=== PATIENT | female | born 1965 | race Caucasian/White ===

== ENCOUNTER 2020-10-05 15:41 | Outpatient (REF) | payer MEDICARE, MEDICAID, SELFPAY ==
--- NOTE | 2020-10-05 | MM_ITS ---
EXAMINATION: MM SCREENING DIGITAL BREAST TOMOSYNTHESIS, BILATERAL CLINICAL INFORMATION: Screening. Asymptomatic. The lifetime risk of breast cancer based on the Tyrer-Cuzick Model is 21%. COMPARISON: Mammography: 02/26/2019, 11/28/2017 TECHNIQUE: Digital breast tomosynthesis is performed in both the craniocaudal and mediolateral oblique views along with computer-aided detection (CAD). Synthesized 2D images are generated from the tomosynthesis. Additional left CC, left MLO, right cleavage, and right MLO views are provided. FINDINGS: The breasts are almost entirely fatty (ACR BI-RADS breast composition Category a). There are no significant masses, abnormal calcifications, or other abnormalities. Again, there are multiple dermal calcifications at the bilateral inferior medial breasts. The axilla are unremarkable. No significant changes. MM/MM tomosynthesis screening BI IMPRESSION: No mammographic evidence of malignancy. ASSESSMENT: BI-RADS 2: Benign RECOMMENDATION: 1. Routine annual mammography screening. 2. The lifetime risk of breast cancer based on the Tyrer-Cuzick Model is 21%. Additional annual adjunct screening with breast MRI may be of benefit in women with a risk score of 20% or greater. This patient's information was entered into a reminder system with a target due date for their next mammogram.
== END 2020-10-05 15:42 | disposition home or self-care (01) ==
LOC: HO.MAMMO 15:41
PROVIDERS: PCP Physician Assistant; Visit Provider Physician Assistant
DX: Z12.31 Encounter for screening mammogram for malignant neoplasm of breast (principal)
CPT/HCPCS: 77063; 77067

== ENCOUNTER 2021-02-06 04:18 | Emergency (ER) | payer MEDICARE, MEDICAID, SELFPAY ==
[2021-02-06 04:24] VITALS: BP 160/70; BP 165/77; PULSE 65; PULSE 74; RESP 20; TEMP 36.5; O2SAT 100; O2SAT 98; BMI 45.1
[2021-02-06 04:43] LABS: MANUAL DIFF FLAG NO
[2021-02-06 04:44] LABS: Basophils Percent Auto 0.1 % (0-2); Eosinophils Percent Auto 0.1 % (0-4); Hematocrit 37.3 % (37-47); Hemoglobin 11.9 g/dl (12.0-16.0); Imm Gran Abs Auto 0.03 X10*3/uL (0.00-0.03); Imm Gran Pct Auto 0.4 % (0.0-0.4); Lymphocytes Absolute Auto 0.7 X10*3/uL (1.2-4.9); Lymphocytes Percent Auto 9.1 % (20-40); Mean Corpuscular HGB Conc 31.9 g/dl (31.0-35.0); Mean Corpuscular Hemoglobin 26.1 pg (27.0-33.0); Mean Corpuscular Volume 81.8 fL (80-98); Mean Platelet Volume 9.8 fL (9.4-12.3); Monocytes Absolute Auto 0.3 X10*3/uL (0.1-1.2); Monocytes Percent Auto 3.4 % (2-11); Neutrophils Absolute Auto 6.9 X10*3/uL (2.0-8.3); Neutrophils Percent Auto 86.9 % (45-73); Platelet Count 193 X10*3/uL (160-400); Red Blood Count 4.56 X10*6/uL (4.20-5.50); Red Cell Distribution Width 12.6 % (11.0-16.0)
--- NOTE | 2021-02-06 04:56 | ED_ITS ---
HPI - Nausea/Vomiting/Diarrhea General Chief complaint: Nausea/Vomiting/Diarrhea Stated complaint: N/V X'S 1 DAY,-COVID SYMPT PER EMS Time Seen by Provider: 02/06/21 04:43 Source: patient Mode of arrival: EMS Limitations: no limitations History of Present Illness HPI Narrative: Patient comes emergency room complaining of vomiting. Patient states that she has abdominal migraines, this time it was triggered by paint fumes coming from a neighbor's apartment. Patient denies headache, states she has vomited approximately 30-40 times. States she has abdominal muscular pain from vomiting and dry heaving. No diarrhea. MD elicited complaint: nausea and vomiting Related Data Previous Rx's Medication Instructions Recorded ondansetron HCl [Zofran] 4 mg PO Q6H PRN #14 tab 02/06/21 Allergies Allergy/AdvReac Type Severity Reaction Status Date / Time No Known Allergies Allergy Unverified 02/06/21 04:29 Review of Systems Review of Systems: Constitutional : No Weight loss, No Fever, No Chills, No Night Sweats, No Fatigue, No Malaise ENT/Mouth : No Hearing loss, No Ear Pain, No Nasal Congestion, No Sinus Pain, No Hoarseness, No sore throat, No Rhinorrhea, No Swallowing Difficulty Eyes: No Eye Pain, No Swelling, No Redness, No Foreign Body, No Discharge, No Vision Changes Cardiovascular : No Chest Pain, No SOB, No Dyspnea on Exertion, No Orthopnea, No Edema, No Palpitations Respiratory : No Cough, No Sputum, No Wheezing, No Smoke Exposure, No Dyspnea Gastrointestinal : Complaining of nausea and vomiting, no diarrhea, no constipation, complaining of muscular pain lower quadrants from vomiting and dry heaving. Denies rectal bleeding, bloody stool or black stool Genitourinary : no irregular bleeding, No Dysuria, No Urinary Frequency, No Hematuria, No Urinary Incontinence, No Urgency, No Flank Pain, No Urinary Flow Changes, No Hesitancy Musculoskeletal : No joint pain, No Myalgias, No Joint Swelling, complaining of chronic back pain but nothing new Skin : No Skin Lesions, No rash Neuro : No Weakness, No Numbness, No Paresthesias, No Loss of Consciousness, No Dizziness, No Headache Psych : No Anxiety/Panic, No Depression, No SI/HI/AH/VH, No Social Issues, Heme/Lymph: No Bruising, No Bleeding,No Lymphadenopathy Endocrine : No Polyuria, No Polydipsia, No Temperature Intolerance PMFSH Past Medical History Medical History DDD (degenerative disc disease) Hyperlipemia Migraines Surgical History H/O thyroidectomy Social History Social History Advance Directives: No Physical Exam Vital Signs: Vital Signs: Last Vital Signs Temp 97.7 F 02/06/21 04:24 Pulse 72 02/06/21 07:24 Resp 16 02/06/21 07:24 BP 119/47 L 02/06/21 07:24 Pulse Ox 95 02/06/21 07:24 Body Mass Index 45.1 Appearance: Alert. Oriented X3. No acute distress. Eyes: Pupils equal, round and reactive to light. ENT: Pharynx normal. Neck: Normal inspection. Neck supple. No lymph nodes noted. No crepitus CVS: Normal heart rate and rhythm. Pulses normal. Normal S1 and S2 Respiratory: No respiratory distress. Breath sounds normal. No Wheezing. No rales Abdomen: Soft and nontender. No rigidity. No distention. Not vomiting at this time Skin: Skin warm and dry. Normal skin color. Normal skin turgor. Extremities: No lower extremity edema. No lower extremity edema. No Lacerations. No Rash Neuro: Oriented X 3. No motor deficit. No sensory deficit. Moving all extermities. No slurred speech. Course Course Course Narrative: Patient states that she feels much better now, not having any headaches/abdominal pain nausea or vomiting. MDM - Nausea/Vomiting/Diarrhea Lab Data Result diagrams: 02/06/21 04:37 02/06/21 04:37 Labs: Lab Results 02/06/21 02/06/21 02/06/21 Range/Units 04:37 04:37 06:42 WBC 8.0 (4.8-10.8) X10*3/uL RBC 4.56 (4.20-5.50) X10*6/uL Hgb 11.9 L (12.0-16.0) g/dl Hct 37.3 (37-47) % MCV 81.8 (80-98) fL MCH 26.1 L (27.0-33.0) pg MCHC 31.9 (31.0-35.0) g/dl RDW 12.6 (11.0-16.0) % Plt Count 193 (160-400) X10*3/uL MPV 9.8 (9.4-12.3) fL Immature Gran % (Auto) 0.4 (0.0-0.4) % Neut % (Auto) 86.9 H (45-73) % Lymph % (Auto) 9.1 L (20-40) % [place] % (Auto) 3.4 (2-11) % Eos % (Auto) 0.1 (0-4) % Baso % (Auto) 0.1 (0-2) % Lymph # (Auto) 0.7 L (1.2-4.9) X10*3/uL [place] # (Auto) 0.3 (0.1-1.2) X10*3/uL Eos # (Auto) 0.0 (0.0-0.4) X10*3/uL Baso # (Auto) 0.0 (0.0-0.2) X10*3/uL Abs Immat Gran (auto) 0.03 (0.00-0.03) X10*3/uL Absolute Neuts (auto) 6.9 (2.0-8.3) X10*3/uL Absolute Nucleated RBC 0.000 (0.0-0.012) X10*3/uL Nucleated RBC % (auto) 0.0 (0.0-0.2) /100WBC Sodium 137 (135-145) mmol/L Potassium 4.2 (3.3-5.1) mmol/L Chloride 102 (96-108) mmol/L Carbon Dioxide 25 (22-29) mmol/L Anion Gap 14 (12-20) BUN 17 H (9-16) mg/dL Creatinine 0.89 (0.5-1.4) mg/dL Estim Creat Clear Calc 99.6 Estimated GFR > 60 Random Glucose 158 H (60-115) mg/dL Calcium 9.2 (8.4-10.2) mg/dL Total Bilirubin 1.2 H (0.0-1.0) mg/dL Direct Bilirubin 0.4 (0.0-0.5) mg/dL AST 27 (5-31) U/L ALT 20 (0-31) U/L Alkaline Phosphatase 73 (39-117) U/L Total Protein 7.3 (6.5-8.0) g/dL Albumin 4.3 (3.5-5.0) g/dL Lipase 20 (8-78) U/L Urine Color YELLOW Urine Appearance HAZY Urine pH 7.5 (5.0-8.0) Ur Specific [place] 1.020 (1.005-1.025) Urine Protein NEG (NEG-TRACE) MG/DL Urine Glucose (UA) NEG (NEG) MG/DL Urine Ketones 5 (NEG) MG/DL Urine Blood NEG (NEG) Urine Nitrite NEG (NEG) Ur Leukocyte Esterase 1+ H (NEG) Urine RBC 0 (0) /HPF Urine WBC 1-4 (0-4) /HPF Ur Squamous Epith Cells TRACE /LPF Urine Bacteria TRACE /LPF Urine Mucus TRACE /LPF Discharge Plan Discharge Clinical Impression: Nausea & vomiting Qualifiers: Vomiting type: unspecified Vomiting Intractability: unspecified Qualified Code(s): R11.2 - Nausea with vomiting, unspecified Patient Disposition: Home, Self-Care Instructions: Acute Nausea and Vomiting (ED) Additional Instructions: Please follow-up with your primary care physician tomorrow. If you have any worsening or new symptoms, please return to the emergency room or call 911 Prescriptions: New ondansetron HCl [Zofran] 4 mg tablet 4 mg PO Q6H PRN (Reason: nausea and vomiting) Qty: 14 RF: 0
[2021-02-06] MEDS: 0.9 % Sodium Chloride 1,000 ML 999 ML IVCONT (05:09)
[2021-02-06] MEDS: Metoclopramide HCl 10 MG/2 ML VIAL IVPUSH (05:10)
[2021-02-06] MEDS: LORazepam 2 MG/ML VIAL 1 MG IVPUSH (05:10)
[2021-02-06] MEDS: diphenhydrAMINE HCL 50 MG/ML VIAL 25 MG IVPUSH (05:10)
[2021-02-06 05:15] LABS: Alanine Aminotransferase 20 U/L (0-31); Albumin Level 4.3 g/dL (3.5-5.0); Alkaline Phosphatase 73 U/L (39-117); Anion Gap 14 (12-20); Aspartate Amino Transferase 27 U/L (5-31); Bilirubin Direct 0.4 mg/dL (0.0-0.5); Bilirubin Total 1.2 mg/dL (0.0-1.0); Blood Urea Nitrogen 17 mg/dL (9-16); Calcium 9.2 mg/dL (8.4-10.2); Carbon Dioxide 25 mmol/L (22-29); Chloride 102 mmol/L (96-108); Creatinine Clr Calc Pharmacy 99.6; Estimated Glomerular Filt Rate > 60; Glucose Random 158 mg/dL (60-115); Lipase 20 U/L (8-78); Potassium 4.2 mmol/L (3.3-5.1); Sodium 137 mmol/L (135-145); Total Protein 7.3 g/dL (6.5-8.0)
[2021-02-06 06:04] VITALS: BP 122/60; PULSE 68; RESP 16; O2SAT 96
--- NOTE | 2021-02-06 06:12 | PC.NURSE ---
PT REPORTS HER LOWER ABDOMINAL PAIN HAS IMPROVED FOLLOWING MEDICATION AND FLUIDS. PT WAKES EASILY WHEN RN WALKS INTO ROOM. PT ASKED 3-4 TIMES WHEN SHE NEEDS TO VOID, TO HIT CALL RAMEY SO WE CAN COLLECT SAMPLE.
[2021-02-06 06:49] LABS: Glucose Urine UA NEG (NEG); Leukocyte Esterase Urine 1+ (NEG); Nitrite Urine NEG (NEG); PH 7.5 (5.0-8.0); UACC Culture Trigger YES; Urine Blood NEG (NEG); Urine Ketones 5 MG/DL (NEG); Urine Protein NEG (NEG-TRACE)
[2021-02-06 06:50] LABS: Appearance Urine HAZY; Color Urine YELLOW
[2021-02-06 06:57] LABS: Bacteria Urine TRACE /LPF; RBC Urine 0 /HPF (0); Squamous Epithelial Cell Urine TRACE /LPF
[2021-02-06 06:58] LABS: Mucus Urine TRACE /LPF
[2021-02-06 07:24] VITALS: BP 119/47; PULSE 72; RESP 16; O2SAT 95
== END 2021-02-06 08:25 | disposition home or self-care (01) ==
PROVIDERS: Emergency Provider Emergency Medicine
DX: R11.2 Nausea with vomiting, unspecified (principal); Z79.899 Other long term (current) drug therapy
CPT/HCPCS: 36415; 80048; 80076; 81001; 81003; 83690; 85025; 87086; 96365; 96375; 99284; J1200; J2060; J2765

== ENCOUNTER 2021-02-21 11:35 | Outpatient (REF) | payer MEDICARE, MEDICAID, SELFPAY ==
[2021-02-21 14:43] LABS: Cholesterol 166 mg/dL; HDL Cholesterol 56 mg/dL; Iron 49 mcg/dL (30-160); LDL Cholesterol Calculated 90 mg/dl; Percent Iron Saturation 13 % (15-50); Total Iron Binding Capacity 372 mcg/dL (228-428); Triglycerides 104 mg/dL; Unsaturated Iron Binding 323 ug/dL
[2021-02-21 15:05] LABS: Free T4 (Free Thyroxine) 1.11 ng/dL (0.71-1.85); Thyroid Stimulating Hormone 1.35 uIU/mL (0.32-4.0)
== END 2021-02-21 11:36 | disposition home or self-care (01) ==
LOC: HO.10HDL 11:35
PROVIDERS: Visit Provider Physician Assistant
DX: D50.9 Iron deficiency anemia, unspecified (principal); Z13.6 Encounter for screening for cardiovascular disorders
CPT/HCPCS: 36415; 80061; 83540; 84439; 84443

== ENCOUNTER 2021-08-07 12:02 | Emergency (ER) | payer MEDICARE, MEDICAID, SELFPAY ==
[2021-08-07 13:20] VITALS: BP 149/92; PULSE 75; RESP 20; TEMP 37.3; O2SAT 97; BMI 42.7
[2021-08-07 13:57] LABS: COVID-19 Test Negative (Negative)
--- NOTE | 2021-08-07 15:34 | ECG_ITS ---
Test Reason : ABDOMINAL PAIN Blood Pressure : / mmHG Vent. Rate : 064 BPM Atrial Rate : 064 BPM P-R Int : 138 ms QRS Dur : 098 ms QT Int : 454 ms P-R-T Axes : 057 045 045 degrees QTc Int : 468 ms Normal sinus rhythm Normal ECG When compared with ECG of 17-AUG-2018 15:50, No significant change was found Referred By: Jessica Pearl Electronically Signed By:MARTITA HAYDEN
--- NOTE | 2021-08-07 15:37 | ED_ITS ---
HPI - General Adult General Chief complaint: General Medical Stated complaint: weakness, feels dehydrated Time Seen by Provider: 08/07/21 15:11 Source: patient Mode of arrival: ambulatory Limitations: no limitations History of Present Illness HPI narrative: 56 yo female with past medical history of abdominal migraines, HLD, anxiety, depression here with complaints of weakness, feeling dehydrated. Patient tells me she is followed by neurology and is on propanolol as a migraine prevention medication. She normally has a migraine once every few months. She tells me 07/31-08/01 she had a typical migraine for which she contributes as being triggered by stress. She had vomiting associated with this which is also typi phuc. RON resolved but has had intermittent nausea since with poor PO intake. Now she is feeling weak, dehydrated and feels she needs some IV fluids. She denies diarrhea. She has had intermittent abdominal pain and some chills but feels this is also related to her migraine. No neck pain, back pain, fevers, urinary symptoms. Also feeling anxious, depressed last few weeks which also is one of her migraine triggers. NO SI. Has a psychiatrist and therapist. Ativan helps her symptoms. Related Data Previous Rx's Medication Instructions Recorded ondansetron HCl 4 mg tablet 4 mg PO Q6H PRN #14 tab 02/06/21 (Zofran) Allergies Allergy/AdvReac Type Severity Reaction Status Date / Time No Known Allergies Allergy Unverified 02/06/21 04:29 Review of Systems Review of Systems: Yes all other systems are reviewed and are negative Constitutional: Constitutional: Reports no additional constitutional complaints, Reports anorexia, Denies body ache(s), Reports chills, Denies fever(s), Reports headache(s) and Reports weakness Eyes: Eyes: Reports no additional eye complaints and Denies change in vision ENT: Reports system reviewed and no additional complaints, except as documented, Denies dizziness, Reports headache(s), Denies nasal congestion, Denies nasal discharge and Denies neck pain Cardiovascular: Cardiovascular: Reports no additional cardiovascular complaints, Denies chest pain, Denies leg edema and Denies dyspnea Respiratory: Respiratory: Reports no additional respiratory complaints, Denies cough and Denies dyspnea Gastrointestinal: Gastrointestinal: Reports no additional gastrointestinal complaints, Reports abdominal pain, Denies diarrhea, Reports nausea and Reports vomiting Genitourinary: Genitourinary: Reports no additional female genitourinary com plaints and Denies urinary incontinence Musculoskeletal: Musculoskeletal: Reports no additional musculoskeletal complaints, Denies back pain, Denies arthralgias, Denies joint swelling, Denies neck pain, Denies numbness and Denies tingling Integumentary/Breasts: Skin/Breast: Reports system reviewed and no additional complaints, except as docu and Denies rash Neurologic: Reports system reviewed and no additional complaints, except as documented, Denies Abnormal speech present, Denies dizziness, Reports headache(s), Denies numbness, Denies tingling and Reports weakness Psychiatric: Psychiatric: Reports anxiety, Reports depression and Denies suicidal ideation [facility] Past Medical History Attestation statement: The following information was validated with the patient. Source: old records reviewed and nursing notes reviewed Medical History Anxiety DDD (degenerative disc disease) Hyperlipemia Migraines OCD (obsessive compulsive disorder) Surgical History H/O thyroidectomy Social History Social History Advance Directives: No Advance Directives Information Provided: No Physical Exam Vital Signs: Vital Signs: Last Vital Signs Temp 97.8 F 08/07/21 19:30 Pulse 94 08/07/21 21:19 Resp 18 08/07/21 21:19 BP 136/86 08/07/21 21:19 Pulse Ox 97 08/07/21 21:19 Body Mass Index 42.7 Const: General: cooperative and anxious Orientation/consciousness: patient oriented x3 Limitations: no limitations HENMT: Head: Yes normal to inspection Ears: hearing grossly normal bilaterally and TM's normal bilaterally General nose exam: Normal external nose present Face and sinus: Yes normal facial exam Mouth: Normal oral and palatal mucosa present (slightly tacky) Throat: Yes posterior oropharynx nor mal, Yes tonsils normal and Yes uvula midline Eyes: General: appearance normal, both eyes and all related structures Pupils: Equal, round and reactive pupils present Neck: Neck: Yes normal visual inspection, Yes full ROM, Yes no lymphadenopathy and Yes no meningeal signs Chest: Chest palpation & inspection: normal inspection of the chest Resp: Effort & Inspection: normal respiratory effort Auscultation: clear to auscultation bilaterally Cardio: Rate: regular rate Rhythm: regular rhythm Peripheral pulses: Peripheral pulses 2+ throughout GI: Inspection: Yes normal to inspection Palpation (GI): Soft to palpation, Tenderness to palpation present (GI) (diffusely tender ) Negative for with no rebound tenderness and no guarding Auscultation: normal bowel sounds Back/Spine/Pelvis: Thoracic/Lumbar Spine: thoracic and lumbar spine normal to inspection Skin: General skin exam: no rashes or lesions noted Neuro: General: patient oriented x3, no meningeal signs, no focal motor deficits and normal sensation to monofilament Cranial nerves: Yes CN's II-XII intact bilaterally, Yes Equal, round and reactive pupils present, Yes Bilaterally intact EOM present, Yes Nystagmus not present, Yes Normal facial strength present and Yes Midline tongue present Cognition (Neuro): normal cognition Speech: No Abnormal speech present Gait exam (Neuro): Normal gait present Motor exam (neuro): 5/5 motor strength present throughout Sensory Exam: Normal double simultaneous stimulation for sensation Extrem: General: Yes normal to inspection, Yes no pedal edema and Yes no calf tenderness Course Course Course Narrative: 56 yo female with past medical history of anxiety, depression, abdominal migraines, HLD here with complaints of migraine RON last week with associated vomiting, now resolved but feeling weak, tired, dehydrated today. Still having some intermittent nausea, decreased appetite, chills, generalized abdominal cramping. Patient tells me all the above symptoms are typical of her abdominal migraines which is triggered by stress/anxiety/depression. When this happens she goes to the ER and gets some IV fluids, ativan and nausea medications and then goes home. on exam HD stable. Mild diffuse AP but no rebound or guarding. Normal neuro exam. Will check labs, UA, COVID screen, EKG. Will give IV fluids, antiemetic, PPI, ativan and re-assess. 1749-labs are unremarkable. Patient is starting to feel improved. She has not voided yet so we will give her an additional 1 L of fluid. 2129-patient is feeling improved. Repeat abdominal exam is benign. No tenderness on exam. No rebound or guarding. Patient is tolerating p.o. with no vomiting. She is now voiding. She would like to be discharged home. Reviewed worrisome signs and symptoms when to return to the emergency department. Comfortable discharge home. Medical Decision Making MDM Narrative Medical decision making narrative: migraine, viral syndrome Medical Records Medical records reviewed: Yes I reviewed the patient's medical records. Lab Data Lab results reviewed: Yes I reviewed the patient's lab results. Result diagrams: 08/07/21 16:47 08/07/21 16:47 Labs: Lab Results 08/07/21 08/07/21 08/07/21 Range/Units 13:29 16:47 16:47 WBC 7.5 (4.8-10.8) X10*3/uL RBC 5.20 (4.20-5.50) X10*6/uL Hgb 13.7 (12.0-16.0) g/dl Hct 42.1 (37-47) % MCV 81.0 (80-98) fL MCH 26.3 L (27.0-33.0) pg MCHC 32.5 (31.0-35.0) g/dl RDW 13.2 (11.0-16.0) % Plt Count 233 (160-400) X10*3/uL MPV 10.3 (9.4-12.3) fL Immature Gran % (Auto) 0.4 (0.0-0.4) % Neut % (Auto) 76.4 H (45-73) % Lymph % (Auto) 14.8 L (20-40) % [place] % (Auto) 7.7 (2-11) % Eos % (Auto) 0.3 (0-4) % Baso % (Auto) 0.4 (0-2) % Lymph # (Auto) 1.1 L (1.2-4.9) X10*3/uL [place] # (Auto) 0.6 (0.1-1.2) X10*3/uL Eos # (Auto) 0.0 (0.0-0.4) X10*3/uL Baso # (Auto) 0.0 (0.0-0.2) X10*3/uL Abs Immat Gran (auto) 0.03 (0.00-0.03) X10*3/uL Absolute Neuts (auto) 5.7 (2.0-8.3) X10*3/uL Absolute Nucleated RBC 0.000 (0.0-0.012) X10*3/uL Nucleated RBC % (auto) 0.0 (0.0-0.2) /100WBC Sodium 141 (135-145) mmol/L Potassium 4.7 (3.3-5.1) mmol/L Chloride 103 (96-108) mmol/L Carbon Dioxide 26 (22-29) mmol/L Anion Gap 17 (12-20) BUN 14 (9-16) mg/dL Creatinine 1.00 (0.5-1.4) mg/dL Estim Creat Clear Calc 84.9 Estimated GFR 58 Random Glucose 81 (60-115) mg/dL Lactic Acid (0.5-2.0) mmol/L Calcium 10.1 D (8.4-10.2) mg/dL Magnesium 2.0 (1.6-2.6) mg/dL Total Bilirubin 1.5 H (0.0-1.0) mg/dL Direct Bilirubin 0.5 (0.0-0.5) mg/dL AST 25 (5-31) U/L ALT 20 (0-31) U/L Alkaline Phosphatase 71 (39-117) U/L Total Creatine Kinase 103 (26-140) U/L Total Protein 7.5 (6.5-8.0) g/dL Albumin 4.4 (3.5-5.0) g/dL Lipase 31 (8-78) U/L Urine Color Urine Appearance Urine pH (5.0-8.0) Ur Specific [place] (1.005-1.025) Urine Protein (NEG-TRACE) MG/DL Urine Glucose (UA) (NEG) MG/DL Urine Ketones (NEG) MG/DL Urine Blood (NEG) Urine Nitrite (NEG) Ur Leukocyte Esterase (NEG) COVID-19 (JACKLYN) Negative (Negative) COVID-19 Clin Com See Note 08/07/21 08/07/21 Range/Units 16:47 19:32 WBC (4.8-10.8) X10*3/uL RBC (4.20-5.50) X10*6/uL Hgb (12.0-16.0) g/dl Hct (37-47) % MCV (80-98) fL MCH (27.0-33.0) pg MCHC (31.0-35.0) g/dl RDW (11.0-16.0) % Plt Count (160-400) X10*3/uL MPV (9.4-12.3) fL Immature Gran % (Auto) (0.0-0.4) % Neut % (Auto) (45-73) % Lymph % (Auto) (20-40) % [place] % (Auto) (2-11) % Eos % (Auto) (0-4) % Baso % (Auto) (0-2) % Lymph # (Auto) (1.2-4.9) X10*3/uL [place] # (Auto) (0.1-1.2) X10*3/uL Eos # (Auto) (0.0-0.4) X10*3/uL Baso # (Auto) (0.0-0.2) X10*3/uL Abs Immat Gran (auto) (0.00-0.03) X10*3/uL Absolute Neuts (auto) (2.0-8.3) X10*3/uL Absolute Nucleated RBC (0.0-0.012) X10*3/uL Nucleated RBC % (auto) (0.0-0.2) /100WBC Sodium (135-145) mmol/L Potassium (3.3-5.1) mmol/L Chloride (96-108) mmol/L Carbon Dioxide (22-29) mmol/L Anion Gap (12-20) BUN (9-16) mg/dL Creatinine (0.5-1.4) mg/dL Estim Creat Clear Calc Estimated GFR Random Glucose (60-115) mg/dL Lactic Acid 0.9 (0.5-2.0) mmol/L Calcium (8.4-10.2) mg/dL Magnesium (1.6-2.6) mg/dL Total Bilirubin (0.0-1.0) mg/dL Direct Bilirubin (0.0-0.5) mg/dL AST (5-31) U/L ALT (0-31) U/L Alkaline Phosphatase (39-117) U/L Total Creatine Kinase (26-140) U/L Total Protein (6.5-8.0) g/dL Albumin (3.5-5.0) g/dL Lipase (8-78) U/L Urine Color YELLOW Urine Appearance HAZY Urine pH 6.0 (5.0-8.0) Ur Specific [place] >= 1.030 H (1.005-1.025) Urine Protein TRACE (NEG-TRACE) MG/DL Urine Glucose (UA) NEG (NEG) MG/DL Urine Ketones 40 (NEG) MG/DL Urine Blood NEG (NEG) Urine Nitrite NEG (NEG) Ur Leukocyte Esterase NEG (NEG) COVID-19 (JACKLYN) (Negative) COVID-19 Clin Com ECG Data Attestation: I personally reviewed and interpreted this ECG as follows: Interpretation: Normal sinus rhythm with a rate of 64, normal MT, normal QRS, normal QT Discharge Plan Discharge Clinical Impression: Anxiety, Migraine, Nausea, Acute dehydration Patient Disposition: Home, Self-Care Instructions: Dehydration (ED), Migraine Headache (ED) Prescriptions: No Action ondansetron HCl [Zofran] 4 mg tablet 4 mg PO Q6H PRN (Reason: nausea and vomiting) Qty: 14 RF: 0 Referrals: Jocelyn Kiran PA [Primary Care Provider] - 2 days Interventions: ED Discharge Assessment Last Done: 08/07/21 21:19 Discharge Date/Time: 08/07/21 21:22
[2021-08-07] MEDS: 0.9 % Sodium Chloride 1,000 ML 999 ML IV ×2 (16:52→17:55)
[2021-08-07] MEDS: Famotidine/PF 20 MG/2 ML VIAL IVPUSH (16:52)
[2021-08-07] MEDS: ondansetron HCL 4 MG/2 ML VIAL IVPUSH (16:52)
[2021-08-07 16:53] LABS: MANUAL DIFF FLAG NO
[2021-08-07] MEDS: LORazepam 2 MG/ML VIAL 1 MG IVPUSH (16:53)
[2021-08-07 16:55] LABS: Basophils Percent Auto 0.4 % (0-2); Eosinophils Percent Auto 0.3 % (0-4); Hematocrit 42.1 % (37-47); Hemoglobin 13.7 g/dl (12.0-16.0); Imm Gran Abs Auto 0.03 X10*3/uL (0.00-0.03); Imm Gran Pct Auto 0.4 % (0.0-0.4); Lymphocytes Absolute Auto 1.1 X10*3/uL (1.2-4.9); Lymphocytes Percent Auto 14.8 % (20-40); Mean Corpuscular HGB Conc 32.5 g/dl (31.0-35.0); Mean Corpuscular Hemoglobin 26.3 pg (27.0-33.0); Mean Platelet Volume 10.3 fL (9.4-12.3); Monocytes Absolute Auto 0.6 X10*3/uL (0.1-1.2); Monocytes Percent Auto 7.7 % (2-11); Neutrophils Absolute Auto 5.7 X10*3/uL (2.0-8.3); Neutrophils Percent Auto 76.4 % (45-73); Platelet Count 233 X10*3/uL (160-400); Red Cell Distribution Width 13.2 % (11.0-16.0); White Blood Count 7.5 X10*3/uL (4.8-10.8)
[2021-08-07 16:57] VITALS: BP 113/62; PULSE 62; RESP 15; O2SAT 95
[2021-08-07 17:09] LABS: Lactic Acid 0.9 mmol/L (0.5-2.0)
[2021-08-07 17:15] LABS: Alanine Aminotransferase 20 U/L (0-31); Albumin Level 4.4 g/dL (3.5-5.0); Alkaline Phosphatase 71 U/L (39-117); Anion Gap 17 (12-20); Aspartate Amino Transferase 25 U/L (5-31); Bilirubin Direct 0.5 mg/dL (0.0-0.5); Bilirubin Total 1.5 mg/dL (0.0-1.0); Blood Urea Nitrogen 14 mg/dL (9-16); Calcium 10.1 mg/dL (8.4-10.2); Carbon Dioxide 26 mmol/L (22-29); Chloride 103 mmol/L (96-108); Creatinine Clr Calc Pharmacy 84.9; Estimated Glomerular Filt Rate 58; Glucose Random 81 mg/dL (60-115); Lipase 31 U/L (8-78); Potassium 4.7 mmol/L (3.3-5.1); Sodium 141 mmol/L (135-145); Total Protein 7.5 g/dL (6.5-8.0)
[2021-08-07 19:00] VITALS: BP 136/40; PULSE 63; RESP 15; TEMP 36.6; O2SAT 99
[2021-08-07 19:30] VITALS: BP 136/40; PULSE 67; RESP 16; TEMP 36.6; O2SAT 97
--- NOTE | 2021-08-07 19:37 | PC.NURSE ---
Pt resting on stretcher in NAD, breathing with ease on RA, VSS. Pt aaox4, offers no complaints of pain/discomfort but reports sometimes my stomach gurgles. Pt denies hunger. Pt ambulates to bathroom with steady gait, able to provide a UA. Per Jessica, WATCH CASER there is no need to bladder scan as pt was able to urinate and bladder scanner unable to be located at this time. Pt returned to bed without incidence. Pt denies n/v/d. Pt UA sent to lab for processing. Stretcher low locked, rails raised, call [place] within reach. Awaiting UA results, dispo pending lab results.
[2021-08-07 19:39] LABS: Appearance Urine HAZY; Color Urine YELLOW; Glucose Urine UA NEG (NEG); Leukocyte Esterase Urine NEG (NEG); Nitrite Urine NEG (NEG); Specific Gravity - Urine >= 1.030 (1.005-1.025); Urine Blood NEG (NEG); Urine Ketones 40 MG/DL (NEG); Urine Protein TRACE MG/DL (NEG-TRACE)
[2021-08-07 21:19] VITALS: BP 136/86; PULSE 94; RESP 18; O2SAT 97
== END 2021-08-07 21:22 | disposition home or self-care (01) ==
PROVIDERS: Nurse Practitioner Family; Emergency Provider Emergency Medicine Emergency Medical Services; PCP Physician Assistant
DX: F41.1 Generalized anxiety disorder (principal); F43.0 Acute stress reaction; G43.909 Migraine, unspecified, not intractable, without status migrainosus; E86.0 Dehydration; R11.0 Nausea; Z79.899 Other long term (current) drug therapy; Z20.822 Contact with and (suspected) exposure to COVID-19
CPT/HCPCS: 36415; 51798; 80048; 80076; 81003; 82550; 83605; 83690; 83735; 85025; 87040; 87635; 93005; 96361; 96374; 96375; 99284; J2060; J2405

== ENCOUNTER 2021-10-27 14:05 | Outpatient (REF) | payer MEDICARE, MEDICAID, SELFPAY ==
--- NOTE | ~2021-10-27 | MM_ITS ---
EXAMINATION: MM SCREENING DIGITAL BREAST TOMOSYNTHESIS, BILATERAL CLINICAL INFORMATION: Screening. Asymptomatic. Family history breast cancer, mother. The lifetime risk of breast cancer based on the Tyrer-Cuzick Model is 20%. COMPARISON: Mammography: 10/05/2020, 02/26/2019 TECHNIQUE: Digital breast tomosynthesis is performed in both the craniocaudal and mediolateral oblique views along with computer-aided detection (CAD). Synthesized 2D images are generated from the tomosynthesis. Additional bilateral CC and additional bilateral MLO views are provided. FINDINGS: The breasts are almost entirely fatty (ACR BI-RADS breast composition Category a). There are no significant masses, abnormal calcifications, or other abnormalities. Multiple dermal calcifications are again noted bilateral inferior medial breasts. There are no significant changes. MM/MM tomosynthesis screening BI IMPRESSION: No mammographic evidence of malignancy. ASSESSMENT: BI-RADS 2: Benign RECOMMENDATION: 1. Routine annual mammography screening. 2. The lifetime risk of breast cancer based on the Tyrer-Cuzick Model is 20%. Additional annual adjunct screening with breast MRI may be of benefit in women with a risk score of 20% or greater. This patient's information was entered into a reminder system with a target due date for their next mammogram.
== END 2021-10-27 14:06 | disposition home or self-care (01) ==
LOC: HO.MAMMO 14:05
PROVIDERS: PCP Physician Assistant; Visit Provider Physician Assistant
DX: Z12.31 Encounter for screening mammogram for malignant neoplasm of breast (principal)
CPT/HCPCS: 77063; 77067

== ENCOUNTER 2022-02-23 18:25 | Emergency (ER) | payer MEDICARE, MEDICAID, SELFPAY ==
--- NOTE | ~2022-02-23 | CT_ITS ---
EXAMINATION: CT HEAD WITHOUT CONTRAST CLINICAL INFORMATION: Severe headache COMPARISON: CT head 08/11/2018 TECHNIQUE: Contiguous axial imaging was performed from the skull base to vertex without intravenous administration of contrast. Coronal and sagittal reformatted images are performed at the CT scanner. [This CT examination was performed using dose optimization techniques as appropriate, variously including the following: *Automated exposure control *Adjustment of mA and/or kV according to patient size (this includes techniques or standardized protocols for targeted exams where dose is matched to indication/reason for exam; i.e. extremities or head) *Use of iterative reconstruction technique] DLP: 5.12+680.86 mGy-cm. FINDINGS: There is no evidence of acute intracranial hemorrhage or territorial infarction. No abnormal mass-effect or midline shift is seen. Ferreira to white matter differentiation is well preserved. No extra-axial fluid collections are identified. The ventricles are normal in size. There is no abnormal attenuation within the brain parenchyma. There is no osseous abnormality. The mastoid air cells and visualized portions of the paranasal sinuses are well-aerated. CT/CT head/brain wo con IMPRESSION: No acute intracranial pathology.
--- NOTE | ~2022-02-23 | CT_ITS ---
EXAMINATION: CT CHEST, ABDOMEN AND PELVIS WITH CONTRAST CLINICAL INFORMATION: Cough, left lower quadrant pain COMPARISON: None TECHNIQUE: Multidetector volumetric imaging was performed of the chest, abdomen and pelvis following administration of 100 mL Omnipaque 300 intravenous contrast. Oral contrast was administered. Sagittal and coronal reformatted images were obtained on the technologist's workstation. This CT examination was performed using dose optimization techniques as appropriate, variously including the following: *Automated exposure control *Adjustment of mA and/or kV according to patient size (this includes techniques or standardized protocols for targeted exams where dose is matched to indication/reason for exam; i.e. extremities or head) *Use of iterative reconstruction technique DLP: 1677.77 mGy-cm FINDINGS: CHEST WALL: Unremarkable. ABDOMINAL AND PELVIC WALL: Unremarkable. AXILLA: No lymphadenopathy. MEDIASTINUM: Heart is normal in size. No mediastinal lymphadenopathy. No hilar lymphadenopathy. Status post thyroidectomy. PLEURA: There is no pleural effusion. LIVER AND BILIARY TREE: Unremarkable. GALLBLADDER: Unremarkable PANCREAS: There is infiltrative low attenuation noted in the neck, head, and pancreatic uncinate process of the pancreas. SPLEEN: Unremarkable ADRENAL GLANDS: Unremarkable. KIDNEYS AND URETERS: Benign appearing peripelvic left renal cysts. UPPER GASTROINTESTINAL TRACT: Small hiatal hernia. VASCULAR: Unremarkable. ABDOMINOPELVIC LYMPH NODES: No lymphadenopathy. FREE FLUID: No free fluid. BLADDER: Unremarkable PELVIC VISCERA: Unremarkable LOWER GASTROINTESTINAL TRACT: Large and small bowel are unremarkable. Colonic diverticulosis without evidence of diverticulitis. Normal appendix. OSSEOUS STRUCTURES: Unremarkable. LUNGS: Left lower lobe pulmonary micronodule, 19:294. CT/CT abdomen pelvis w con IMPRESSION: There is infiltrative low attenuation noted in the neck, head, and pancreatic uncinate process of the pancreas and while possibly reflective of infiltrative fatty atrophy, an MR abdomen with and without contrast is recommended to ensure no underlying pancreatic mass. A left lower lobe pulmonary micronodule. Assuming patient has no known history of malignancy, recommend follow-up per Fleischner Society recommendations. According to the UPDATED 2017 Fleischner Society recommendations, the advised followup imaging for solid nodules < 6 mm is: LOW RISK PATIENT: No routine follow up. HIGH RISK PATIENT: Optional CT at 12 months.
--- NOTE | 2022-02-23 18:33 | ED.HA ---
HPI - Headache General Chief Complaint: Headache Stated Complaint: nausea, migraine, cant hold anything down Time Seen by Provider: 02/23/22 18:32 Source: patient Mode of arrival: ambulatory Limitations: no limitations History of Present Illness HPI Narrative: This is a 56-year-old female past medical history significant for abdominal migraines, hyperlipidemia, anxiety, depression, morbid obesity presenting to the emergency department with body aches, weakness, feeling dehydrated, nausea, cough, severe migraine times 3 days worsening. Patient tells me that she has been feeling so weak that she has not gotten out of bed much she tells me she has only been getting out of bed to go to the bathroom. She reports that she has been having a diffuse migraine that is severe in nature, does not feel like her typical. Not accompanied by vision changes or dizziness. She also reports nausea she tells me that she is coughing up/vomiting sputum. She also reports anorexia and tells me she has not been eating or drinking much. She denies chest pain, shortness of breath, vision changes, dizziness, head trauma. MD elicited complaint: headache and migraine Onset (ago): day(s) (3) Onset description: gradually Location: diffuse Severity: severe Exacerbating factors: none Relieving factors: nothing Associated symptoms: none Treatments prior to arrival: none Related Data Previous Rx's Medication Instructions Recorded ondansetron HCl 4 mg tablet 4 mg PO Q6H PRN #14 tab 02/06/21 (Zofran) ondansetron 4 mg disintegrating 4 mg PO ONCE PRN #10 tab 02/23/22 tablet Allergies Allergy/AdvReac Type Severity Reaction Status Date / Time No Known Allergies Allergy Unverified 02/06/21 04:29 Review of Systems Review of Systems: Constitutional : No Weight loss, No Fever, No Chills, No Fatigue, No Malaise ENT/Mouth : No sore throat, No Rhinorrhea Eyes: No Eye Pain, No Swelling, No Redness Cardiovascular : No Chest Pain, No SOB, No Dyspnea on Exertion, No Orthopnea, No Edema, No Palpitations Respiratory : No Cough, No Sputum, No Wheezing Gastrointestinal : + Nausea, + Vomiting, No Diarrhea, No Constipation, No abdominal Pain, No Hematochezia, No Melena Genitourinary : No Dysuria, No Urinary Frequency, No Hematuria, Musculoskeletal : No joint pain, No Myalgias, No Joint Swelling Skin : No Skin Lesions, No rash Neuro : No Weakness, No Numbness, No Dizziness, + Headache Psych : No Anxiety/Panic, No Depression All other systems reviewed and are negative [facility] Past Medical History Attestation statement: The following information was validated with the patient. Source: old records reviewed and nursing notes reviewed Medical History Anxiety DDD (degenerative disc disease) Hyperlipemia Migraines OCD (obsessive compulsive disorder) Surgical History H/O thyroidectomy Social History Social History Advance Directives: No Advance Directives Information Provided: No Patient : No Physical Exam Vital Signs: Vital Signs: Last Vital Signs Temp 98.2 F 02/23/22 19:09 Pulse 76 02/23/22 21:07 Resp 16 02/23/22 21:07 BP 136/53 L 02/23/22 21:07 Pulse Ox 96 02/23/22 21:07 BMI result Body Mass Index 43.8 Vital signs stable Appearance: Alert.? Oriented X3.? No acute distress.? Head: Normocephalic, atraumatic, no step-offs or deformities Eyes: Pupils equal, round and reactive to light.? Extraocular movements intact. ENT: Pharynx normal.? Neck: Normal inspection.? Neck supple.? CVS: Normal heart rate and rhythm.? Pulses normal.? Respiratory: No respiratory distress.? Breath sounds normal.? Abdomen: Soft and nontender.? Skin: Skin warm and dry.? Normal skin color.? Normal skin turgor.? Extremities: No lower extremity edema.? No calf ttp. 5/5 strength to bilateral upper and lower extremities Back: No midline tenderness, no C-spine tenderness, full range of motion, no CVA tenderness bilaterally Neuro: Oriented X 3.? No motor deficit.? No sensory deficit. CN 2-12 intact . Normal sujksr-so-oeuw, odkd-gq-ycys. Course Reevaluation(s) Reevaluation #1: Patient noted to have a slight leukopenia. No acute electrolyte abnormalities requiring intervention. Transaminases slightly elevated. Patient negative for influenza. CT of the head with no intracranial hemorrhage or infarction. No acute findings. CT of the chest abdomen pelvis with infiltrate of low attenuation noted in the neck head and pancreatic uncinate process could reflect infiltrative fatty atrophy however an MR of the abdomen with and without contrast is recommended to ensure no underlying pancreatic masses are present. And a left lower lobe pulmonary micronodule was noted. Urine clean. Chest x-ray not consistent with pneumonia. Patient's cough could be secondary to bronchitis. Headache is likely a migraine/headache unlikely ICH as it was not seen on imaging. Patient also denies dizziness, vision changes. Cerebellar function intact unlikely posterior stroke. Patient's nausea resolved Zofran. Patient's weakness could be secondary to physical deconditioning. Time: 23:12 Reevaluation #2: Her toxicology negative. Time: 23:29 Reevaluation #3: Patient tells me she is feeling better. And she would like to go home. No acute findings on lab work, imaging. I advised her to follow-up with her PCP regarding CT findings on abdomen and pelvis to rule out a mass in the pancreas. Patient denies all constitutional symptoms such as fevers, chills, weight loss, fatigue. I also informed her of the micro nodule. At this time patient will be discharged home with PCP follow-up. Her vital signs are stable. This could be a viral illness. Comfortable with discharge home with PCP follow-up. Time: 00:13 MDM - Headache MDM Narrative Medical decision making narrative: [id number] 56 old female presents with severe migraine, anorexia, nausea, nausea and productive cough x3 days worsening Physical exam benign. Neuro nonfocal. Regular rate rhythm. Lungs clear. Abdomen soft nontender nondistended. Cerebellar function intact normal ghiztz-ws-nobz, wxbo-az-pxzf, normal tandem gait. History and physical examination not consistent with ICH, posterior infarct, stroke. No signs of increased intracranial pressure. Will also rule out pneumonia and intra-abdominal etiologies. Plan at this time is labs, imaging. Will rule out electrolyte abnormalities, ICH. Medical Records Attestation: I reviewed the patient's medical records. Lab Data Attestation: I reviewed the patient's lab results. Result diagrams: 02/23/22 19:34 02/23/22 19:34 Labs: Lab Results 04/08/22 04/08/22 04/08/22 Range/Units 19:34 19:34 19:34 WBC 3.3 L (4.8-10.8) X10*3/uL RBC 5.16 (4.20-5.50) X10*6/uL Hgb 13.3 (12.0-16.0) g/dl Hct 41.4 (37.0-47.0) % MCV 80.2 (80.0-98.0) fL MCH 25.8 L (27.0-33.0) pg MCHC 32.1 (31.0-35.0) g/dl RDW 13.6 (11.0-16.0) % Plt Count 149 L (160-400) X10*3/uL MPV 9.6 (9.4-12.3) fL Immature Gran % (Auto) 0.3 (0.0-0.4) % Neut % (Auto) 64.3 (45-73) % Lymph % (Auto) 21.6 (20-40) % [place] % (Auto) 13.8 H (2-11) % Eos % (Auto) 0.0 (0-4) % Baso % (Auto) 0.0 (0-2) % Lymph # (Auto) 0.7 L (1.2-4.9) X10*3/uL [place] # (Auto) 0.5 (0.1-1.2) X10*3/uL Eos # (Auto) 0.0 (0.0-0.4) X10*3/uL Baso # (Auto) 0.0 (0.0-0.2) X10*3/uL Abs Immat Gran (auto) 0.01 (0.00-0.03) X10*3/uL Absolute Neuts (auto) 2.1 (2.0-8.3) x10*3/uL Absolute Nucleated RBC 0.000 (0.0-0.012) X10*3/uL Nucleated RBC % (auto) 0.0 (0.0-0.2) /100WBC Sodium 137 (135-145) mmol/L Potassium 4.0 (3.3-5.1) mmol/L Chloride 100 (96-108) mmol/L Carbon Dioxide 25 (22-29) mmol/L Anion Gap 16 (12-20) BUN 14 (9-16) mg/dL Creatinine 0.84 (0.5-1.4) mg/dL Estim Creat Clear Calc 99.0 Estimated GFR > 60 Random Glucose 83 (60-115) mg/dL Calcium 8.8 D (8.4-10.2) mg/dL Magnesium 2.2 (1.6-2.6) mg/dL Total Bilirubin 0.8 (0.0-1.0) mg/dL AST 43 H D (5-31) U/L ALT 36 H (0-31) U/L Alkaline Phosphatase 76 (39-117) U/L Total Protein 7.5 (6.5-8.0) g/dL Albumin 4.2 (3.5-5.0) g/dL Urine Color Urine Appearance Urine pH (5.0-8.0) Ur Specific [place] (1.005-1.025) Urine Protein (NEG-TRACE) MG/DL Urine Glucose (UA) (NEG) MG/DL Urine Ketones (NEG) MG/DL Urine Blood (NEG) Urine Nitrite (NEG) Ur Leukocyte Esterase (NEG) Urine Opiates Screen (Not Detect) Urine Fentanyl Screen (Not Detect) Ur Barbiturates Screen (Not Detect) Ur Phencyclidine Scrn (Not Detect) Ur Amphetamines Screen (Not Detect) U Benzodiazepines Scrn (Not Detect) Urine Cocaine Screen (Not Detect) U Marijuana (THC) Screen (Not Detect) Influenza Type A (MELINDA) Negative (Negative) Influenza Type B (MELINDA) Negative (Negative) Influenza A & B Note See Note 02/23/22 02/23/22 Range/Units 22:49 22:49 WBC (4.8-10.8) X10*3/uL RBC (4.20-5.50) X10*6/uL Hgb (12.0-16.0) g/dl Hct (37.0-47.0) % MCV (80.0-98.0) fL MCH (27.0-33.0) pg MCHC (31.0-35.0) g/dl RDW (11.0-16.0) % Plt Count (160-400) X10*3/uL MPV (9.4-12.3) fL Immature Gran % (Auto) (0.0-0.4) % Neut % (Auto) (45-73) % Lymph % (Auto) (20-40) % [place] % (Auto) (2-11) % Eos % (Auto) (0-4) % Baso % (Auto) (0-2) % Lymph # (Auto) (1.2-4.9) X10*3/uL [place] # (Auto) (0.1-1.2) X10*3/uL Eos # (Auto) (0.0-0.4) X10*3/uL Baso # (Auto) (0.0-0.2) X10*3/uL Abs Immat Gran (auto) (0.00-0.03) X10*3/uL Absolute Neuts (auto) (2.0-8.3) x10*3/uL Absolute Nucleated RBC (0.0-0.012) X10*3/uL Nucleated RBC % (auto) (0.0-0.2) /100WBC Sodium (135-145) mmol/L Potassium (3.3-5.1) mmol/L Chloride (96-108) mmol/L Carbon Dioxide (22-29) mmol/L Anion Gap (12-20) BUN (9-16) mg/dL Creatinine (0.5-1.4) mg/dL Estim Creat Clear Calc Estimated GFR Random Glucose (60-115) mg/dL Calcium (8.4-10.2) mg/dL Magnesium (1.6-2.6) mg/dL Total Bilirubin (0.0-1.0) mg/dL AST (5-31) U/L ALT (0-31) U/L Alkaline Phosphatase (39-117) U/L Total Protein (6.5-8.0) g/dL Albumin (3.5-5.0) g/dL Urine Color YELLOW Urine Appearance CLEAR Urine pH 5.5 (5.0-8.0) Ur Specific [place] 1.020 (1.005-1.025) Urine Protein NEG (NEG-TRACE) MG/DL Urine Glucose (UA) NEG (NEG) MG/DL Urine Ketones 40 (NEG) MG/DL Urine Blood NEG (NEG) Urine Nitrite NEG (NEG) Ur Leukocyte Esterase NEG (NEG) Urine Opiates Screen Not Detected (Not Detect) Urine Fentanyl Screen Not Detected (Not Detect) Ur Barbiturates Screen Not Detected (Not Detect) Ur Phencyclidine Scrn Not Detected (Not Detect) Ur Amphetamines Screen Not Detected (Not Detect) U Benzodiazepines Scrn Not Detected (Not Detect) Urine Cocaine Screen Not Detected (Not Detect) U Marijuana (THC) Screen Not Detected (Not Detect) Influenza Type A (MELINDA) (Negative) Influenza Type B (MELINDA) (Negative) Influenza A & B Note Critical Care Time Critical Care Time Critical Care Time: No Discharge Plan Discharge Clinical Impression: Headache, Physical deconditioning, Nausea, Cough, Viral illness Patient Disposition: Home, Self-Care Instructions: Acute Headache (ED), Acute Nausea and Vomiting (ED), Acute Cough (ED) Additional Instructions: Take your medications as prescribed. If you were prescribed antibiotics today, it is important that you take your medication to their entirety, do not skip any doses, do not finish them early. Follow-up with your primary care provider this week. Return to the emergency department with new or worsening symptoms. Such as fevers, chills, chest pain, shortness of breath, nausea, vomiting, dizziness, headache, vision changes, lethargy In case of emergency call 911 Your workup was reassuring. Your head CT was normal. Your labs were also reassuring and there is no acute abnormalities that required intervention. You were negative for the flu. Prescriptions: New ondansetron 4 mg tablet,disintegrating 4 mg PO ONCE PRN (Reason: nausea and vomiting) Qty: 10 0RF No Action ondansetron HCl [Zofran] 4 mg tablet 4 mg PO Q6H PRN (Reason: nausea and vomiting) Qty: 14 0RF Referrals: Jocelyn Kiran PA [Primary Care Provider] - Stand Alone Forms: Work/School Release
[2022-02-23 18:36] VITALS: BP 153/111; PULSE 74; RESP 18; TEMP 36.8; O2SAT 96
[2022-02-23 19:09] VITALS: BP 153/111; BP 158/98; PULSE 83; RESP 18; TEMP 36.8; O2SAT 98; BMI 43.8
[2022-02-23] MEDS: ondansetron HCL 4 MG/2 ML VIAL IVPUSH (19:39)
[2022-02-23] MEDS: 0.9 % Sodium Chloride 1,000 ML 999 ML IV ×2 (19:39→21:30)
[2022-02-23 19:41] LABS: Hematocrit 41.4 % (37.0-47.0); Hemoglobin 13.3 g/dl (12.0-16.0); Imm Gran Abs Auto 0.01 X10*3/uL (0.00-0.03); Imm Gran Pct Auto 0.3 % (0.0-0.4); Lymphocytes Absolute Auto 0.7 X10*3/uL (1.2-4.9); Lymphocytes Percent Auto 21.6 % (20-40); MANUAL DIFF FLAG NO; Mean Corpuscular HGB Conc 32.1 g/dl (31.0-35.0); Mean Corpuscular Hemoglobin 25.8 pg (27.0-33.0); Mean Corpuscular Volume 80.2 fL (80.0-98.0); Mean Platelet Volume 9.6 fL (9.4-12.3); Monocytes Absolute Auto 0.5 X10*3/uL (0.1-1.2); Monocytes Percent Auto 13.8 % (2-11); Neutrophils Absolute Auto 2.1 x10*3/uL (2.0-8.3); Neutrophils Percent Auto 64.3 % (45-73); Platelet Count 149 X10*3/uL (160-400); Red Blood Count 5.16 X10*6/uL (4.20-5.50); Red Cell Distribution Width 13.6 % (11.0-16.0); White Blood Count 3.3 X10*3/uL (4.8-10.8)
[2022-02-23 19:57] LABS: Influenza A Negative (Negative); Influenza B2 Negative (Negative)
[2022-02-23 19:58] LABS: Alanine Aminotransferase 36 U/L (0-31); Albumin Level 4.2 g/dL (3.5-5.0); Alkaline Phosphatase 76 U/L (39-117); Anion Gap 16 (12-20); Aspartate Amino Transferase 43 U/L (5-31); Bilirubin Total 0.8 mg/dL (0.0-1.0); Blood Urea Nitrogen 14 mg/dL (9-16); Calcium 8.8 mg/dL (8.4-10.2); Carbon Dioxide 25 mmol/L (22-29); Chloride 100 mmol/L (96-108); Estimated Glomerular Filt Rate > 60; Glucose Random 83 mg/dL (60-115); Magnesium 2.2 mg/dL (1.6-2.6); Sodium 137 mmol/L (135-145); Total Protein 7.5 g/dL (6.5-8.0)
[2022-02-23] MEDS: LORazepam 2 MG/ML VIAL 0.25 MG IVPUSH (20:16)
[2022-02-23] MEDS: iohexoL 350 MG/ML 100 ML INFUS..BTL IV (20:46)
[2022-02-23 21:07] VITALS: BP 136/53; PULSE 76; RESP 16; O2SAT 96
[2022-02-23] MEDS: diphenhydrAMINE HCL 25 MG TABLET 50 MG PO (21:30)
[2022-02-23 23:03] LABS: Appearance Urine CLEAR; Color Urine YELLOW; Glucose Urine UA NEG (NEG); Leukocyte Esterase Urine NEG (NEG); Nitrite Urine NEG (NEG); PH 5.5 (5.0-8.0); Urine Blood NEG (NEG); Urine Ketones 40 MG/DL (NEG); Urine Protein NEG (NEG-TRACE)
[2022-02-23 23:16] LABS: Amphetamine Screen Urine Not Detected (Not Detect); Barbiturates, Urine Not Detected (Not Detect); Benzodiazepines Screen Urine Not Detected (Not Detect); Cannabinoid Screen Urine Not Detected (Not Detect); Cocaine Screen Urine Not Detected (Not Detect); Fentanyl, urine Not Detected (Not Detect); Opiate Screen Urine Not Detected (Not Detect); Phencyclidine Screen Urine Not Detected (Not Detect)
[2022-02-24 00:39] VITALS: BP 147/65; PULSE 70; RESP 16; O2SAT 95
== END 2022-02-24 01:15 | disposition home or self-care (01) ==
PROVIDERS: Physician Assistant; Emergency Provider Emergency Medicine; PCP Physician Assistant
DX: B34.9 Viral infection, unspecified (principal); G43.909 Migraine, unspecified, not intractable, without status migrainosus; R11.0 Nausea; R50.9 Fever, unspecified; Z20.822 Contact with and (suspected) exposure to COVID-19; Z79.899 Other long term (current) drug therapy
CPT/HCPCS: 36415; 70450; 71260; 74177; 80053; 80307; 81003; 83735; 85025; 87502; 96361; 96374; 96375; 99283; 99284; J2060; J2405; Q0163; Q9967

== ENCOUNTER 2022-02-26 11:51 | Emergency (ER) | payer MEDICARE, MEDICAID, SELFPAY ==
[2022-02-26 11:58] VITALS: BP 150/88; PULSE 67; O2SAT 98
[2022-02-26 12:37] VITALS: BP 141/100; PULSE 109; RESP 19; TEMP 36.8; O2SAT 98
--- NOTE | 2022-02-26 12:44 | ECG_ITS ---
Test Reason : WEAKNESS Blood Pressure : / mmHG Vent. Rate : 099 BPM Atrial Rate : 099 BPM P-R Int : 116 ms QRS Dur : 088 ms QT Int : 370 ms P-R-T Axes : 048 040 035 degrees QTc Int : 474 ms Normal sinus rhythm Normal ECG When compared with ECG of 07-AUG-2021 16:05, Vent. rate has increased BY 35 BPM T wave amplitude has increased in Anterolateral leads Referred By: Generic ED Physician Electronically Signed By:Stanley Peralta
[2022-02-26 13:10] LABS: MANUAL DIFF FLAG NO
[2022-02-26 13:11] LABS: Basophils Percent Auto 0.2 % (0-2); Eosinophils Percent Auto 0.2 % (0-4); Hematocrit 45.7 % (37.0-47.0); Hemoglobin 15.1 g/dl (12.0-16.0); Imm Gran Abs Auto 0.01 X10*3/uL (0.00-0.03); Imm Gran Pct Auto 0.2 % (0.0-0.4); Lymphocytes Absolute Auto 1.1 X10*3/uL (1.2-4.9); Lymphocytes Percent Auto 22.4 % (20-40); Mean Corpuscular Hemoglobin 25.7 pg (27.0-33.0); Mean Corpuscular Volume 77.7 fL (80.0-98.0); Mean Platelet Volume 9.9 fL (9.4-12.3); Monocytes Absolute Auto 0.4 X10*3/uL (0.1-1.2); Monocytes Percent Auto 8.7 % (2-11); Neutrophils Absolute Auto 3.3 x10*3/uL (2.0-8.3); Neutrophils Percent Auto 68.3 % (45-73); Platelet Count 221 X10*3/uL (160-400); Red Blood Count 5.88 X10*6/uL (4.20-5.50); Red Cell Distribution Width 13.3 % (11.0-16.0); White Blood Count 4.8 X10*3/uL (4.8-10.8)
[2022-02-26 13:32] LABS: Alanine Aminotransferase 27 U/L (0-31); Albumin Level 4.5 g/dL (3.5-5.0); Alkaline Phosphatase 67 U/L (39-117); Anion Gap 24 (12-20); Aspartate Amino Transferase 32 U/L (5-31); Bilirubin Direct 0.4 mg/dL (0.0-0.5); Blood Urea Nitrogen 13 mg/dL (9-16); Calcium 9.9 mg/dL (8.4-10.2); Carbon Dioxide 15 mmol/L (22-29); Chloride 102 mmol/L (96-108); Creatinine Clr Calc Pharmacy 138.1; Estimated Glomerular Filt Rate > 60; Glucose Random 124 mg/dL (60-115); Lipase 41 U/L (8-78); Sodium 137 mmol/L (135-145)
[2022-02-26 13:51] LABS: Influenza A PCR NEGATIVE (Negative); Influenza B PCR NEGATIVE (Negative); Resp Syncy Virus RNA Qual PCR NEGATIVE (Negative); SARS COV2 PCR INHOUSE POSITIVE (Negative)
[2022-02-26 14:33] VITALS: BP 132/59; PULSE 113; RESP 22; TEMP 36.8; O2SAT 98
[2022-02-26 14:37] LABS: Glucose, Whole Blood 236 mg/dL (60-115)
--- NOTE | 2022-02-26 16:20 | ED_ITS ---
HPI - Nausea/Vomiting/Diarrhea General Chief complaint: Nausea/Vomiting/Diarrhea Stated complaint: NAUSEA/VOMITING,SEEN RECENTLY FOR SAME PER EMS Time Seen by Provider: 02/26/22 14:50 Source: patient Mode of arrival: ambulatory Limitations: no limitations History of Present Illness HPI Narrative: Patient comes to the emergency room complaining of these days of nausea and vomiting. Patient reports respiratory congestion, denies shortness of breath, complaining of coughing. Patient was in the ED waiting room, having a full-blown panic attack, screaming. Patient was brought back to the ED, patient quickly calmed down. Related Data Previous Rx's Medication Instructions Recorded ondansetron HCl 4 mg tablet 4 mg PO Q6H PRN #14 tab 02/06/21 (Zofran) ondansetron 4 mg disintegrating 4 mg PO ONCE PRN #10 tab 02/23/22 tablet ibuprofen 600 mg tablet 600 mg PO TID PRN #20 tab 02/26/22 ondansetron HCl 4 mg tablet 4 mg PO Q6H PRN #14 tab 02/26/22 Allergies Allergy/AdvReac Type Severity Reaction Status Date / Time No Known Allergies Allergy Unverified 02/06/21 04:29 Review of Systems Review of Systems: Constitutional : No Weight loss, No Fever, No Chills, No Night Sweats, complaining of fatigue and generalized malaise ENT/Mouth : No Hearing loss, No Ear Pain, No Nasal Congestion, No Sinus Pain, No Hoarseness, No sore throat, No Rhinorrhea, No Swallowing Difficulty Eyes: No Eye Pain, No Swelling, No Redness, No Foreign Body, No Discharge, No Vision Changes Cardiovascular : No Chest Pain, No SOB, No Dyspnea on Exertion, No Orthopnea, No Edema, No Palpitations Respiratory : Complaining of cough, no dyspnea Gastrointestinal : Complaining of nausea and vomiting, No Diarrhea, No Constipation, No abdominal Pain, No Hematochezia, No Melena Genitourinary : no irregular bleeding, No Dysuria, No Urinary Frequency, No Hematuria, No Urinary Incontinence, No Urgency, No Flank Pain, No Urinary Flow Changes, No Hesitancy Musculoskeletal : No joint pain, No Myalgias, No Joint Swelling Skin : No Skin Lesions, No rash Neuro : No Weakness, No Numbness, No Paresthesias, No Loss of Consciousness, No Dizziness, No Headache Psych : No Anxiety/Panic, No Depression, No SI/HI/AH/VH, No Social Issues, Heme/Lymph: No Bruising, No Bleeding,No Lymphadenopathy Endocrine : No Polyuria, No Polydipsia, No Temperature Intolerance [facility] Past Medical History Medical History Anxiety DDD (degenerative disc disease) Hyperlipemia Migraines OCD (obsessive compulsive disorder) Surgical History H/O thyroidectomy Social History Social History Advance Directives: No Advance Directives Information Provided: No Physical Exam Vital Signs: Vital Signs: Last Vital Signs Temp 98.2 F 02/26/22 16:58 Pulse 79 02/26/22 18:59 Resp 18 02/26/22 18:59 BP 134/64 02/26/22 18:59 Pulse Ox 97 02/26/22 18:59 BMI result Body Mass Index 0.4 Course Course Course Narrative: I discussed with the patient she tested positive for COVID-19. Patient is not immunized. Patient is getting IV fluids, Zofran for symptomatic relief. Patient has no respiratory distress. Patient received IV fluids, lorazepam, Zofran, ibuprofen. MDM - Nausea/Vomiting/Diarrhea Lab Data Result diagrams: 02/26/22 13:02 02/26/22 13:02 Labs: Lab Results 02/26/22 02/26/22 02/26/22 Range/Units 13:02 13:02 13:02 WBC 4.8 (4.8-10.8) X10*3/uL RBC 5.88 H (4.20-5.50) X10*6/uL Hgb 15.1 (12.0-16.0) g/dl Hct 45.7 (37.0-47.0) % MCV 77.7 L (80.0-98.0) fL MCH 25.7 L (27.0-33.0) pg MCHC 33.0 (31.0-35.0) g/dl RDW 13.3 (11.0-16.0) % Plt Count 221 D (160-400) X10*3/uL MPV 9.9 (9.4-12.3) fL Immature Gran % (Auto) 0.2 (0.0-0.4) % Neut % (Auto) 68.3 (45-73) % Lymph % (Auto) 22.4 (20-40) % [place] % (Auto) 8.7 (2-11) % Eos % (Auto) 0.2 (0-4) % Baso % (Auto) 0.2 (0-2) % Lymph # (Auto) 1.1 L (1.2-4.9) X10*3/uL [place] # (Auto) 0.4 (0.1-1.2) X10*3/uL Eos # (Auto) 0.0 (0.0-0.4) X10*3/uL Baso # (Auto) 0.0 (0.0-0.2) X10*3/uL Abs Immat Gran (auto) 0.01 (0.00-0.03) X10*3/uL Absolute Neuts (auto) 3.3 (2.0-8.3) x10*3/uL Absolute Nucleated RBC 0.000 (0.0-0.012) X10*3/uL Nucleated RBC % (auto) 0.0 (0.0-0.2) /100WBC Sodium 137 (135-145) mmol/L Potassium 4.0 (3.3-5.1) mmol/L Chloride 102 (96-108) mmol/L Carbon Dioxide 15 L (22-29) mmol/L Anion Gap 24 H (12-20) BUN 13 (9-16) mg/dL Creatinine 0.90 (0.5-1.4) mg/dL Estim Creat Clear Calc 138.1 Estimated GFR > 60 POC Glucose (60-115) mg/dL Random Glucose 124 H (60-115) mg/dL Calcium 9.9 D (8.4-10.2) mg/dL Total Bilirubin 1.0 (0.0-1.0) mg/dL Direct Bilirubin 0.4 (0.0-0.5) mg/dL AST 32 H (5-31) U/L ALT 27 (0-31) U/L Alkaline Phosphatase 67 (39-117) U/L Total Protein 8.0 (6.5-8.0) g/dL Albumin 4.5 (3.5-5.0) g/dL Lipase 41 (8-78) U/L Influenza Type A (PCR) NEGATIVE (Negative) Influenza Type B (PCR) NEGATIVE (Negative) RSV RNA Qual (PCR) NEGATIVE (Negative) SARS-CoV-2 RNA (RT-PCR) POSITIVE A (Negative) 02/26/22 Range/Units 14:25 WBC (4.8-10.8) X10*3/uL RBC (4.20-5.50) X10*6/uL Hgb (12.0-16.0) g/dl Hct (37.0-47.0) % MCV (80.0-98.0) fL MCH (27.0-33.0) pg MCHC (31.0-35.0) g/dl RDW (11.0-16.0) % Plt Count (160-400) X10*3/uL MPV (9.4-12.3) fL Immature Gran % (Auto) (0.0-0.4) % Neut % (Auto) (45-73) % Lymph % (Auto) (20-40) % [place] % (Auto) (2-11) % Eos % (Auto) (0-4) % Baso % (Auto) (0-2) % Lymph # (Auto) (1.2-4.9) X10*3/uL [place] # (Auto) (0.1-1.2) X10*3/uL Eos # (Auto) (0.0-0.4) X10*3/uL Baso # (Auto) (0.0-0.2) X10*3/uL Abs Immat Gran (auto) (0.00-0.03) X10*3/uL Absolute Neuts (auto) (2.0-8.3) x10*3/uL Absolute Nucleated RBC (0.0-0.012) X10*3/uL Nucleated RBC % (auto) (0.0-0.2) /100WBC Sodium (135-145) mmol/L Potassium (3.3-5.1) mmol/L Chloride (96-108) mmol/L Carbon Dioxide (22-29) mmol/L Anion Gap (12-20) BUN (9-16) mg/dL Creatinine (0.5-1.4) mg/dL Estim Creat Clear Calc Estimated GFR POC Glucose 236 H (60-115) mg/dL Random Glucose (60-115) mg/dL Calcium (8.4-10.2) mg/dL Total Bilirubin (0.0-1.0) mg/dL Direct Bilirubin (0.0-0.5) mg/dL AST (5-31) U/L ALT (0-31) U/L Alkaline Phosphatase (39-117) U/L Total Protein (6.5-8.0) g/dL Albumin (3.5-5.0) g/dL Lipase (8-78) U/L Influenza Type A (PCR) (Negative) Influenza Type B (PCR) (Negative) RSV RNA Qual (PCR) (Negative) SARS-CoV-2 RNA (RT-PCR) (Negative) Discharge Plan Discharge Clinical Impression: COVID-19, Nausea & vomiting, Anxiety Patient Disposition: Home, Self-Care Instructions: Acute Nausea and Vomiting (ED), Anxiety (ED), COVID-19 (Coronavirus Disease 2019) (ED) Additional Instructions: You Need to quarantine for 7 days. Use her mask if you need to go outside. Please follow-up with your primary care physician tomorrow. If you have any worsening or new symptoms, please return to the emergency room or call 911 Prescriptions: New ibuprofen 600 mg tablet 600 mg PO TID PRN (Reason: fever or pain) Qty: 20 0RF ondansetron HCl 4 mg tablet 4 mg PO Q6H PRN (Reason: nausea and vomiting) Qty: 14 0RF No Action ondansetron HCl [Zofran] 4 mg tablet 4 mg PO Q6H PRN (Reason: nausea and vomiting) Qty: 14 0RF ondansetron 4 mg tablet,disintegrating 4 mg PO ONCE PRN (Reason: nausea and vomiting) Qty: 10 0RF
[2022-02-26 16:58] VITALS: BP 150/68; PULSE 90; RESP 16; TEMP 36.8; O2SAT 97
[2022-02-26 17:11] VITALS: BP 113/53; PULSE 89; RESP 20; O2SAT 97
[2022-02-26] MEDS: ondansetron HCL 4 MG/2 ML VIAL IVPUSH (17:19)
[2022-02-26] MEDS: Ibuprofen 600 MG TABLET PO (17:19)
[2022-02-26] MEDS: 0.9 % Sodium Chloride 1,000 ML 999 ML IVCONT (17:19)
[2022-02-26] MEDS: LORazepam 1 MG TABLET PO (17:20)
--- NOTE | 2022-02-26 18:37 | PC.NURSE ---
PATIENT WAS INCONTINENT OF URINE ,CARE GIVEN GIVEN AND BEDDING CHANGE .
[2022-02-26 18:59] VITALS: BP 134/64; PULSE 79; RESP 18; O2SAT 97
== END 2022-02-26 19:58 | disposition home or self-care (01) ==
PROVIDERS: Emergency Provider Emergency Medicine; PCP Physician Assistant
DX: U07.1 COVID-19 (principal); R11.2 Nausea with vomiting, unspecified; F41.9 Anxiety disorder, unspecified
CPT/HCPCS: 0241U; 36415; 80048; 80076; 82947; 83690; 85025; 93005; 96361; 96374; 99284; 99285; J2405

== ENCOUNTER 2022-08-28 14:29 | Outpatient (REF) | payer MEDICARE, SELFPAY ==
[2022-08-28 18:19] LABS: MANUAL DIFF FLAG NO
[2022-08-28 18:39] LABS: Alanine Aminotransferase 14 U/L (0-31); Albumin Level 4.5 g/dL (3.5-5.0); Alkaline Phosphatase 75 U/L (39-117); Anion Gap 15 (12-20); Aspartate Amino Transferase 24 U/L (5-31); Bilirubin Total 0.8 mg/dL (0.0-1.0); Blood Urea Nitrogen 15 mg/dL (9-16); Calcium 10.2 mg/dL (8.4-10.2); Carbon Dioxide 30 mmol/L (22-29); Chloride 102 mmol/L (96-108); Estimated Glomerular Filt Rate 49; Glucose Random 94 mg/dL (60-115); Sodium 142 mmol/L (135-145); Total Protein 7.7 g/dL (6.5-8.0)
[2022-08-28 18:40] LABS: Basophils Percent Auto 0.5 % (0-2); Eosinophils Absolute Auto 0.1 X10*3/uL (0.0-0.4); Eosinophils Percent Auto 0.7 % (0-4); Hematocrit 40.1 % (37.0-47.0); Hemoglobin 12.7 g/dl (12.0-16.0); Imm Gran Abs Auto 0.02 X10*3/uL (0.00-0.03); Imm Gran Pct Auto 0.2 % (0.0-0.4); Lymphocytes Absolute Auto 1.7 X10*3/uL (1.2-4.9); Lymphocytes Percent Auto 20.7 % (20-40); Mean Corpuscular HGB Conc 31.7 g/dl (31.0-35.0); Mean Corpuscular Hemoglobin 26.2 pg (27.0-33.0); Mean Corpuscular Volume 82.9 fL (80.0-98.0); Mean Platelet Volume 10.6 fL (9.4-12.3); Monocytes Absolute Auto 0.6 X10*3/uL (0.1-1.2); Monocytes Percent Auto 7.4 % (2-11); Neutrophils Absolute Auto 5.6 x10*3/uL (2.0-8.3); Neutrophils Percent Auto 70.5 % (45-73); Platelet Count 253 X10*3/uL (160-400); Red Blood Count 4.84 X10*6/uL (4.20-5.50); Red Cell Distribution Width 13.4 % (11.0-16.0)
[2022-08-28 19:01] LABS: Free T4 (Free Thyroxine) 1.52 ng/dL (0.71-1.85); Thyroid Stimulating Hormone 1.89 uIU/mL (0.32-4.0); Vitamin D 25-OH Total 15.9 ng/mL (>30)
[2022-08-28 19:15] LABS: Folate 14.1 ng/mL (> or = 4.0); Vitamin B12 227 pg/mL (200-900)
[2022-08-29 05:13] LABS: Estimated Average Glucose 108 mg/dL; Hemoglobin A1c % 5.4 %
== END 2022-08-28 14:30 | disposition home or self-care (01) ==
LOC: HO.MANLDS 14:29
PROVIDERS: Visit Provider Physician Assistant
DX: E03.8 Other specified hypothyroidism (principal); E78.2 Mixed hyperlipidemia; K14.8 Other diseases of tongue
CPT/HCPCS: 36415; 80053; 82306; 82607; 82746; 83036; 84439; 84443; 85025; 87102

== ENCOUNTER 2022-08-30 13:30 | Outpatient (REF) | payer MEDICARE, MEDICAID, SELFPAY ==
--- NOTE | ~2022-08-30 | XR_ITS ---
EXAMINATION: XR HIP, LEFT CLINICAL INFORMATION: Left hip pain. Low back pain. COMPARISON: CT dated 02/23/2022. TECHNIQUE: AP view of the pelvis and AP and frog-leg lateral views of the left hip. FINDINGS: Small acetabular osteophytes are evident at both hips. Joint spaces appear relatively well preserved. Mild osteoarthritis is also evident in the SI joints. Pubic symphysis is normal. There is degenerative spondylosis in the lower lumbar spine. Enthesopathic spurring is present at the greater trochanters bilaterally. No fracture or malalignment. At the posterior margin of the left proximal femur along the linea aspera, there is a 1 cm focus of calcific density which likely corresponds to calcific tendinitis at the gluteus enma insertion. Small foci of calcific tendinitis may also be present at the gluteus medius insertions on the greater trochanters. XR/XR hip LT w PEL1V IMPRESSION: 1. Mild osteoarthritis in the hips and SI joints. 2. Probable calcific tendinitis at the posterior cortex of the left proximal femoral diaphysis and at the bilateral greater trochanters. 3. Degenerative spondylosis in the lower lumbar spine.
== END 2022-08-30 13:31 | disposition home or self-care (01) ==
LOC: HO.XRAY 13:30
PROVIDERS: PCP Physician Assistant; Visit Provider Physician Assistant
DX: M25.552 Pain in left hip (principal); M54.59 Other low back pain
CPT/HCPCS: 73502

== ENCOUNTER 2022-10-08 14:20 | Outpatient (REF) | payer MEDICARE, SELFPAY | END 2022-10-08 14:21 | disposition home or self-care (01) | LOC: HO.LAB 14:20 | PROVIDERS: PCP Physician Assistant; Visit Provider Physician Assistant | DX: E55.9 Vitamin D deficiency, unspecified (principal) | CPT/HCPCS: 36415; 82306 ==

== ENCOUNTER 2022-10-30 14:03 | Outpatient (REF) | payer MEDICARE, MEDICAID, SELFPAY ==
--- NOTE | ~2022-10-30 | MM_ITS ---
EXAMINATION: MM SCREENING DIGITAL BREAST TOMOSYNTHESIS, BILATERAL CLINICAL INFORMATION: Screening. Asymptomatic. The lifetime risk of breast cancer based on the Tyrer-Cuzick Model is 19.5%. Additional annual screening with breast MRI may be of benefit in women with a score of 20% or greater. COMPARISON: Mammography: August 27, 2021 and studies dating back to August 10, 2014 TECHNIQUE: Digital breast tomosynthesis is performed in both the craniocaudal and mediolateral oblique views along with computer-aided detection (CAD). Synthesized 2D images are generated from the tomosynthesis. FINDINGS: The breasts are almost entirely fatty (ACR BI-RADS breast composition Category a). There are no significant masses, abnormal calcifications, or other abnormalities. MM/MM tomosynthesis screening BI IMPRESSION: No significant changes from prior exam. ASSESSMENT: BI-RADS 1: Negative RECOMMENDATION: Routine annual mammography screening. This patient's information was entered into a reminder system with a target due date for their next mammogram.
== END 2022-10-30 14:04 | disposition home or self-care (01) ==
LOC: HO.MAMMO 14:03
PROVIDERS: PCP Physician Assistant; Visit Provider Physician Assistant
DX: Z12.31 Encounter for screening mammogram for malignant neoplasm of breast (principal)
CPT/HCPCS: 77063; 77067

== ENCOUNTER 2022-11-26 14:39 | Emergency (ER) | payer MEDICARE, MEDICAID, SELFPAY ==
--- NOTE | ~2022-11-26 | XR_ITS ---
EXAMINATION: XR CHEST CLINICAL INFORMATION: Chest pain COMPARISON: Chest x-ray 04/05/2015 TECHNIQUE: Frontal view of the chest was obtained. FINDINGS: Slight elevation of the left hemidiaphragm. No airspace consolidation. No pleural effusion or pneumothorax. Normal cardiomediastinal silhouette and pulmonary vascularity. No acute osseous abnormality identified. XR/XR chest 1V IMPRESSION: 1. No acute pulmonary process. 2. Slight elevation of the left hemidiaphragm.
[2022-11-26 14:41] VITALS: BP 153/81; PULSE 67; RESP 18; TEMP 36.2; O2SAT 97; BMI 41.9
--- NOTE | 2022-11-26 14:41 | ED.CHESTPAIN ---
HPI - Chest Pain General Chief Complaint: Chest Pain <LAURA Baron - Last Filed: 11/26/22 14:46> Stated Complaint: R side chest pain <LAURA Baron - Last Filed: 11/26/22 14:46> Time Seen by Provider: 11/26/22 16:21 <LAURA Baron - Last Filed: 11/26/22 14:46> Source: patient <Dequan Goncalves MD - Last Filed: 11/26/22 17:25> Mode of arrival: ambulatory <Dequan Goncalves MD - Last Filed: 11/26/22 17:25> Limitations: no limitations <Dequan Goncalves MD - Last Filed: 11/26/22 17:25> History of Present Illness HPI narrative: Patient history of arthritis complaining of right-sided chest pain for last 2 weeks increase movements and palpation no shortness of breath no cough no fever or chills no palpitation patient taking naproxen at home and helping her out <Dequan Goncalves MD - Last Filed: 11/26/22 17:25> Related Data Home Medications: Previous Rx's Medication Instructions Recorded ondansetron HCl 4 mg tablet 4 mg PO Q6H PRN nausea and 02/06/21 (Zofran) vomiting #14 tabs ondansetron 4 mg disintegrating 4 mg PO ONCE PRN nausea and 02/23/22 tablet vomiting #10 tabs ibuprofen 600 mg tablet 600 mg PO TID PRN fever or pain 02/26/22 #20 tabs ondansetron HCl 4 mg tablet 4 mg PO Q6H PRN nausea and 02/26/22 vomiting #14 tabs <LAURA Baron - Last Filed: 11/26/22 14:46> Allergies/Adverse Reactions: Allergies Allergy/AdvReac Type Severity Reaction Status Date / Time No Known Allergies Allergy Unverified 02/06/21 04:29 <LAURA Baron - Last Filed: 11/26/22 14:46> Review of Systems Review of Systems: Yes all other systems are reviewed and are negative <Dequan Goncalves MD - Last Filed: 11/26/22 17:25> PMFSH Past Medical History Medical History: Medical History Anxiety DDD (degenerative disc disease) Hyperlipemia Migraines OCD (obsessive compulsive disorder) <LAURA Baron - Last Filed: 11/26/22 14:46> Surgical History: Surgical History H/O thyroidectomy <LAURA Baron - Last Filed: 11/26/22 14:46> Social History Social History: Social History Advance Directives: No Advance Directives Information Provided: No <LAURA Baron - Last Filed: 11/26/22 14:46> Physical Exam Vital Signs: Vital Signs: Last Vital Signs Temp 97.2 F 11/26/22 14:41 Pulse 67 11/26/22 14:41 Resp 18 11/26/22 14:41 BP 153/81 H 11/26/22 14:41 Pulse Ox 97 11/26/22 14:41 O2 Del Method 11/26/22 14:41 BMI result Body Mass Index 41.9 <LAURA Baron - Last Filed: 11/26/22 14:46> Vital Signs: Last Vital Signs Temp 97.2 F 11/26/22 14:41 Pulse 67 11/26/22 14:41 Resp 18 11/26/22 14:41 BP 153/81 H 11/26/22 14:41 Pulse Ox 97 11/26/22 14:41 O2 Del Method 11/26/22 14:41 BMI result Body Mass Index 41.9 <Dequan Goncalves MD - Last Filed: 11/26/22 17:25> Appearance: Alert. Oriented X3. No acute distress. Eyes: PERRLA, No Nystagmus ENT: Pharynx normal. Oral Mucosa moist Neck: Normal inspection. Neck supple. CVS: Normal heart rate and rhythm. Pulses normal. Right chest wall tenderness Respiratory: No respiratory distress. Equal air entry bilateral, no wheezing/rales/rhonchi Abdomen: Soft and nontender. Bowel sounds are present, no mass palpable, no CVA tenderness Skin: Skin warm and dry. Normal skin color. Normal skin turgor. Extremities: No lower extremity edema. No calf tenderness Neuro: Oriented X 3. No motor deficit. No sensory deficit.No cerebellar signs , cranial nerves II-XII intact <Dequan Goncalves MD - Last Filed: 11/26/22 17:25> Course Course Course Narrative: RME--57yo F w/PMHx anxiety, DDD, HLD, OCD, c/o intermittent chest pain/pressure x2 weeks worsening today. Reports mild pain with deep breathing, and sx worse with stress. Reports increasing stress at home 1 mos, decreased appetite and low energy EKG, Labs, CXR, COVID/Flu ordered <LAURA Baron - Last Filed: 11/26/22 14:46> Medical Decision Making Medical Decision Making [facility] Narrative: Patient atypical right-sided chest pain clinically costochondritis with local tenderness troponin negative EKG without any ischemic changes pain been there for last 2 days discharge patient home advised to continue naproxen and follow with PCP <Dequan Goncalves MD - Last Filed: 11/26/22 17:25> Lab Data [facility] Lab Attestation statement: I reviewed the patient's lab results. <Dequan Goncalves MD - Last Filed: 11/26/22 17:25> Result Diagrams: 11/26/22 15:16 11/26/22 15:16 <LAURA Baron - Last Filed: 11/26/22 14:46> Labs: Lab Results 11/26/22 11/26/22 11/26/22 Range/Units 15:16 15:16 15:16 WBC 6.4 (4.8-10.8) X10*3/uL RBC 4.42 (4.20-5.50) X10*6/uL Hgb 11.5 L (12.0-16.0) g/dl Hct 36.4 L (37.0-47.0) % MCV 82.4 (80.0-98.0) fL MCH 26.0 L (27.0-33.0) pg MCHC 31.6 (31.0-35.0) g/dl RDW 13.0 (11.0-16.0) % Plt Count 211 (160-400) X10*3/uL MPV 10.4 (9.4-12.3) fL Immature Gran % (Auto) 0.3 (0.0-0.4) % Neut % (Auto) 69.2 (45-73) % Lymph % (Auto) 20.8 (20-40) % [place] % (Auto) 7.4 (2-11) % Eos % (Auto) 2.0 (0-4) % Baso % (Auto) 0.3 (0-2) % Lymph # (Auto) 1.3 (1.2-4.9) X10*3/uL [place] # (Auto) 0.5 (0.1-1.2) X10*3/uL Eos # (Auto) 0.1 (0.0-0.4) X10*3/uL Baso # (Auto) 0.0 (0.0-0.2) X10*3/uL Abs Immat Gran (auto) 0.02 (0.00-0.03) X10*3/uL Absolute Neuts (auto) 4.4 (2.0-8.3) x10*3/uL Absolute Nucleated RBC 0.000 (0.0-0.012) X10*3/uL Nucleated RBC % (auto) 0.0 (0.0-0.2) /100WBC Sodium 138 (135-145) mmol/L Potassium 4.6 (3.3-5.1) mmol/L Chloride 107 (96-108) mmol/L Carbon Dioxide 25 (22-29) mmol/L Anion Gap 11 L (12-20) BUN 15 (9-16) mg/dL Creatinine 0.81 (0.5-1.4) mg/dL Estim Creat Clear Calc 102.5 Estimated GFR > 60 Random Glucose 112 (60-115) mg/dL Calcium 9.2 D (8.4-10.2) mg/dL Magnesium 1.9 (1.6-2.6) mg/dL Total Bilirubin 0.5 (0.0-1.0) mg/dL Direct Bilirubin 0.2 (0.0-0.5) mg/dL AST 19 (5-31) U/L ALT 15 (0-31) U/L Alkaline Phosphatase 75 (39-117) U/L Troponin I High Sens < 3.5 (<3.5-17.0) ng/L Total Protein 6.8 (6.5-8.0) g/dL Albumin 4.0 (3.5-5.0) g/dL COVID-19 (JACKLYN) (Negative) COVID-19 Clin Com Influenza Type A (MELINDA) (Negative) Influenza Type B (MELINDA) (Negative) Influenza A & B Note 11/26/22 11/26/22 Range/Units 15:16 15:16 WBC (4.8-10.8) X10*3/uL RBC (4.20-5.50) X10*6/uL Hgb (12.0-16.0) g/dl Hct (37.0-47.0) % MCV (80.0-98.0) fL MCH (27.0-33.0) pg MCHC (31.0-35.0) g/dl RDW (11.0-16.0) % Plt Count (160-400) X10*3/uL MPV (9.4-12.3) fL Immature Gran % (Auto) (0.0-0.4) % Neut % (Auto) (45-73) % Lymph % (Auto) (20-40) % [place] % (Auto) (2-11) % Eos % (Auto) (0-4) % Baso % (Auto) (0-2) % Lymph # (Auto) (1.2-4.9) X10*3/uL [place] # (Auto) (0.1-1.2) X10*3/uL Eos # (Auto) (0.0-0.4) X10*3/uL Baso # (Auto) (0.0-0.2) X10*3/uL Abs Immat Gran (auto) (0.00-0.03) X10*3/uL Absolute Neuts (auto) (2.0-8.3) x10*3/uL Absolute Nucleated RBC (0.0-0.012) X10*3/uL Nucleated RBC % (auto) (0.0-0.2) /100WBC Sodium (135-145) mmol/L Potassium (3.3-5.1) mmol/L Chloride (96-108) mmol/L Carbon Dioxide (22-29) mmol/L Anion Gap (12-20) BUN (9-16) mg/dL Creatinine (0.5-1.4) mg/dL Estim Creat Clear Calc Estimated GFR Random Glucose (60-115) mg/dL Calcium (8.4-10.2) mg/dL Magnesium (1.6-2.6) mg/dL Total Bilirubin (0.0-1.0) mg/dL Direct Bilirubin (0.0-0.5) mg/dL AST (5-31) U/L ALT (0-31) U/L Alkaline Phosphatase (39-117) U/L Troponin I High Sens (<3.5-17.0) ng/L Total Protein (6.5-8.0) g/dL Albumin (3.5-5.0) g/dL COVID-19 (JACKLYN) Negative (Negative) COVID-19 Clin Com See Note Influenza Type A (MELINDA) Negative (Negative) Influenza Type B (MELINDA) Negative (Negative) Influenza A & B Note See Note <LAURA Baron - Last Filed: 11/26/22 14:46> Lab Results 11/26/22 11/26/22 11/26/22 Range/Units 15:16 15:16 15:16 WBC 6.4 (4.8-10.8) X10*3/uL RBC 4.42 (4.20-5.50) X10*6/uL Hgb 11.5 L (12.0-16.0) g/dl Hct 36.4 L (37.0-47.0) % MCV 82.4 (80.0-98.0) fL MCH 26.0 L (27.0-33.0) pg MCHC 31.6 (31.0-35.0) g/dl RDW 13.0 (11.0-16.0) % Plt Count 211 (160-400) X10*3/uL MPV 10.4 (9.4-12.3) fL Immature Gran % (Auto) 0.3 (0.0-0.4) % Neut % (Auto) 69.2 (45-73) % Lymph % (Auto) 20.8 (20-40) % [place] % (Auto) 7.4 (2-11) % Eos % (Auto) 2.0 (0-4) % Baso % (Auto) 0.3 (0-2) % Lymph # (Auto) 1.3 (1.2-4.9) X10*3/uL [place] # (Auto) 0.5 (0.1-1.2) X10*3/uL Eos # (Auto) 0.1 (0.0-0.4) X10*3/uL Baso # (Auto) 0.0 (0.0-0.2) X10*3/uL Abs Immat Gran (auto) 0.02 (0.00-0.03) X10*3/uL Absolute Neuts (auto) 4.4 (2.0-8.3) x10*3/uL Absolute Nucleated RBC 0.000 (0.0-0.012) X10*3/uL Nucleated RBC % (auto) 0.0 (0.0-0.2) /100WBC Sodium 138 (135-145) mmol/L Potassium 4.6 (3.3-5.1) mmol/L Chloride 107 (96-108) mmol/L Carbon Dioxide 25 (22-29) mmol/L Anion Gap 11 L (12-20) BUN 15 (9-16) mg/dL Creatinine 0.81 (0.5-1.4) mg/dL Estim Creat Clear Calc 102.5 Estimated GFR > 60 Random Glucose 112 (60-115) mg/dL Calcium 9.2 D (8.4-10.2) mg/dL Magnesium 1.9 (1.6-2.6) mg/dL Total Bilirubin 0.5 (0.0-1.0) mg/dL Direct Bilirubin 0.2 (0.0-0.5) mg/dL AST 19 (5-31) U/L ALT 15 (0-31) U/L Alkaline Phosphatase 75 (39-117) U/L Troponin I High Sens < 3.5 (<3.5-17.0) ng/L Total Protein 6.8 (6.5-8.0) g/dL Albumin 4.0 (3.5-5.0) g/dL COVID-19 (JACKLYN) (Negative) COVID-19 Clin Com Influenza Type A (MELINDA) (Negative) Influenza Type B (MELINDA) (Negative) Influenza A & B Note 11/26/22 11/26/22 Range/Units 15:16 15:16 WBC (4.8-10.8) X10*3/uL RBC (4.20-5.50) X10*6/uL Hgb (12.0-16.0) g/dl Hct (37.0-47.0) % MCV (80.0-98.0) fL MCH (27.0-33.0) pg MCHC (31.0-35.0) g/dl RDW (11.0-16.0) % Plt Count (160-400) X10*3/uL MPV (9.4-12.3) fL Immature Gran % (Auto) (0.0-0.4) % Neut % (Auto) (45-73) % Lymph % (Auto) (20-40) % [place] % (Auto) (2-11) % Eos % (Auto) (0-4) % Baso % (Auto) (0-2) % Lymph # (Auto) (1.2-4.9) X10*3/uL [place] # (Auto) (0.1-1.2) X10*3/uL Eos # (Auto) (0.0-0.4) X10*3/uL Baso # (Auto) (0.0-0.2) X10*3/uL Abs Immat Gran (auto) (0.00-0.03) X10*3/uL Absolute Neuts (auto) (2.0-8.3) x10*3/uL Absolute Nucleated RBC (0.0-0.012) X10*3/uL Nucleated RBC % (auto) (0.0-0.2) /100WBC Sodium (135-145) mmol/L Potassium (3.3-5.1) mmol/L Chloride (96-108) mmol/L Carbon Dioxide (22-29) mmol/L Anion Gap (12-20) BUN (9-16) mg/dL Creatinine (0.5-1.4) mg/dL Estim Creat Clear Calc Estimated GFR Random Glucose (60-115) mg/dL Calcium (8.4-10.2) mg/dL Magnesium (1.6-2.6) mg/dL Total Bilirubin (0.0-1.0) mg/dL Direct Bilirubin (0.0-0.5) mg/dL AST (5-31) U/L ALT (0-31) U/L Alkaline Phosphatase (39-117) U/L Troponin I High Sens (<3.5-17.0) ng/L Total Protein (6.5-8.0) g/dL Albumin (3.5-5.0) g/dL COVID-19 (JACKLYN) Negative (Negative) COVID-19 Clin Com See Note Influenza Type A (MELINDA) Negative (Negative) Influenza Type B (MELINDA) Negative (Negative) Influenza A & B Note See Note <Dequan Goncalves MD - Last Filed: 11/26/22 17:25> Independent Interpretation I performed an independent interpretation of an: EKG <Dequan Goncalves MD - Last Filed: 11/26/22 17:25> Interpretation: Normal sinus rhythm heart rate 64 beats per minute low-voltage QRS normal interval normal axis acute ST-T changes no acute ischemia <Dequan Goncalves MD - Last Filed: 11/26/22 17:25> Discharge Plan Discharge Clinical Impression: Costalchondritis <LAURA Baron - Last Filed: 11/26/22 14:46> Patient Disposition: Home, Self-Care <LAURA Baron - Last Filed: 11/26/22 14:46> Instructions: Costochondritis (ED) <LAURA Baron - Last Filed: 11/26/22 14:46> Additional Instructions: Your chest pain is from inflammation of the cartilage Continue taking your naproxen for pain Follow with PCP <LAURA Baron - Last Filed: 11/26/22 14:46> Prescriptions: No Action ondansetron HCl [Zofran] 4 mg tablet 4 mg PO Q6H PRN (Reason: nausea and vomiting) Qty: 14 0RF ondansetron 4 mg tablet,disintegrating 4 mg PO ONCE PRN (Reason: nausea and vomiting) Qty: 10 0RF ibuprofen 600 mg tablet 600 mg PO TID PRN (Reason: fever or pain) Qty: 20 0RF ondansetron HCl 4 mg tablet 4 mg PO Q6H PRN (Reason: nausea and vomiting) Qty: 14 0RF <LAURA Baron - Last Filed: 11/26/22 14:46> Interventions: ED Discharge Assessment Last Done: 11/26/22 16:40 <LAURA Baron - Last Filed: 11/26/22 14:46> Discharge Date/Time: 11/26/22 16:41 <LAURA Baron - Last Filed: 11/26/22 14:46>
--- NOTE | 2022-11-26 14:43 | ECG_ITS ---
Test Reason : chest pain Blood Pressure : / mmHG Vent. Rate : 064 BPM Atrial Rate : 064 BPM P-R Int : 142 ms QRS Dur : 096 ms QT Int : 420 ms P-R-T Axes : 049 026 027 degrees QTc Int : 433 ms Normal sinus rhythm Low voltage QRS Borderline ECG When compared with ECG of 26-FEB-2022 12:47, Vent. rate has decreased BY 35 BPM Nonspecific T wave abnormality now evident in Anterior leads Referred By: Paloma Higgins Electronically Signed By:Stanley Peralta
[2022-11-26 15:25] LABS: MANUAL DIFF FLAG NO
[2022-11-26 15:31] LABS: Basophils Percent Auto 0.3 % (0-2); Eosinophils Absolute Auto 0.1 X10*3/uL (0.0-0.4); Hematocrit 36.4 % (37.0-47.0); Hemoglobin 11.5 g/dl (12.0-16.0); Imm Gran Abs Auto 0.02 X10*3/uL (0.00-0.03); Imm Gran Pct Auto 0.3 % (0.0-0.4); Lymphocytes Absolute Auto 1.3 X10*3/uL (1.2-4.9); Lymphocytes Percent Auto 20.8 % (20-40); Mean Corpuscular HGB Conc 31.6 g/dl (31.0-35.0); Mean Corpuscular Volume 82.4 fL (80.0-98.0); Mean Platelet Volume 10.4 fL (9.4-12.3); Monocytes Absolute Auto 0.5 X10*3/uL (0.1-1.2); Monocytes Percent Auto 7.4 % (2-11); Neutrophils Absolute Auto 4.4 x10*3/uL (2.0-8.3); Neutrophils Percent Auto 69.2 % (45-73); Platelet Count 211 X10*3/uL (160-400); Red Blood Count 4.42 X10*6/uL (4.20-5.50); White Blood Count 6.4 X10*3/uL (4.8-10.8)
[2022-11-26 15:39] LABS: COVID-19 Test Negative (Negative); IDNOW Serial# 16C4AD1C; IDNOW Serial# BCCEAD1C
[2022-11-26 15:40] LABS: Influenza A Negative (Negative); Influenza B2 Negative (Negative)
[2022-11-26 15:48] LABS: Alanine Aminotransferase 15 U/L (0-31); Alkaline Phosphatase 75 U/L (39-117); Anion Gap 11 (12-20); Aspartate Amino Transferase 19 U/L (5-31); Bilirubin Direct 0.2 mg/dL (0.0-0.5); Bilirubin Total 0.5 mg/dL (0.0-1.0); Blood Urea Nitrogen 15 mg/dL (9-16); Calcium 9.2 mg/dL (8.4-10.2); Carbon Dioxide 25 mmol/L (22-29); Chloride 107 mmol/L (96-108); Creatinine Clr Calc Pharmacy 102.5; Estimated Glomerular Filt Rate > 60; Glucose Random 112 mg/dL (60-115); Magnesium 1.9 mg/dL (1.6-2.6); Potassium 4.6 mmol/L (3.3-5.1); Sodium 138 mmol/L (135-145); Total Protein 6.8 g/dL (6.5-8.0)
[2022-11-26 15:52] LABS: Troponin-I High Sensitivity < 3.5 ng/L (<3.5-17.0)
== END 2022-11-26 16:41 | disposition home or self-care (01) ==
PROVIDERS: Physician Assistant; Emergency Provider Internal Medicine; PCP Physician Assistant
DX: M94.0 Chondrocostal junction syndrome [Tietze] (principal); Z20.822 Contact with and (suspected) exposure to COVID-19
CPT/HCPCS: 71045; 80048; 80076; 83735; 84484; 85025; 87502; 87635; 93005; 99283

== ENCOUNTER 2022-12-17 21:05 | Emergency (ER) | payer MEDICARE, MEDICAID, SELFPAY ==
--- NOTE | ~2022-12-17 | CT_ITS ---
EXAMINATION: CT ABDOMEN AND PELVIS WITH CONTRAST CLINICAL INFORMATION: Nausea/vomiting COMPARISON: 02/23/2022 TECHNIQUE: Multidetector volumetric images were obtained from the superior aspect of the liver through the pubic symphysis following administration 85 mL of Omnipaque 350 intravenous contrast. Sagittal and coronal reformatted images were obtained on the technologist's workstation. Oral contrast: No This CT examination was performed using dose optimization techniques as appropriate, variously including the following: *Automated exposure control *Adjustment of mA and/or kV according to patient size (this includes techniques or standardized protocols for targeted exams where dose is matched to indication/reason for exam; i.e. extremities or head) *Use of iterative reconstruction technique DLP: 1071 mGy-cm FINDINGS: LUNG BASES: The visualized lung bases are unremarkable. LIVER, GALLBLADDER, AND BILIARY TREE: The liver is normal in size, shape, and attenuation. No focal hepatic lesion or biliary ductal dilatation is present. The gallbladder is unremarkable with no evidence of radiopaque gallstones, gallbladder wall thickening, or obvious pericholecystic inflammatory changes. PANCREAS: Again noted is relative hypoattenuation of the pancreatic head and proximal body, which could reflect partial fatty atrophy. SPLEEN: Unremarkable. ADRENAL GLANDS: Unremarkable. KIDNEYS AND URETERS: The kidneys are normal in size, shape, and attenuation. No hydronephrosis, hydroureter, or obstructing calculi seen. Left renal sinus cysts noted. No perinephric stranding. BLADDER: Unremarkable. GASTROINTESTINAL TRACT: Small hiatal hernia. No evidence of bowel obstruction or significant wall thickening. Minimal sigmoid colon diverticulosis. The appendix is unremarkable. No free fluid or free air is seen. ABDOMINAL WALL: No significant hernia is appreciated. LYMPH NODES: Normal. VASCULAR: Mild scattered atherosclerotic calcifications. PELVIC VISCERA: Unremarkable. OSSEOUS STRUCTURES: There is facet arthropathy of the lumbar spine. Slight grade 1 anterolisthesis of L4 on L5 is favored to be chronic in this setting. Scattered multilevel endplate osteophytes are also noted. CT/CT abdomen pelvis w IV con IMPRESSION: 1. No acute findings identified in the abdomen/pelvis. 2. Small hiatal hernia. 3. Redemonstrated relative hypoattenuation of the pancreatic head and proximal body, similar to 02/23/2022. As previously noted, this could reflect partial fatty atrophy though if not already performed, further workup with pre and postcontrast MRI is advised to exclude an underlying mass.
[2022-12-17 21:37] VITALS: BP 132/78; BP 152/112; PULSE 76; PULSE 79; RESP 14; TEMP 37; O2SAT 93; O2SAT 99; BMI 41.9
--- NOTE | 2022-12-17 21:58 | ED_ITS ---
HPI - Nausea/Vomiting/Diarrhea General Chief complaint: Nausea/Vomiting/Diarrhea Stated complaint: vomiting weakness, tired, headache Time Seen by Provider: 12/17/22 21:25 History of Present Illness HPI Narrative: patient is a 57-year-old female presents today with having nausea vomiting not feeling well. There is no diarrhea. Positive generalized malaise. No abdominal surgery done in the past. Patient from home. No cough and congestion over sorry symptoms. Positive decreased p.o. intake over last 2 days. Came into the ED for further evaluation. Patient had mild abdominal pain in epigastric area. Denies any chest pain. No shortness of breath no diaphoresis. No history of diabetes no history of AL in the past Related Data Previous Rx's Medication Instructions Recorded ondansetron HCl 4 mg tablet 4 mg PO Q6H PRN nausea and 02/06/21 (Zofran) vomiting #14 tabs ondansetron 4 mg disintegrating 4 mg PO ONCE PRN nausea and 02/23/22 tablet vomiting #10 tabs ibuprofen 600 mg tablet 600 mg PO TID PRN fever or pain 02/26/22 #20 tabs ondansetron HCl 4 mg tablet 4 mg PO Q6H PRN nausea and 02/26/22 vomiting #14 tabs ondansetron 4 mg disintegrating 4 mg PO TID PRN nausea and 12/18/22 tablet vomiting 5 days #10 tabs Allergies Allergy/AdvReac Type Severity Reaction Status Date / Time No Known Allergies Allergy Unverified 02/06/21 04:29 Review of Systems Review of Systems: no fever no chills no diaphoresis Yes all other systems are reviewed and are negative PMFSH Past Medical History Attestation statement: The following information was validated with the patient. Medical History Anxiety DDD (degenerative disc disease) Hyperlipemia Migraines OCD (obsessive compulsive disorder) Surgical History H/O thyroidectomy Social History Social History Advance Directives: No Advance Directives Information Provided: No Physical Exam Vital Signs: Vital Signs: Last Vital Signs Temp 98.4 F 12/17/22 23:51 Pulse 74 12/17/22 23:51 Resp 14 12/17/22 21:37 BP 120/51 L 12/17/22 23:51 Pulse Ox 96 12/17/22 23:51 O2 Del Method 12/17/22 23:51 BMI result Body Mass Index 41.9 Appearance: Alert. Oriented X3. No acute distress. Eyes: Pupils equal, round and reactive to light. ENT: Pharynx normal. Neck: Normal inspection. Neck supple. No lymph nodes noted. No crepitus CVS: Normal heart rate and rhythm. Pulses normal. Normal S1 and S2 Respiratory: No respiratory distress. Breath sounds normal. No Wheezing. No rales Abdomen: Soft and nontender. No rigidity. No distention. good BS x4 Skin: Skin warm and dry. Normal skin color. Normal skin turgor. Extremities: No lower extremity edema. Neurovascular intact to all extremities. No Lacerations. No Rash Neuro: Oriented X 3. No motor deficit. No sensory deficit. Moving all e xtermities. No slurred speech Medications Administered Discontinued Medications Generic Name Dose Route Start Last Admin Trade Name Freq PRN Reason Stop Dose Admin Sodium Chloride 1,000 mls @ 999 mls/hr 12/17/22 22:00 12/17/22 22:32 Ns IV 12/17/22 23:00 999 mls/hr .Q1H1M NATHAN Administration Iohexol 85 ml 12/17/22 23:29 12/17/22 23:30 Iohexol 350 Mg/Ml 100 Ml Infus..Btl IV 12/17/22 23:30 85 ml ONCE ONE Administration Ondansetron HCl 4 mg 12/17/22 21:53 12/17/22 22:04 Ondansetron Hcl 4 Mg/2 Ml Vial IVPUSH 12/17/22 21:54 4 mg ONCE ONE Administration Medical Decision Making Medical Decision Making MDM Narrative: Positive abdominal pain generalized malaise weakness. CT scan of the abdomen is grossly negative for any acute evidence of abscess perforation obstruction. There is a nonspecific lesion noted in the head of the pancreas more likely to be an incidental finding. Cannot exclude possibility for mass. A copy of the CT scan report was given to patient. Follow-up is needed on an outpatient basis. This finding was noted any previous CT scan about a year ago. Patient electrolytes are unremarkable. Hemoglobin is 12.9 no signs of anemia. COVID flu RSV were all negative. patient's hemoglobin is 12.9. No signs of anemia. This is actually better than baseline. More likely from dehydration. Patient's nausea subsided with treatment. Will give Zofran for nausea to go home with. Will discharge patient home. Differential Diagnosis Differential Diagnoses: The differential diagnosis associated with the presentation includes Abdominal pain question obstruction, abscess, perforation Lab Data MDM Lab Attestation statement: I reviewed the patient's lab results. 12/17/22 21:58 12/17/22 21:58 Labs: Lab Results 12/17/22 12/17/22 12/17/22 Range/Units 21:58 21:58 22:43 WBC 8.6 (4.8-10.8) X10*3/uL RBC 4.97 (4.20-5.50) X10*6/uL Hgb 12.9 (12.0-16.0) g/dl Hct 40.4 (37.0-47.0) % MCV 81.3 (80.0-98.0) fL MCH 26.0 L (27.0-33.0) pg MCHC 31.9 (31.0-35.0) g/dl RDW 12.9 (11.0-16.0) % Plt Count 206 (160-400) X10*3/uL MPV 9.9 (9.4-12.3) fL Immature Gran % (Auto) 0.5 H (0.0-0.4) % Neut % (Auto) 75.9 H (45-73) % Lymph % (Auto) 15.4 L (20-40) % [place] % (Auto) 7.4 (2-11) % Eos % (Auto) 0.4 (0-4) % Baso % (Auto) 0.4 (0-2) % Lymph # (Auto) 1.3 (1.2-4.9) X10*3/uL [place] # (Auto) 0.6 (0.1-1.2) X10*3/uL Eos # (Auto) 0.0 (0.0-0.4) X10*3/uL Baso # (Auto) 0.0 (0.0-0.2) X10*3/uL Abs Immat Gran (auto) 0.04 H (0.00-0.03) X10*3/uL Absolute Neuts (auto) 6.5 (2.0-8.3) x10*3/uL Absolute Nucleated RBC 0.000 (0.0-0.012) X10*3/uL Nucleated RBC % (auto) 0.0 (0.0-0.2) /100WBC Sodium 143 (135-145) mmol/L Potassium 3.9 (3.3-5.1) mmol/L Chloride 103 (96-108) mmol/L Carbon Dioxide 27 (22-29) mmol/L Anion Gap 17 (12-20) BUN 19 H (9-16) mg/dL Creatinine 0.94 (0.5-1.4) mg/dL Estim Creat Clear Calc 88.3 Estimated GFR > 60 Random Glucose 92 (60-115) mg/dL Calcium 9.6 (8.4-10.2) mg/dL Total Bilirubin 1.4 H (0.0-1.0) mg/dL AST 20 (5-31) U/L ALT 16 (0-31) U/L Alkaline Phosphatase 64 (39-117) U/L Total Protein 7.3 (6.5-8.0) g/dL Albumin 4.2 (3.5-5.0) g/dL Lipase 19 (8-78) U/L Influenza Type A (PCR) (Negative) Influenza Type B (PCR) (Negative) RSV RNA Qual (PCR) (Negative) SARS-CoV-2 RNA (RT-PCR) (Negative) 12/17/22 Range/Units 22:43 WBC (4.8-10.8) X10*3/uL RBC (4.20-5.50) X10*6/uL Hgb (12.0-16.0) g/dl Hct (37.0-47.0) % MCV (80.0-98.0) fL MCH (27.0-33.0) pg MCHC (31.0-35.0) g/dl RDW (11.0-16.0) % Plt Count (160-400) X10*3/uL MPV (9.4-12.3) fL Immature Gran % (Auto) (0.0-0.4) % Neut % (Auto) (45-73) % Lymph % (Auto) (20-40) % [place] % (Auto) (2-11) % Eos % (Auto) (0-4) % Baso % (Auto) (0-2) % Lymph # (Auto) (1.2-4.9) X10*3/uL [place] # (Auto) (0.1-1.2) X10*3/uL Eos # (Auto) (0.0-0.4) X10*3/uL Baso # (Auto) (0.0-0.2) X10*3/uL Abs Immat Gran (auto) (0.00-0.03) X10*3/uL Absolute Neuts (auto) (2.0-8.3) x10*3/uL Absolute Nucleated RBC (0.0-0.012) X10*3/uL Nucleated RBC % (auto) (0.0-0.2) /100WBC Sodium (135-145) mmol/L Potassium (3.3-5.1) mmol/L Chloride (96-108) mmol/L Carbon Dioxide (22-29) mmol/L Anion Gap (12-20) BUN (9-16) mg/dL Creatinine (0.5-1.4) mg/dL Estim Creat Clear Calc Estimated GFR Random Glucose (60-115) mg/dL Calcium (8.4-10.2) mg/dL Total Bilirubin (0.0-1.0) mg/dL AST (5-31) U/L ALT (0-31) U/L Alkaline Phosphatase (39-117) U/L Total Protein (6.5-8.0) g/dL Albumin (3.5-5.0) g/dL Lipase (8-78) U/L Influenza Type A (PCR) NEGATIVE (Negative) Influenza Type B (PCR) NEGATIVE (Negative) RSV RNA Qual (PCR) NEGATIVE (Negative) SARS-CoV-2 RNA (RT-PCR) NEGATIVE (Negative) Chronic Conditions Patient?s care impacted by: Hypertension Discharge Plan Discharge Clinical Impression: Nausea & vomiting Patient Disposition: Home, Self-Care Instructions: Acute Nausea and Vomiting (ED) Prescriptions: New ondansetron 4 mg tablet,disintegrating 4 mg PO TID PRN (Reason: nausea and vomiting) 5 Days Qty: 10 0RF No Action ondansetron HCl [Zofran] 4 mg tablet 4 mg PO Q6H PRN (Reason: nausea and vomiting) Qty: 14 0RF ondansetron 4 mg tablet,disintegrating 4 mg PO ONCE PRN (Reason: nausea and vomiting) Qty: 10 0RF ibuprofen 600 mg tablet 600 mg PO TID PRN (Reason: fever or pain) Qty: 20 0RF ondansetron HCl 4 mg tablet 4 mg PO Q6H PRN (Reason: nausea and vomiting) Qty: 14 0RF Referrals: Jocelyn Kiran PA [Primary Care Provider] - 12/20/22
[2022-12-17 22:04] LABS: MANUAL DIFF FLAG NO
[2022-12-17] MEDS: ondansetron HCL 4 MG/2 ML VIAL IVPUSH (22:04)
[2022-12-17 22:05] LABS: Basophils Percent Auto 0.4 % (0-2); Eosinophils Percent Auto 0.4 % (0-4); Hematocrit 40.4 % (37.0-47.0); Hemoglobin 12.9 g/dl (12.0-16.0); Imm Gran Abs Auto 0.04 X10*3/uL (0.00-0.03); Imm Gran Pct Auto 0.5 % (0.0-0.4); Lymphocytes Absolute Auto 1.3 X10*3/uL (1.2-4.9); Lymphocytes Percent Auto 15.4 % (20-40); Mean Corpuscular HGB Conc 31.9 g/dl (31.0-35.0); Mean Corpuscular Volume 81.3 fL (80.0-98.0); Mean Platelet Volume 9.9 fL (9.4-12.3); Monocytes Absolute Auto 0.6 X10*3/uL (0.1-1.2); Monocytes Percent Auto 7.4 % (2-11); Neutrophils Absolute Auto 6.5 x10*3/uL (2.0-8.3); Neutrophils Percent Auto 75.9 % (45-73); Platelet Count 206 X10*3/uL (160-400); Red Blood Count 4.97 X10*6/uL (4.20-5.50); Red Cell Distribution Width 12.9 % (11.0-16.0); White Blood Count 8.6 X10*3/uL (4.8-10.8)
--- NOTE | 2022-12-17 22:07 | ECG_ITS ---
Test Reason : WEAKNESS Blood Pressure : / mmHG Vent. Rate : 070 BPM Atrial Rate : 070 BPM P-R Int : 118 ms QRS Dur : 102 ms QT Int : 432 ms P-R-T Axes : 041 036 018 degrees QTc Int : 466 ms Normal sinus rhythm Normal ECG When compared with ECG of 26-NOV-2022 15:18, No significant change was found Referred By: Kaitlin Packer Electronically Signed By:Stanley Peralta
[2022-12-17 22:22] LABS: Alanine Aminotransferase 16 U/L (0-31); Albumin Level 4.2 g/dL (3.5-5.0); Alkaline Phosphatase 64 U/L (39-117); Anion Gap 17 (12-20); Aspartate Amino Transferase 20 U/L (5-31); Bilirubin Total 1.4 mg/dL (0.0-1.0); Blood Urea Nitrogen 19 mg/dL (9-16); Calcium 9.6 mg/dL (8.4-10.2); Carbon Dioxide 27 mmol/L (22-29); Chloride 103 mmol/L (96-108); Creatinine Clr Calc Pharmacy 88.3; Estimated Glomerular Filt Rate > 60; Glucose Random 92 mg/dL (60-115); Potassium 3.9 mmol/L (3.3-5.1); Sodium 143 mmol/L (135-145); Total Protein 7.3 g/dL (6.5-8.0)
[2022-12-17] MEDS: 0.9 % Sodium Chloride 1,000 ML 999 ML IV (22:32)
[2022-12-17 23:05] LABS: Lipase 19 U/L (8-78)
[2022-12-17] MEDS: iohexoL 350 MG/ML 100 ML INFUS..BTL 85 ML IV (23:30)
[2022-12-17 23:31] LABS: Influenza A PCR NEGATIVE (Negative); Influenza B PCR NEGATIVE (Negative); Resp Syncy Virus RNA Qual PCR NEGATIVE (Negative); SARS COV2 PCR INHOUSE NEGATIVE (Negative)
[2022-12-17 23:51] VITALS: BP 120/51; PULSE 74; TEMP 36.9; O2SAT 96
--- NOTE | 2022-12-18 00:34 | PC.NURSE ---
IV line removed. Pt tolerated well. Discharge instructions reviewed with pt. Pt verbalizes understanding.
== END 2022-12-18 00:35 | disposition home or self-care (01) ==
PROVIDERS: Emergency Provider Emergency Medicine Emergency Medical Services; PCP Physician Assistant
DX: R11.2 Nausea with vomiting, unspecified (principal); Z20.822 Contact with and (suspected) exposure to COVID-19; Z20.828 Contact with and (suspected) exposure to other viral communicable diseases; Z79.899 Other long term (current) drug therapy
CPT/HCPCS: 0241U; 36415; 74177; 80053; 83690; 85025; 93005; 96374; 99284; J2405; Q9967

== ENCOUNTER 2023-01-27 18:11 | Emergency (ER) | payer MEDICARE, MEDICAID, SELFPAY ==
--- NOTE | ~2023-01-27 | CT_ITS ---
EXAMINATION: CT abdomen pelvis wo IV con CLINICAL INFORMATION: Reason for Exam Abdominal pain and vomiting COMPARISON: Prior CT 12/17/2022 TECHNIQUE: Multidetector volumetric imaging was performed from the superior aspect of the liver through the pubic symphysis , noncontrasted study. Sagittal and coronal reformatted images were obtained on the technologist's workstation. This CT examination was performed using dose optimization techniques as appropriate, variously including the following: *Automated exposure control *Adjustment of mA and/or kV according to patient size (this includes techniques or standardized protocols for targeted exams where dose is matched to indication/reason for exam; i.e. extremities or head) *Use of iterative reconstruction technique DLP: 2859 mGy-cm FINDINGS: LOWER THORAX: Included lung bases are clear. HEPATOBILIARY: No focal hepatic lesions. No biliary ductal dilatation. GALLBLADDER: Gallbladder unremarkable. SPLEEN: Spleen is normal in size. PANCREAS: Redemonstration of hypodense area involving the pancreatic head and proximal body, as previously suggested this could be a sequela of subclinical chronic and/or prior pancreatitis and/or pancreatic atrophy, however this may require correlation with follow-up MRI to rule out possible underlying pancreatic lesion. Peripancreatic fat remain clear. STOMACH AND GASTROINTESTINAL TRACT: There is a sliding hiatal hernia. There is no bowel distention or thickening. No CT evidence of appendicitis. ADRENALS: No adrenal nodules. KIDNEYS/URETERS: There is fullness of left renal pelvis without significant hydronephrosis. Minimal left perinephric fat stranding nonspecific, could be sequela of prior obstruction and/or mild nephritis. There is a tiny 2 mm nonobstructing stone upper calyx left kidney. Right kidney is unremarkable. URINARY BLADDER: Partially decompressed. PELVIC VISCERA: Unremarkable PERITONEUM: No free air or fluid. LYMPH NODES: No lymphadenopathy. VASCULAR:Abdominal aorta normal in size, no aneurysm found. BONES, ABDOMINAL WALL AND SOFT TISSUES: Age-appropriate changes of the spine and skeletal system, no destructive osteolytic or osteosclerotic bone lesion found CT/CT abdomen pelvis wo IV con IMPRESSION: * Redemonstration of hypodense area involving the pancreatic head and proximal body, as previously suggested, this could be a sequela of subclinical chronic and/or prior pancreatitis and/or pancreatic atrophy, cannot rule out underlying pancreatic lesion, this may require correlation with follow-up MRI with contrast. * Tiny 2 mm nonobstructing stone upper calyx left kidney. * Fullness of left renal pelvis without significant hydronephrosis, minimal left perinephric fat stranding nonspecific, could be sequela of prior obstruction and/or nephritis. Please correlate with patient's laboratory data, urine analysis. * Sliding hiatal hernia.
[2023-01-27 18:21] VITALS: BP 168/96; PULSE 90; O2SAT 92
[2023-01-27 18:23] VITALS: BP 162/65; PULSE 76; RESP 18; TEMP 37.2; O2SAT 95; BMI 41.7
--- NOTE | 2023-01-27 18:47 | ECG_ITS ---
Test Reason : abd pain Blood Pressure : / mmHG Vent. Rate : 069 BPM Atrial Rate : 069 BPM P-R Int : 138 ms QRS Dur : 102 ms QT Int : 430 ms P-R-T Axes : 055 015 019 degrees QTc Int : 460 ms Normal sinus rhythm Normal ECG When compared with ECG of 17-DEC-2022 22:31, No significant change was found Referred By: Gypsy Alvarado Electronically Signed By:Stanley Peralta
--- NOTE | 2023-01-27 18:51 | ED.NAVMDI ---
HPI - Nausea/Vomiting/Diarrhea General Chief complaint: Nausea/Vomiting/Diarrhea Stated complaint: n/v Time Seen by Provider: 01/27/23 18:19 Source: patient and EMS Mode of arrival: EMS Limitations: no limitations History of Present Illness HPI Narrative: 57-year-old female came in for evaluation of nausea vomiting, patient is easily Brown to dehydration with nausea and vomiting, for the past 2 days patient been having nausea and vomiting unable to keep p.o. intake unable to take her psych medication, had similar presentation in the past with no clear reason of patient's nausea and vomiting, no past abdominal surgery in the past. No fever, no chills, normal bowel movement yesterday and passing flatus, no dysuria, no frequency urination, no hematuria. Patient has no SI or HI or auditory hallucination. Related Data Previous Rx's Medication Instructions Recorded ondansetron HCl 4 mg tablet 4 mg PO Q6H PRN nausea and 02/06/21 (Zofran) vomiting #14 tabs ondansetron 4 mg disintegrating 4 mg PO ONCE PRN nausea and 02/23/22 tablet vomiting #10 tabs ibuprofen 600 mg tablet 600 mg PO TID PRN fever or pain 02/26/22 #20 tabs ondansetron HCl 4 mg tablet 4 mg PO Q6H PRN nausea and 02/26/22 vomiting #14 tabs ondansetron 4 mg disintegrating 4 mg PO TID PRN nausea and 12/18/22 tablet vomiting 5 days #10 tabs omeprazole magnesium 20 mg 20 mg PO DAILY #30 tabs 01/27/23 tablet,delayed release (Prilosec OTC) Allergies Allergy/AdvReac Type Severity Reaction Status Date / Time No Known Allergies Allergy Unverified 02/06/21 04:29 Review of Systems Review of Systems: All other systems are reviewed and are negative Constitutional: Reports as per HPI and Reports no additional constitutional complaints Eyes: Reports as per HPI and Reports no additional eye complaints Reports system reviewed and no additional complaints, except as documented Cardiovascular: Reports as per HPI and Reports no additional cardiovascular complaints Respiratory: Reports as per HPI and Reports no additional respiratory complaints Gastrointestinal: Reports as per HPI and Reports no additional gastrointestinal complaints Genitourinary: Reports no additional female genitourinary complaints Musculoskeletal: Reports no additional musculoskeletal complaints Skin/Breast: Reports system reviewed and no additional complaints, except as docu Psychiatric: Reports no additional psychiatric complaints Endocrine: Reports no additional endocrine complaints Hematologic/Lymphatic: Reports no additional hematologic/lymphatic complaints Allergic/Immunologic: Reports no additional allergic/immunologic complaints Reports system reviewed and no additional complaints, except as documented and Reports Abnormal speech present [facility] Past Medical History Medical History Anxiety DDD (degenerative disc disease) Hyperlipemia Migraines OCD (obsessive compulsive disorder) Surgical History H/O thyroidectomy Social History Social History Advance Directives: No Advance Directives Information Provided: Yes Physical Exam Vital Signs: Vital Signs: Last Vital Signs Temp 98.6 F 01/27/23 21:27 Pulse 80 01/27/23 21:27 Resp 16 01/27/23 21:27 BP 106/41 L 01/27/23 21:27 Pulse Ox 97 01/27/23 21:27 O2 Del Method 01/27/23 21:27 BMI result Body Mass Index 41.7 Vital signs have been reviewed as appeared to be correct. Blood pressure normal. Heart rate normal. Respiration rate normal. Temperature normal. Oxygen saturation normal. Appearance: Alert. Oriented X3. No acute distress. Head: Normal external exam. Normocephalic. Atraumatic. No Aceves signs noted. No raccoon eyes noted Eyes: PERRLA. EOMI. Conjunctiva and sclera normal. Eyelids normal. ENT: TM's Normal. Pharynx normal. Uvula midline. Moist mucous membranes. No trismus noted. No drooling noted. No muffled voice noted. Neck: Normal inspection. Neck supple. FROM. No adenopathy. Thyroid Normal. No meningeal signs. No neck mass noted. CVS: Normal heart rate and rhythm. Heart sound normal. No murmurs noted. Pulses normal throughout. Respiratory: No respiratory distress. Painless inspiration. Breath sounds normal. No wheezes/rales/rhonchi noted. Chest nontender. No accessory muscle usage noted or decreased air movement noted. Abdomen: Soft, mild epigastric tenderness, no rebound tenderness, no guarding.. Bowel sounds normal in all 4 quadrants. No distention noted. No organomegaly noted. No visible injury noted. Back: No CVA tenderness. Full range of motion noted. Skin: Skin warm and dry. Normal skin color. Normal skin turgor. No rashes/lesions/lacerations noted. Extremities: No lower extremity edema. Extremities exhibit normal range of motion. Extremities nontender. Neuro: Oriented X 3. Cranial nerve exam: II-XII are grossly intact No motor deficit. No sensory deficit. Reflexes normal. Course Course Course Narrative: 57-year-old female came in for intractable vomiting and upper abdominal pain. CT show nonspecific pancreatic finding that require further follow-up patient was instructed to follow up with [facility] worker helper/PCP for further evaluation. Patient otherwise feels better, no nausea, no vomiting able to tolerate p.o. intake without symptoms. Will discharge to follow-up with PCP. Medications Administered Discontinued Medications Generic Name Dose Route Start Last Admin Trade Name Freq PRN Reason Stop Dose Admin Al Hydroxide/Mg Hydroxide 30 ml 01/27/23 18:47 01/27/23 22:49 Magnesium Hydrox/Alum Hydrox 30 Ml Oral.Susp PO 01/27/23 18:48 Not Given ONCE ONE Famotidine 20 mg 01/27/23 18:47 01/27/23 20:02 Famotidine/Pf 20 Mg/2 Ml Vial IVPUSH 01/27/23 18:48 20 mg ONCE ONE Administration Sodium Chloride 1,000 mls @ 999 mls/hr 01/27/23 18:47 01/27/23 21:28 Ns IV 01/27/23 19:47 Infused .Q1H1M ONE Infusion Lorazepam 2 mg 01/27/23 18:47 01/27/23 20:01 Lorazepam 2 Mg/Ml Vial IVPUSH 01/27/23 18:48 2 mg ONCE ONE Administration Ondansetron HCl 4 mg 01/27/23 18:47 01/27/23 20:01 Ondansetron Hcl 4 Mg/2 Ml Vial IVPUSH 01/27/23 18:48 4 mg ONCE ONE Administration Medical Decision Making Differential Diagnosis Differential Diagnoses: The differential diagnosis associated with the presentation includes (Gastritis, gallbladder disease, pancreatitis, kidney infection, kidney stones.) Lab Data MDM Lab Attestation statement: I reviewed the patient's lab results. 01/27/23 19:35 01/27/23 19:35 Labs: Lab Results 01/27/23 01/27/23 01/27/23 Range/Units 19:35 19:35 19:35 WBC 7.8 (4.8-10.8) X10*3/uL RBC 4.93 (4.20-5.50) X10*6/uL Hgb 12.9 (12.0-16.0) g/dl Hct 40.0 (37.0-47.0) % MCV 81.1 (80.0-98.0) fL MCH 26.2 L (27.0-33.0) pg MCHC 32.3 (31.0-35.0) g/dl RDW 13.0 (11.0-16.0) % Plt Count 225 (160-400) X10*3/uL MPV 9.9 (9.4-12.3) fL Immature Gran % (Auto) 0.4 (0.0-0.4) % Neut % (Auto) 71.1 (45-73) % Lymph % (Auto) 20.0 (20-40) % [place] % (Auto) 7.7 (2-11) % Eos % (Auto) 0.3 (0-4) % Baso % (Auto) 0.5 (0-2) % Lymph # (Auto) 1.6 (1.2-4.9) X10*3/uL [place] # (Auto) 0.6 (0.1-1.2) X10*3/uL Eos # (Auto) 0.0 (0.0-0.4) X10*3/uL Baso # (Auto) 0.0 (0.0-0.2) X10*3/uL Abs Immat Gran (auto) 0.03 (0.00-0.03) X10*3/uL Absolute Neuts (auto) 5.6 (2.0-8.3) x10*3/uL Absolute Nucleated RBC 0.000 (0.0-0.012) X10*3/uL Nucleated RBC % (auto) 0.0 (0.0-0.2) /100WBC Sodium 140 (135-145) mmol/L Potassium 4.1 (3.3-5.1) mmol/L Chloride 101 (96-108) mmol/L Carbon Dioxide 27 (22-29) mmol/L Anion Gap 16 (12-20) BUN 19 H (9-16) mg/dL Creatinine 0.92 (0.5-1.4) mg/dL Estim Creat Clear Calc 89.9 Estimated GFR > 60 Random Glucose 85 (60-115) mg/dL Calcium 9.6 (8.4-10.2) mg/dL Total Bilirubin 1.4 H (0.0-1.0) mg/dL Direct Bilirubin 0.3 (0.0-0.5) mg/dL AST 23 (5-31) U/L ALT 16 (0-31) U/L Alkaline Phosphatase 67 (39-117) U/L Troponin I High Sens 8.6 D (<3.5-17.0) ng/L Total Protein 7.4 (6.5-8.0) g/dL Albumin 4.3 (3.5-5.0) g/dL Lipase 23 (8-78) U/L Urine Color Urine Appearance Urine pH (5.0-9.0) Ur Specific [place] (1.005-1.025) Urine Protein (Neg-Trace) mg/dL Urine Glucose (UA) (Negative) mg/dL Urine Ketones (Negative) mg/dL Urine Blood (Negative) Urine Nitrite (Negative) Ur Leukocyte Esterase (Negative) Urine RBC (0-2) /HPF Urine WBC (0-5) /HPF Ur Squamous Epith Cells (0-2) /HPF Urine Bacteria (None Seen) Hyaline Casts (0-2) /LPF COVID-19 (JACKLYN) (Negative) COVID-19 Clin Com 01/27/23 01/27/23 Range/Units 19:35 22:47 WBC (4.8-10.8) X10*3/uL RBC (4.20-5.50) X10*6/uL Hgb (12.0-16.0) g/dl Hct (37.0-47.0) % MCV (80.0-98.0) fL MCH (27.0-33.0) pg MCHC (31.0-35.0) g/dl RDW (11.0-16.0) % Plt Count (160-400) X10*3/uL MPV (9.4-12.3) fL Immature Gran % (Auto) (0.0-0.4) % Neut % (Auto) (45-73) % Lymph % (Auto) (20-40) % [place] % (Auto) (2-11) % Eos % (Auto) (0-4) % Baso % (Auto) (0-2) % Lymph # (Auto) (1.2-4.9) X10*3/uL [place] # (Auto) (0.1-1.2) X10*3/uL Eos # (Auto) (0.0-0.4) X10*3/uL Baso # (Auto) (0.0-0.2) X10*3/uL Abs Immat Gran (auto) (0.00-0.03) X10*3/uL Absolute Neuts (auto) (2.0-8.3) x10*3/uL Absolute Nucleated RBC (0.0-0.012) X10*3/uL Nucleated RBC % (auto) (0.0-0.2) /100WBC Sodium (135-145) mmol/L Potassium (3.3-5.1) mmol/L Chloride (96-108) mmol/L Carbon Dioxide (22-29) mmol/L Anion Gap (12-20) BUN (9-16) mg/dL Creatinine (0.5-1.4) mg/dL Estim Creat Clear Calc Estimated GFR Random Glucose (60-115) mg/dL Calcium (8.4-10.2) mg/dL Total Bilirubin (0.0-1.0) mg/dL Direct Bilirubin (0.0-0.5) mg/dL AST (5-31) U/L ALT (0-31) U/L Alkaline Phosphatase (39-117) U/L Troponin I High Sens (<3.5-17.0) ng/L Total Protein (6.5-8.0) g/dL Albumin (3.5-5.0) g/dL Lipase (8-78) U/L Urine Color Dark Yellow Urine Appearance Clear Urine pH 5.5 (5.0-9.0) Ur Specific [place] >= 1.030 H (1.005-1.025) Urine Protein 30 (1+) H (Neg-Trace) mg/dL Urine Glucose (UA) Negative (Negative) mg/dL Urine Ketones 40 (Negative) mg/dL Urine Blood Negative (Negative) Urine Nitrite Negative (Negative) Ur Leukocyte Esterase Small (1+) H (Negative) Urine RBC 0-2 (0-2) /HPF Urine WBC 21-50 H (0-5) /HPF Ur Squamous Epith Cells 3-5 (0-2) /HPF Urine Bacteria Trace (None Seen) Hyaline Casts 3-5 (0-2) /LPF COVID-19 (JACKLYN) Negative (Negative) COVID-19 Clin Com See Note Independent Interpretation I performed an independent interpretation of an: CT Scan (Abdomen and pelvis: Redemonstration of hypodense area involving the pancreatic head and proximal body, as previously suggested, this could be a sequela of subclinical chronic and/or prior pancreatitis and/or pancreatic atrophy, cannot rule out underlying pancreatic lesion, this may require correlat) Radiology Impression Discussion of test interpretation with radiology: I have reviewed the radiologist's reading. Discharge Plan Discharge Clinical Impression: Gastritis, Vomiting, Mass of head of pancreas Patient Disposition: Home, Self-Care Instructions: Gastritis (ED) Prescriptions: New omeprazole magnesium [Prilosec OTC] 20 mg tablet,delayed release (DR/EC) 20 mg PO DAILY Qty: 30 0RF No Action ondansetron HCl [Zofran] 4 mg tablet 4 mg PO Q6H PRN (Reason: nausea and vomiting) Qty: 14 0RF ondansetron 4 mg tablet,disintegrating 4 mg PO ONCE PRN (Reason: nausea and vomiting) Qty: 10 0RF ibuprofen 600 mg tablet 600 mg PO TID PRN (Reason: fever or pain) Qty: 20 0RF ondansetron HCl 4 mg tablet 4 mg PO Q6H PRN (Reason: nausea and vomiting) Qty: 14 0RF ondansetron 4 mg tablet,disintegrating 4 mg PO TID PRN (Reason: nausea and vomiting) 5 Days Qty: 10 0RF Referrals: Ignacio George MD [Physician] - Jocelyn Kiran PA [Primary Care Provider] -
[2023-01-27 19:26] VITALS: BP 130/80; PULSE 70; RESP 16; TEMP 36.7; O2SAT 98
--- NOTE | 2023-01-27 19:39 | MHC.EDTECH ---
PT VITALS TAKEN ,EKG DONE ,AND WAS READ BY PROVIDER .
[2023-01-27] MEDS: 0.9 % Sodium Chloride 1,000 ML 999 ML IV (19:43)
[2023-01-27 19:46] LABS: MANUAL DIFF FLAG NO
[2023-01-27 19:50] LABS: Basophils Percent Auto 0.5 % (0-2); Eosinophils Percent Auto 0.3 % (0-4); Hemoglobin 12.9 g/dl (12.0-16.0); Imm Gran Abs Auto 0.03 X10*3/uL (0.00-0.03); Imm Gran Pct Auto 0.4 % (0.0-0.4); Lymphocytes Absolute Auto 1.6 X10*3/uL (1.2-4.9); Mean Corpuscular HGB Conc 32.3 g/dl (31.0-35.0); Mean Corpuscular Hemoglobin 26.2 pg (27.0-33.0); Mean Corpuscular Volume 81.1 fL (80.0-98.0); Mean Platelet Volume 9.9 fL (9.4-12.3); Monocytes Absolute Auto 0.6 X10*3/uL (0.1-1.2); Monocytes Percent Auto 7.7 % (2-11); Neutrophils Absolute Auto 5.6 x10*3/uL (2.0-8.3); Neutrophils Percent Auto 71.1 % (45-73); Platelet Count 225 X10*3/uL (160-400); Red Blood Count 4.93 X10*6/uL (4.20-5.50); White Blood Count 7.8 X10*3/uL (4.8-10.8)
[2023-01-27] MEDS: ondansetron HCL 4 MG/2 ML VIAL IVPUSH (20:01)
[2023-01-27] MEDS: LORazepam 2 MG/ML VIAL IVPUSH (20:01)
[2023-01-27] MEDS: Famotidine/PF 20 MG/2 ML VIAL IVPUSH (20:02)
[2023-01-27 20:09] LABS: Alanine Aminotransferase 16 U/L (0-31); Albumin Level 4.3 g/dL (3.5-5.0); Alkaline Phosphatase 67 U/L (39-117); Anion Gap 16 (12-20); Aspartate Amino Transferase 23 U/L (5-31); Bilirubin Direct 0.3 mg/dL (0.0-0.5); Bilirubin Total 1.4 mg/dL (0.0-1.0); Blood Urea Nitrogen 19 mg/dL (9-16); Calcium 9.6 mg/dL (8.4-10.2); Carbon Dioxide 27 mmol/L (22-29); Chloride 101 mmol/L (96-108); Creatinine Clr Calc Pharmacy 89.9; Estimated Glomerular Filt Rate > 60; Glucose Random 85 mg/dL (60-115); Lipase 23 U/L (8-78); Potassium 4.1 mmol/L (3.3-5.1); Sodium 140 mmol/L (135-145); Total Protein 7.4 g/dL (6.5-8.0)
[2023-01-27 20:14] LABS: COVID-19 Test Negative (Negative); IDNOW Serial# 16C4AD1C
[2023-01-27 20:17] LABS: Troponin-I High Sensitivity 8.6 ng/L (<3.5-17.0)
--- NOTE | 2023-01-27 20:25 | PC.NURSE ---
pt a&ox3, vss, 20G IV placed right AC, labs drawn, medicated per provider order, 1L NS running. PO meds held to allow IV meds to take effect.
[2023-01-27 21:27] VITALS: BP 106/41; PULSE 80; RESP 16; TEMP 37; O2SAT 97
--- NOTE | 2023-01-27 22:49 | PC.NURSE ---
pt a&ox3, vss, urine sample obtained, pt denies any nausea/abd pain at this time, declined PO meds - pt is worried that nausea/vomiting will return.
[2023-01-27 22:55] LABS: Appearance Urine Clear; Color Urine Dark Yellow; Glucose Urine UA Negative (Negative); Leukocyte Esterase Urine Small (1+) (Negative); Nitrite Urine Negative (Negative); PH 5.5 (5.0-9.0); Specific Gravity - Urine >= 1.030 (1.005-1.025); UMIC TRIGGER UACC YES; Urine Blood Negative (Negative); Urine Ketones 40 mg/dL (Negative); Urine Protein 30 (1+) mg/dL (Neg-Trace)
[2023-01-27 23:13] LABS: Bacteria Urine Trace (None Seen); RBC Urine 0-2 /HPF (0-2); UACC Culture Trigger YES; WBC Urine 21-50 /HPF (0-5)
[2023-01-28 00:26] VITALS: RESP 16
--- NOTE | 2023-01-28 00:28 | PC.NURSE ---
Assumed care from XIAO Prasad, removed Iv at discharge, no sob or chest pain, pt tolerated po challenge well, Reviewed discharge instructions with pt, pt verbalized understandings.
== END 2023-01-28 00:38 | disposition home or self-care (01) ==
PROVIDERS: Emergency Provider Emergency Medicine; PCP Physician Assistant
DX: K29.70 Gastritis, unspecified, without bleeding (principal); R11.2 Nausea with vomiting, unspecified; R19.7 Diarrhea, unspecified; K86.9 Disease of pancreas, unspecified; Z20.822 Contact with and (suspected) exposure to COVID-19; Z20.828 Contact with and (suspected) exposure to other viral communicable diseases; Z79.899 Other long term (current) drug therapy
CPT/HCPCS: 74176; 80048; 80076; 81001; 81003; 83690; 84484; 85025; 87086; 87635; 93005; 99284; J2060; J2405

== ENCOUNTER 2023-01-29 14:30 | Inpatient (IN) | payer MEDICARE, MEDICAID, SELFPAY ==
--- NOTE | ~2023-01-29 | MR_ITS ---
EXAMINATION: MR ABDOMEN WITHOUT AND WITH CONTRAST CLINICAL INFORMATION: Pancreatic lesion, follow-up. COMPARISON: CT scans of the abdomen and pelvis dated 01/27/2023, 12/17/2022 and 02/23/2022. TECHNIQUE: MR abdomen was performed without and with use of 10 mL intravenous Gadavist gadolinium contrast. Postcontrast images are performed in multiphase dynamic sequences. Imaging was performed in 3 planes. There is limitation on multiple sequences secondary to motion artifact. FINDINGS: LUNG BASES: The visualized lung bases are unremarkable. LIVER, GALLBLADDER, AND BILIARY TREE: Unremarkable. PANCREAS: Fatty infiltration without focal enhancing abnormality. The pancreatic duct is not dilated. No peripancreatic abnormality. SPLEEN: Unremarkable. ADRENAL GLANDS: Unremarkable. KIDNEYS AND URETERS: T2 hyperintense peripelvic renal cysts are seen bilaterally, left greater than right without significant enhancement. No hydroureteronephrosis. GASTROINTESTINAL TRACT: The stomach, visualized small bowel and visualized large bowel are unremarkable. ABDOMINAL WALL: No significant hernia is appreciated. LYMPH NODES: No lymphadenopathy. VASCULAR: Unremarkable. OSSEOUS STRUCTURES: Mild multilevel degenerative disc disease in the thoracolumbar spine. MR/MR abdomen wo/w con IMPRESSION: 1. Motion artifact limitations however, no overt pancreatic abnormality. Pancreatic fatty atrophy without associated abnormality correlates with recent CT findings without significant change. 2. Bilateral renal cysts, left greater than right demonstrate benign features not requiring follow-up at this time.
[2023-01-29 14:35] VITALS: BP 128/84; BP 148/97; PULSE 77; PULSE 98; RESP 18; TEMP 36.7; O2SAT 96; O2SAT 98; BMI 41.9
--- NOTE | 2023-01-29 14:38 | ED.NAVMDI ---
HPI - Nausea/Vomiting/Diarrhea General Chief complaint: Abdominal Pain Stated complaint: NAUSEA,ABD PAIN Time Seen by Provider: 01/29/23 17:26 Related Data Home Medications Medication Instructions Recorded Confirmed atorvastatin 20 mg tablet 1 tab PO DAILY 01/29/23 01/29/23 bupropion HCl 300 mg 24 hr tablet, 1 tab PO DAILY 01/29/23 01/29/23 extended release citalopram 20 mg tablet 1 tab PO DAILY 01/29/23 01/29/23 citalopram 40 mg tablet 2 tab PO DAILY 01/29/23 01/29/23 levothyroxine 137 mcg tablet 1 tab PO DAILY 01/29/23 01/29/23 lorazepam 1 mg tablet 0.5 tab PO DAILY 01/29/23 01/29/23 lorazepam 1 mg tablet 1 tab PO BEDTIME 01/29/23 01/29/23 ondansetron 4 mg disintegrating 1 tab PO TID PRN nausea/vomiting 01/29/23 01/29/23 tablet propranolol 120 mg capsule,24 1 cap PO DAILY 01/29/23 01/29/23 hr,extended release sumatriptan succinate 100 mg tablet 100 mg PO DAILY MRX1 PRN Migraine 01/29/23 01/29/23 Headache Previous Rx's Medication Instructions Recorded omeprazole magnesium 20 mg 20 mg PO DAILY #30 tabs 01/27/23 tablet,delayed release (Prilosec OTC) Allergies Allergy/AdvReac Type Severity Reaction Status Date / Time No Known Allergies Allergy Unverified 02/06/21 04:29 [facility] Past Medical History Medical History Anxiety DDD (degenerative disc disease) Hyperlipemia Migraines OCD (obsessive compulsive disorder) Surgical History H/O thyroidectomy Social History Social History Household Members: None Housing: Apartment Do you presently have visiting nurse or other home services: No Patient Tobacco Use Status: Never used Tobacco Smoked in Last 30 Days: No Use of substances other than those prescribed or required for medical reasons: Yes Any prior treatment program specific to substance use: No Have you been hit, kicked, punched, or otherwise hurt by someone within the past year? If so, by whom?: No Do you feel safe in your current relationship?: Yes Is there a partner from a previous relationship who is making you feel unsafe now?: No Are you made to feel afraid or neglected: No Advance Directives: No Advance Directives Information Provided: Yes Do you have thoughts of harming others: None Do you have a plan to hurt others: No Plan Recently lost weight without trying: No Eating poorly because of decreased appetite: No Nutrition Risks: No Nutritional Risk Patient : No : No Poor oral hygiene: No Physical Exam Vital Signs: Vital Signs: Last Vital Signs Temp 98.4 F 01/30/23 14:52 Pulse 69 01/30/23 14:52 Resp 18 01/30/23 14:52 BP 142/75 H 01/30/23 14:52 Pulse Ox 94 01/30/23 14:52 O2 Del Method 01/30/23 14:52 BMI result Body Mass Index 41.9 Course Course Course Narrative: RMJordan--57-year-old female with a past medical history anxiety, HLD, migraines, OCD, c/o abdominal pain, nausea & decreased/inability to tolerate PO x few days. Reports generalized fatigue/weakness and lethargy. Patient seen and treated in our ED 01/27 for similar sx, had labs that were WNL and CT showing nonspecific findings. Reports symptoms worse since then Abdomen soft nontender. VSS. EKG, labs, UA ordered Medications Administered Generic Name Dose Route Start Last Admin Trade Name Darrenq PRN Reason Stop Dose Admin Atorvastatin Calcium 20 mg 01/30/23 09:00 01/30/23 09:10 Atorvastatin Calcium 20 Mg Tablet PO 20 mg DAILY NATHAN Administration Enoxaparin Sodium 40 mg 01/29/23 21:00 01/29/23 20:23 Enoxaparin Sodium 40 Mg/0.4 Ml Syringe SUBCUT 40 mg Q24H NATHAN Administration Escitalopram Oxalate 20 mg 01/30/23 09:00 01/30/23 09:10 Escitalopram Oxalate 20 Mg Tablet PO 20 mg DAILY NATHAN Administration Levothyroxine Sodium 112 mcg/ 137 mcg 01/30/23 06:00 01/30/23 05:52 Levothyroxine Sodium 25 mcg PO 137 mcg DAILY@0600 NATHAN Administration Lorazepam 0.5 mg 01/30/23 09:00 01/30/23 10:25 Lorazepam 0.5 Mg Tablet PO 0.5 mg DAILY NATHAN Administration Lorazepam 1 mg 01/29/23 21:00 01/29/23 21:09 Lorazepam 1 Mg Tablet PO 1 mg BEDTIME NATHAN Administration Omeprazole 20 mg 01/30/23 06:30 01/30/23 06:30 Omeprazole 20 Mg Capsule.Dr PO 20 mg DAILY@0630 NATHAN Administration Propranolol HCl 120 mg 01/30/23 09:00 01/30/23 09:12 Propranolol Hcl La 60 Mg Cap.Sa.24h PO 120 mg DAILY NATHAN Administration Protocol Sodium Chloride 3 ml 01/30/23 00:00 01/30/23 08:07 0.9 % Sodium Chloride Flush 3 Ml Syringe IVFLUSH 3 ml QSHIFT NATHAN Administration Discontinued Medications Generic Name Dose Route Start Last Admin Trade Name Freq PRN Reason Stop Dose Admin Bupropion HCl 300 mg 01/29/23 20:00 01/30/23 10:29 Bupropion Hcl Xl 300 Mg Tab.Er.24h PO Not Given DAILY NATHAN Famotidine 20 mg 01/29/23 19:48 01/29/23 20:23 Famotidine/Pf 20 Mg/2 Ml Vial IVPUSH 01/29/23 19:49 20 mg ONCE ONE Administration Sodium Chloride 1,000 mls @ 999 mls/hr 01/29/23 17:45 01/29/23 18:43 Ns IV 01/29/23 18:45 Infused .Q1H1M NATHAN Infusion Sodium Chloride 1,000 mls @ 999 mls/hr 01/29/23 17:45 01/29/23 18:43 Ns IV 01/29/23 18:45 Infused .Q1H1M NATHAN Infusion Lorazepam 1 mg 01/29/23 18:27 01/29/23 18:34 Lorazepam 2 Mg/Ml Vial IVPUSH 01/29/23 18:28 1 mg ONCE ONE Administration Metoclopramide HCl 10 mg 01/29/23 18:26 01/29/23 18:34 Metoclopramide Hcl 10 Mg/2 Ml Vial IVPUSH 01/29/23 18:27 10 mg ONCE ONE Administration Medical Decision Making Lab Data 01/30/23 05:17 01/30/23 05:17 Labs: Lab Results 01/29/23 01/29/2323 Range/Units 17:25 17:25 17:25 WBC 10.3 (4.8-10.8) X10*3/uL RBC 5.27 (4.20-5.50) X10*6/uL Hgb 13.7 (12.0-16.0) g/dl Hct 42.3 (37.0-47.0) % MCV 80.3 (80.0-98.0) fL MCH 26.0 L (27.0-33.0) pg MCHC 32.4 (31.0-35.0) g/dl RDW 13.2 (11.0-16.0) % Plt Count 280 (160-400) X10*3/uL MPV 9.4 (9.4-12.3) fL Immature Gran % (Auto) 0.7 H (0.0-0.4) % Neut % (Auto) 71.5 (45-73) % Lymph % (Auto) 19.2 L (20-40) % Keith % (Auto) 7.8 (2-11) % Eos % (Auto) 0.3 (0-4) % Baso % (Auto) 0.5 (0-2) % Lymph # (Auto) 2.0 (1.2-4.9) X10*3/uL Keith # (Auto) 0.8 (0.1-1.2) X10*3/uL Eos # (Auto) 0.0 (0.0-0.4) X10*3/uL Baso # (Auto) 0.1 (0.0-0.2) X10*3/uL Abs Immat Gran (auto) 0.07 H (0.00-0.03) X10*3/uL Absolute Neuts (auto) 7.4 (2.0-8.3) x10*3/uL Absolute Nucleated RBC 0.000 (0.0-0.012) X10*3/uL Nucleated RBC % (auto) 0.0 (0.0-0.2) /100WBC Sodium 144 (135-145) mmol/L Potassium 3.8 (3.3-5.1) mmol/L Chloride 106 (96-108) mmol/L Carbon Dioxide 20 L (22-29) mmol/L Anion Gap 22 H (12-20) BUN 16 (9-16) mg/dL Creatinine 0.93 (0.5-1.4) mg/dL Estim Creat Clear Calc 89.3 Estimated GFR > 60 Random Glucose 109 (60-115) mg/dL Calcium 9.8 (8.4-10.2) mg/dL Magnesium 1.8 (1.6-2.6) mg/dL Total Bilirubin 1.7 H (0.0-1.0) mg/dL Direct Bilirubin 0.4 (0.0-0.5) mg/dL AST 22 (5-31) U/L ALT 17 (0-31) U/L Alkaline Phosphatase 72 (39-117) U/L Total Protein 7.7 (6.5-8.0) g/dL Albumin 4.4 (3.5-5.0) g/dL Lipase 22 (8-78) U/L TSH 7.05 H (0.32-4.0) uIU/mL COVID-19 (JACKLYN) (Negative) COVID-19 Clin Com Influenza Type A (MELINDA) Negative (Negative) Influenza Type B (MELINDA) Negative (Negative) Influenza A & B Note See Note 01/29/23 Range/Units 17:25 WBC (4.8-10.8) X10*3/uL RBC (4.20-5.50) X10*6/uL Hgb (12.0-16.0) g/dl Hct (37.0-47.0) % MCV (80.0-98.0) fL MCH (27.0-33.0) pg MCHC (31.0-35.0) g/dl RDW (11.0-16.0) % Plt Count (160-400) X10*3/uL MPV (9.4-12.3) fL Immature Gran % (Auto) (0.0-0.4) % Neut % (Auto) (45-73) % Lymph % (Auto) (20-40) % Keith % (Auto) (2-11) % Eos % (Auto) (0-4) % Baso % (Auto) (0-2) % Lymph # (Auto) (1.2-4.9) X10*3/uL Keith # (Auto) (0.1-1.2) X10*3/uL Eos # (Auto) (0.0-0.4) X10*3/uL Baso # (Auto) (0.0-0.2) X10*3/uL Abs Immat Gran (auto) (0.00-0.03) X10*3/uL Absolute Neuts (auto) (2.0-8.3) x10*3/uL Absolute Nucleated RBC (0.0-0.012) X10*3/uL Nucleated RBC % (auto) (0.0-0.2) /100WBC Sodium (135-145) mmol/L Potassium (3.3-5.1) mmol/L Chloride (96-108) mmol/L Carbon Dioxide (22-29) mmol/L Anion Gap (12-20) BUN (9-16) mg/dL Creatinine (0.5-1.4) mg/dL Estim Creat Clear Calc Estimated GFR Random Glucose (60-115) mg/dL Calcium (8.4-10.2) mg/dL Magnesium (1.6-2.6) mg/dL Total Bilirubin (0.0-1.0) mg/dL Direct Bilirubin (0.0-0.5) mg/dL AST (5-31) U/L ALT (0-31) U/L Alkaline Phosphatase (39-117) U/L Total Protein (6.5-8.0) g/dL Albumin (3.5-5.0) g/dL Lipase (8-78) U/L TSH (0.32-4.0) uIU/mL COVID-19 (JACKLYN) Negative (Negative) COVID-19 Clin Com See Note Influenza Type A (MELINDA) (Negative) Influenza Type B (MELINDA) (Negative) Influenza A & B Note Discharge Plan Discharge Clinical Impression: Vomiting Patient Disposition: Admitted As Inpatient Interventions: Admission Worksheet (ED) Last Done: 01/30/23 14:29 Admission Worksheet (ED) Last Done: 01/30/23 14:29 Discharge Date/Time: 01/30/23 14:30
--- NOTE | 2023-01-29 14:43 | ECG_ITS ---
Test Reason : general weakness Blood Pressure : / mmHG Vent. Rate : 067 BPM Atrial Rate : 067 BPM P-R Int : 120 ms QRS Dur : 106 ms QT Int : 438 ms P-R-T Axes : 048 005 043 degrees QTc Int : 462 ms Normal sinus rhythm Normal ECG When compared with ECG of 27-JAN-2023 19:18, No significant change was found Referred By: Paloma Higgins Electronically Signed By:Stanley Peralta
[2023-01-29 17:35] LABS: MANUAL DIFF FLAG NO
[2023-01-29 17:37] LABS: Basophils Absolute Auto 0.1 X10*3/uL (0.0-0.2); Basophils Percent Auto 0.5 % (0-2); Eosinophils Percent Auto 0.3 % (0-4); Hematocrit 42.3 % (37.0-47.0); Hemoglobin 13.7 g/dl (12.0-16.0); Imm Gran Abs Auto 0.07 X10*3/uL (0.00-0.03); Imm Gran Pct Auto 0.7 % (0.0-0.4); Lymphocytes Percent Auto 19.2 % (20-40); Mean Corpuscular HGB Conc 32.4 g/dl (31.0-35.0); Mean Corpuscular Volume 80.3 fL (80.0-98.0); Mean Platelet Volume 9.4 fL (9.4-12.3); Monocytes Absolute Auto 0.8 X10*3/uL (0.1-1.2); Monocytes Percent Auto 7.8 % (2-11); Neutrophils Absolute Auto 7.4 x10*3/uL (2.0-8.3); Neutrophils Percent Auto 71.5 % (45-73); Platelet Count 280 X10*3/uL (160-400); Red Blood Count 5.27 X10*6/uL (4.20-5.50); Red Cell Distribution Width 13.2 % (11.0-16.0); White Blood Count 10.3 X10*3/uL (4.8-10.8)
--- NOTE | 2023-01-29 17:40 | ED_ITS ---
HPI - Abdominal Pain General Chief Complaint: Abdominal Pain Stated Complaint: NAUSEA,ABD PAIN Time Seen by Provider: 01/29/23 17:26 History of Present Illness HPI narrative: Patient is 57-year-old female presents today with having nausea vomiting abdominal discomfort burning sensation. Patient has been seen in emergency department had a CT scan of the abdomen done 2 days ago with the same symptoms at that time patient had nausea vomiting diarrhea. Was given IV fluids Zofran for nausea with good relief symptom was then sent home. Patient came back his symptoms returned. No coughing or congestion or symptoms no diaphoresis. Patient never had any abdominal surgery. Denies any marijuana use Related Data Previous Rx's Medication Instructions Recorded ondansetron HCl 4 mg tablet 4 mg PO Q6H PRN nausea and 02/06/21 (Zofran) vomiting #14 tabs ondansetron 4 mg disintegrating 4 mg PO ONCE PRN nausea and 02/23/22 tablet vomiting #10 tabs ibuprofen 600 mg tablet 600 mg PO TID PRN fever or pain 02/26/22 #20 tabs ondansetron HCl 4 mg tablet 4 mg PO Q6H PRN nausea and 02/26/22 vomiting #14 tabs ondansetron 4 mg disintegrating 4 mg PO TID PRN nausea and 12/18/22 tablet vomiting 5 days #10 tabs omeprazole magnesium 20 mg 20 mg PO DAILY #30 tabs 01/27/23 tablet,delayed release (Prilosec OTC) Allergies Allergy/AdvReac Type Severity Reaction Status Date / Time No Known Allergies Allergy Unverified 02/06/21 04:29 Review of Systems Review of Systems Positive nausea vomiting Yes all other systems are reviewed and are negative PMFSH Past Medical History Attestation statement: The following information was validated with the patient. Medical History Anxiety DDD (degenerative disc disease) Hyperlipemia Migraines OCD (obsessive compulsive disorder) Surgical History H/O thyroidectomy Social History Social History Smoked in Last 30 Days: No Use of substances other than those prescribed or required for medical reasons: No Any prior treatment program specific to substance use: No Advance Directives: No Advance Directives Information Provided: Yes Patient : No Physical Exam ED Vital Signs: Vital Signs - 24 hr 01/29/23 14:35 Temperature 98.0 F Pulse Rate 98 Respiratory Rate 18 Blood Pressure 148/97 H Pulse Oximetry 98 Oxygen Delivery Method Room Air BMI result Body Mass Index 41.9 Appearance: Alert. Oriented X3. No acute distress. Eyes: Pupils equal, round and reactive to light. ENT: Pharynx normal. Neck: Normal inspection. Neck supple. No lymph nodes noted. No crepitus CVS: Normal heart rate and rhythm. Pulses normal. Normal S1 and S2 Respiratory: No respiratory distress. Breath sounds normal. No Wheezing. No rales Abdomen: Soft and nontender. No rigidity. No distention. good BS x4 Skin: Skin warm and dry. Normal skin color. Normal skin turgor. Extremities: No lower extremity edema. Neurovascular intact to all extremities. No Lacerations. No Rash Neuro: Oriented X 3. No motor deficit. No sensory deficit. Moving all extermities. No slurred speech Medical Decision Making Medical Decision Making [facility] Narrative: Positive nausea vomiting generalized malaise abdominal pain. Patient has just had CT scan done 2 days prior showed no evidence of obstruction abscess perforation there is a questionable lesion noted in the pancreas will require follow-up. Patient is given IV fluids given nausea medication only with moderate relief of symptoms continued to be nauseous unable to tolerate fluids failed outpatient treatment patient denies any recreational drug use is not on marijuana will admit patient for further evaluation. Will give additional nausea medications. Patient's COVID test was negative Differential Diagnosis Differential Diagnoses: The differential diagnosis associated with the presentation includes Nausea vomiting, obstruction, abscess, perforation Admission/Observation Consideration of admission/observation: Escalation of care including admission/observation considered Consult Healthcare Provider Management of the patient was discussed with: Hospitalist Lab Data [facility] Lab Attestation statement: I reviewed the patient's lab results. 01/29/23 17:25 01/29/23 17:25 Labs: Lab Results 01/29/23 01/29/23 01/29/23 Range/Units 17:25 17:25 17:25 WBC 10.3 (4.8-10.8) X10*3/uL RBC 5.27 (4.20-5.50) X10*6/uL Hgb 13.7 (12.0-16.0) g/dl Hct 42.3 (37.0-47.0) % MCV 80.3 (80.0-98.0) fL MCH 26.0 L (27.0-33.0) pg MCHC 32.4 (31.0-35.0) g/dl RDW 13.2 (11.0-16.0) % Plt Count 280 (160-400) X10*3/uL MPV 9.4 (9.4-12.3) fL Immature Gran % (Auto) 0.7 H (0.0-0.4) % Neut % (Auto) 71.5 (45-73) % Lymph % (Auto) 19.2 L (20-40) % [place] % (Auto) 7.8 (2-11) % Eos % (Auto) 0.3 (0-4) % Baso % (Auto) 0.5 (0-2) % Lymph # (Auto) 2.0 (1.2-4.9) X10*3/uL [place] # (Auto) 0.8 (0.1-1.2) X10*3/uL Eos # (Auto) 0.0 (0.0-0.4) X10*3/uL Baso # (Auto) 0.1 (0.0-0.2) X10*3/uL Abs Immat Gran (auto) 0.07 H (0.00-0.03) X10*3/uL Absolute Neuts (auto) 7.4 (2.0-8.3) x10*3/uL Absolute Nucleated RBC 0.000 (0.0-0.012) X10*3/uL Nucleated RBC % (auto) 0.0 (0.0-0.2) /100WBC Sodium 144 (135-145) mmol/L Potassium 3.8 (3.3-5.1) mmol/L Chloride 106 (96-108) mmol/L Carbon Dioxide 20 L (22-29) mmol/L Anion Gap 22 H (12-20) BUN 16 (9-16) mg/dL Creatinine 0.93 (0.5-1.4) mg/dL Estim Creat Clear Calc 89.3 Estimated GFR > 60 Random Glucose 109 (60-115) mg/dL Calcium 9.8 (8.4-10.2) mg/dL Magnesium 1.8 (1.6-2.6) mg/dL Total Bilirubin 1.7 H (0.0-1.0) mg/dL Direct Bilirubin 0.4 (0.0-0.5) mg/dL AST 22 (5-31) U/L ALT 17 (0-31) U/L Alkaline Phosphatase 72 (39-117) U/L Total Protein 7.7 (6.5-8.0) g/dL Albumin 4.4 (3.5-5.0) g/dL Lipase 22 (8-78) U/L COVID-19 (JACKLYN) (Negative) COVID-19 Clin Com Influenza Type A (MELINDA) Negative (Negative) Influenza Type B (MELINDA) Negative (Negative) Influenza A & B Note See Note 01/29/23 Range/Units 17:25 WBC (4.8-10.8) X10*3/uL RBC (4.20-5.50) X10*6/uL Hgb (12.0-16.0) g/dl Hct (37.0-47.0) % MCV (80.0-98.0) fL MCH (27.0-33.0) pg MCHC (31.0-35.0) g/dl RDW (11.0-16.0) % Plt Count (160-400) X10*3/uL MPV (9.4-12.3) fL Immature Gran % (Auto) (0.0-0.4) % Neut % (Auto) (45-73) % Lymph % (Auto) (20-40) % [place] % (Auto) (2-11) % Eos % (Auto) (0-4) % Baso % (Auto) (0-2) % Lymph # (Auto) (1.2-4.9) X10*3/uL [place] # (Auto) (0.1-1.2) X10*3/uL Eos # (Auto) (0.0-0.4) X10*3/uL Baso # (Auto) (0.0-0.2) X10*3/uL Abs Immat Gran (auto) (0.00-0.03) X10*3/uL Absolute Neuts (auto) (2.0-8.3) x10*3/uL Absolute Nucleated RBC (0.0-0.012) X10*3/uL Nucleated RBC % (auto) (0.0-0.2) /100WBC Sodium (135-145) mmol/L Potassium (3.3-5.1) mmol/L Chloride (96-108) mmol/L Carbon Dioxide (22-29) mmol/L Anion Gap (12-20) BUN (9-16) mg/dL Creatinine (0.5-1.4) mg/dL Estim Creat Clear Calc Estimated GFR Random Glucose (60-115) mg/dL Calcium (8.4-10.2) mg/dL Magnesium (1.6-2.6) mg/dL Total Bilirubin (0.0-1.0) mg/dL Direct Bilirubin (0.0-0.5) mg/dL AST (5-31) U/L ALT (0-31) U/L Alkaline Phosphatase (39-117) U/L Total Protein (6.5-8.0) g/dL Albumin (3.5-5.0) g/dL Lipase (8-78) U/L COVID-19 (JACKLYN) Negative (Negative) COVID-19 Clin Com See Note Influenza Type A (MELINDA) (Negative) Influenza Type B (MELINDA) (Negative) Influenza A & B Note Radiology Impression Discussion of test interpretation with radiology: I have reviewed the radiologist's reading. Radiologist Impression: From 2 days prior External Record Review External record reviewed: Inpatient record Medications Administered Discontinued Medications Generic Name Dose Route Start Last Admin Trade Name Freq PRN Reason Stop Dose Admin Sodium Chloride 1,000 mls @ 999 mls/hr 01/29/23 17:45 01/29/23 18:43 Ns IV 01/29/23 18:45 Infused .Q1H1M NATHAN Infusion Sodium Chloride 1,000 mls @ 999 mls/hr 01/29/23 17:45 01/29/23 18:43 Ns IV 01/29/23 18:45 Infused .Q1H1M NATHAN Infusion Lorazepam 1 mg 01/29/23 18:27 01/29/23 18:34 Lorazepam 2 Mg/Ml Vial IVPUSH 01/29/23 18:28 1 mg ONCE ONE Administration Metoclopramide HCl 10 mg 01/29/23 18:26 01/29/23 18:34 Metoclopramide Hcl 10 Mg/2 Ml Vial IVPUSH 01/29/23 18:27 10 mg ONCE ONE Administration Discharge Plan Discharge Clinical Impression: Vomiting Patient Disposition: Admitted As Inpatient Prescriptions: No Action ondansetron HCl [Zofran] 4 mg tablet 4 mg PO Q6H PRN (Reason: nausea and vomiting) Qty: 14 0RF ondansetron 4 mg tablet,disintegrating 4 mg PO ONCE PRN (Reason: nausea and vomiting) Qty: 10 0RF ibuprofen 600 mg tablet 600 mg PO TID PRN (Reason: fever or pain) Qty: 20 0RF ondansetron HCl 4 mg tablet 4 mg PO Q6H PRN (Reason: nausea and vomiting) Qty: 14 0RF ondansetron 4 mg tablet,disintegrating 4 mg PO TID PRN (Reason: nausea and vomiting) 5 Days Qty: 10 0RF omeprazole magnesium [Prilosec OTC] 20 mg tablet,delayed release (DR/EC) 20 mg PO DAILY Qty: 30 0RF
[2023-01-29] MEDS: 0.9 % Sodium Chloride 1,000 ML 999 ML IV ×2 (17:42)
[2023-01-29 18:10] LABS: COVID-19 Test Negative (Negative); IDNOW Serial# 9DB6401D; IDNOW Serial# BCCEAD1C; Influenza A Negative (Negative); Influenza B2 Negative (Negative)
[2023-01-29 18:12] LABS: Alanine Aminotransferase 17 U/L (0-31); Albumin Level 4.4 g/dL (3.5-5.0); Alkaline Phosphatase 72 U/L (39-117); Anion Gap 22 (12-20); Aspartate Amino Transferase 22 U/L (5-31); Bilirubin Direct 0.4 mg/dL (0.0-0.5); Bilirubin Total 1.7 mg/dL (0.0-1.0); Blood Urea Nitrogen 16 mg/dL (9-16); Calcium 9.8 mg/dL (8.4-10.2); Carbon Dioxide 20 mmol/L (22-29); Chloride 106 mmol/L (96-108); Creatinine Clr Calc Pharmacy 89.3; Estimated Glomerular Filt Rate > 60; Glucose Random 109 mg/dL (60-115); Lipase 22 U/L (8-78); Magnesium 1.8 mg/dL (1.6-2.6); Potassium 3.8 mmol/L (3.3-5.1); Sodium 144 mmol/L (135-145); Total Protein 7.7 g/dL (6.5-8.0)
[2023-01-29] MEDS: Metoclopramide HCl 10 MG/2 ML VIAL IVPUSH (18:34)
[2023-01-29] MEDS: LORazepam 2 MG/ML VIAL 1 MG IVPUSH (18:34)
--- NOTE | 2023-01-29 19:34 | PM.IMHP ---
History of Present Illness Date of Service: 01/29/23 Chief Complaint: Nausea/vomiting This is a 57-year-old female with pertinent history of mood disorder, hypothyroidism, mixed hyperlipidemia, migraine, gastroesophageal reflux disease presents to the emergency department for evaluation of epigastric discomfort/nausea and vomiting. Patient states the symptoms started about a week ago. She was seen in the ER on 01/[address] revealed hypodense area involving the pancreatic head and proximal body. Patient was discharged with symptomatic treatment from the ER. Patient states she continued to have nausea and nonbloody emesis and could not keep anything down. Patient states she feels weak as she has not been able to eat anything. Also has intermittent epigastric discomfort, nonradiating and without any relieving factors. Denies history of pancreatitis or significant alcohol use. Patient denies illicit drug use or marijuana use. No fever, chills, chest discomfort, palpitations, shortness of breath, changes in urinary habits Review of Systems Constitutional: Constitutional: Reports fatigue, Reports lethargy and Reports malaise Cardiovascular: Cardiovascular: Reports no additional cardiovascular complaints Respiratory: Respiratory: Reports no additional respiratory complaints Gastrointestinal: Gastrointestinal: Reports abdominal pain, Reports nausea and Reports vomiting Genitourinary: Genitourinary: Reports no additional female genitourinary complaints Endocrine: Endocrine: Reports fatigue PMFSH Medical History Anxiety DDD (degenerative disc disease) Hyperlipemia Migraines OCD (obsessive compulsive disorder) Pertinent family history: No family history of CAD Surgical History H/O thyroidectomy Social History Smoked in Last 30 Days: No Use of substances other than those prescribed or required for medical reasons: No Any prior treatment program specific to substance use: No Advance Directives: No Advance Directives Information Provided: Yes Patient : No Meds Allergies Allergy/AdvReac Type Severity Reaction Status Date / Time No Known Allergies Allergy Unverified 02/06/21 04:29 Active Medications: Current Medications Pharmacy Consult (Consult Rx Perform Med Rec) 1 each MISCELLANE ONCE PRN PRN Reason: Consult order Home Medications Medication Instructions Recorded Confirmed Last Taken Type atorvastatin 20 mg tablet 1 tab PO DAILY 01/29/23 01/29/23 01/22/23 History bupropion HCl 300 mg 24 hr tablet, 1 tab PO DAILY 01/29/23 01/29/23 01/22/23 History extended release citalopram 20 mg tablet 1 tab PO DAILY 01/29/23 01/29/23 01/22/23 History citalopram 40 mg tablet 2 tab PO DAILY 01/29/23 01/29/23 01/22/23 History levothyroxine 137 mcg tablet 1 tab PO DAILY 01/29/23 01/29/23 01/22/23 History lorazepam 1 mg tablet 0.5 tab PO DAILY 01/29/23 01/29/23 01/22/23 History lorazepam 1 mg tablet 1 tab PO BEDTIME 01/29/23 01/29/23 01/22/23 History ondansetron 4 mg disintegrating 1 tab PO TID PRN nausea/vomiting 01/29/23 01/29/23 Unknown History tablet propranolol 120 mg capsule,24 1 cap PO DAILY 01/29/23 01/29/23 01/22/23 History hr,extended release sumatriptan succinate 100 mg tablet 100 mg PO DAILY MRX1 PRN Migraine 01/29/23 01/29/23 Unknown History Headache Physical Exam Vital Signs and Narrative: Vital Signs: Last Vital Signs Temp 98.0 F 01/29/23 14:35 Pulse 98 01/29/23 14:35 Resp 18 01/29/23 14:35 BP 148/97 H 01/29/23 14:35 Pulse Ox 98 01/29/23 14:35 O2 Del Method 01/29/23 14:35 BMI result Body Mass Index 41.9 Middle-aged female lying in bed in no distress Neck supple, no JVD Regular rate and rhythm, S1-S2 heard Regular breath sounds bilaterally, no wheezing or crackles appreciated Mild epigastric tenderness without guarding or rigidity, Patient is awake, alert and oriented to self, place, time and person ; no focal motor deficit Psych: Normal mood No pedal edema Results Labs 01/29/23 17:25 01/29/23 17:25 Labs: Laboratory Results - last 24 hr 01/29/23 01/29/23 01/29/23 17:25 17:25 17:25 MCV 80.3 MCH 26.0 L MCHC 32.4 RDW 13.2 Plt Count 280 MPV 9.4 Immature Gran % (Auto) 0.7 H Neut % (Auto) 71.5 Lymph % (Auto) 19.2 L [place] % (Auto) 7.8 Eos % (Auto) 0.3 Baso % (Auto) 0.5 Lymph # (Auto) 2.0 [place] # (Auto) 0.8 Eos # (Auto) 0.0 Baso # (Auto) 0.1 Abs Immat Gran (auto) 0.07 H Absolute Neuts (auto) 7.4 Absolute Nucleated RBC 0.000 Nucleated RBC % (auto) 0.0 Anion Gap 22 H Estim Creat Clear Calc 89.3 Estimated GFR > 60 Random Glucose 109 Calcium 9.8 Magnesium 1.8 Total Bilirubin 1.7 H Direct Bilirubin 0.4 AST 22 ALT 17 Alkaline Phosphatase 72 Total Protein 7.7 Albumin 4.4 Lipase 22 COVID-19 (JACKLYN) COVID-19 Clin Com Influenza Type A (MELINDA) Negative Influenza Type B (MELINDA) Negative Influenza A & B Note See Note 01/29/23 17:25 MCV MCH MCHC RDW Plt Count MPV Immature Gran % (Auto) Neut % (Auto) Lymph % (Auto) [place] % (Auto) Eos % (Auto) Baso % (Auto) Lymph # (Auto) [place] # (Auto) Eos # (Auto) Baso # (Auto) Abs Immat Gran (auto) Absolute Neuts (auto) Absolute Nucleated RBC Nucleated RBC % (auto) Anion Gap Estim Creat Clear Calc Estimated GFR Random Glucose Calcium Magnesium Total Bilirubin Direct Bilirubin AST ALT Alkaline Phosphatase Total Protein Albumin Lipase COVID-19 (JACKLYN) Negative COVID-19 Clin Com See Note Influenza Type A (MELINDA) Influenza Type B (MELINDA) Influenza A & B Note Assessment and Plan (1) Vomiting: Status: Acute Plan This is a 57-year-old female with pertinent history of mood disorder, hypothyroidism, mixed hyperlipidemia, migraine, gastroesophageal reflux disease presents to the emergency department for evaluation of epigastric discomfort/nausea and vomiting. #. Intractable nausea/vomiting with epigastric discomfort: Resuscitated with IV crystalloids in the ER. CT on 01/27 with hypodense area involving pancreatic head and proximal body. Will obtain MRI to further delineate anatomy. Full liquid diet and advance as tolerated. Symptomatic treatment for now. #. Mood disorder: Continue home mood stabilizers #. Hypothyroidism: Continue Synthroid. Obtain TSH #. Mixed hyperlipidemia: On statin #. Gastroesophageal reflux disease: On PPI DVT prophylaxis: Lovenox 40 mg daily Full code Full liquid diet. Advance as tolerated Time Spent With Patient Time: Total time managing care of this patient today ____ minutes. Quality Stroke Does the patient have a stroke diagnosis?: No VTE Prior VTE?: No VTE Risk Level:: Medical - moderate - high VTE Device Contraindication: Treatment Not Indicated VTE Drug Contraindication: N/A - Med Ordered
--- NOTE | 2023-01-29 19:49 | PHA.MEDREC ---
Addendum entered by Thad Cervantes, [facility] 01/29/23 20:28: verified with pt, currently taking a total of 100 mg of citalopram/day, verified with pharmacy also Original Note: Pharmacy Consult ? Medication Reconciliation Pharmacy has completed the medication reconciliation.
[2023-01-29] MEDS: Enoxaparin Sodium 40 MG/0.4 ML SYRINGE SUBCUT (20:23)
[2023-01-29] MEDS: Famotidine/PF 20 MG/2 ML VIAL IVPUSH (20:23)
--- NOTE | 2023-01-29 20:50 | PC.NURSE ---
pt resting on stretcher at this time, endorses abdominal pain and cramping. pt reports urinating on bed, pt has been cleaned and changed over. She reports that she feels as though she is too weak to stand and she was vomiting so forcefully that she urinated by accident. Pt is now resting comfortably
[2023-01-29] MEDS: LORazepam 1 MG TABLET PO (21:09)
[2023-01-29] MEDS: buPROPion HCl XL 300 MG TAB.ER.24H PO (21:09)
[2023-01-29 22:24] LABS: Thyroid Stimulating Hormone 7.05 uIU/mL (0.32-4.0)
[2023-01-30 01:45] LABS: Appearance Urine Cloudy; Color Urine Yellow; Glucose Urine UA Negative (Negative); Leukocyte Esterase Urine Moderate (2+) (Negative); Nitrite Urine Negative (Negative); PH 5.5 (5.0-9.0); Specific Gravity - Urine >= 1.030 (1.005-1.025); UMIC TRIGGER UACC YES; Urine Blood Negative (Negative); Urine Ketones 80 mg/dL (Negative); Urine Protein 30 (1+) mg/dL (Neg-Trace)
[2023-01-30 01:56] LABS: Bacteria Urine 2+ (None Seen); Squamous Epithelial Cell Urine >20 /HPF (0-2); UACC Culture Trigger YES; WBC Urine >50 /HPF (0-5)
[2023-01-30 03:37] VITALS: BP 120/40; PULSE 72; RESP 18; TEMP 36.9; O2SAT 96
--- NOTE | 2023-01-30 04:09 | PC.NURSE ---
MRI form completed with pt and faxed to the MRI dept.
[2023-01-30] MEDS: Levothyroxine Sodium 112 MCG, Levothyroxine Sodium 25 MCG 137 MCG PO (05:52)
[2023-01-30 06:20] LABS: MANUAL DIFF FLAG NO
[2023-01-30 06:28] LABS: Basophils Percent Auto 0.4 % (0-2); Eosinophils Percent Auto 0.3 % (0-4); Hematocrit 35.2 % (37.0-47.0); Hemoglobin 11.2 g/dl (12.0-16.0); Imm Gran Abs Auto 0.03 X10*3/uL (0.00-0.03); Imm Gran Pct Auto 0.4 % (0.0-0.4); Lymphocytes Absolute Auto 1.9 X10*3/uL (1.2-4.9); Lymphocytes Percent Auto 26.7 % (20-40); Mean Corpuscular HGB Conc 31.8 g/dl (31.0-35.0); Mean Corpuscular Hemoglobin 26.4 pg (27.0-33.0); Mean Corpuscular Volume 82.8 fL (80.0-98.0); Mean Platelet Volume 10.3 fL (9.4-12.3); Monocytes Absolute Auto 0.6 X10*3/uL (0.1-1.2); Monocytes Percent Auto 8.4 % (2-11); Neutrophils Absolute Auto 4.4 x10*3/uL (2.0-8.3); Neutrophils Percent Auto 63.8 % (45-73); Platelet Count 193 X10*3/uL (160-400); Red Blood Count 4.25 X10*6/uL (4.20-5.50); Red Cell Distribution Width 13.5 % (11.0-16.0); White Blood Count 6.9 X10*3/uL (4.8-10.8)
[2023-01-30] MEDS: Omeprazole 20 MG CAPSULE.DR PO (06:30)
[2023-01-30 06:48] LABS: Anion Gap 15 (12-20); Blood Urea Nitrogen 13 mg/dL (9-16); Calcium 8.7 mg/dL (8.4-10.2); Carbon Dioxide 25 mmol/L (22-29); Chloride 108 mmol/L (96-108); Creatinine Clr Calc Pharmacy 109.2; Estimated Glomerular Filt Rate > 60; Glucose Random 69 mg/dL (60-115); Potassium 3.6 mmol/L (3.3-5.1); Sodium 144 mmol/L (135-145)
[2023-01-30 07:25] VITALS: BP 129/76; PULSE 74; RESP 16; TEMP 36.8; O2SAT 96
[2023-01-30 07:53] VITALS: BP 132/50; PULSE 74; RESP 13; TEMP 36.9; O2SAT 95
[2023-01-30] MEDS: 0.9 % Sodium Chloride Flush 3 ML SYRINGE IVFLUSH ×3 (08:07→20:18)
[2023-01-30] MEDS: Atorvastatin Calcium 20 MG TABLET PO (09:10)
[2023-01-30] MEDS: Escitalopram Oxalate 20 MG TABLET PO (09:10)
[2023-01-30] MEDS: Propranolol HCL LA 60 MG CAP.SA.24H 120 MG PO (09:12)
[2023-01-30 09:14] VITALS: BP 129/70; PULSE 100; RESP 16; O2SAT 99
[2023-01-30] MEDS: LORazepam 0.5 MG TABLET PO (10:25)
--- NOTE | 2023-01-30 10:30 | PC.NURSE ---
Patient resting on stretcher at this time. Waiting for MRI, no complaints at this time.
[2023-01-30 14:52] VITALS: BP 142/75; PULSE 69; RESP 18; TEMP 36.9; O2SAT 94
--- NOTE | 2023-01-30 15:42 | P.PNIM_ITS ---
Subjective Subjective Date of Service: 01/30/23 Interval History: f/u on abd pain, vomitting she feels better Physical Exam Vital Signs: Vital Signs: Last Vital Signs Temp 98.4 F 01/30/23 14:52 Pulse 69 01/30/23 14:52 Resp 18 01/30/23 14:52 BP 142/75 H 01/30/23 14:52 Pulse Ox 94 01/30/23 14:52 O2 Del Method 01/30/23 14:52 BMI result Body Mass Index 41.9 Const: Other: General: AO X 3, no acute distress Resp: CTA bilateral CVS: S1,S2,RRR GI: +BS, NT, no distention Skin: No rash Neuro: motor grossly intact Psych: appropriate affect Objective Data Active Medications Acetaminophen (Acetaminophen 325 Mg Tablet) 650 mg PO Q6H PRN PRN Reason: Pain, Mild (Pain Scale 1-3) Atorvastatin Calcium (Atorvastatin Calcium 20 Mg Tablet) 20 mg PO DAILY [facility] Last Admin: 01/30/23 09:10 Dose: 20 mg Documented By: XI Bupropion HCl (Bupropion Hcl Xl 300 Mg Tab.Er.24h) 300 mg PO BEDTIME [facility] Enoxaparin Sodium (Enoxaparin Sodium 40 Mg/0.4 Ml Syringe) 40 mg SUBCUT Q24H [facility] Last Admin: 01/29/23 20:23 Dose: 40 mg Documented By: SHAI Escitalopram Oxalate (Escitalopram Oxalate 20 Mg Tablet) 20 mg PO DAILY [facility] Last Admin: 01/30/23 09:10 Dose: 20 mg Documented By: XI Levothyroxine Sodium 112 mcg/ (Levothyroxine Sodium 25 mcg) 137 mcg PO DAILY@0 600 [facility] Last Admin: 01/30/23 05:52 Dose: 137 mcg Documented By: GURU Lorazepam (Lorazepam 0.5 Mg Tablet) 0.5 mg PO DAILY [facility] Last Admin: 01/30/23 10:25 Dose: 0.5 mg Documented By: XI Lorazepam (Lorazepam 1 Mg Tablet) 1 mg PO BEDTIME [facility] Last Admin: 01/29/23 21:09 Dose: 1 mg Documented By: SHAI Melatonin (Melatonin 3 Mg Tablet) 6 mg PO BEDTIME PRN PRN Reason: Insomnia Omeprazole (Omeprazole 20 Mg Capsule.) 20 mg PO DAILY@0630 [facility] Last Admin: 01/30/23 06:30 Dose: 20 mg Documented By: GURU Ondansetron HCl (Ondansetron Hcl 4 Mg/2 Ml Vial) 4 mg IVPUSH Q8H PRN PRN Reason: Nausea and Vomiting Pharmacy Consult (Consult Rx Perform Med Rec) 1 each MISCELLANE ONCE PRN PRN Reason: Consult order Propranolol HCl (Propranolol Hcl La 60 Mg Cap.Sa.24h) 120 mg PO DAILY [facility]; Protocol Last Admin: 01/30/23 09:12 Dose: 120 mg Documented By: XI Sodium Chloride (0.9 % Sodium Chloride Flush 3 Ml Syringe) 3 ml IVFLUSH QSHIFT [facility] Last Admin: 01/30/23 08:07 Dose: 3 ml Documented By: XI Sumatriptan Succinate (Sumatriptan Succinate 100 Mg Tablet) 100 mg PO DAILY MRX1 PRN PRN Reason: Migraine Headache Labs 01/30/23 05:17 01/30/23 05:17 Labs: Laboratory Results - last 24 hr 01/29/23 01/29/23 01/29/23 17:25 17:25 17:25 MCV 80.3 MCH 26.0 L MCHC 32.4 RDW 13.2 Plt Count 280 MPV 9.4 Immature Gran % (Auto) 0.7 H Neut % (Auto) 71.5 Lymph % (Auto) 19.2 L [place] % (Auto) 7.8 Eos % (Auto) 0.3 Baso % (Auto) 0.5 Lymph # (Auto) 2.0 [place] # (Auto) 0.8 Eos # (Auto) 0.0 Baso # (Auto) 0.1 Abs Immat Gran (auto) 0.07 H Absolute Neuts (auto) 7.4 Absolute Nucleated RBC 0.000 Nucleated RBC % (auto) 0.0 Anion Gap 22 H Estim Creat Clear Calc 89.3 Estimated GFR > 60 Random Glucose 109 Calcium 9.8 Magnesium 1.8 Total Bilirubin 1.7 H Direct Bilirubin 0.4 AST 22 ALT 17 Alkaline Phosphatase 72 Total Protein 7.7 Albumin 4.4 Lipase 22 TSH 7.05 H Urine Color Urine Appearance Urine pH Ur Specific [place] Urine Protein Urine Glucose (UA) Urine Ketones Urine Blood Urine Nitrite Ur Leukocyte Esterase Urine RBC Urine WBC Ur Squamous Epith Cells Urine Bacteria Hyaline Casts COVID-19 (JACKLYN) COVID-19 Clin Com Influenza Type A (MELINDA) Negative Influenza Type B (MELINDA) Negative Influenza A & B Note See Note 01/29/23 01/30/23 01/30/23 17:25 01:38 05:17 MCV 82.8 MCH 26.4 L MCHC 31.8 RDW 13.5 Plt Count 193 D MPV 10.3 Immature Gran % (Auto) 0.4 Neut % (Auto) 63.8 Lymph % (Auto) 26.7 [place] % (Auto) 8.4 Eos % (Auto) 0.3 Baso % (Auto) 0.4 Lymph # (Auto) 1.9 [place] # (Auto) 0.6 Eos # (Auto) 0.0 Baso # (Auto) 0.0 Abs Immat Gran (auto) 0.03 Absolute Neuts (auto) 4.4 Absolute Nucleated RBC 0.000 Nucleated RBC % (auto) 0.0 Anion Gap Estim Creat Clear Calc Estimated GFR Random Glucose Calcium Magnesium Total Bilirubin Direct Bilirubin AST ALT Alkaline Phosphatase Total Protein Albumin Lipase TSH Urine Color Yellow Urine Appearance Cloudy Urine pH 5.5 Ur Specific [place] >= 1.030 H Urine Protein 30 (1+) H Urine Glucose (UA) Negative Urine Ketones 80 Urine Blood Negative Urine Nitrite Negative Ur Leukocyte Esterase Moderate (2+) H Urine RBC 6-10 H Urine WBC >50 H Ur Squamous Epith Cells >20 Urine Bacteria 2+ Hyaline Casts 3-5 COVID-19 (JACKLYN) Negative COVID-19 Clin Com See Note Influenza Type A (MELINDA) Influenza Type B (MELINDA) Influenza A & B Note 01/30/23 05:17 MCV MCH MCHC RDW Plt Count MPV Immature Gran % (Auto) Neut % (Auto) Lymph % (Auto) [place] % (Auto) Eos % (Auto) Baso % (Auto) Lymph # (Auto) [place] # (Auto) Eos # (Auto) Baso # (Auto) Abs Immat Gran (auto) Absolute Neuts (auto) Absolute Nucleated RBC Nucleated RBC % (auto) Anion Gap 15 Estim Creat Clear Calc 109.2 Estimated GFR > 60 Random Glucose 69 Calcium 8.7 D Magnesium Total Bilirubin Direct Bilirubin AST ALT Alkaline Phosphatase Total Protein Albumin Lipase TSH Urine Color Urine Appearance Urine pH Ur Specific [place] Urine Protein Urine Glucose (UA) Urine Ketones Urine Blood Urine Nitrite Ur Leukocyte Esterase Urine RBC Urine WBC Ur Squamous Epith Cells Urine Bacteria Hyaline Casts COVID-19 (JACKLYN) COVID-19 Clin Com Influenza Type A (MELINDA) Influenza Type B (MELINDA) Influenza A & B Note Assessment and Plan (1) Vomiting: Status: Acute Plan 57-year-old female with pertinent history of mood disorder, hypothyroidism, mixed hyperlipidemia, migraine, gastroesophageal reflux disease presents to the emergency department for evaluation of epigastric discomfort/nausea and vomiting. #.? Intractable nausea/vomiting with epigastric discomfort:? Resuscitated with IV crystalloids in the ER. CT on 01/27 with hypodense area involving pancreatic head and proximal body.?obtaining MRI to further delineate anatomy.? Full liquid diet and advance as tolerated.? Symptomatic treatment for now. May need gi eval #.? Mood disorder: Continue home mood stabilizers #.? Hypothyroidism: Continue Synthroid.? Obtain TSH #.? Mixed hyperlipidemia:? On statin #.? Gastroesophageal reflux disease:? On PPI DVT prophylaxis:? Lovenox 40 mg daily Full code Full liquid diet.? Advance as tolerated neeed for inpatient: work up for abd pain and abnormal CT of pancreaas Time Spent With Patient Time: Total time managing care of this patient today ____ minutes. Quality Stroke Does the patient have a stroke diagnosis?: No VTE Prior VTE?: No VTE Risk Level:: Medical - moderate - high VTE Device Contraindication: Treatment Not Indicated VTE Drug Contraindication: N/A - Med Ordered
[2023-01-30 19:51] VITALS: BP 141/65; PULSE 62; RESP 18; TEMP 36.9; O2SAT 97
[2023-01-30] MEDS: Enoxaparin Sodium 40 MG/0.4 ML SYRINGE SUBCUT (20:16)
[2023-01-30] MEDS: ondansetron HCL 4 MG/2 ML VIAL IVPUSH (20:24)
[2023-01-30] MEDS: buPROPion HCl XL 300 MG TAB.ER.24H PO (21:40)
[2023-01-30] MEDS: LORazepam 1 MG TABLET PO (21:40)
[2023-01-31] VITALS: BP 128/71; PULSE 74; RESP 16; TEMP 36.4; O2SAT 96
[2023-01-31 03:54] VITALS: BP 132/63; PULSE 70; RESP 16; TEMP 35.9; O2SAT 96
[2023-01-31] MEDS: Levothyroxine Sodium 112 MCG, Levothyroxine Sodium 25 MCG 137 MCG PO (05:56)
[2023-01-31] MEDS: Omeprazole 20 MG CAPSULE.DR PO (05:56)
--- NOTE | 2023-01-31 06:16 | PC.NURSE ---
Around 1999, Pt had refused to take any po meds because of her nausea, prn zofran IV given with good effect, later pt c/o seeing different animals around and hearing voices, pt was very anxious and weepy, pt now has her nausea subsided and encouraged to take her scheduled Wellbutrin and Lorazepam, pt complied, pt had a crying spell for good hour and felt good after, Dr. Rosa was updated.
[2023-01-31 08:00] VITALS: BP 130/66; PULSE 68; RESP 18; TEMP 36.9; O2SAT 97
[2023-01-31] MEDS: LORazepam 0.5 MG TABLET PO (08:11)
[2023-01-31] MEDS: Propranolol HCL LA 60 MG CAP.SA.24H 120 MG PO (08:11)
[2023-01-31] MEDS: Escitalopram Oxalate 20 MG TABLET PO (08:11)
[2023-01-31] MEDS: 0.9 % Sodium Chloride Flush 3 ML SYRINGE IVFLUSH ×2 (08:12→15:34)
[2023-01-31] MEDS: Atorvastatin Calcium 20 MG TABLET PO (08:12)
--- NOTE | 2023-01-31 09:23 | P.PNIM_ITS ---
Subjective Subjective Date of Service: 01/31/23 Interval History: f/u on abd pain, vomitting she feels better, MRI show no acute finding, she says that she thinks her symptomas are likely Psycholigical and had a panic attack event overnight Physical Exam Vital Signs: Vital Signs: Last Vital Signs Temp 98.5 F 01/31/23 08:00 Pulse 68 01/31/23 08:00 Resp 18 01/31/23 08:00 BP 130/66 01/31/23 08:00 Pulse Ox 97 01/31/23 08:00 O2 Del Method 01/31/23 08:00 BMI result Body Mass Index 41.9 Const: Other: General: AO X 3, no acute distress Resp: CTA bilateral CVS: S1,S2,RRR GI: +BS, NT, no distention Skin: No rash Neuro: motor grossly intact Psych: appropriate affect Objective Data Active Medications Acetaminophen (Acetaminophen 325 Mg Tablet) 650 mg PO Q6H PRN PRN Reason: Pain, Mild (Pain Scale 1-3) Atorvastatin Calcium (Atorvastatin Calcium 20 Mg Tablet) 20 mg PO DAILY [facility] Last Admin: 01/31/23 08:12 Dose: 20 mg Documented By: KACY Bupropion HCl (Bupropion Hcl Xl 300 Mg Tab.Er.24h) 300 mg PO BEDTIME [facility] Last Admin: 01/30/23 21:40 Dose: 300 mg Documented By: JOSEF Enoxaparin Sodium (Enoxaparin Sodium 40 Mg/0.4 Ml Syringe) 40 mg SUBCUT Q24H [facility] Last Admin: 01/30/23 20:16 Dose: 40 mg Documented By: JOSEF Escitalopram Oxalate (Escitalopram Oxalate 20 Mg Tablet) 20 mg PO DAILY [facility] Last Admin: 01/31/23 08:11 Dose: 20 mg Documented By: KACY Levothyroxine Sodium 112 mcg/ (Levothyroxine Sodium 25 mcg) 137 mcg PO DAILY@ 0600 [facility] Last Admin: 01/31/23 05:56 Dose: 137 mcg Documented By: JOSEF Lorazepam (Lorazepam 0.5 Mg Tablet) 0.5 mg PO DAILY [facility] Last Admin: 01/31/23 08:11 Dose: 0.5 mg Documented By: KACY Lorazepam (Lorazepam 1 Mg Tablet) 1 mg PO BEDTIME [facility] Last Admin: 01/30/23 21:40 Dose: 1 mg Documented By: JOSEF Melatonin (Melatonin 3 Mg Tablet) 6 mg PO BEDTIME PRN PRN Reason: Insomnia Omeprazole (Omeprazole 20 Mg Capsule.) 20 mg PO DAILY@0630 [facility] Last Admin: 01/31/23 05:56 Dose: 20 mg Documented By: JOSEF Ondansetron HCl (Ondansetron Hcl 4 Mg/2 Ml Vial) 4 mg IVPUSH Q8H PRN PRN Reason: Nausea and Vomiting Last Admin: 01/30/23 20:24 Dose: 4 mg Documented By: JOSEF Pharmacy Consult (Consult Rx Perform Med Rec) 1 each MISCELLANE ONCE PRN PRN Reason: Consult order Propranolol HCl (Propranolol Hcl La 60 Mg Cap.Sa.24h) 120 mg PO DAILY [facility]; Protocol Last Admin: 01/31/23 08:11 Dose: 120 mg Documented By: KACY Sodium Chloride (0.9 % Sodium Chloride Flush 3 Ml Syringe) 3 ml IVFLUSH QSHIFT [facility] Last Admin: 01/31/23 08:12 Dose: 3 ml Documented By: KACY Sumatriptan Succinate (Sumatriptan Succinate 100 Mg Tablet) 100 mg PO DAILY MRX1 PRN PRN Reason: Migraine Headache Labs 01/30/23 05:17 01/30/23 05:17 Assessment and Plan (1) Vomiting: Status: Acute Plan 57-year-old female with pertinent history of mood disorder, hypothyroidism, mixed hyperlipidemia, migraine, gastroesophageal reflux disease presents to the emergency department for evaluation of epigastric discomfort/nausea and vomiting. #.? Intractable nausea/vomiting with epigastric discomfort:? Resuscitated with IV crystalloids in the ER. CT on 01/27 with hypodense area involving pancreatic head and proximal body.?MRI motion artifact but no acute findings, possibly Psychological illness. #.? Mood disorder: Continue home mood stabilizers, Psych consult to review and or adjust meds, she states that she has not been taking her medications #.? Hypothyroidism: Continue Synthroid.? Obtain TSH #.? Mixed hyperlipidemia:? On statin #.? Gastroesophageal reflux disease:? On PPI DVT prophylaxis:? Lovenox 40 mg daily Full code Full liquid diet.? Advance as tolerated neeed for inpatient: work up for abd pain and abnormal CT of pancreaas Time Spent With Patient Time: Total time managing care of this patient today ____ minutes. Quality Stroke Does the patient have a stroke diagnosis?: No VTE Prior VTE?: No VTE Risk Level:: Medical - moderate - high VTE Device Contraindication: Treatment Not Indicated VTE Drug Contraindication: N/A - Med Ordered
--- NOTE | 2023-01-31 15:34 | MHC.CM.PN ---
IMM DELIVERED PT LIVES WITH [facility] AT [address] [place] [address]. INDEPENDENT AT BASELINE. NO HCP, DECLINES NO COVID VAX PCP RICHIE JIMENEZ AT [facility]. DP: HOME, NO SERVICES ANTICIPATED. [facility] WILL TRANSPORT. CM WILL CONTINUE TO FOLLOW.
[2023-01-31] MEDS: ondansetron HCL 4 MG/2 ML VIAL IVPUSH (15:46)
--- NOTE | 2023-01-31 15:47 | P.CDIM_ITS ---
PROVIDER RESPONSE TEXT: To clarify, the appropriate diagnosis supported by the clinical indicators: Obesity due to excess calories QUERY TEXT: PHYSICIAN'S DOCUMENTATION REQUEST Date of Query: 01/31/2023 02:31 PM EDT Patient Name: Alissa Gonsalves Admit Date: 01/29/2023 Dear Justo Partida, A review of the medical record indicates additional documentation may be needed. Please review below and update the documentation accordingly. Is there a diagnosis that correlates with the findings below: Clinical Indicators: BMI - 42.0 Height - 5ft 6in Weight - 117.93kg Per RN shift assessments: Abdomen large and round. If possible, please provide an associated diagnosis related to the abnormal BMI, such as: Obesity due to excess calories Obesity due to other cause Please specify other cause Severe or Morbid Obesity With alveolar hypoventilation Severe or Morbid Obesity Without alveolar hypoventilation BMI is not significant Other Other (explain) Clinically unable to determine (explain) Thank you, Meggan Valdovinos MS, RN, CCRN Use of terms such as suspected, likely, concern for, or probable (associated with a specific diagnosi s that is being evaluated, monitored, or treated as if it exists) are acceptable and can be coded in the inpatient se tting, when documented at the time of discharge. Please use your independent medical judgment in providing your response. THIS QUERY IS PART OF THE PERMANENT MEDICAL RECORD
[2023-01-31 16:00] VITALS: BP 150/73; PULSE 70; RESP 18; TEMP 36.7; O2SAT 97
--- NOTE | 2023-01-31 17:36 | PM.PSYCN ---
History of Present Illness Date of Service: t Chief Complaint: Nausea/ vomiting Reason for Consult: Panic attack Requesting physician: Justo Partida Sources of Information: patient interviewed and chart reviewed HPI Narrative: The patient is a 57-year-old female, single, with no children, admitted to the medical unit for vomiting, with a prior history of OCD and depression, no prior psychiatric admissions was asked to be seen in the context of a panic attack last night. The patient reported that for the last days she was been sick with poor p.o. intake, vomiting and poor compliance with her medications. She was brought to the emergency room for the 2nd time in less than a week and after the admission to the unit she admitted that she had a brief period that she lost time, was unable to think straight and she had illusions and hallucinations in the context of electrolyte imbalance. During the interview she adamantly denies psychotic symptoms, hallucinations, delusions or any other disturbance perception. She was logical, future oriented and less anxious. Past Psychiatric History: She follows outpatient services by Dr. Amberly Leahy. Medical Evaluation Reviewed: Yes Review of Systems Review of Systems Yes all other systems are reviewed and are negative [facility] Medical History Anxiety DDD (degenerative disc disease) Hyperlipemia Migraines OCD (obsessive compulsive disorder) Surgical History H/O thyroidectomy Diagnostics Vital Signs (24Hr): Vital Signs - 24 hr 01/30/23 19:51 01/31/23 00:00 01/31/23 03:54 Temperature 98.5 F 97.6 F 96.6 F L Pulse Rate 62 74 70 Respiratory Rate 18 16 16 Blood Pressure 141/65 H 128/71 132/63 Pulse Oximetry 97 96 96 Oxygen Delivery Method Room Air Room Air Room Air 01/31/23 08:00 01/31/23 16:00 Temperature 98.5 F 98.0 F Pulse Rate 68 70 Respiratory Rate 18 18 Blood Pressure 130/66 150/73 H Pulse Oximetry 97 97 Oxygen Delivery Method Room Air Room Air BMI result Body Mass Index 41.9 Labs 01/30/23 05:17 01/30/23 05:17 Labs: Laboratory Results - last 48 hr 01/29/23 01/29/2323 17:25 17:25 17:25 WBC 10.3 RBC 5.27 Hgb 13.7 Hct 42.3 MCV 80.3 MCH 26.0 L MCHC 32.4 RDW 13.2 Plt Count 280 MPV 9.4 Immature Gran % (Auto) 0.7 H Neut % (Auto) 71.5 Lymph % (Auto) 19.2 L Lynn % (Auto) 7.8 Eos % (Auto) 0.3 Baso % (Auto) 0.5 Lymph # (Auto) 2.0 Lynn # (Auto) 0.8 Eos # (Auto) 0.0 Baso # (Auto) 0.1 Abs Immat Gran (auto) 0.07 H Absolute Neuts (auto) 7.4 Absolute Nucleated RBC 0.000 Nucleated RBC % (auto) 0.0 Sodium 144 Potassium 3.8 Chloride 106 Carbon Dioxide 20 L Anion Gap 22 H BUN 16 Creatinine 0.93 Estim Creat Clear Calc 89.3 Estimated GFR > 60 Random Glucose 109 Calcium 9.8 Magnesium 1.8 Total Bilirubin 1.7 H Direct Bilirubin 0.4 AST 22 ALT 17 Alkaline Phosphatase 72 Total Protein 7.7 Albumin 4.4 Lipase 22 TSH 7.05 H Urine Color Urine Appearance Urine pH Ur Specific [place] Urine Protein Urine Glucose (UA) Urine Ketones Urine Blood Urine Nitrite Ur Leukocyte Esterase Urine RBC Urine WBC Ur Squamous Epith Cells Urine Bacteria Hyaline Casts COVID-19 (JACKLYN) COVID-19 Clin Com Influenza Type A (MELINDA) Negative Influenza Type B (MELINDA) Negative Influenza A & B Note See Note 01/29/23 01/30/23 01/30/23 17:25 01:38 05:17 WBC 6.9 RBC 4.25 Hgb 11.2 L Hct 35.2 L MCV 82.8 MCH 26.4 L MCHC 31.8 RDW 13.5 Plt Count 193 D MPV 10.3 Immature Gran % (Auto) 0.4 Neut % (Auto) 63.8 Lymph % (Auto) 26.7 Lynn % (Auto) 8.4 Eos % (Auto) 0.3 Baso % (Auto) 0.4 Lymph # (Auto) 1.9 Lynn # (Auto) 0.6 Eos # (Auto) 0.0 Baso # (Auto) 0.0 Abs Immat Gran (auto) 0.03 Absolute Neuts (auto) 4.4 Absolute Nucleated RBC 0.000 Nucleated RBC % (auto) 0.0 Sodium Potassium Chloride Carbon Dioxide Anion Gap BUN Creatinine Estim Creat Clear Calc Estimated GFR Random Glucose Calcium Magnesium Total Bilirubin Direct Bilirubin AST ALT Alkaline Phosphatase Total Protein Albumin Lipase TSH Urine Color Yellow Urine Appearance Cloudy Urine pH 5.5 Ur Specific [place] >= 1.030 H Urine Protein 30 (1+) H Urine Glucose (UA) Negative Urine Ketones 80 Urine Blood Negative Urine Nitrite Negative Ur Leukocyte Esterase Moderate (2+) H Urine RBC 6-10 H Urine WBC >50 H Ur Squamous Epith Cells >20 Urine Bacteria 2+ Hyaline Casts 3-5 COVID-19 (JACKLYN) Negative COVID-19 Clin Com See Note Influenza Type A (MELINDA) Influenza Type B (MELINDA) Influenza A & B Note 01/30/23 05:17 WBC RBC Hgb Hct MCV MCH MCHC RDW Plt Count MPV Immature Gran % (Auto) Neut % (Auto) Lymph % (Auto) Lynn % (Auto) Eos % (Auto) Baso % (Auto) Lymph # (Auto) Lynn # (Auto) Eos # (Auto) Baso # (Auto) Abs Immat Gran (auto) Absolute Neuts (auto) Absolute Nucleated RBC Nucleated RBC % (auto) Sodium 144 Potassium 3.6 Chloride 108 Carbon Dioxide 25 Anion Gap 15 BUN 13 Creatinine 0.76 Estim Creat Clear Calc 109.2 Estimated GFR > 60 Random Glucose 69 Calcium 8.7 D Magnesium Total Bilirubin Direct Bilirubin AST ALT Alkaline Phosphatase Total Protein Albumin Lipase TSH Urine Color Urine Appearance Urine pH Ur Specific [place] Urine Protein Urine Glucose (UA) Urine Ketones Urine Blood Urine Nitrite Ur Leukocyte Esterase Urine RBC Urine WBC Ur Squamous Epith Cells Urine Bacteria Hyaline Casts COVID-19 (JACKLYN) COVID-19 Clin Com Influenza Type A (MELINDA) Influenza Type B (MELINDA) Influenza A & B Note Imaging Radiology Impressions: ITS Impressions Abdomen MRI 01/30/23 17:04 IMPRESSION: 1. Motion artifact limitations however, no overt pancreatic abnormality. Pancreatic fatty atrophy without associated abnormality correlates with recent CT findings without significant change. 2. Bilateral renal cysts, left greater than right demonstrate benign features not requiring follow-up at this time. Mental Status Exam Mental Status Exam Patient Appearance: Well Grooomed and Appropriate Patient Orientation: Person, Place, Time and Situation Level of Consciousness: Awake and Appropriate Patient Behavior: Appropriate and Cooperative Mood Description: Calm Affect Description: Constricted Patient Cognition Impaired: Yes Ability to Follow Directions: Good Speech Pattern: Clear Hallucinations: None Delusions: Not Present Thought Process: Linear Thought Content: positive for Intact and positive for Circumstantial Judgement: Fair Medications Medications Current Medications Acetaminophen (Acetaminophen 325 Mg Tablet) 650 mg PO Q6H PRN PRN Reason: Pain, Mild (Pain Scale 1-3) Atorvastatin Calcium (Atorvastatin Calcium 20 Mg Tablet) 20 mg PO DAILY [facility] Last Admin: 01/31/23 08:12 Dose: 20 mg Bupropion HCl (Bupropion Hcl Xl 300 Mg Tab.Er.24h) 300 mg PO BEDTIME [facility] Last Admin: 01/30/23 21:40 Dose: 300 mg Enoxaparin Sodium (Enoxaparin Sodium 40 Mg/0.4 Ml Syringe) 40 mg SUBCUT Q24H [facility] Last Admin: 01/30/23 20:16 Dose: 40 mg Escitalopram Oxalate (Escitalopram Oxalate 20 Mg Tablet) 20 mg PO DAILY [facility] Last Admin: 01/31/23 08:11 Dose: 20 mg Levothyroxine Sodium 112 mcg/ (Levothyroxine Sodium 25 mcg) 137 mcg PO DAILY@0600 [facility] Last Admin: 01/31/23 05:56 Dose: 137 mcg Lorazepam (Lorazepam 0.5 Mg Tablet) 0.5 mg PO DAILY [facility] Last Admin: 01/31/23 08:11 Dose: 0.5 mg Lorazepam (Lorazepam 1 Mg Tablet) 1 mg PO BEDTIME [facility] Last Admin: 01/30/23 21:40 Dose: 1 mg Melatonin (Melatonin 3 Mg Tablet) 6 mg PO BEDTIME PRN PRN Reason: Insomnia Omeprazole (Omeprazole 20 Mg Capsule.Dr) 20 mg PO DAILY@0630 [facility] Last Admin: 01/31/23 05:56 Dose: 20 mg Ondansetron HCl (Ondansetron Hcl 4 Mg/2 Ml Vial) 4 mg IVPUSH Q8H PRN PRN Reason: Nausea and Vomiting Last Admin: 01/31/23 15:46 Dose: 4 mg Pharmacy Consult (Consult Rx Perform Med Rec) 1 each MISCELLANE ONCE PRN PRN Reason: Consult order Propranolol HCl (Propranolol Hcl La 60 Mg Cap.Sa.24h) 120 mg PO DAILY [facility]; Protocol Last Admin: 01/31/23 08:11 Dose: 120 mg Sodium Chloride (0.9 % Sodium Chloride Flush 3 Ml Syringe) 3 ml IVFLUSH QSHIFT NATHAN Last Admin: 01/31/23 15:34 Dose: 3 ml Sumatriptan Succinate (Sumatriptan Succinate 100 Mg Tablet) 100 mg PO DAILY MRX1 PRN PRN Reason: Migraine Headache Allergies Allergies Allergy/AdvReac Type Severity Reaction Status Date / Time No Known Allergies Allergy Unverified 02/06/21 04:29 Assessment & Plan Assessment & Plan (1) COVID-19: Status: Acute Code(s): U07.1 - COVID-19 (2) Vomiting: Status: Acute Code(s): R11.10 - Vomiting, unspecified (3) OCD (obsessive compulsive disorder): Status: Acute Code(s): F42.9 - Obsessive-compulsive disorder, unspecified Plan The patient is a middle-aged female with a prior history of OCD who was admitted for vomiting and COVID-19. She had a panic attack and altered mental status in the context of electrolyte imbalance, vomiting and poor compliance with her medications. At this moment she does not have any symptoms. Plan 1. Continue with her regular psychiatric medications. 2. Continue using Ativan p.r.n. anxiety. 3. When discharge please make follow-up with her regular psychiatrist Dr. Amberly Dsouza Total time managing care of this patient today __45__ minutes. Patient educated on: diagnosis and therapeutic strategies Informed Consent: understands
[2023-01-31 19:50] VITALS: BP 111/65; PULSE 91; RESP 18; TEMP 36.1; O2SAT 94
[2023-01-31] MEDS: Enoxaparin Sodium 40 MG/0.4 ML SYRINGE SUBCUT (20:46)
[2023-01-31] MEDS: LORazepam 1 MG TABLET PO (20:47)
[2023-01-31] MEDS: buPROPion HCl XL 300 MG TAB.ER.24H PO (20:47)
[2023-01-31 23:27] VITALS: BP 101/56; PULSE 64; RESP 16; TEMP 36.7; O2SAT 96
[2023-02-01] MEDS: 0.9 % Sodium Chloride Flush 3 ML SYRINGE IVFLUSH ×2 (00:35→09:46)
[2023-02-01 03:08] VITALS: BP 116/57; PULSE 63; RESP 16; TEMP 35.8; O2SAT 97
[2023-02-01] MEDS: Omeprazole 20 MG CAPSULE.DR PO (04:13)
[2023-02-01] MEDS: Levothyroxine Sodium 112 MCG, Levothyroxine Sodium 25 MCG 137 MCG PO (04:13)
[2023-02-01 07:49] VITALS: BP 111/60; PULSE 65; RESP 17; TEMP 36.6; O2SAT 95
--- NOTE | 2023-02-01 09:33 | PM.DS ---
DS: Providers Provider Date of Service: 02/01/23 Date of admission: 01/29/23 19:31 Primary care physician: LAURA Villagomez Consults: 01/31/23 08:02 Consult to Psychiatry Routine Consulting Provider: Psych Covering Reason for consultation: Panic attacs DS: Diagnosis Discharge Diagnosis (1) COVID-19: Status: Acute (2) Vomiting: Status: Acute (3) OCD (obsessive compulsive disorder): Status: Acute DS: Summary Hospital Course Hospital Course: Chief Complaint: Nausea/vomiting This is a 57-year-old female with pertinent history of mood disorder, hypothyroidism, mixed hyperlipidemia, migraine, gastroesophageal reflux disease presents to the emergency department for evaluation of epigastric discomfort/nausea and vomiting.? Patient states the symptoms started about a week ago. She was seen in the ER on 01/[address] revealed hypodense area involving the pancreatic head and proximal body.? Patient was discharged with symptomatic treatment from the ER.? Patient states she continued to have nausea and nonbloody emesis and could not keep anything down.? Patient states she feels weak as she has not been able to eat anything.? Also has intermittent epigastric discomfort, nonradiating and without any relieving factors.? Denies history of pancreatitis or significant alcohol use.? Patient denies illicit drug use or marijuana use.? No fever, chills, chest discomfort, palpitations, shortness of breath, changes in urinary habits Hospital course: ?Intractable nausea/vomiting with epigastric discomfort:?Resuscitated with IV crystalloids in the ER. CT on 01/27 with hypodense area involving pancreatic head and proximal body.?MRI motion artifact but no acute findings,? her symptoms conincide with high anxiety periods and improved once she was calmer, she is tolerating regular diet now #.? Mood disorder: Continue home mood stabilizers, Psych saw her and recomends no change in meds #.? Hypothyroidism: Continue Synthroid.? TSH 7.05, ask to continue her medication regular as she has not been taking it on regular basis #.? Mixed hyperlipidemia:? On statin #.? Gastroesophageal reflux disease:? On PPI Patient presented with nausea, vomitting and some abdominal discomfort. Work up has been negative including routine labs, cbc and CT showed no acute finding, these symptoms are not new to patient and corespond to periods Time Spent with Patient Time attestation: Total time managing care of this patient today ____ minutes. Discharge coordination time: Greater than 30 minutes Quality: Safe Use of Opioids Does Pt have an Active Cancer Diagnosis on the Problem List?: No Quality: Stroke Does the patient have a stroke diagnosis?: No Physical Exam Vital Signs: Vital Signs: Last Vital Signs Temp 97.9 F 02/01/23 07:49 Pulse 65 02/01/23 07:49 Resp 17 02/01/23 07:49 BP 111/60 02/01/23 07:49 Pulse Ox 95 02/01/23 07:49 O2 Del Method 02/01/23 07:49 BMI result Body Mass Index 41.9 Const: Other: General: AO X 3, no acute distress Resp: CTA bilateral CVS: S1,S2,RRR GI: +BS, NT, no distention Skin: No rash Neuro: motor grossly intact Psych: appropriate affect Discharge Plan Discharge Anticipated Discharge Date/Time: 02/01/23 09:24 Patient Disposition: Home, Self-Care Discharge Diagnosis: Abominal pain Referrals: Jocelyn Kiran PA [Primary Care Provider] - 1 Week Discharge Medications: Continued levothyroxine 137 mcg tablet 1 tab PO DAILY atorvastatin 20 mg tablet 1 tab PO DAILY citalopram 40 mg tablet 2 tab PO DAILY sumatriptan succinate 100 mg tablet 100 mg PO DAILY MRX1 PRN (Reason: Migraine Headache) citalopram 20 mg tablet 1 tab PO DAILY propranolol 120 mg capsule,extended release 24 hr 1 cap PO DAILY lorazepam 1 mg tablet 1 tab PO BEDTIME lorazepam 1 mg tablet 0.5 tab PO DAILY ondansetron 4 mg tablet,disintegrating 1 tab PO TID PRN (Reason: nausea/vomiting) bupropion HCl 300 mg tablet extended release 24 hr 1 tab PO DAILY omeprazole magnesium [Prilosec OTC] 20 mg tablet,delayed release (DR/EC) 20 mg PO DAILY Qty: 30 0RF Discharge Orders: Discharge Order (Routine); Ordered 02/01/23 Ordered By: Justo Partida Diet: Advance to usual diet Activity on Discharge: As tolerated Stand Alone Forms: Patient Portal Discharge page Care Plan Goals: recovery Health Concerns: abdominal pain that is chronic Plan of Treatment: Take your medications as before and follow up with your doctor in a week Assessment: as above
[2023-02-01] MEDS: Atorvastatin Calcium 20 MG TABLET PO (09:46)
[2023-02-01] MEDS: Escitalopram Oxalate 20 MG TABLET PO (09:46)
[2023-02-01] MEDS: LORazepam 0.5 MG TABLET PO (09:46)
[2023-02-01] MEDS: Propranolol HCL LA 60 MG CAP.SA.24H 120 MG PO (09:46)
--- NOTE | 2023-02-01 09:54 | MHC.CM.PN ---
Addendum entered by Dodie Davis 02/01/23 10:31: S/O UNABLE TO TRANSPORT, PT WILL TRANSPORT TO [address] [place] [address] VIA [facility] [place] [facility] Original Note: DP: PT HAS BEEN MEDICALLY CLEARED FOR DC HOME, NO SERVICES. RN AWARE. PT S/O WILL TRANSPORT.
== END 2023-02-01 11:19 | disposition home or self-care (01) | DRG 392 ==
LOC: HO.ED 19:21 → HO.EDOVER 22:31 → HO.S3 01-30 13:15
PROVIDERS: Physician Assistant; Admitting Provider Student in an Organized Health Care Education/Training Program; Emergency Provider Emergency Medicine Emergency Medical Services; PCP Physician Assistant; Visit Provider Internal Medicine
DX: R11.2 Nausea with vomiting, unspecified (principal); Z68.41 Body mass index [BMI] 40.0-44.9, adult; F41.9 Anxiety disorder, unspecified; E66.9 Obesity, unspecified; F42.9 Obsessive-compulsive disorder, unspecified; E78.2 Mixed hyperlipidemia; Z20.822 Contact with and (suspected) exposure to COVID-19; Z79.890 Hormone replacement therapy; Z79.899 Other long term (current) drug therapy
CPT/HCPCS: 36415; 74176; 74183; 80048; 80076; 81001; 83690; 83735; 84443; 84484; 85025; 87086; 87502; 87635; 93005; 99284; 99285; A9585; J1650; J2060; J2405; J2765

== ENCOUNTER 2023-06-20 14:04 | Outpatient (AMB) | payer MEDICARE, MEDICAID, SELFPAY ==
--- NOTE | 2023-06-20 14:21 | AM.OFFWIN_ITS ---
Intake Vital Signs 06/20/23 14:26 BP 106/70 Blood Pressure Location Rt brachial Position Sitting Pulse 74 Pulse Source Pulse Oximeter Pulse Oximetry (%) 95 Oxygen Delivery Method Room Air Intake Visit Reasons: [employer] Ear lesion?? (cliff) Intake Note: Patient here for lesion on ear since 2020 and was not bothersome but about 4 weeks ago she picked at it and it started to become painful, she states there is a scab in ear and feels like theres a point to it and when she lays on that side it becomes painful. Patient Tobacco Use Status: Never used Tobacco Allergies No Known Allergies Allergy (Unverified 06/20/23 14:25) Do you need a note to return to daycare/school/sports/work: No HPI HPI Comments History of Present Illness Details Patient is a 58 year old female who comes to the walk in clinic c/o changes to a left earlobe lesion that she has had for about 2 years now. She states that she had picked at it with her fingernail, and now she is more irritated by it as she feels like there is a point to it . She denies bleeding, current pain, swelling, and no reported skin cancer history. [facility] Medical History Anxiety DDD (degenerative disc disease) Hyperlipemia Migraines OCD (obsessive compulsive disorder) Surgical History H/O thyroidectomy Social History Household Members: None Housing: Apartment Do you presently have visiting nurse or other home services: No Patient Tobacco Use Status: Never used Tobacco service: No Current occupational status: disabled Review of Systems Const All systems reviewed & are unremarkable except as noted in HPI and below Physical Exam Vital Signs: Last Vital Signs Pulse 74 06/20/23 14:26 BP 106/70 06/20/23 14:26 Pulse Ox 95 06/20/23 14:26 Oxygen Delivery Method Room Air 06/20/23 14:26 Skin Other: small approx 2 mm flappy nevus type lesion on the left lower earlobe, with a small stalk protruding from it. No surrounding erythema, edema or warmth. No induration or fluctuance. It is normopigmented Assessment & Plan Assessment & Plan (1) Earlobe lesion: Code(s): H61.90 - Disorder of external ear, unspecified, unspecified ear Qualifiers: Laterality: left Qualified Code(s): H61.92 - Disorder of left external ear, unspecified Plan: Patient was told that she should have a cerner analyst look at the lesion to be sure that it isn't precancerous, but that there were no immediate treatments required for it, as it was not infected. Coding Level of Care Code New Pt Level 3 (85315) Diagnoses Lesion of left earlobe H61.92 Laterality: left
[2023-06-20 14:26] VITALS: BP 106/70; PULSE 74; O2SAT 95
== END 2023-06-20 16:00 | disposition home or self-care (01) ==
PROVIDERS: PCP Physician Assistant; Visit Provider Physician Assistant Medical
DX: H61.92 Disorder of left external ear, unspecified (principal)
CPT/HCPCS: 99203

== ENCOUNTER 2023-09-25 08:14 | Emergency (ER) | payer MEDICARE, MEDICAID, SELFPAY ==
--- NOTE | ~2023-09-25 | XR_ITS ---
EXAMINATION: XR CHEST 2 VIEWS XR SHOULDER, LEFT CLINICAL INFORMATION: Left shoulder pain, left chest pain.. COMPARISON: Chest radiographs 11/26/2022. TECHNIQUE: PA and lateral radiographs of the chest were obtained. 3 views of the left shoulder. FINDINGS: No focal consolidation, pulmonary edema, or pleural effusion. The cardiomediastinal silhouette is normal. Left glenohumeral joint is maintained. No fracture. Mild degenerative spurring along the inferior glenoid rim. Mild acromioclavicular osteoarthritis. XR/XR chest 2V IMPRESSION: 1. No acute pulmonary disease. 2. Mild left acromioclavicular and glenohumeral osteoarthritis.
--- NOTE | ~2023-09-25 | XR_ITS ---
EXAMINATION: XR CHEST 2 VIEWS XR SHOULDER, LEFT CLINICAL INFORMATION: Left shoulder pain, left chest pain.. COMPARISON: Chest radiographs 11/26/2022. TECHNIQUE: PA and lateral radiographs of the chest were obtained. 3 views of the left shoulder. FINDINGS: No focal consolidation, pulmonary edema, or pleural effusion. The cardiomediastinal silhouette is normal. Left glenohumeral joint is maintained. No fracture. Mild degenerative spurring along the inferior glenoid rim. Mild acromioclavicular osteoarthritis. XR/XR shoulder LT min 2V IMPRESSION: 1. No acute pulmonary disease. 2. Mild left acromioclavicular and glenohumeral osteoarthritis.
[2023-09-25 08:20] VITALS: BP 149/82; PULSE 62; RESP 16; TEMP 36.5; O2SAT 99; BMI 44.4
--- NOTE | 2023-09-25 11:30 | ECG_ITS ---
Test Reason : LEFT SHOULDER/NECK PAIN Blood Pressure : / mmHG Vent. Rate : 057 BPM Atrial Rate : 057 BPM P-R Int : 156 ms QRS Dur : 104 ms QT Int : 450 ms P-R-T Axes : 054 005 034 degrees QTc Int : 438 ms Sinus bradycardia RSR' or QR pattern in V1 suggests right ventricular conduction delay Low voltage QRS Otherwise normal ECG When compared with ECG of 29-JAN-2023 18:08, No significant change was found Referred By: Sue Mccarthy Electronically Signed By:PASCUAL STEVENSON MD
[2023-09-25 11:32] VITALS: BP 148/88; PULSE 62; RESP 16; TEMP 37.1; O2SAT 96
[2023-09-25 12:00] VITALS: BP 115/57; PULSE 58; RESP 16; TEMP 37.3; O2SAT 95
[2023-09-25 12:18] LABS: MANUAL DIFF FLAG NO
--- NOTE | 2023-09-25 12:21 | ED_ITS ---
HPI - General Adult General Chief complaint: General Medical Stated complaint: L neck/shoulder/arm pain Time Seen by Provider: 09/25/23 09:00 Source: patient and RN notes reviewed Mode of arrival: ambulatory Limitations: no limitations History of Present Illness HPI narrative: This is a 58-year-old female, with a history of anxiety, discharge disease, hyperlipidemia migraines, and OCD, presenting to the emergency department with complaints of left shoulder pain x1 week. She states that the arm pain radiates down her left arm. Patient denies any recent trauma or injury however states that she did roll over in her bed reaching and grabbing at her mattress and felt pain to her left shoulder. She states that the pain worsens with movement of her right arm. States that the pain occasionally radiates into her left side of her chest. She denies any palpitations, fevers, chills, shortness of breath, abdominal pain, nausea, vomiting or diarrhea. No cardiac problems. No other complaints or concerns at this time. MD complaint: Left arm pain Onset (ago): week(s) Radiation: non-radiation Quality: aching Pain Consistency: intermittent Relieving factors: none Exacerbating factors: movement Associated symptoms: denies other symptoms Treatments prior to arrival: none Related Data Home Medications Medication Instructions Recorded Confirmed atorvastatin 20 mg tablet 1 tab PO DAILY 01/29/23 01/29/23 bupropion HCl 300 mg 24 hr tablet, 1 tab PO DAILY 01/29/23 01/29/23 extended release citalopram 20 mg tablet 1 tab PO DAILY 01/29/23 01/29/23 citalopram 40 mg tablet 2 tab PO DAILY 01/29/23 01/29/23 levothyroxine 137 mcg tablet 1 tab PO DAILY 01/29/23 01/29/23 lorazepam 1 mg tablet 0.5 tab PO DAILY 01/29/23 01/29/23 lorazepam 1 mg tablet 1 tab PO BEDTIME 01/29/23 01/29/23 ondansetron 4 mg disintegrating 1 tab PO TID PRN nausea/vomiting 01/29/23 01/29/23 tablet propranolol 120 mg capsule,24 1 cap PO DAILY 01/29/23 01/29/23 hr,extended release sumatriptan succinate 100 mg tablet 100 mg PO DAILY MRX1 PRN Migraine 01/29/23 01/29/23 Headache naproxen 500 mg tablet 500 mg PO BID 06/20/23 Previous Rx's Medication Instructions Recorded omeprazole magnesium 20 mg 20 mg PO DAILY #30 tabs 01/27/23 tablet,delayed release (Prilosec OTC) ketorolac 10 mg tablet 10 mg PO Q8H PRN pain 3 days #10 09/25/23 tabs Allergies Allergy/AdvReac Type Severity Reaction Status Date / Time No Known Allergies Allergy Unverified 09/25/23 08:20 Review of Systems 2 Review of Systems: Yes all other systems are reviewed and are negative Constitutional: Constitutional: Reports as per [facility] Past Medical History Attestation statement: The following information was validated with the patient. Medical History OCD (obsessive compulsive disorder) COVID-19 Anxiety OCD (obsessive compulsive disorder) Hyperlipemia DDD (degenerative disc disease) Migraines Surgical History H/O thyroidectomy Social History Social History Household Members: None Housing: Apartment Do you presently have visiting nurse or other home services: No Patient Tobacco Use Status: Never used Tobacco Advance Directives: No Advance Directives Information Provided: No service: No Current occupational status: disabled Physical Exam ED Vital Signs: Vital Signs - 24 hr 09/25/23 08:20 09/25/23 11:32 09/25/23 12:00 Temperature 97.7 F 98.7 F 99.1 F Pulse Rate 62 62 58 Respiratory Rate 16 16 16 Blood Pressure 149/82 H 148/88 H 115/57 L Pulse Oximetry 99 96 95 Oxygen Delivery Method Room Air Room Air Room Air BMI result Body Mass Index 44.4 Const General: cooperative, comfortable and no acute distress Orientation/consciousness: patient oriented x3 Limitations: no limitations HENMT Head: Yes normal to inspection, Yes normocephalic and Yes atraumatic Ears: hearing grossly normal bilaterally General nose exam: Normal external nose present Face and sinus: Yes normal facial exam Mouth: Normal oral and palatal mucosa present, oropharynx normal and moist mucous membranes Throat: Yes posterior oropharynx normal Eyes General: appearance normal, both eyes and all related structures Eyelids: Yes eyelids normal Conjunctivae: conjunctivae normal Sclerae: sclerae normal Pupils: Equal, round and reactive pupils present EOM: EOMs intact bilaterally Neck Neck: Yes normal visual inspection, Yes full ROM and Yes no lymphadenopathy Lymphatic: no lymphadenopathy noted Chest Chest palpation & inspection: normal inspection of the chest Resp Effort & Inspection: normal respiratory effort and able to speak in complete sentences Auscultation: clear to auscultation bilaterally, no crackles, no rales, no rhonchi and no wheezes Cardio Rate: regular rate Rhythm: regular rhythm Heart sounds: S1 normal heart sound present and S2 normal heart sound present GI Inspection: Yes normal to inspection Skin General skin exam: no rashes or lesions noted Trauma: no lacerations or abrasions Wounds: no wounds Neuro General: patient oriented x3 and moves all extremities Cranial nerves: Yes Equal, round and reactive pupils present Extrem Other: Left arm with tenderness palpation along the left AC joint, radial pulse 2 +. Range of motion good, tenderness with lift-off, mild tenderness palpation with empty can test. General: Yes normal to inspection Right upper extremity: normal to inspection Left upper extremity: normal to inspection Right lower extremity: normal to inspection Left lower extremity: normal to inspection Course Reevaluation(s) Reevaluation #1: EKG normal sinus rhythm with no ST elevation or depression. Troponin x2 was negative. BNP mildly elevated 156, nondiagnostic. Urine with moderate leuk esterases and wbc's, patient has no urinary complaints therefore will hold off on treating for urinary tract infection as this appeared to be infected at this time. Patient has no leukocytosis, H&H is around her baseline, has slight microcytic anemia noted. Otherwise unremarkable. Discussed workup with patient, given left shoulder x-ray shows mild osteoarthritis, this is likely the source of her pain. Heart score of 2. She had good relief with Toradol injection. Patient given prescription for Toradol tablets, advised the importance of not mixing this with any other NSAIDs. Given orthopedic referral for further evaluation. Patient understands and agrees with plan. Patient given return precautions. She understands and agrees with plan. Stable for discharge. Medications Administered Discontinued Medications Generic Name Dose Route Start Last Admin Trade Name Freq PRN Reason Stop Dose Admin Ketorolac Tromethamine 30 mg 09/25/23 14:17 09/25/23 14:23 Ketorolac Tromethamine 30 Mg/Ml Vial IM 09/25/23 14:18 30 mg ONCE ONE Administration Medical Decision Making Medical Decision Making [facility] Narrative: 58-year-old female presenting to the emergency department with complaints of left arm pain x1 week. On arrival, vital signs within normal limits. A patient states that the pain radiates down her entire arm intermittently. She states that the pain waxes wanes in severity. Patient has no cardiac risk factors however given some left-sided chest pain, will obtain cardiac workup for further evaluation. Plan: Labs, EKG, chest x-ray Differential Diagnosis Differential Diagnoses: The differential diagnosis associated with the presentation includes Left shoulder strain, spasm, ACS Admission/Observation Consideration of admission/observation: Escalation of care including admission/observation considered Patient would have been admitted to the hospital had her work up had any findings where hospital admission was appropriate and her clinical presentation warranted hospital admission. Lab Data [facility] Lab Attestation statement: I reviewed the patient's lab results. See [facility] 09/25/23 12:11 09/25/23 12:11 Labs: Lab Results 09/25/23 09/25/23 Range/Units 12:11 16:06 WBC 5.9 (4.8-10.8) X10*3/uL RBC 4.76 (4.20-5.50) X10*6/uL Hgb 11.1 L (12.0-16.0) g/dl Hct 36.5 L (37.0-47.0) % MCV 76.7 L (80.0-98.0) fL MCH 23.3 L (27.0-33.0) pg MCHC 30.4 L (31.0-35.0) g/dl RDW 14.4 (11.0-16.0) % Plt Count 232 (160-400) X10*3/uL MPV 9.8 (9.4-12.3) fL Immature Gran % (Auto) 0.3 (0.0-0.4) % Neut % (Auto) 67.6 (45-73) % Lymph % (Auto) 21.8 (20-40) % Colbert % (Auto) 7.1 (2-11) % Eos % (Auto) 2.4 (0-4) % Baso % (Auto) 0.8 (0-2) % Lymph # (Auto) 1.3 (1.2-4.9) X10*3/uL Colbert # (Auto) 0.4 (0.1-1.2) X10*3/uL Eos # (Auto) 0.1 (0.0-0.4) X10*3/uL Baso # (Auto) 0.1 (0.0-0.2) X10*3/uL Abs Immat Gran (auto) 0.02 (0.00-0.03) X10*3/uL Absolute Neuts (auto) 4.0 (2.0-8.3) x10*3/uL Absolute Nucleated RBC 0.000 (0.0-0.012) X10*3/uL Nucleated RBC % (auto) 0.0 (0.0-0.2) /100WBC Sodium 141 (135-145) mmol/L Potassium 4.6 D (3.3-5.1) mmol/L Chloride 105 (96-108) mmol/L Carbon Dioxide 31 H (22-29) mmol/L Anion Gap 10 L (12-20) BUN 12 (9-16) mg/dL Creatinine 0.98 (0.5-1.4) mg/dL Estim Creat Clear Calc 86.4 Estimated GFR 59 Random Glucose 98 (60-115) mg/dL Calcium 9.6 D (8.4-10.2) mg/dL Magnesium 2.1 (1.6-2.6) mg/dL Total Bilirubin 0.7 (0.0-1.0) mg/dL Direct Bilirubin 0.2 (0.0-0.5) mg/dL AST 20 (5-31) U/L ALT 10 (0-31) U/L Alkaline Phosphatase 67 (39-117) U/L Troponin I High Sens 3.0 D 3.3 (<3.5-17.0) ng/L B-Natriuretic Peptide 156 H (<100) pg/mL Total Protein 7.5 (6.5-8.0) g/dL Albumin 4.1 (3.5-5.0) g/dL Urine Color Yellow Urine Appearance Clear Urine pH 7.0 (5.0-9.0) Ur Specific Irving 1.015 (1.005-1.025) Urine Protein Negative (Neg-Trace) mg/dL Urine Glucose (UA) Negative (Negative) mg/dL Urine Ketones Negative (Negative) mg/dL Urine Blood Negative (Negative) Urine Nitrite Negative (Negative) Ur Leukocyte Esterase Moderate (2+) H (Negative) Urine RBC 0-2 (0-2) /HPF Urine WBC 21-50 H (0-5) /HPF Ur Squamous Epith Cells 0-2 (0-2) /HPF Urine Bacteria None Seen (None Seen) Hyaline Casts 0-2 (0-2) /LPF Independent Interpretation I performed an independent interpretation of an: EKG Interpretation: EKG 1149 sinus bradycardia, no ST elevation or depression. MN interval 156, QTC 438. EKG 1334, sinus bradycardia at 58 beats per minute, MN interval 162, QTC 451, no ST elevation or depression Radiology Impression Discussion of test interpretation with radiology: I have reviewed the radiologist's reading. Radiologist Impression: EXAMINATION: XR CHEST 2 VIEWS XR SHOULDER, LEFT CLINICAL INFORMATION: Left shoulder pain, left chest pain.. COMPARISON: Chest radiographs 11/26/2022. TECHNIQUE: PA and lateral radiographs of the chest were obtained. 3 views of the left shoulder. FINDINGS: No focal consolidation, pulmonary edema, or pleural effusion. The cardiomediastinal silhouette is normal. Left glenohumeral joint is maintained. No fracture. Mild degenerative spurring along the inferior glenoid rim. Mild acromioclavicular osteoarthritis. XR/XR shoulder LT min 2V IMPRESSION: 1. No acute pulmonary disease. 2. Mild left acromioclavicular and glenohumeral osteoarthritis. Dictated By: Erik Maravilla MD EXAMINATION: XR CHEST 2 VIEWS XR SHOULDER, LEFT CLINICAL INFORMATION: Left shoulder pain, left chest pain.. COMPARISON: Chest radiographs 11/26/2022. TECHNIQUE: PA and lateral radiographs of the chest were obtained. 3 views of the left shoulder. FINDINGS: No focal consolidation, pulmonary edema, or pleural effusion. The cardiomediastinal silhouette is normal. Left glenohumeral joint is maintained. No fracture. Mild degenerative spurring along the inferior glenoid rim. Mild acromioclavicular osteoarthritis. XR/XR chest 2V IMPRESSION: 1. No acute pulmonary disease. 2. Mild left acromioclavicular and glenohumeral osteoarthritis. Dictated By: Erik Maravilla MD Scores Heart Score History: -0- slightly suspicious ECG: -0- normal Age: -1- >45 - <65 Risk factory: -1- 1 or 2 risk factors Troponin: -0- < or = normal limit Score: 2 Risk: 1.7% Critical Care Time Critical Care Time Critical Care Time: Yes Total Critical Care Time: 35 Attestation: I have personally provided critical care time exclusive of time spent on separately billable procedures. Time includes review of lab data, radiology results, discussion with consultants, and monitoring for potential decompensation. Intervention performed as documented. Discharge Plan Discharge Clinical Impression: Left shoulder pain Patient Disposition: Home, Self-Care Instructions: Arm Pain (ED) Additional Instructions: You were seen in the emergency department due to left shoulder pain. Your x-ray of your shoulder shows osteoarthritis. We give you a medication called Toradol, this is a similar medication to ibuprofen and naproxen. Please take Toradol only as needed for pain. Gentle range of motion, heat or ice, symptoms. I am giving you a referral to Orthopedics, call to make an appointment. Your EKG, chest x-ray, and labs were reassuring today. Your urine does not appear to be infected, we will call you with any abnormal results. If any new or worsening symptoms occur including but not limited to chest pain, shortness of breath, worsening pain, please return for re-evaluation. Prescriptions: New ketorolac 10 mg tablet 10 mg PO Q8H PRN (Reason: pain) 3 Days Qty: 10 0RF Rx Instructions: Patient tolerated injection in department on 09/25/2023 No Action levothyroxine 137 mcg tablet 1 tab PO DAILY atorvastatin 20 mg tablet 1 tab PO DAILY citalopram 40 mg tablet 2 tab PO DAILY sumatriptan succinate 100 mg tablet 100 mg PO DAILY MRX1 PRN (Reason: Migraine Headache) citalopram 20 mg tablet 1 tab PO DAILY propranolol 120 mg capsule,extended release 24 hr 1 cap PO DAILY lorazepam 1 mg tablet 1 tab PO BEDTIME lorazepam 1 mg tablet 0.5 tab PO DAILY ondansetron 4 mg tablet,disintegrating 1 tab PO TID PRN (Reason: nausea/vomiting) bupropion HCl 300 mg tablet extended release 24 hr 1 tab PO DAILY omeprazole magnesium [Prilosec OTC] 20 mg tablet,delayed release (DR/EC) 20 mg PO DAILY Qty: 30 0RF naproxen 500 mg tablet 500 mg PO BID Referrals: [facility] [place] Group] Interventions: ED Discharge Assessment Last Done: 09/25/23 17:35 Discharge Date/Time: 09/25/23 17:35
[2023-09-25 12:28] LABS: Basophils Absolute Auto 0.1 X10*3/uL (0.0-0.2); Basophils Percent Auto 0.8 % (0-2); Eosinophils Absolute Auto 0.1 X10*3/uL (0.0-0.4); Eosinophils Percent Auto 2.4 % (0-4); Hematocrit 36.5 % (37.0-47.0); Hemoglobin 11.1 g/dl (12.0-16.0); Imm Gran Abs Auto 0.02 X10*3/uL (0.00-0.03); Imm Gran Pct Auto 0.3 % (0.0-0.4); Lymphocytes Absolute Auto 1.3 X10*3/uL (1.2-4.9); Lymphocytes Percent Auto 21.8 % (20-40); Mean Corpuscular HGB Conc 30.4 g/dl (31.0-35.0); Mean Corpuscular Hemoglobin 23.3 pg (27.0-33.0); Mean Corpuscular Volume 76.7 fL (80.0-98.0); Mean Platelet Volume 9.8 fL (9.4-12.3); Monocytes Absolute Auto 0.4 X10*3/uL (0.1-1.2); Monocytes Percent Auto 7.1 % (2-11); Neutrophils Percent Auto 67.6 % (45-73); Platelet Count 232 X10*3/uL (160-400); Red Blood Count 4.76 X10*6/uL (4.20-5.50); Red Cell Distribution Width 14.4 % (11.0-16.0); White Blood Count 5.9 X10*3/uL (4.8-10.8)
[2023-09-25 12:32] LABS: Appearance Urine Clear; Color Urine Yellow; Glucose Urine UA Negative (Negative); Leukocyte Esterase Urine Moderate (2+) (Negative); Nitrite Urine Negative (Negative); Specific Gravity - Urine 1.015 (1.005-1.025); UMIC TRIGGER UACC YES; Urine Blood Negative (Negative); Urine Ketones Negative (Negative); Urine Protein Negative (Neg-Trace)
[2023-09-25 12:33] LABS: Alanine Aminotransferase 10 U/L (0-31); Albumin Level 4.1 g/dL (3.5-5.0); Alkaline Phosphatase 67 U/L (39-117); Anion Gap 10 (12-20); Aspartate Amino Transferase 20 U/L (5-31); Bilirubin Direct 0.2 mg/dL (0.0-0.5); Blood Urea Nitrogen 12 mg/dL (9-16); Calcium 9.6 mg/dL (8.4-10.2); Carbon Dioxide 31 mmol/L (22-29); Chloride 105 mmol/L (96-108); Creatinine Clr Calc Pharmacy 86.4; Estimated Glomerular Filt Rate 59; Glucose Random 98 mg/dL (60-115); Magnesium 2.1 mg/dL (1.6-2.6); Potassium 4.6 mmol/L (3.3-5.1); Sodium 141 mmol/L (135-145); Total Protein 7.5 g/dL (6.5-8.0)
[2023-09-25 12:36] LABS: Bacteria Urine None Seen (None Seen); Hyaline Casts Urine 0-2 /LPF (0-2); RBC Urine 0-2 /HPF (0-2); Squamous Epithelial Cell Urine 0-2 /HPF (0-2); UACC Culture Trigger YES; WBC Urine 21-50 /HPF (0-5)
[2023-09-25 12:38] LABS: B Type Natriuretic Peptide 156 pg/mL (<100)
[2023-09-25 12:47] LABS: Bilirubin Total 0.7 mg/dL (0.0-1.0)
--- NOTE | 2023-09-25 12:47 | MHC.EDTECH ---
Brought patient a warm blanket and pillow.
[2023-09-25] MEDS: Ketorolac Tromethamine 30 MG/ML VIAL IM (14:23)
[2023-09-25 16:41] LABS: Troponin-I High Sensitivity 3.3 ng/L (<3.5-17.0)
--- NOTE | 2023-09-25 17:24 | ECG_ITS ---
Test Reason : REPEAT Blood Pressure : / mmHG Vent. Rate : 058 BPM Atrial Rate : 058 BPM P-R Int : 162 ms QRS Dur : 106 ms QT Int : 460 ms P-R-T Axes : 052 000 033 degrees QTc Int : 451 ms Sinus bradycardia Low voltage QRS RSR' or QR pattern in V1 suggests right ventricular conduction delay Nonspecific T wave abnormality Abnormal ECG When compared with ECG of 25-SEP-2023 11:49, No significant change was found Referred By: Sue Mccarthy Electronically Signed By:PASCUAL STEVENSON MD
== END 2023-09-25 17:35 | disposition home or self-care (01) ==
PROVIDERS: Physician Assistant Medical; Emergency Provider Student in an Organized Health Care Education/Training Program; PCP Physician Assistant
DX: M25.512 Pain in left shoulder (principal); R07.89 Other chest pain; R00.1 Bradycardia, unspecified; R06.02 Shortness of breath; M54.2 Cervicalgia; Z79.899 Other long term (current) drug therapy
CPT/HCPCS: 36415; 71046; 73030; 80048; 80076; 81001; 83735; 83880; 84484; 85025; 87086; 93005; 96372; 99284; J1885

== ENCOUNTER 2023-11-06 23:01 | Emergency (ER) | payer MEDICARE, MEDICAID, SELFPAY ==
[2023-11-06 23:21] VITALS: BP 130/80; PULSE 73; PULSE 82; RESP 18; TEMP 37.1; O2SAT 95; O2SAT 97; BMI 42.6
--- NOTE | 2023-11-06 23:25 | MHC.EDTECH ---
Patient came in by ambulance,changed into hospital attire, placed on the electronic device monitor and vitals were taken.
--- NOTE | 2023-11-06 23:38 | ECG_ITS ---
Test Reason : ABD PAIN Blood Pressure : / mmHG Vent. Rate : 076 BPM Atrial Rate : 076 BPM P-R Int : 144 ms QRS Dur : 096 ms QT Int : 406 ms P-R-T Axes : 056 029 016 degrees QTc Int : 456 ms Normal sinus rhythm Low voltage QRS Borderline ECG When compared with ECG of 25-SEP-2023 13:34, No significant change was found Referred By: Lorena Nelson Electronically Signed By:HALIE CRONIN MD
--- NOTE | 2023-11-06 23:41 | ED_ITS ---
HPI - Nausea/Vomiting/Diarrhea General Chief complaint: General Medical Stated complaint: abd pain /10, vomiting dark brown/bile Time Seen by Provider: 11/06/23 23:11 Source: patient and old records reviewed Mode of arrival: EMS Limitations: no limitations History of Present Illness HPI Narrative: 58 yo female with anxiety, depression, obesity, migraines here with c/o starting with a migraine on Saturday - typical for her. No fevers then started with cough and weaknes, vomiting the next day and viral symptoms. She has been laid up in bed since then feeling weak and dizzy anytime she gets up. She notes tonight she tried to take her medications and instead of bilious vomiting she noted brownish material but no brb. She denies aspirin or blood thinner use. She is here asking for fluids and ativan. This is not the first time this has happened. MD elicited complaint: nausea, vomiting and abdominal pain Pertinent past history: other (hx of similar episodes) Onset (ago): day(s) (2) Description of vomiting: watery, bilious and coffee grounds Associated nausea: Yes Associated abdominal pain: Yes Location of pain: diffuse (mild) Radiation: diffuse Pain consistency: intermittent Severity: mild Quality: aching Exacerbating factors: eating Relieving factors: none Associated symptoms: cough, headaches, loss of appetite, malaise, nausea/vomiting and weakness Related Data Home Medications Medication Instructions Recorded Confirmed atorvastatin 20 mg tablet 1 tab PO DAILY 01/29/23 01/29/23 bupropion HCl 300 mg 24 hr tablet, 1 tab PO DAILY 01/29/23 01/29/23 extended release citalopram 20 mg tablet 1 tab PO DAILY 01/29/23 01/29/23 citalopram 40 mg tablet 2 tab PO DAILY 01/29/23 01/29/23 levothyroxine 137 mcg tablet 1 tab PO DAILY 01/29/23 01/29/23 lorazepam 1 mg tablet 0.5 tab PO DAILY 01/29/23 01/29/23 lorazepam 1 mg tablet 1 tab PO BEDTIME 01/29/23 01/29/23 ondansetron 4 mg disintegrating 1 tab PO TID PRN nausea/vomiting 01/29/23 01/29/23 tablet propranolol 120 mg capsule,24 1 cap PO DAILY 01/29/23 01/29/23 hr,extended release sumatriptan succinate 100 mg tablet 100 mg PO DAILY MRX1 PRN Migraine 01/29/23 01/29/23 Headache naproxen 500 mg tablet 500 mg PO BID 06/20/23 Previous Rx's Medication Instructions Recorded omeprazole magnesium 20 mg 20 mg PO DAILY #30 tabs 01/27/23 tablet,delayed release (Prilosec OTC) ketorolac 10 mg tablet 10 mg PO Q8H PRN pain 3 days #10 09/25/23 tabs ondansetron 4 mg disintegrating 4 mg PO Q8H PRN nausea and 11/07/23 tablet vomiting #20 tabs Allergies Allergy/AdvReac Type Severity Reaction Status Date / Time No Known Allergies Allergy Verified 11/06/23 23:21 Review of Systems 2 Review of Systems: Constitutional : No Weight loss, No Fever, No Chills ENT/Mouth : No sore throat, No Rhinorrhea Eyes: No Swelling, No Redness Cardiovascular : No Chest Pain, No SOB, NoEdema Respiratory : No Cough, No Sputum, No Wheezing Gastrointestinal : Positive Nausea, Positive Vomiting, no Diarrhea, positive abdominal Pain, No Hematochezia, No Melena Genitourinary : No Dysuria, No Urinary Frequency, No Hematuria, No Urgency Musculoskeletal : No joint pain, No Myalgias, No Joint Swelling Skin : No Skin Lesions, No rash Neuro : pos Weakness, No Numbness, No Dizziness, pos Headache Psych : No Anxiety/Panic, No Depression Heme/Lymph: No Bruising, No Lymphadenopathy Endocrine : No Polyuria, No Polydipsia All other systems reviewed and are negative. Gastrointestinal: Gastrointestinal: Reports nausea PMFSH Past Medical History Attestation statement: The following information was validated with the patient. Source: old records reviewed Medical History OCD (obsessive compulsive disorder) COVID-19 Anxiety OCD (obsessive compulsive disorder) Hyperlipemia DDD (degenerative disc disease) Migraines Surgical History H/O thyroidectomy Social History Social History Household Members: None Housing: Apartment Do you presently have visiting nurse or other home services: No Patient Tobacco Use Status: Never used Tobacco Advance Directives: No Advance Directives Information Provided: Yes service: No Current occupational status: disabled Physical Exam 2 Vital Signs: Vital Signs: Last Vital Signs Temp 98.3 F 11/07/23 01:15 Pulse 75 11/07/23 01:15 Resp 18 11/07/23 01:15 BP 129/73 11/07/23 01:15 Pulse Ox 97 11/07/23 01:15 O2 Del Method Room Air 11/07/23 01:15 BMI result Body Mass Index 42.6 Appearance: Alert. Oriented X3. No acute distress. Eyes: Pupils equal, round and reactive to light. ENT: Pharynx normal. Neck: Normal inspection. Neck supple. CVS: Normal heart rate and rhythm. Pulses normal. Respiratory: No respiratory distress. Breath sounds normal. Abdomen: Soft and nontender. benign abdomen Skin: Skin warm and dry. Normal skin color. Normal skin turgor. Extremities: No lower extremity edema. No calf ttp Neuro: Oriented X 3. No motor deficit. No sensory deficit. Medications Administered Discontinued Medications Generic Name Dose Route Start Last Admin Trade Name Freq PRN Reason Stop Dose Admin Sodium Chloride 1,000 mls @ 999 mls/hr 11/06/23 23:45 11/06/23 23:59 Ns IV 11/07/23 00:45 999 mls/hr .Q1H1M NATHAN Administration Lorazepam 1 mg 11/06/23 23:38 11/06/23 23:59 Lorazepam 2 Mg/Ml Vial IVPUSH 11/06/23 23:39 1 mg ONCE ONE Administration Metoclopramide HCl 10 mg 11/06/23 23:38 11/06/23 23:59 Metoclopramide Hcl 10 Mg/2 Ml Vial IVPUSH 11/06/23 23:39 10 mg ONCE ONE Administration Pantoprazole Sodium 40 mg 11/06/23 23:38 11/06/23 23:59 Pantoprazole Sodium 40 Mg/10 Ml Vial IVPUSH 11/06/23 23:39 40 mg ONCE ONE Administration Medical Decision Making Medical Decision Making MDM Narrative: 58 yo female with anxiety, depression, obesity, migraines here with typical migraine here with headaches and now viral syndrome - she has overall benign abdominal exam at this time will need basic labs, IVF, IV medications. Doubt acute GB or appendicitis at this time. She has no meningeal signs and is NV intact. brown emesis likely due to gastritis vs MW tear Differential Diagnosis Differential Diagnoses: The differential diagnosis associated with the presentation includes migraine, viral syndrome, food toxicity, gastritis, MW tear Admission/Observation Consideration of admission/observation: Escalation of care including admission/observation considered no hypoxia, tolerating PO feels much better Lab Data MDM Lab Attestation statement: I reviewed the patient's lab results. H/H stable 11/06/23 23:56 11/06/23 23:55 Labs: Lab Results 11/06/23 11/06/23 Range/Units 23:55 23:56 WBC 8.0 (4.8-10.8) X10*3/uL RBC 5.12 (4.20-5.50) X10*6/uL Hgb 11.9 L (12.0-16.0) g/dl Hct 38.7 (37.0-47.0) % MCV 75.6 L (80.0-98.0) fL MCH 23.2 L (27.0-33.0) pg MCHC 30.7 L (31.0-35.0) g/dl RDW 14.6 (11.0-16.0) % Plt Count 216 (160-400) X10*3/uL MPV 9.5 (9.4-12.3) fL Immature Gran % (Auto) 0.4 (0.0-0.4) % Neut % (Auto) 80.3 H (45-73) % Lymph % (Auto) 9.1 L (20-40) % [place] % (Auto) 8.7 (2-11) % Eos % (Auto) 1.0 (0-4) % Baso % (Auto) 0.5 (0-2) % Lymph # (Auto) 0.7 L (1.2-4.9) X10*3/uL [place] # (Auto) 0.7 (0.1-1.2) X10*3/uL Eos # (Auto) 0.1 (0.0-0.4) X10*3/uL Baso # (Auto) 0.0 (0.0-0.2) X10*3/uL Abs Immat Gran (auto) 0.03 (0.00-0.03) X10*3/uL Absolute Neuts (auto) 6.4 (2.0-8.3) x10*3/uL Absolute Nucleated RBC 0.000 (0.0-0.012) X10*3/uL Nucleated RBC % (auto) 0.0 (0.0-0.2) /100WBC Sodium 140 (135-145) mmol/L Potassium 4.4 (3.3-5.1) mmol/L Chloride 102 (96-108) mmol/L Carbon Dioxide 28 (22-29) mmol/L Anion Gap 14 (12-20) BUN 15 (9-16) mg/dL Creatinine 0.93 (0.5-1.4) mg/dL Estim Creat Clear Calc 88.9 Estimated GFR > 60 Random Glucose 106 (60-115) mg/dL Calcium 10.0 (8.4-10.2) mg/dL Magnesium 2.1 (1.6-2.6) mg/dL Total Bilirubin 0.9 (0.0-1.0) mg/dL Direct Bilirubin 0.3 (0.0-0.5) mg/dL AST 22 (5-31) U/L ALT 15 (0-31) U/L Alkaline Phosphatase 74 (39-117) U/L Troponin I High Sens 7.2 D (<3.5-17.0) ng/L Total Protein 8.1 H (6.5-8.0) g/dL Albumin 4.2 (3.5-5.0) g/dL Lipase 20 (8-78) U/L Influenza Type A (PCR) NEGATIVE (Negative) Influenza Type B (PCR) NEGATIVE (Negative) RSV RNA Qual (PCR) POSITIVE A (Negative) SARS-CoV-2 RNA (RT-PCR) NEGATIVE (Negative) Independent Interpretation I performed an independent interpretation of an: EKG Interpretation: Rate: 76 Rhythm: NSR [place]: normal Normal P waves. Normal [place]. Normal QRS complex. ST T wave : normal no ELOISA qTC: normal prior studies: no acute ischemia The study has been interpreted contemporaneously by me. . Independent Historian Clinical information obtained from an independent historian. History obtained from or confirmed by: EMS External Record Review External record reviewed: Inpatient record Prescription Management I considered prescription management with: Other Discharge Plan Discharge Clinical Impression: RSV infection Migraine Qualifiers: Migraine type: unspecified Status migrainosus presence: without status migrainosus Intractability: not intractable Qualified Code(s): G43.909 - Migraine, unspecified, not intractable, without status migrainosus Nausea & vomiting Qualifiers: Vomiting type: unspecified Qualified Code(s): R11.2 - Nausea with vomiting, unspecified Gastritis Qualifiers: Gastritis type: unspecified gastritis Chronicity: acute Gastritis bleeding: w ith bleeding Qualified Code(s): K29.01 - Acute gastritis with bleeding Patient Disposition: Home, Self-Care Instructions: Respiratory Syncytial Virus (ED), Gastritis (ED), Migraine Headache (ED), Acute Nausea and Vomiting (ED) Additional Instructions: eat a bland diet and advance slowly. avoid aspirin, motrin, aleve, ibuprofen. okay to take tylenol. return for worsening symptoms, fevers, inability to eat or drink confusion, chest pain, trouble breathing or any other concerns. take your antacids Prescriptions: New ondansetron 4 mg tablet,disintegrating 4 mg PO Q8H PRN (Reason: nausea and vomiting) Qty: 20 0RF No Action levothyroxine 137 mcg tablet 1 tab PO DAILY atorvastatin 20 mg tablet 1 tab PO DAILY citalopram 40 mg tablet 2 tab PO DAILY sumatriptan succinate 100 mg tablet 100 mg PO DAILY MRX1 PRN (Reason: Migraine Headache) citalopram 20 mg tablet 1 tab PO DAILY propranolol 120 mg capsule,extended release 24 hr 1 cap PO DAILY lorazepam 1 mg tablet 1 tab PO BEDTIME lorazepam 1 mg tablet 0.5 tab PO DAILY ondansetron 4 mg tablet,disintegrating 1 tab PO TID PRN (Reason: nausea/vomiting) bupropion HCl 300 mg tablet extended release 24 hr 1 tab PO DAILY omeprazole magnesium [Prilosec OTC] 20 mg tablet,delayed release (DR/EC) 20 mg PO DAILY Qty: 30 0RF ketorolac 10 mg tablet 10 mg PO Q8H PRN (Reason: pain) 3 Days Qty: 10 0RF Rx Instructions: Patient tolerated injection in department on 09/25/2023 naproxen 500 mg tablet 500 mg PO BID Stand Alone Forms: Work/School Release
[2023-11-06] MEDS: 0.9 % Sodium Chloride 1,000 ML 999 ML IV (23:59)
[2023-11-06] MEDS: Metoclopramide HCl 10 MG/2 ML VIAL IVPUSH (23:59)
[2023-11-06] MEDS: Pantoprazole Sodium 40 MG/10 ML VIAL IVPUSH (23:59)
[2023-11-06] MEDS: LORazepam 2 MG/ML VIAL 1 MG IVPUSH (23:59)
[2023-11-07 00:01] LABS: MANUAL DIFF FLAG NO
[2023-11-07 00:08] LABS: Basophils Percent Auto 0.5 % (0-2); Eosinophils Absolute Auto 0.1 X10*3/uL (0.0-0.4); Hematocrit 38.7 % (37.0-47.0); Hemoglobin 11.9 g/dl (12.0-16.0); Imm Gran Abs Auto 0.03 X10*3/uL (0.00-0.03); Imm Gran Pct Auto 0.4 % (0.0-0.4); Lymphocytes Absolute Auto 0.7 X10*3/uL (1.2-4.9); Lymphocytes Percent Auto 9.1 % (20-40); Mean Corpuscular HGB Conc 30.7 g/dl (31.0-35.0); Mean Corpuscular Hemoglobin 23.2 pg (27.0-33.0); Mean Corpuscular Volume 75.6 fL (80.0-98.0); Mean Platelet Volume 9.5 fL (9.4-12.3); Monocytes Absolute Auto 0.7 X10*3/uL (0.1-1.2); Monocytes Percent Auto 8.7 % (2-11); Neutrophils Absolute Auto 6.4 x10*3/uL (2.0-8.3); Neutrophils Percent Auto 80.3 % (45-73); Platelet Count 216 X10*3/uL (160-400); Red Blood Count 5.12 X10*6/uL (4.20-5.50); Red Cell Distribution Width 14.6 % (11.0-16.0)
[2023-11-07 00:16] LABS: Alanine Aminotransferase 15 U/L (0-31); Albumin Level 4.2 g/dL (3.5-5.0); Alkaline Phosphatase 74 U/L (39-117); Anion Gap 14 (12-20); Aspartate Amino Transferase 22 U/L (5-31); Bilirubin Direct 0.3 mg/dL (0.0-0.5); Bilirubin Total 0.9 mg/dL (0.0-1.0); Blood Urea Nitrogen 15 mg/dL (9-16); Carbon Dioxide 28 mmol/L (22-29); Chloride 102 mmol/L (96-108); Creatinine Clr Calc Pharmacy 88.9; Estimated Glomerular Filt Rate > 60; Glucose Random 106 mg/dL (60-115); Lipase 20 U/L (8-78); Magnesium 2.1 mg/dL (1.6-2.6); Potassium 4.4 mmol/L (3.3-5.1); Sodium 140 mmol/L (135-145); Total Protein 8.1 g/dL (6.5-8.0)
[2023-11-07 00:22] LABS: Troponin-I High Sensitivity 7.2 ng/L (<3.5-17.0)
[2023-11-07 00:43] LABS: Influenza A PCR NEGATIVE (Negative); Influenza B PCR NEGATIVE (Negative); Resp Syncy Virus RNA Qual PCR POSITIVE (Negative); SARS COV2 PCR INHOUSE NEGATIVE (Negative)
[2023-11-07 01:15] VITALS: BP 129/73; PULSE 75; RESP 18; TEMP 36.8; O2SAT 97
--- NOTE | 2023-11-07 01:16 | MHC.EDTECH ---
Hourly rounds and vitals completed,patient was giving a cup of cheri gavin,pt taking small sips at this time.
== END 2023-11-07 02:30 | disposition home or self-care (01) ==
PROVIDERS: Emergency Provider Emergency Medicine
DX: J22 Unspecified acute lower respiratory infection (principal); B97.4 Respiratory syncytial virus as the cause of diseases classified elsewhere; G43.909 Migraine, unspecified, not intractable, without status migrainosus; K29.01 Acute gastritis with bleeding; R10.30 Lower abdominal pain, unspecified; R05.9 Cough, unspecified; R11.2 Nausea with vomiting, unspecified; R53.1 Weakness; R94.31 Abnormal electrocardiogram [ECG] [EKG]; Z79.899 Other long term (current) drug therapy; Z20.822 Contact with and (suspected) exposure to COVID-19; Z20.828 Contact with and (suspected) exposure to other viral communicable diseases
CPT/HCPCS: 0241U; 80048; 80076; 83690; 83735; 84484; 85025; 93005; 96374; 96375; 99284; C9113; J2060; J2765

== ENCOUNTER → 2023-11-06 23:38 | Outpatient (BNV) | payer MEDICARE, MEDICAID, SELFPAY | PROVIDERS: Emergency Provider Emergency Medicine; Visit Provider Internal Medicine Cardiovascular Disease | DX: R10.9 Unspecified abdominal pain (principal) | CPT/HCPCS: 93010 ==

== ENCOUNTER 2023-11-11 20:02 | Emergency (ER) | payer MEDICARE, MEDICAID, SELFPAY ==
--- NOTE | ~2023-11-11 | XR_ITS ---
EXAMINATION: XR CHEST CLINICAL INFORMATION: Chest pain. COMPARISON: 09/25/2023. TECHNIQUE: Frontal view of the chest was obtained. FINDINGS: The lung volumes are low. The cardiomediastinal silhouette is stable. There is no focal lung consolidation or pleural effusion. The bony structures and soft tissues are unremarkable. XR/XR chest 1V IMPRESSION: Low lung volumes. No acute cardiopulmonary process.
[2023-11-11 20:16] VITALS: BP 132/82; BP 141/63; PULSE 60; PULSE 68; RESP 18; TEMP 37.2; O2SAT 94; O2SAT 96; BMI 42.9
[2023-11-11 21:13] LABS: MANUAL DIFF FLAG NO
[2023-11-11 21:14] LABS: Basophils Percent Auto 0.3 % (0-2); Eosinophils Absolute Auto 0.1 X10*3/uL (0.0-0.4); Eosinophils Percent Auto 1.9 % (0-4); Hematocrit 38.7 % (37.0-47.0); Hemoglobin 12.1 g/dl (12.0-16.0); Imm Gran Abs Auto 0.03 X10*3/uL (0.00-0.03); Imm Gran Pct Auto 0.5 % (0.0-0.4); Lymphocytes Absolute Auto 1.4 X10*3/uL (1.2-4.9); Lymphocytes Percent Auto 23.5 % (20-40); Mean Corpuscular HGB Conc 31.3 g/dl (31.0-35.0); Mean Corpuscular Hemoglobin 23.6 pg (27.0-33.0); Mean Corpuscular Volume 75.6 fL (80.0-98.0); Monocytes Absolute Auto 0.5 X10*3/uL (0.1-1.2); Monocytes Percent Auto 9.3 % (2-11); Neutrophils Absolute Auto 3.8 x10*3/uL (2.0-8.3); Neutrophils Percent Auto 64.5 % (45-73); Platelet Count 196 X10*3/uL (160-400); Red Blood Count 5.12 X10*6/uL (4.20-5.50); Red Cell Distribution Width 14.9 % (11.0-16.0); White Blood Count 5.8 X10*3/uL (4.8-10.8)
[2023-11-11 21:27] LABS: Alanine Aminotransferase 13 U/L (0-31); Albumin Level 4.1 g/dL (3.5-5.0); Alkaline Phosphatase 66 U/L (39-117); Anion Gap 14 (12-20); Aspartate Amino Transferase 21 U/L (5-31); Bilirubin Total 0.7 mg/dL (0.0-1.0); Blood Urea Nitrogen 17 mg/dL (9-16); Calcium 9.7 mg/dL (8.4-10.2); Carbon Dioxide 30 mmol/L (22-29); Chloride 102 mmol/L (96-108); Creatinine Clr Calc Pharmacy 77.6; Estimated Glomerular Filt Rate 53; Glucose Random 105 mg/dL (60-115); Potassium 3.9 mmol/L (3.3-5.1); Sodium 142 mmol/L (135-145); Total Protein 7.7 g/dL (6.5-8.0)
--- NOTE | 2023-11-11 21:29 | ED_ITS ---
HPI - URI/Sore Throat General Chief Complaint: Upper Respiratory Symptoms Stated Complaint: DIZZINESS, VOMITING Time Seen by Provider: 11/11/23 21:25 Source: patient Mode of arrival: ambulatory Limitations: no limitations History of Present Illness HPI Narrative: Patient RSV bronchitis diagnosed on 10/25 20 comes here for increased cough and phlegm decreased oral intake no abdominal pain no urinary complaints feeling very weak Related Data Home Medications Medication Instructions Recorded Confirmed atorvastatin 20 mg tablet 1 tab PO DAILY 01/29/23 01/29/23 bupropion HCl 300 mg 24 hr tablet, 1 tab PO DAILY 01/29/23 01/29/23 extended release citalopram 20 mg tablet 1 tab PO DAILY 01/29/23 01/29/23 citalopram 40 mg tablet 2 tab PO DAILY 01/29/23 01/29/23 levothyroxine 137 mcg tablet 1 tab PO DAILY 01/29/23 01/29/23 lorazepam 1 mg tablet 0.5 tab PO DAILY 01/29/23 01/29/23 lorazepam 1 mg tablet 1 tab PO BEDTIME 01/29/23 01/29/23 ondansetron 4 mg disintegrating 1 tab PO TID PRN nausea/vomiting 01/29/23 01/29/23 tablet propranolol 120 mg capsule,24 1 cap PO DAILY 01/29/23 01/29/23 hr,extended release sumatriptan succinate 100 mg tablet 100 mg PO DAILY MRX1 PRN Migraine 01/29/23 01/29/23 Headache naproxen 500 mg tablet 500 mg PO BID 06/20/23 Previous Rx's Medication Instructions Recorded omeprazole magnesium 20 mg 20 mg PO DAILY #30 tabs 01/27/23 tablet,delayed release (Prilosec OTC) ketorolac 10 mg tablet 10 mg PO Q8H PRN pain 3 days #10 09/25/23 tabs ondansetron 4 mg disintegrating 4 mg PO Q8H PRN nausea and 11/07/23 tablet vomiting #20 tabs benzonatate 200 mg capsule 200 mg PO TID PRN cough #30 caps 11/12/23 ondansetron 4 mg disintegrating 4 mg PO Q6-8H PRN nausea and 11/12/23 tablet vomiting #10 tabs Allergies Allergy/AdvReac Type Severity Reaction Status Date / Time No Known Allergies Allergy Verified 12/20/23 23:21 Review of Systems 2 Review of Systems: Yes all other systems are reviewed and are negative [facility] Past Medical History Medical History OCD (obsessive compulsive disorder) COVID-19 Anxiety OCD (obsessive compulsive disorder) Hyperlipemia DDD (degenerative disc disease) Migraines Surgical History H/O thyroidectomy Social History Social History Household Members: None Housing: Apartment Do you presently have visiting nurse or other home services: No Alcohol intake: never Patient Tobacco Use Status: Never used Tobacco Smoked in Last 30 Days: No Use of substances other than those prescribed or required for medical reasons: No Advance Directives: No Advance Directives Information Provided: No service: No Current occupational status: disabled Physical Exam 2 Vital Signs: Vital Signs: Last Vital Signs Temp 98.2 F 11/12/23 01:00 Pulse 71 11/12/23 01:00 Resp 16 11/12/23 01:00 BP 139/72 11/12/23 01:00 Pulse Ox 97 11/12/23 01:16 O2 Del Method Room Air 11/12/23 01:16 BMI result Body Mass Index 42.9 Const: Other: Appearance: Alert. Oriented X3. No acute distress. Eyes: PERRLA, No Nystagmus ENT: Pharynx normal. Oral Mucosa moist Neck: Normal inspection. Neck supple. CVS: Normal heart rate and rhythm. Pulses normal. Respiratory: No respiratory distress. Equal air entry bilateral, no wheezing/rales/rhonchi Abdomen: Soft and nontender. Bowel sounds are present, no mass palpable, no CVA tenderness Skin: Skin warm and dry. Normal skin color. Normal skin turgor. Extremities: No lower extremity edema. No calf tenderness Neuro: Oriented X 3. No motor deficit. No sensory deficit.No cerebellar signs , cranial nerves II-XII intact Medications Administered Discontinued Medications Generic Name Dose Route Start Last Admin Trade Name Freq PRN Reason Stop Dose Admin Benzonatate 200 mg 11/11/23 21:59 11/11/23 22:27 Benzonatate 100 Mg Capsule PO 11/11/23 22:00 200 mg ONCE ONE Administration Sodium Chloride 1,000 mls @ 999 mls/hr 11/11/23 21:59 11/11/23 22:27 Ns IV 11/11/23 22:59 999 mls/hr .Q1H1M ONE Administration Ketorolac Tromethamine 30 mg 11/11/23 21:59 11/11/23 22:27 Ketorolac Tromethamine 30 Mg/Ml Vial IVPUSH 11/11/23 22:00 30 mg ONCE ONE Administration Ondansetron HCl 4 mg 11/11/23 21:59 11/11/23 22:27 Ondansetron Hcl 4 Mg/2 Ml Vial IVPUSH 11/11/23 22:00 4 mg ONCE ONE Administration Medical Decision Making Medical Decision Making [facility] Narrative: Kyaw received bronchitis responded IV fluids advised to continue medicine for nausea and cough and a follow-up with PCP Lab Data [facility] Lab Attestation statement: I reviewed the patient's lab results. 11/11/23 20:56 11/11/23 20:56 Labs: Lab Results 11/11/23 Range/Units 20:56 WBC 5.8 (4.8-10.8) X10*3/uL RBC 5.12 (4.20-5.50) X10*6/uL Hgb 12.1 (12.0-16.0) g/dl Hct 38.7 (37.0-47.0) % MCV 75.6 L (80.0-98.0) fL MCH 23.6 L (27.0-33.0) pg MCHC 31.3 (31.0-35.0) g/dl RDW 14.9 (11.0-16.0) % Plt Count 196 (160-400) X10*3/uL MPV 10.0 (9.4-12.3) fL Immature Gran % (Auto) 0.5 H (0.0-0.4) % Neut % (Auto) 64.5 (45-73) % Lymph % (Auto) 23.5 (20-40) % [place] % (Auto) 9.3 (2-11) % Eos % (Auto) 1.9 (0-4) % Baso % (Auto) 0.3 (0-2) % Lymph # (Auto) 1.4 (1.2-4.9) X10*3/uL [place] # (Auto) 0.5 (0.1-1.2) X10*3/uL Eos # (Auto) 0.1 (0.0-0.4) X10*3/uL Baso # (Auto) 0.0 (0.0-0.2) X10*3/uL Abs Immat Gran (auto) 0.03 (0.00-0.03) X10*3/uL Absolute Neuts (auto) 3.8 (2.0-8.3) x10*3/uL Absolute Nucleated RBC 0.000 (0.0-0.012) X10*3/uL Nucleated RBC % (auto) 0.0 (0.0-0.2) /100WBC Sodium 142 (135-145) mmol/L Potassium 3.9 (3.3-5.1) mmol/L Chloride 102 (96-108) mmol/L Carbon Dioxide 30 H (22-29) mmol/L Anion Gap 14 (12-20) BUN 17 H (9-16) mg/dL Creatinine 1.07 (0.5-1.4) mg/dL Estim Creat Clear Calc 77.6 Estimated GFR 53 Random Glucose 105 (60-115) mg/dL Calcium 9.7 (8.4-10.2) mg/dL Total Bilirubin 0.7 (0.0-1.0) mg/dL AST 21 (5-31) U/L ALT 13 (0-31) U/L Alkaline Phosphatase 66 (39-117) U/L Total Protein 7.7 (6.5-8.0) g/dL Albumin 4.1 (3.5-5.0) g/dL Influenza Type A (PCR) NEGATIVE (Negative) Influenza Type B (PCR) NEGATIVE (Negative) RSV RNA Qual (PCR) POSITIVE A (Negative) SARS-CoV-2 RNA (RT-PCR) NEGATIVE (Negative) Discharge Plan Discharge Clinical Impression: Respiratory syncytial virus bronchiolitis Patient Disposition: Home, Self-Care Instructions: Respiratory Syncytial Virus (ED) Additional Instructions: Stay hydrated Medicine for nausea and cough as described Follow with PCP if not better Prescriptions: New benzonatate 200 mg capsule 200 mg PO TID PRN (Reason: cough) Qty: 30 0RF ondansetron 4 mg tablet,disintegrating 4 mg PO Q6-8H PRN (Reason: nausea and vomiting) Qty: 10 0RF No Action levothyroxine 137 mcg tablet 1 tab PO DAILY atorvastatin 20 mg tablet 1 tab PO DAILY citalopram 40 mg tablet 2 tab PO DAILY sumatriptan succinate 100 mg tablet 100 mg PO DAILY MRX1 PRN (Reason: Migraine Headache) citalopram 20 mg tablet 1 tab PO DAILY propranolol 120 mg capsule,extended release 24 hr 1 cap PO DAILY lorazepam 1 mg tablet 1 tab PO BEDTIME lorazepam 1 mg tablet 0.5 tab PO DAILY ondansetron 4 mg tablet,disintegrating 1 tab PO TID PRN (Reason: nausea/vomiting) bupropion HCl 300 mg tablet extended release 24 hr 1 tab PO DAILY omeprazole magnesium [Prilosec OTC] 20 mg tablet,delayed release (DR/EC) 20 mg PO DAILY Qty: 30 0RF ketorolac 10 mg tablet 10 mg PO Q8H PRN (Reason: pain) 3 Days Qty: 10 0RF Rx Instructions: Patient tolerated injection in department on 09/25/2023 ondansetron 4 mg tablet,disintegrating 4 mg PO Q8H PRN (Reason: nausea and vomiting) Qty: 20 0RF naproxen 500 mg tablet 500 mg PO BID Interventions: ED Discharge Assessment Last Done: 11/12/23 01:27 Discharge Date/Time: 11/12/23 01:28
[2023-11-11 21:50] LABS: Influenza A PCR NEGATIVE (Negative); Influenza B PCR NEGATIVE (Negative); Resp Syncy Virus RNA Qual PCR POSITIVE (Negative); SARS COV2 PCR INHOUSE NEGATIVE (Negative)
[2023-11-11] MEDS: Benzonatate 100 MG CAPSULE 200 MG PO (22:27)
[2023-11-11] MEDS: ondansetron HCL 4 MG/2 ML VIAL IVPUSH (22:27)
[2023-11-11] MEDS: Ketorolac Tromethamine 30 MG/ML VIAL IVPUSH (22:27)
[2023-11-11] MEDS: 0.9 % Sodium Chloride 1,000 ML 999 ML IV (22:27)
[2023-11-11 22:51] VITALS: BP 149/51; PULSE 67; RESP 16; TEMP 36.9; O2SAT 96
[2023-11-12 01:00] VITALS: BP 139/72; PULSE 71; RESP 16; TEMP 36.8; O2SAT 97
[2023-11-12 01:16] VITALS: O2SAT 97
== END 2023-11-12 01:28 | disposition home or self-care (01) ==
PROVIDERS: Emergency Provider Internal Medicine; PCP Physician Assistant
DX: J21.0 Acute bronchiolitis due to respiratory syncytial virus (principal); Z20.822 Contact with and (suspected) exposure to COVID-19; Z20.828 Contact with and (suspected) exposure to other viral communicable diseases
CPT/HCPCS: 0241U; 36415; 71045; 80053; 85025; 96374; 96375; 99284; 99285; J1885; J2405

== ENCOUNTER 2024-02-01 08:38 | Emergency (ER) | payer MEDICARE, MEDICAID, SELFPAY ==
--- NOTE | ~2024-02-01 | CT_ITS ---
EXAMINATION: CT ABDOMEN AND PELVIS WITH CONTRAST CLINICAL INFORMATION: Right lower and left lower quadrant abdominal pain with nausea and vomiting COMPARISON: CT abdomen 01/27/2023, MR abdomen 01/30/2023 TECHNIQUE: Multidetector volumetric images were obtained from the superior aspect of the liver through the pubic symphysis following administration 85 mL of Omnipaque 350 intravenous contrast. Sagittal and coronal reformatted images were obtained on the technologist's workstation. Oral contrast: No This CT examination was performed using dose optimization techniques as appropriate, variously including the following: *Automated exposure control *Adjustment of mA and/or kV according to patient size (this includes techniques or standardized protocols for targeted exams where dose is matched to indication/reason for exam; i.e. extremities or head) *Use of iterative reconstruction technique DLP: 1281 mGy-cm FINDINGS: LUNG BASES: Mitral annular calcification. ABDOMINAL AND PELVIC WALL: Small fat-containing umbilical hernia. LIVER AND BILIARY TREE: Unremarkable. GALLBLADDER: Unremarkable. PANCREAS: Focal fatty infiltration in the pancreatic head again seen. SPLEEN: Unremarkable. ADRENAL GLANDS: Unremarkable. KIDNEYS AND URETERS: Bosniak 1 benign-appearing peripelvic left renal cysts, no imaging follow-up recommended. No hydronephrosis or nephrolithiasis. GASTROINTESTINAL TRACT: Small hiatal hernia with patulous appearance of the distal esophagus. Colonic diverticulosis without evidence of diverticulitis. Normal appendix. VASCULAR: Unremarkable. LYMPH NODES/PERITONEUM: No lymphadenopathy. FREE FLUID: None. BLADDER: Unremarkable. PELVIC VISCERA: Unremarkable. OSSEOUS STRUCTURES: Grade 1 anterolisthesis of L4 on L5. CT/CT abdomen pelvis w IV con IMPRESSION: 1. No acute findings to explain symptoms of abdominal pain. 2. Small hiatal hernia with patulous appearance of the distal esophagus.
--- NOTE | 2024-02-01 08:55 | ECG_ITS ---
Test Reason : N/V Blood Pressure : / mmHG Vent. Rate : 063 BPM Atrial Rate : 063 BPM P-R Int : 140 ms QRS Dur : 102 ms QT Int : 436 ms P-R-T Axes : 070 035 054 degrees QTc Int : 446 ms Normal sinus rhythm Low voltage QRS Borderline ECG When compared with ECG of 06-NOV-2023 23:48, Non-specific change in ST segment in Inferior leads Referred By: Lupe Lewis Electronically Signed By:HALIE CRONIN MD
[2024-02-01 08:56] VITALS: BP 134/92; BP 140/43; PULSE 63; PULSE 90; RESP 17; TEMP 36.8; O2SAT 97; BMI 43.7
--- NOTE | 2024-02-01 10:15 | ED.ABDPAIN ---
HPI - Abdominal Pain General Chief Complaint: Nausea/Vomiting/Diarrhea Stated Complaint: NAUSEA VOMITING Time Seen by Provider: 02/01/24 08:55 Source: patient and EMS Mode of arrival: EMS Limitations: no limitations History of Present Illness HPI narrative: 58 yo female with anxiety, depression, obesity, migraines presenting to the ER with complaints of nausea/vomiting with lower abdominal pain since Saturday and . Reports that now she has a headache. She reports that she normally has migraine headaches and it feels like her normal migraine headache. She reports that she normally gets Ativan, IV fluids, Zofran and pain medications for her migraine headaches when she comes here. She reports she is urinating normally. She denies any fevers, chills, dizziness, neck pain or stiffness, trouble swallowing or breathing, cough or congestion, radiation of the abdominal pain, back or flank pain, dysuria hematuria, abnormal vaginal discharge, rashes, recent falls or trauma or any other symptoms complaints or concerns at this time MD elicited complaint: abdominal pain Related Data Home Medications Medication Instructions Recorded Confirmed atorvastatin 20 mg tablet 1 tab PO DAILY 01/29/23 01/29/23 bupropion HCl 300 mg 24 hr tablet, 1 tab PO DAILY 01/29/23 01/29/23 extended release citalopram 20 mg tablet 1 tab PO DAILY 01/29/23 01/29/23 citalopram 40 mg tablet 2 tab PO DAILY 01/29/23 01/29/23 levothyroxine 137 mcg tablet 1 tab PO DAILY 01/29/23 01/29/23 lorazepam 1 mg tablet 0.5 tab PO DAILY 01/29/23 01/29/23 lorazepam 1 mg tablet 1 tab PO BEDTIME 01/29/23 01/29/23 propranolol 120 mg capsule,24 1 cap PO DAILY 01/29/23 01/29/23 hr,extended release sumatriptan succinate 100 mg tablet 100 mg PO DAILY MRX1 PRN Migraine 01/29/23 01/29/23 Headache naproxen 500 mg tablet 500 mg PO BID 06/20/23 Previous Rx's Medication Instructions Recorded omeprazole magnesium 20 mg 20 mg PO DAILY #30 tabs 01/27/23 tablet,delayed release (Prilosec OTC) ketorolac 10 mg tablet 10 mg PO Q8H PRN pain 3 days #10 09/25/23 tabs benzonatate 200 mg capsule 200 mg PO TID PRN cough #30 caps 11/12/23 ondansetron 4 mg disintegrating 4 mg PO Q6-8H PRN nausea and 11/12/23 tablet vomiting #10 tabs ondansetron HCl 4 mg tablet 4 mg PO Q8H PRN nausea and 11/17/23 vomiting 5 days #10 tabs ondansetron 4 mg disintegrating 4 mg PO Q6-8H PRN nausea and 02/01/24 tablet vomiting #14 tabs Allergies Allergy/AdvReac Type Severity Reaction Status Date / Time No Known Allergies Allergy Verified 11/06/23 23:21 Review of Systems Review of Systems Constitutional : No Fever, No Chills, No Night Sweats, No Fatigue, No Malaise Cardiovascular : No Chest Pain, No SOB Respiratory : No Cough, No Sputum, No Wheezing, No Dyspnea Gastrointestinal : + Nausea, + Vomiting, No Diarrhea, + abdominal Pain, No Hematochezia, No Melena Genitourinary : No irregular bleeding, No Dysuria, No Urinary Frequency, No Hematuria,No Urinary Incontinence, No Urgency, No Flank Pain Musculoskeletal : No joint pain, No Myalgias, No Joint Swelling Skin : No Skin Lesions, No rash Neuro : + General Weakness, No Numbness, No Paresthesias, No Loss of Consciousness, No Dizziness, No Headache Heme/Lymph: No Lymphadenopathy Endocrine : No Temperature Intolerance Yes all other systems are reviewed and are negative [facility] Past Medical History Attestation statement: The following information was validated with the patient. Source: old records reviewed and nursing notes reviewed Medical History OCD (obsessive compulsive disorder) COVID-19 Anxiety OCD (obsessive compulsive disorder) Hyperlipemia DDD (degenerative disc disease) Migraines Surgical History H/O thyroidectomy Social History Social History Household Members: None Housing: Apartment Do you presently have visiting nurse or other home services: No Alcohol intake: never Patient Tobacco Use Status: Never used Tobacco Smoked in Last 30 Days: No Use of substances other than those prescribed or required for medical reasons: No Advance Directives: No Advance Directives Information Provided: No Patient : No service: No Current occupational status: disabled Physical Exam ED Vital Signs: Vital Signs - 24 hr 02/01/24 08:56 02/01/24 10:18 Temperature 98.2 F 98.4 F Pulse Rate 63 65 Respiratory Rate 17 18 Blood Pressure 140/43 H 130/69 Pulse Oximetry 97 95 Oxygen Delivery Method Room Air Room Air BMI result Body Mass Index 43.7 vital signs have been reviewed as normal and appeared to be correct. Blood pressure 140/43. Heart rate normal. Respiration rate normal. Temperature normal. Oxygen saturation normal. Appearance: Alert. Oriented X3. No acute distress. Head: Normal external exam. Normocephalic. Atraumatic. Eyes: PERRLA. EOMI. Conjunctiva and sclera normal. Eyelids normal. ENT: Pharynx normal. Uvula midline. Moist mucous membranes. Normal voice. Neck: Normal inspection. Neck supple. FROM. No meningeal signs. CVS: Normal heart rate and rhythm. Heart sound normal. Pulses normal throughout. No murmurs/rales/gallops. Respiratory: No respiratory distress. Painless inspiration. Breath sounds normal. No wheezes/rales/rhonchi noted. Chest nontender. No crepitus is noted. No signs of trauma noted. No accessory muscle usage noted or decreased air movement noted. No signs of trauma. Abdomen: Soft and tenderness palpation to suprapubic/left lower quadrant/right lower quadrant with guarding. Bowel sounds normal in all 4 quadrants. No distention noted. No organomegaly noted. No visible injury noted. Back: No CVA tenderness. Full range of motion noted. Nontender. Skin: Skin warm and dry. Normal skin color. Normal skin turgor. No rashes/lesions/lacerations noted. Extremities: No lower extremity edema. No calf tenderness is noted. Extremities exhibit normal range of motion and nontender. Neuro: Oriented X 3. No motor deficit. No sensory deficit. Reflexes normal. Normal steady gait. No focal neuro deficits noted. CN's II-XII intact bilaterally? Vascular: + radial pulses/+ 2 distal pedal pulses/+2 dorsalis pedis b/l. Normal cap refill. No cyanosis noted to upper extremity nails and lower extremity toes nails. Course Course Course Narrative: 9:15am - 58-year-old female presenting with nausea vomiting and suprapubic/left lower quadrant right lower quadrant abdominal pain that started a few days ago worse today. She also has a regular migraine headaches. Abdominal exam without peritoneal signs. No evidence of acute abdomen at this time. Well-appearing. Patient most likely gastroenteritis versus diverticulitis versus appendicitis versus UTI. Low suspicion for acute hepatobiliary disease including acute cholecystitis, acute pancreatitis, PUD, acute infectious process such as pneumonia, hepatitis, pyelonephritis, vascular catastrophe, bowel obstruction viscous perforation. Presentation not consistent with acute other emergent cause of abdominal pain at this time. Plan: Labs, UA, COVID/RSV/flu swab. Provide IV fluids, Zofran, Toradol, Benadryl, Ativan and re-evaluate Reevaluation(s) Reevaluation #1: All labs within normal limits. Patient negative for COVID/RSV/flu. Awaiting CT scan abdomen pelvis with IV contrast will re-evaluate Time: 11:24 Reevaluation #2: CT scan negative for any acute processes only chronic changes. Patient reports she feels much better. She is tolerating p.o. fluids. Therefore at this time patient will be discharged with Zofran with instructions return if any new or worsening symptoms follow up with primary care provider. Patient understands agrees with this plan Time: 13:08 Medical Decision Making Medical Decision Making [facility] Narrative: see course Differential Diagnosis Differential Diagnoses: The differential diagnosis associated with the presentation includes see course Lab Data [facility] Lab Attestation statement: I reviewed the patient's lab results. 02/01/24 10:54 02/01/24 10:54 Labs: Lab Results 02/01/24 02/01/24 Range/Units 09:38 10:54 WBC 7.4 (4.8-10.8) X10*3/uL RBC 4.87 (4.20-5.50) X10*6/uL Hgb 12.0 (12.0-16.0) g/dl Hct 37.9 (37.0-47.0) % MCV 77.8 L (80.0-98.0) fL MCH 24.6 L (27.0-33.0) pg MCHC 31.7 (31.0-35.0) g/dl RDW 14.2 (11.0-16.0) % Plt Count 222 (160-400) X10*3/uL MPV 9.3 L (9.4-12.3) fL Immature Gran % (Auto) 0.4 (0.0-0.4) % Neut % (Auto) 76.9 H (45-73) % Lymph % (Auto) 14.7 L (20-40) % [place] % (Auto) 7.3 (2-11) % Eos % (Auto) 0.3 (0-4) % Baso % (Auto) 0.4 (0-2) % Lymph # (Auto) 1.1 L (1.2-4.9) X10*3/uL [place] # (Auto) 0.5 (0.1-1.2) X10*3/uL Eos # (Auto) 0.0 (0.0-0.4) X10*3/uL Baso # (Auto) 0.0 (0.0-0.2) X10*3/uL Abs Immat Gran (auto) 0.03 (0.00-0.03) X10*3/uL Absolute Neuts (auto) 5.7 (2.0-8.3) x10*3/uL Absolute Nucleated RBC 0.000 (0.0-0.012) X10*3/uL Nucleated RBC % (auto) 0.0 (0.0-0.2) /100WBC Sodium 140 (135-145) mmol/L Potassium 4.3 (3.3-5.1) mmol/L Chloride 102 (96-108) mmol/L Carbon Dioxide 29 (22-29) mmol/L Anion Gap 13 (12-20) BUN 17 H (9-16) mg/dL Creatinine 1.06 (0.5-1.4) mg/dL Estim Creat Clear Calc 79.2 Estimated GFR 54 Random Glucose 80 (60-115) mg/dL Calcium 10.0 (8.4-10.2) mg/dL Magnesium 1.9 (1.6-2.6) mg/dL Total Bilirubin 1.0 (0.0-1.0) mg/dL Direct Bilirubin 0.3 (0.0-0.5) mg/dL AST 21 (5-31) U/L ALT 16 (0-31) U/L Alkaline Phosphatase 68 (39-117) U/L Total Protein 7.9 (6.5-8.0) g/dL Albumin 4.1 (3.5-5.0) g/dL Lipase 24 (8-78) U/L Influenza Type A (PCR) NEGATIVE (Negative) Influenza Type B (PCR) NEGATIVE (Negative) RSV RNA Qual (PCR) NEGATIVE (Negative) SARS-CoV-2 RNA (RT-PCR) NEGATIVE (Negative) Independent Interpretation I performed an independent interpretation of an: CT Scan (CT scan abdomen pelvis with IV contrast reviewed by myself this is my independent interpretation agreeable radiologist report) Radiology Impression Discussion of test interpretation with radiology: I discussed test interpretation with the radiologist and I have reviewed the radiologist's reading. Radiologist Impression: FINDINGS: LUNG BASES: Mitral annular calcification. ABDOMINAL AND PELVIC WALL: Small fat-containing umbilical hernia. LIVER AND BILIARY TREE: Unremarkable. GALLBLADDER: Unremarkable. PANCREAS: Focal fatty infiltration in the pancreatic head again seen. SPLEEN: Unremarkable. ADRENAL GLANDS: Unremarkable. KIDNEYS AND URETERS: Bosniak 1 benign-appearing peripelvic left renal cysts, no imaging follow-up recommended. No hydronephrosis or nephrolithiasis. GASTROINTESTINAL TRACT: Small hiatal hernia with patulous appearance of the distal esophagus. Colonic diverticulosis without evidence of diverticulitis. Normal appendix. VASCULAR: Unremarkable. LYMPH NODES/PERITONEUM: No lymphadenopathy. FREE FLUID: None. BLADDER: Unremarkable. PELVIC VISCERA: Unremarkable. OSSEOUS STRUCTURES: Grade 1 anterolisthesis of L4 on L5. CT/CT abdomen pelvis w IV con IMPRESSION: 1. No acute findings to explain symptoms of abdominal pain. 2. Small hiatal hernia with patulous appearance of the distal esophagus. Independent Historian Clinical information obtained from an independent historian. History obtained from or confirmed by: EMS Patient, medical records, nurse's notes, EMS External Record Review External record reviewed: Inpatient record, Office record, Outpatient record, Prior outpatient labs, Prior outpatient radiology, Primary care record and Outside ED record All prior labs/imaging/EKG and notes that are accessible in our system reviewed by myself Prescription Management I considered prescription management with: Pain Medication Social Determinants Patient?s care significantly limited by Social Determinants of Health including: Other Social Determinant of Health Medications Administered Discontinued Medications Generic Name Dose Route Start Last Admin Trade Name Freq PRN Reason Stop Dose Admin Sodium Chloride 1,000 mls @ 999 mls/hr 02/01/24 09:30 02/01/24 10:58 Ns IVCONT 02/01/24 10:30 999 mls/hr .Q1H1M NATHAN Administration Iohexol 100 ml 02/01/24 11:41 02/01/24 11:41 Iohexol 350 Mg/Ml 100 Ml Infus..Btl IV 02/01/24 11:42 85 ml ONCE ONE Administration Ketorolac Tromethamine 30 mg 02/01/24 09:18 02/01/24 11:00 Ketorolac Tromethamine 30 Mg/Ml Vial IVPUSH 02/01/24 09:19 30 mg ONCE ONE Administration Lorazepam 1 mg 02/01/24 09:17 02/01/24 11:01 Lorazepam 2 Mg/Ml Vial IVPUSH 02/01/24 09:18 1 mg ONCE ONE Administration Ondansetron HCl 4 mg 02/01/24 09:17 02/01/24 10:59 Ondansetron Hcl 4 Mg/2 Ml Vial IVPUSH 02/01/24 09:18 4 mg ONCE ONE Administration Discharge Plan Discharge Clinical Impression: Gastroenteritis, Headache, migraine Patient Disposition: Home, Self-Care Instructions: Migraine Headache (ED), Gastroenteritis (ED) Prescriptions: New ondansetron 4 mg tablet,disintegrating 4 mg PO Q6-8H PRN (Reason: nausea and vomiting) Qty: 14 0RF No Action levothyroxine 137 mcg tablet 1 tab PO DAILY atorvastatin 20 mg tablet 1 tab PO DAILY citalopram 40 mg tablet 2 tab PO DAILY sumatriptan succinate 100 mg tablet 100 mg PO DAILY MRX1 PRN (Reason: Migraine Headache) citalopram 20 mg tablet 1 tab PO DAILY propranolol 120 mg capsule,extended release 24 hr 1 cap PO DAILY lorazepam 1 mg tablet 1 tab PO BEDTIME lorazepam 1 mg tablet 0.5 tab PO DAILY bupropion HCl 300 mg tablet extended release 24 hr 1 tab PO DAILY omeprazole magnesium [Prilosec OTC] 20 mg tablet,delayed release (DR/EC) 20 mg PO DAILY Qty: 30 0RF ketorolac 10 mg tablet 10 mg PO Q8H PRN (Reason: pain) 3 Days Qty: 10 0RF Rx Instructions: Patient tolerated injection in department on 09/25/2023 benzonatate 200 mg capsule 200 mg PO TID PRN (Reason: cough) Qty: 30 0RF ondansetron 4 mg tablet,disintegrating 4 mg PO Q6-8H PRN (Reason: nausea and vomiting) Qty: 10 0RF ondansetron HCl 4 mg tablet 4 mg PO Q8H PRN (Reason: nausea and vomiting) 5 Days Qty: 10 0RF naproxen 500 mg tablet 500 mg PO BID Referrals: Jocelyn Kiran PA [Primary Care Provider] - 1 day
[2024-02-01 10:18] VITALS: BP 130/69; PULSE 65; RESP 18; TEMP 36.9; O2SAT 95
[2024-02-01 10:25] LABS: Influenza A PCR NEGATIVE (Negative); Influenza B PCR NEGATIVE (Negative); Resp Syncy Virus RNA Qual PCR NEGATIVE (Negative); SARS COV2 PCR INHOUSE NEGATIVE (Negative)
[2024-02-01] MEDS: 0.9 % Sodium Chloride 1,000 ML 999 ML IVCONT (10:58)
[2024-02-01] MEDS: ondansetron HCL 4 MG/2 ML VIAL IVPUSH (10:59)
[2024-02-01] MEDS: Ketorolac Tromethamine 30 MG/ML VIAL IVPUSH (11:00)
[2024-02-01] MEDS: LORazepam 2 MG/ML VIAL 1 MG IVPUSH (11:01)
[2024-02-01 11:08] LABS: MANUAL DIFF FLAG NO
[2024-02-01 11:10] LABS: Basophils Percent Auto 0.4 % (0-2); Eosinophils Percent Auto 0.3 % (0-4); Hematocrit 37.9 % (37.0-47.0); Imm Gran Abs Auto 0.03 X10*3/uL (0.00-0.03); Imm Gran Pct Auto 0.4 % (0.0-0.4); Lymphocytes Absolute Auto 1.1 X10*3/uL (1.2-4.9); Lymphocytes Percent Auto 14.7 % (20-40); Mean Corpuscular HGB Conc 31.7 g/dl (31.0-35.0); Mean Corpuscular Hemoglobin 24.6 pg (27.0-33.0); Mean Corpuscular Volume 77.8 fL (80.0-98.0); Mean Platelet Volume 9.3 fL (9.4-12.3); Monocytes Absolute Auto 0.5 X10*3/uL (0.1-1.2); Monocytes Percent Auto 7.3 % (2-11); Neutrophils Absolute Auto 5.7 x10*3/uL (2.0-8.3); Neutrophils Percent Auto 76.9 % (45-73); Platelet Count 222 X10*3/uL (160-400); Red Blood Count 4.87 X10*6/uL (4.20-5.50); Red Cell Distribution Width 14.2 % (11.0-16.0); White Blood Count 7.4 X10*3/uL (4.8-10.8)
[2024-02-01 11:27] LABS: Alanine Aminotransferase 16 U/L (0-31); Albumin Level 4.1 g/dL (3.5-5.0); Alkaline Phosphatase 68 U/L (39-117); Anion Gap 13 (12-20); Aspartate Amino Transferase 21 U/L (5-31); Bilirubin Direct 0.3 mg/dL (0.0-0.5); Blood Urea Nitrogen 17 mg/dL (9-16); Carbon Dioxide 29 mmol/L (22-29); Chloride 102 mmol/L (96-108); Creatinine Clr Calc Pharmacy 79.2; Estimated Glomerular Filt Rate 54; Glucose Random 80 mg/dL (60-115); Lipase 24 U/L (8-78); Magnesium 1.9 mg/dL (1.6-2.6); Potassium 4.3 mmol/L (3.3-5.1); Sodium 140 mmol/L (135-145); Total Protein 7.9 g/dL (6.5-8.0)
[2024-02-01] MEDS: iohexoL 350 MG/ML 100 ML INFUS..BTL IV (11:41)
[2024-02-01 13:33] VITALS: BP 130/69; PULSE 65; RESP 18; TEMP 36.9; O2SAT 95
== END 2024-02-01 13:34 | disposition home or self-care (01) ==
PROVIDERS: Physician Assistant Medical; Emergency Provider Emergency Medicine; PCP Physician Assistant
DX: K52.9 Noninfective gastroenteritis and colitis, unspecified (principal); G43.909 Migraine, unspecified, not intractable, without status migrainosus; R11.2 Nausea with vomiting, unspecified; R10.30 Lower abdominal pain, unspecified; R10.31 Right lower quadrant pain; R10.32 Left lower quadrant pain; Z11.52 Encounter for screening for COVID-19; Z20.828 Contact with and (suspected) exposure to other viral communicable diseases
CPT/HCPCS: 0241U; 36415; 74177; 80053; 82248; 83690; 83735; 85025; 93005; 96361; 96374; 96375; 99284; 99285; J1885; J2060; J2405; Q9967

== ENCOUNTER → 2024-02-01 08:55 | Outpatient (BNV) | payer MEDICARE, MEDICAID, SELFPAY | PROVIDERS: Emergency Provider Emergency Medicine; PCP Physician Assistant; Visit Provider Internal Medicine Cardiovascular Disease | DX: R94.31 Abnormal electrocardiogram [ECG] [EKG] (principal) | CPT/HCPCS: 93010 ==

== ENCOUNTER 2024-02-17 14:58 | Outpatient (REF) | payer MEDICARE, MEDICAID, SELFPAY | END 2024-02-17 14:59 | disposition home or self-care (01) | LOC: HO.MAMMO 14:58 | PROVIDERS: PCP Internal Medicine; Visit Provider Physician Assistant | DX: Z12.31 Encounter for screening mammogram for malignant neoplasm of breast (principal) | CPT/HCPCS: 77063; 77067 ==

== ENCOUNTER → 2024-02-17 15:15 | Outpatient (BNV) | payer MEDICARE, MEDICAID, SELFPAY | PROVIDERS: PCP Internal Medicine; Visit Provider Radiology Diagnostic Radiology | DX: Z12.31 Encounter for screening mammogram for malignant neoplasm of breast (principal) | CPT/HCPCS: 77063; 77067 ==

== ENCOUNTER 2024-03-11 15:18 | Outpatient (REF) | payer MEDICARE, MEDICAID, SELFPAY ==
[2024-03-11 17:47] LABS: MANUAL DIFF FLAG NO
[2024-03-11 17:58] LABS: Basophils Percent Auto 0.4 % (0-2); Eosinophils Absolute Auto 0.1 X10*3/uL (0.0-0.4); Eosinophils Percent Auto 1.1 % (0-4); Hematocrit 36.5 % (37.0-47.0); Hemoglobin 11.5 g/dl (12.0-16.0); Imm Gran Abs Auto 0.02 X10*3/uL (0.00-0.03); Imm Gran Pct Auto 0.3 % (0.0-0.4); Lymphocytes Absolute Auto 1.6 X10*3/uL (1.2-4.9); Lymphocytes Percent Auto 22.1 % (20-40); Mean Corpuscular HGB Conc 31.5 g/dl (31.0-35.0); Mean Corpuscular Hemoglobin 24.5 pg (27.0-33.0); Mean Corpuscular Volume 77.7 fL (80.0-98.0); Mean Platelet Volume 10.7 fL (9.4-12.3); Monocytes Absolute Auto 0.6 X10*3/uL (0.1-1.2); Monocytes Percent Auto 7.9 % (2-11); Neutrophils Absolute Auto 4.9 x10*3/uL (2.0-8.3); Neutrophils Percent Auto 68.2 % (45-73); Platelet Count 248 X10*3/uL (160-400); Red Cell Distribution Width 14.5 % (11.0-16.0); White Blood Count 7.1 X10*3/uL (4.8-10.8)
[2024-03-11 18:07] LABS: Estimated Average Glucose 117 mg/dL; Hemoglobin A1c % 5.7 % (<6.0)
[2024-03-11 18:19] LABS: Alanine Aminotransferase 15 U/L (0-31); Albumin Level 4.1 g/dL (3.5-5.0); Alkaline Phosphatase 77 U/L (39-117); Anion Gap 11 (12-20); Aspartate Amino Transferase 21 U/L (5-31); Bilirubin Total 0.5 mg/dL (0.0-1.0); Blood Urea Nitrogen 13 mg/dL (9-16); Calcium 9.3 mg/dL (8.4-10.2); Carbon Dioxide 30 mmol/L (22-29); Chloride 102 mmol/L (96-108); Estimated Glomerular Filt Rate > 60; Glucose Random 91 mg/dL (60-115); Iron 33 mcg/dL (30-160); Percent Iron Saturation 9 % (15-50); Potassium 4.4 mmol/L (3.3-5.1); Sodium 139 mmol/L (135-145); Total Iron Binding Capacity 369 mcg/dL (228-428); Total Protein 7.7 g/dL (6.5-8.0); Unsaturated Iron Binding 336 ug/dL
[2024-03-11 18:36] LABS: Ferritin 9 ng/mL (10-250); Free T4 (Free Thyroxine) 1.24 ng/dL (0.71-1.85); Thyroid Stimulating Hormone 3.03 uIU/mL (0.32-4.0)
== END 2024-03-11 15:19 | disposition home or self-care (01) ==
LOC: HO.MANLDS 15:18
PROVIDERS: Visit Provider Physician Assistant
DX: E78.2 Mixed hyperlipidemia (principal); R73.01 Impaired fasting glucose; E03.8 Other specified hypothyroidism; R42 Dizziness and giddiness
CPT/HCPCS: 36415; 80053; 82728; 83036; 83540; 84439; 84443; 85025

== ENCOUNTER 2024-03-13 11:13 | Outpatient (REF) | payer MEDICARE, MEDICAID, SELFPAY ==
[2024-03-13 13:12] LABS: Cholesterol 188 mg/dL (<200); HDL Cholesterol 64 mg/dL (>40); LDL Cholesterol Calculated 104 mg/dL (<100); Triglycerides 102 mg/dL (<150)
== END 2024-03-13 11:14 | disposition home or self-care (01) ==
LOC: HO.10HDL 11:13
PROVIDERS: Visit Provider Physician Assistant
DX: E78.2 Mixed hyperlipidemia (principal)
CPT/HCPCS: 36415; 80061

== ENCOUNTER 2024-07-18 18:41 | Emergency (ER) | payer MEDICARE, MEDICAID, SELFPAY ==
--- NOTE | 2024-07-18 18:59 | ED.GENADULT ---
HPI - General Adult General Chief complaint: Skin/Abscess/Foreign Body Stated complaint: ? infection under right breast Source: patient Mode of arrival: ambulatory Limitations: no limitations History of Present Illness HPI narrative: Patient is a 59-year-old female who presents to the emergency department evaluation of a rash beneath the right breast. She endorses having a similar rash in the past however it was very small. She applied topical nystatin powder she previously received but this area continued to increase in size. She picked up a new prescription thing that perhaps it may have been , despite applying this for 3 days it continues to spread. She reports the area is getting larger, more red, and has a foul smell. Denies associated fevers chills. Denies pain directly to the breast or swelling of the breast. Denies any nipple discharge. Denies additional skin rashes or lesions Related Data Home Medications ?Medication ?Instructions ?Recorded ?Confirmed atorvastatin 20 mg tablet 1 tab PO DAILY 01/29/23 01/29/23 bupropion HCl 300 mg 24 hr tablet, 1 tab PO DAILY 01/29/23 01/29/23 extended release citalopram 20 mg tablet 1 tab PO DAILY 01/29/23 01/29/23 citalopram 40 mg tablet 2 tab PO DAILY 01/29/23 01/29/23 levothyroxine 137 mcg tablet 1 tab PO DAILY 01/29/23 01/29/23 lorazepam 1 mg tablet 0.5 tab PO DAILY 01/29/23 01/29/23 lorazepam 1 mg tablet 1 tab PO BEDTIME 01/29/23 01/29/23 propranolol 120 mg capsule,24 1 cap PO DAILY 01/29/23 01/29/23 hr,extended release sumatriptan succinate 100 mg tablet 100 mg PO DAILY MRX1 PRN Migraine 01/29/23 01/29/23 Headache naproxen 500 mg tablet 500 mg PO BID 06/20/23 Previous Rx's ?Medication ?Instructions ?Recorded omeprazole magnesium 20 mg 20 mg PO DAILY #30 tabs 01/27/23 tablet,delayed release (Prilosec OTC) ketorolac 10 mg tablet 10 mg PO Q8H PRN pain 3 days #10 09/25/23 tabs benzonatate 200 mg capsule 200 mg PO TID PRN cough #30 caps 11/12/23 ondansetron 4 mg disintegrating 4 mg PO Q6-8H PRN nausea and 11/12/23 tablet vomiting #10 tabs ondansetron HCl 4 mg tablet 4 mg PO Q8H PRN nausea and 11/17/23 vomiting 5 days #10 tabs ondansetron 4 mg disintegrating 4 mg PO Q6-8H PRN nausea and 02/01/24 tablet vomiting #14 tabs nystatin 100,000 unit/gram topical 1 appl topical BID #30 grams 07/18/24 cream Allergies Allergy/AdvReac Type Severity Reaction Status Date / Time No Known Allergies Allergy Verified 07/18/24 19:01 Review of Systems Review of Systems: Yes all other systems are reviewed and are negative PMFSH Past Medical History Attestation statement: The following information was validated with the patient. Source: old records reviewed Medical History OCD (obsessive compulsive disorder) COVID-19 Anxiety OCD (obsessive compulsive disorder) Hyperlipemia DDD (degenerative disc disease) Migraines Surgical History H/O thyroidectomy Social History Social History Household Members: None Housing: Apartment Do you presently have visiting nurse or other home services: No Alcohol intake: never Patient Tobacco Use Status: Never used Tobacco service: No Current occupational status: disabled Physical Exam ED Appearance: Alert.?Oriented to person, place and time. No acute distress.?Normal affect. Neck: Normal inspection.? Neck supple.?? CVS: Heart sounds normal. Normal heart rate and rhythm.? Pulses normal.?? Respiratory: No respiratory distress.? Lung sounds clear to auscultation bilaterally?? Abdomen: Soft and non-tender. Normoactive bowel sounds. No pulsatile mass.?? Skin: Skin warm and dry.? Normal skin color.? Examination performed with irrigation pump installer, ED XIAO Wolf. Below the right breast there is notable moist erythematous patch with surrounding satellite lesions Extremities: No lower extremity edema.? Neuro: Moves all extremities spontaneously. Sensation intact bilaterally. Ambulates with normal steady gait. Medical Decision Making Medical Decision Making MDM Narrative: Patient is a 59-year-old female who presents emergency department for evaluation of a rash beneath the breast consistent with a yeast infection. We discussed appropriate treatment [id number] instructions and change of nystatin to cream rather than powder. No evidence of cellulitis to the breasts. No signs of systemic illness. Stable for discharge, outpatient follow-up with primary care provider. Discussed worrisome signs and symptoms that would warrant re-evaluation. All questions answered. Differential Diagnosis Differential Diagnoses: The differential diagnosis associated with the presentation includes (Candidal infection, fungal infection. Not consistent with cellulitis.) External Record Review External record reviewed: Outpatient record Prescription Management I considered prescription management with: Other (See narrative above) Discharge Plan Discharge Clinical Impression: Lyudmila infection Patient Disposition: Home, Self-Care Instructions: Yeast Infection (ED) Additional Instructions: As discussed, it is very important that you clean the area twice daily with warm water and mild non scented soap. Next step is to assure that the area is completely dry you may do this by patting it dry with a towel and then raising the breast to allow air to ensure dryness. Then you will apply the nystatin cream to this area. Place the large gauze provided to you, which is also available [id number] in the pharmacy, beneath the breast as described to avoid direct contact of the under rest to the skin of your abdomen. It is very important that you remain diligent with this plan, and continue to apply the cream for even up to 2 weeks after resolution of the rash to ensure that it does not return. Please follow-up with your primary care doctor next week. You may return to emergency department any new or worsening symptoms or concerns. Prescriptions: New nystatin 100,000 unit/gram cream 1 appl topical BID Qty: 30 2RF No Action levothyroxine 137 mcg tablet 1 tab PO DAILY atorvastatin 20 mg tablet 1 tab PO DAILY citalopram 40 mg tablet 2 tab PO DAILY sumatriptan succinate 100 mg tablet 100 mg PO DAILY MRX1 PRN (Reason: Migraine Headache) citalopram 20 mg tablet 1 tab PO DAILY propranolol 120 mg capsule,extended release 24 hr 1 cap PO DAILY lorazepam 1 mg tablet 1 tab PO BEDTIME lorazepam 1 mg tablet 0.5 tab PO DAILY bupropion HCl 300 mg tablet extended release 24 hr 1 tab PO DAILY omeprazole magnesium [Prilosec OTC] 20 mg tablet,delayed release (DR/EC) 20 mg PO DAILY Qty: 30 0RF ketorolac 10 mg tablet 10 mg PO Q8H PRN (Reason: pain) 3 Days Qty: 10 0RF Rx Instructions: Patient tolerated injection in department on 09/25/2023 ondansetron 4 mg tablet,disintegrating 4 mg PO Q6-8H PRN (Reason: nausea and vomiting) Qty: 14 0RF benzonatate 200 mg capsule 200 mg PO TID PRN (Reason: cough) Qty: 30 0RF ondansetron 4 mg tablet,disintegrating 4 mg PO Q6-8H PRN (Reason: nausea and vomiting) Qty: 10 0RF ondansetron HCl 4 mg tablet 4 mg PO Q8H PRN (Reason: nausea and vomiting) 5 Days Qty: 10 0RF naproxen 500 mg tablet 500 mg PO BID Referrals: Jocelyn Kiran PA [Primary Care Provider] - Print Language: [place]
[2024-07-18 19:00] VITALS: BP 126/57; PULSE 71; RESP 16; TEMP 35.8; O2SAT 96; BMI 42.7
[2024-07-18 19:27] VITALS: BP 126/57; PULSE 71; RESP 16; TEMP 35.8; O2SAT 96
== END 2024-07-18 19:28 | disposition home or self-care (01) ==
PROVIDERS: Emergency Provider Emergency Medicine Emergency Medical Services; PCP Physician Assistant
DX: B37.2 Candidiasis of skin and nail (principal); R21 Rash and other nonspecific skin eruption
CPT/HCPCS: 99282; 99283

== ENCOUNTER 2024-10-02 19:54 | Emergency (ER) | payer MEDICARE, MEDICAID, SELFPAY ==
[2024-10-02 20:17] VITALS: BP 116/68; BP 160/92; PULSE 73; PULSE 79; RESP 18; TEMP 37.3; O2SAT 97; BMI 31.6
[2024-10-02] MEDS: Ondansetron ODT 4 MG TAB.RAPDIS TRANSLINGU (20:35)
--- NOTE | 2024-10-02 21:11 | ED_ITS ---
HPI - General Adult General Chief complaint: Psychiatric Symptoms Stated complaint: SI WITH PLAN Time Seen by Provider: 10/02/24 20:29 Source: patient, RN notes reviewed and old records reviewed Mode of arrival: EMS Limitations: no limitations History of Present Illness ED Provider: Nolberto LOAIZA narrative: 59-year-old female with past medical history significant for gastritis presents for evaluation of depression with suicidal ideation. Patient reports that she has had increasing depression for a few days. She reports her primary doctor increased her bupropion without improvement in her symptoms. She states that she is having suicidal thoughts to overdose on medications. She does not want to act on these thoughts. She also reports nausea and vomiting for the last 3 days. She reports no appetite She denies any abdominal pain She denies any fevers, chills. No other complaints or concerns at this time Related Data Home Medications ?Medication ?Instructions ?Recorded ?Confirmed atorvastatin 20 mg tablet 1 tab PO DAILY 01/29/23 10/02/24 bupropion HCl 300 mg 24 hr tablet, 1.5 tab PO DAILY 01/29/23 10/02/24 extended release citalopram 20 mg tablet 1 tab PO DAILY 01/29/23 10/02/24 citalopram 40 mg tablet 2 tab PO DAILY 01/29/23 10/02/24 levothyroxine 137 mcg tablet 1 tab PO DAILY 01/29/23 10/02/24 propranolol 120 mg capsule,24 1 cap PO DAILY 01/29/23 10/02/24 hr,extended release sumatriptan succinate 100 mg tablet 100 mg PO DAILY MRX1 PRN Migraine 01/29/23 10/02/24 Headache naproxen 500 mg tablet 500 mg PO BID 06/20/23 10/02/24 lorazepam 1 mg tablet 1 mg PO BID 10/02/24 10/02/24 Previous Rx's ?Medication ?Instructions ?Recorded omeprazole magnesium 20 mg 20 mg PO DAILY #30 tabs 01/27/23 tablet,delayed release (Prilosec OTC) ondansetron HCl 4 mg tablet 4 mg PO Q8H PRN nausea and 11/17/23 vomiting 5 days #10 tabs nystatin 100,000 unit/gram topical 1 appl topical BID #30 grams 07/18/24 cream Allergies Allergy/AdvReac Type Severity Reaction Status Date / Time No Known Allergies Allergy Verified 10/02/24 20:27 Review of Systems 2 Constitutional: Constitutional: Denies body ache(s), Denies chills and Denies headache(s) Eyes: Eyes: Denies blurry vision ENT: Denies headache(s) and Denies sore throat Cardiovascular: Cardiovascular: Denies chest pain and Denies dyspnea Respiratory: Respiratory: Denies cough and Denies dyspnea Gastrointestinal: Gastrointestinal: Denies abdominal pain, Reports nausea and Reports vomiting Musculoskeletal: Musculoskeletal: Denies back pain Integumentary/Breasts: Skin/Breast: Denies rash Neurologic: Denies headache(s) Psychiatric: Psychiatric: Reports anxiety, Reports depression, Denies auditory hallucinations, Reports panic attacks, Denies paranoia and Reports suicidal ideation [facility] Past Medical History Medical History OCD (obsessive compulsive disorder) COVID-19 Anxiety OCD (obsessive compulsive disorder) Hyperlipemia DDD (degenerative disc disease) Migraines Surgical History H/O thyroidectomy Social History Social History Household Members: None Housing: Apartment Do you presently have visiting nurse or other home services: No Alcohol intake: never Patient Tobacco Use Status: Never used Tobacco Advance Directives: No Advance Directives Information Provided: No Do you have a plan to hurt others: No Plan service: No Current occupational status: disabled Physical Exam ED Vital Signs: Vital Signs - 24 hr 10/02/24 20:17 10/03/24 00:43 Temperature 99.1 F 98.5 F Pulse Rate 79 73 Respiratory Rate 18 17 Blood Pressure 160/92 H 140/82 H Pulse Oximetry 97 97 Oxygen Delivery Method Room Air Room Air BMI result Body Mass Index 31.6 Const General: healthy appearing, comfortable, no acute distress, alert and awake Nutritional Appearance: well nourished Orientation/consciousness: patient oriented x3 HENMT Head: Yes normocephalic and Yes atraumatic Eyes Eyelids: Yes eyelids normal Conjunctivae: conjunctivae normal Sclerae: sclerae normal Corneas: corneas normal Pupils: Equal, round and reactive pupils present EOM: EOMs intact bilaterally Neck Neck: Yes full ROM Resp Effort & Inspection: normal respiratory effort, able to speak in complete sentences and not labored Cardio Rate: regular rate Rhythm: regular rhythm GI Inspection: No distended Palpation (GI): Soft to palpation, not firm, nontender, no guarding and not rigid Skin General skin exam: no rashes or lesions noted and elasticity normal Neuro General: patient oriented x3 Cranial nerves: Yes Equal, round and reactive pupils present and Yes Bilaterally intact EOM present Cognition (Neuro): normal cognition Extrem Other: Moving all extremities well without any obvious deformities Course Reevaluation(s) Reevaluation #1: The patient is continually asking for IV fluids. She is not tachycardic, she is hypertensive not hypotensive and she has no evidence of DEEP. I do not feel like she needs IV fluids at this time. She is medically cleared for care team evaluation Time: 00:51 Medications Administered Discontinued Medications Generic Name Dose Route Start Last Admin Trade Name Freq PRN Reason Stop Dose Admin Lorazepam 2 mg 10/02/24 20:55 10/02/24 21:22 Lorazepam 1 Mg Tablet PO 10/02/24 20:56 2 mg ONCE ONE Administration Ondansetron HCl 4 mg 10/02/24 20:30 10/02/24 20:35 Ondansetron Odt 4 Mg Tab.Rapdis TRANSLINGU 10/02/24 20:31 4 mg ONCE ONE Administration Medical Decision Making Medical Decision Making [facility] Narrative: 59-year-old female presents for evaluation of suicidal ideation as well as nausea and vomiting. She is quite well appearing, her vital signs are stable she does appear quite anxious. Plan for labs, urinalysis and tox screen for medical clearance. The patient will require a care team evaluation. I ordered Ativan 2 mg p.o. to help with her anxiety Differential Diagnosis Differential Diagnoses: The differential diagnosis associated with the presentation includes Depression Suicidal ideation Gastritis Gastroenteritis DEEP Lab Data [facility] Lab Attestation statement: I reviewed the patient's lab results. No leukocytosis or significant anemia. Normal platelet count. No electrolyte abnormalities. 10/02/24 21:01 10/02/24 21:01 Labs: Lab Results 10/02/24 Range/Units 21:01 WBC 6.9 (4.8-10.8) X10*3/uL RBC 5.34 (4.20-5.50) X10*6/uL Hgb 16.2 H D (12.0-16.0) g/dl Hct 46.3 D (37.0-47.0) % MCV 86.7 (80.0-98.0) fL MCH 30.3 (27.0-33.0) pg MCHC 35.0 (31.0-35.0) g/dl RDW 11.4 (11.0-16.0) % Plt Count 204 (160-400) X10*3/uL MPV 9.7 (9.4-12.3) fL Immature Gran % (Auto) 0.6 H (0.0-0.4) % Neut % (Auto) 76.9 H (45-73) % Lymph % (Auto) 15.1 L (20-40) % [place] % (Auto) 6.7 (2-11) % Eos % (Auto) 0.4 (0-4) % Baso % (Auto) 0.3 (0-2) % Lymph # (Auto) 1.0 L (1.2-4.9) X10*3/uL [place] # (Auto) 0.5 (0.1-1.2) X10*3/uL Eos # (Auto) 0.0 (0.0-0.4) X10*3/uL Baso # (Auto) 0.0 (0.0-0.2) X10*3/uL Abs Immat Gran (auto) 0.04 H (0.00-0.03) X10*3/uL Absolute Neuts (auto) 5.3 (2.0-8.3) x10*3/uL Absolute Nucleated RBC 0.000 (0.0-0.012) X10*3/uL Nucleated RBC % (auto) 0.0 (0.0-0.2) /100WBC Sodium 137 (135-145) mmol/L Potassium 4.5 (3.3-5.1) mmol/L Chloride 101 (96-108) mmol/L Carbon Dioxide 26 (22-29) mmol/L Anion Gap 15 (12-20) BUN 17 H (9-16) mg/dL Creatinine 1.13 (0.5-1.4) mg/dL Estim Creat Clear Calc 70.2 Estimated GFR 50 Random Glucose 103 (60-115) mg/dL Calcium 10.7 H D (8.4-10.2) mg/dL Total Bilirubin 1.7 H (0.0-1.0) mg/dL AST 29 (5-31) U/L ALT 21 (0-31) U/L Alkaline Phosphatase 83 (39-117) U/L Total Protein 8.2 H (6.5-8.0) g/dL Albumin 4.5 (3.5-5.0) g/dL Ethyl Alcohol < 10 mg/dL Discharge Plan Discharge Clinical Impression: Vomiting, Suicidal ideation, Depression Patient Disposition: Still a Patient Prescriptions: No Action levothyroxine 137 mcg tablet 1 tab PO DAILY atorvastatin 20 mg tablet 1 tab PO DAILY citalopram 40 mg tablet 2 tab PO DAILY sumatriptan succinate 100 mg tablet 100 mg PO DAILY MRX1 PRN (Reason: Migraine Headache) citalopram 20 mg tablet 1 tab PO DAILY propranolol 120 mg capsule,extended release 24 hr 1 cap PO DAILY bupropion HCl 300 mg tablet extended release 24 hr 1.5 tab PO DAILY omeprazole magnesium [Prilosec OTC] 20 mg tablet,delayed release (DR/EC) 20 mg PO DAILY Qty: 30 0RF nystatin 100,000 unit/gram cream 1 appl topical BID Qty: 30 2RF lorazepam 1 mg tablet 1 mg PO BID ondansetron HCl 4 mg tablet 4 mg PO Q8H PRN (Reason: nausea and vomiting) 5 Days Qty: 10 0RF naproxen 500 mg tablet 500 mg PO BID Interventions: [place]-Suicide Risk Severity Scale Last Done: 10/02/24 22:54 Print Language: German
[2024-10-02 21:12] LABS: MANUAL DIFF FLAG NO
[2024-10-02 21:16] LABS: Basophils Percent Auto 0.3 % (0-2); Eosinophils Percent Auto 0.4 % (0-4); Hematocrit 46.3 % (37.0-47.0); Hemoglobin 16.2 g/dl (12.0-16.0); Imm Gran Abs Auto 0.04 X10*3/uL (0.00-0.03); Imm Gran Pct Auto 0.6 % (0.0-0.4); Lymphocytes Percent Auto 15.1 % (20-40); Mean Corpuscular Hemoglobin 30.3 pg (27.0-33.0); Mean Corpuscular Volume 86.7 fL (80.0-98.0); Mean Platelet Volume 9.7 fL (9.4-12.3); Monocytes Absolute Auto 0.5 X10*3/uL (0.1-1.2); Monocytes Percent Auto 6.7 % (2-11); Neutrophils Absolute Auto 5.3 x10*3/uL (2.0-8.3); Neutrophils Percent Auto 76.9 % (45-73); Platelet Count 204 X10*3/uL (160-400); Red Blood Count 5.34 X10*6/uL (4.20-5.50); Red Cell Distribution Width 11.4 % (11.0-16.0); White Blood Count 6.9 X10*3/uL (4.8-10.8)
[2024-10-02] MEDS: LORazepam 1 MG TABLET 2 MG PO (21:22)
--- NOTE | 2024-10-02 21:30 | PC.NURSE ---
t/w completed search and changeover for this client which revealed no injury or contraband.
[2024-10-02 21:45] LABS: Alanine Aminotransferase 21 U/L (0-31); Albumin Level 4.5 g/dL (3.5-5.0); Alkaline Phosphatase 83 U/L (39-117); Anion Gap 15 (12-20); Aspartate Amino Transferase 29 U/L (5-31); Bilirubin Total 1.7 mg/dL (0.0-1.0); Blood Urea Nitrogen 17 mg/dL (9-16); Calcium 10.7 mg/dL (8.4-10.2); Carbon Dioxide 26 mmol/L (22-29); Chloride 101 mmol/L (96-108); Creatinine Clr Calc Pharmacy 70.2; Estimated Glomerular Filt Rate 50; Glucose Random 103 mg/dL (60-115); Potassium 4.5 mmol/L (3.3-5.1); Sodium 137 mmol/L (135-145); Total Protein 8.2 g/dL (6.5-8.0)
--- NOTE | 2024-10-02 23:00 | PC.NURSE ---
assumed care of pt at 2300. pt resting quietly in bed respirations even and unlabored. [address] for safety.
[2024-10-02 23:49] LABS: Ethanol < 10 mg/dL
--- NOTE | 2024-10-03 00:25 | PC.NURSE ---
PT vomited coffee ground emesis and is tremulous vitals taken and are stable. pt requesting IV fluids. Notified provider of vomit and pt's request to which he notes PT is not clinically dehydrated, no fariba, h&h are fine, is not tachy or hypertensive and has been here a lot for gastritis with no admission. Provider recommends educating pt and monitoring for signs of dehydration.
[2024-10-03 00:43] VITALS: BP 140/82; PULSE 73; RESP 17; TEMP 36.9; O2SAT 97
[2024-10-03] MEDS: Omeprazole 40 MG CAPSULE.DR PO (01:32)
[2024-10-03] MEDS: Ondansetron ODT 4 MG TAB.RAPDIS TRANSLINGU ×2 (01:35→10:09)
[2024-10-03 06:34] VITALS: BP 158/78; PULSE 81; RESP 16; O2SAT 97
[2024-10-03] MEDS: Levothyroxine Sodium 75 MCG TABLET 37.5 MCG PO (07:04)
[2024-10-03] MEDS: Levothyroxine Sodium 100 MCG TABLET PO (07:04)
[2024-10-03] MEDS: diphenhydrAMINE HCL 25 MG CAPSULE 50 MG PO (07:04)
[2024-10-03] MEDS: Metoclopramide HCl 10 MG TABLET PO (07:04)
[2024-10-03 07:14] LABS: Amphetamine Screen Urine Not Detected (Not Detect); Barbiturates, Urine Not Detected (Not Detect); Benzodiazepines Screen Urine Not Detected (Not Detect); Buprenorphine Scr Not Detected (Not Detect); Cannabinoid Screen Urine Not Detected (Not Detect); Cocaine Screen Urine Not Detected (Not Detect); Fentanyl, urine Not Detected (Not Detect); Methadone Screen, Urine Not Detected (Not Detect); Opiate Screen Urine Not Detected (Not Detect); Oxycodone Screen Urine Not Detected (Not Detect); Phencyclidine Screen Urine Not Detected (Not Detect)
[2024-10-03 07:19] LABS: Appearance Urine Clear; Color Urine Dark Yellow; Glucose Urine UA Negative (Negative); Leukocyte Esterase Urine Trace (Negative); Nitrite Urine Negative (Negative); PH 5.5 (5.0-9.0); Specific Gravity - Urine >= 1.030 (1.005-1.025); UMIC TRIGGER UACC YES; Urine Blood Negative (Negative); Urine Ketones 40 mg/dL (Negative); Urine Protein Trace mg/dL (Neg-Trace)
[2024-10-03 07:26] LABS: Bacteria Urine None Seen (None Seen); RBC Urine 0-2 /HPF (0-2); WBC Urine 0-5 /HPF (0-5)
--- NOTE | 2024-10-03 07:35 | PC.NURSE ---
Assumed care of patient at 0645, patient reports feeling very nauseous this morning, endorses multiple days of not eating or drinking and increased vomiting. Pt is having trouble keeping meds and food down at this time. Pt has been provided with ice chips and encouraged to take small sips of water. Pt reports that this happens every so often and knows that she gets IV fluids and IV medications and she feels better shortly after. patient understanding as to why she is only receiving PO medications at this time but continues to raise concern that she knows what her body needs. This has been passed on to the provider. Pt is aware of plan of care for CARE team gill
--- NOTE | 2024-10-03 07:41 | PHA.MEDREC ---
Pharmacy Consult ? Medication Reconciliation Pharmacy has reviewed the medication reconciliation. RN had both citalopram 20 mg and citalopram 40 mg x 2 in med rec. This is incorrect, patient increase from 60 mg (citalopram 20 mg and citalopram 40 mg) to citalopran 80 mg.. 2 tablets of the 40 mg.
--- NOTE | 2024-10-03 08:50 | PC.NURSE ---
Holding off on administration of morning medications until patient is no longer nauseous per request of patient
--- NOTE | 2024-10-03 09:26 | MHC.CARE ---
Pt does not present as an imminent risk and does not meet the criteria for a higher level of care at this time. She denies SI, HI, and A/V/H. Pt will follow up with her OP providers in the community. Provider in agreement with disposition.
[2024-10-03] MEDS: LORazepam 1 MG TABLET PO (10:09)
[2024-10-03] MEDS: Escitalopram Oxalate 10 MG TABLET PO (10:09)
[2024-10-03] MEDS: Escitalopram Oxalate 20 MG TABLET PO (10:09)
[2024-10-03] MEDS: Omeprazole 20 MG CAPSULE.DR PO (10:09)
[2024-10-03] MEDS: buPROPion HCl XL 150 MG TAB.ER.24H 450 MG PO (10:09)
[2024-10-03] MEDS: Atorvastatin Calcium 20 MG TABLET PO (10:12)
--- NOTE | 2024-10-03 12:27 | PC.NURSE ---
Pt provided with light snacks and water to evaluate PO intake
[2024-10-03 14:38] VITALS: BP 134/74; PULSE 61; RESP 16; TEMP 36.4; O2SAT 97
== END 2024-10-03 14:40 | disposition still patient (30) ==
PROVIDERS: Physician Assistant; Emergency Provider Internal Medicine; PCP Physician Assistant
DX: R11.2 Nausea with vomiting, unspecified (principal); R45.851 Suicidal ideations; F32.A Depression, unspecified; Z79.899 Other long term (current) drug therapy
CPT/HCPCS: 36415; 80053; 80307; 81001; 85025; 99285; S9485

== ENCOUNTER 2025-01-15 14:48 | Outpatient (REF) | payer MEDICARE, MEDICAID, SELFPAY ==
--- OUTSIDE RECORDS SUMMARY | 2025-01-15 17:04 | XMS_ITS | Data Portability ---
Author Organization [facility] Home Service Address [address] [place] [address] Assessment No assessment recorded. Plan of Treatment Reminders Order Date Submit Date Provider Last Modified By Organization Details Last Modified Time Details Appointments FOLLOW UP 15 2024 02:15P LAURA VICTOR Not available Not available Not available Lab CMP, serum or plasma 2024 025 [facility], [address] [place] [address], [address], 01/15/2025 14:41:05 CBC w/ auto diff 2024 025 [facility], [address] [place] [address], [address], 01/15/2025 14:41:05 amylase + lipase, serum 2024 025 [facility], [address] [place] [address], [address], 01/15/2025 14:41:05 gamma-glu tamyl transfera se (ggt), serum 2024 025 [facility], [address] [place] [address], [address], 01/15/2025 14:41:05 ESR (erythroc yte sedimenta tion rate), blood 2024 025 [facility], [address] [place] [address], [address], 01/15/2025 14:41:05 C-reactiv e protein, quantitat shemar, serum or plasma 2024 025 [facility], [address] [place] [address], 120[address], 01/15/2025 14:41:05 hemoglobi n A1c, QN, blood 2024 025 [facility], [address] [place] [address], [address], 01/15/2025 14:41:05 urinalysi s complete, reflex culture 2024 025 [facility], [address] [place] [address], [address], 01/15/2025 14:41:05 CMP, serum or plasma 2023 024 [facility], [address] [place] [address], [address], 03/12/2024 11:22:34 hemoglobi n A1c, QN, blood 2023 024 [facility], [address] [place] [address], [address], 03/11/2024 15:05:45 iron + TIBC + ferritin, serum 2023 024 [facility], [address] [place] [address], 15[address], 03/11/2024 15:16:36 lipid panel, blood 2023 024 [facility], [address] [place] [address], [address], 03/16/2024 11:27:23 CBC w/ auto diff 2023 024 [facility], [address] [place] [address], 97[address], 03/11/2024 15:05:45 TSH + free T4, serum 2023 [facility], [address] [place] [address], 479[address], 03/11/2024 15:05:45 lipid panel, blood 2021 [facility], [address] [place] [address], 0[address], 08/28/2022 14:10:33 CMP, serum or plasma 2021 [facility], [address] [place] [address], 85[address], 08/29/2022 12:29:25 CBC w/ auto diff 2021 [facility], [address] [place] [address], 14[address], 08/28/2022 14:10:33 vitamin D, 25-hydrox y, total, serum 2021 [facility], [address] [place] [address], [place], [address], 08/28/2022 14:10:33 vitamin B12 + folate, serum or blood 2021 [facility], [address] [place] [address], [address], 08/29/2022 12:29:25 hemoglobi n A1c, QN, blood 2021 [facility], [address] [place] [address], 03[address], 08/28/2022 14:10:33 culture, throat - fungal culture of the tongue 2021 [facility], [address] [place] [address], 77[address], 09/04/2022 12:20:13 TSH + free T4, serum 2021 [facility], [address] [place] [address], [address], 08/29/2022 12:29:25 Referral None recorded. Procedures None recorded. Surgeries None recorded. Imaging MRI, pancreas, w/wo contrast 2024 025 [facility], [address], [address], [place], [address], 01/15/2025 15:27:12 RF, upper gastroint estinal tract + small bowel, w/ contrast PO 2022 023 [facility], [address] [place] [address], [address], 03/01/2023 09:30:31 XR, hip + pelvis, unilatera l, 2 or 3 view 2021 [facility], [address] [place] [address], [address], 09/07/2022 13:34:54 XR, lumbosacr al spine, 2 or 3 view 2021 [facility], [address] [place] [address], [address], 09/11/2022 08:43:17 Medication Orders levothyro xine 137 mcg tablet 2023 024 [facility] #[id number], [address] [place], [address], 03/11/2024 15:04:29 atorvasta tin 20 mg tablet 2023 024 [facility][id number], [address] [place], [address], 03/11/2024 15:04:30 naproxen 500 mg tablet 2021 022 [id number], [address] [place], [address], 08/28/2022 14:06:32 nystatin 100,000 unit/gram topical powder 2021 022 [email or web address] [facility]/Ph[facility]acy #[id number], [address] [place], [address], 02/22/2023 14:35:42 Patient TargetsNo targets recorded. Patient InstructionsNo instructions recorded. Reason for Referral None Reported. Results Created Date Observation Date Name Description Value Unit Range Abnormal Flag Note LastModifiedBy Organization Detail LastModifiedTime 09/07/20 22 08/30/2022 XR, hip + pelvi s, unila teral , 2 or 3 view No observ ation record ed. [facility] (Medical Records) [address] [place], [address], 09/10/2022 15:28:07 10/31/20 22 10/30/2022 MAMMO , scree isaac, digit al, bilat eral No observ ation record ed. [email or web address] [facility] [address] [place], [address], 10/31/2022 14:34:18 09/25/20 23 09/25/2023 XR, shoul seda, 2 or more view No observ ation record ed. [facility] (Medical Records) [address] [place], [address], 09/25/2023 14:21:55 09/25/20 23 09/25/2023 XR, chest , 2 view No observ ation record ed. [facility] (Medical Records) [address] [place], [address], 09/25/2023 14:21:41 11/11/20 23 11/11/2023 XR, chest , 2 view No observ ation record ed. [email or web address] [facility] (Medical Records) [address] [place], [address], 11/12/2023 09:03:27 02/01/20 24 02/01/2024 CT, abdom en + pelvi s, w/ contr ast No observ ation record ed. [email or web address] [facility] (Medical Records) [address] [facility], [place], [address], 02/02/2024 18:58:42 03/01/20 24 02/17/2024 MAMMO , scree isaac, digit al, bilat eral No observ ation record ed. [email or web address] [facility] [address] [place], [address], 03/03/2024 09:03:24 Result Notes None recorded. Problems Name Problem SNOMED Code Status Onset Date Resolution Date Notes Provider Name and Address Organization Details Recorded Time Anxiety 79970612 Active 2017 Not Available [facility] 4 20:41:53 Hypothyr oidism 76277218 Active 2017 s/p thyroidec delfina for benign thyroid tumor Not Available [facility] 4 20:41:53 Migraine without aura 17300551 Active 2017 Not Available [facility] 4 20:41:53 Obsessiv e-compul sive disorder 392644186 Active 2018 Not Available [facility] 4 20:41:53 Degenera tion of lumbar interver tebral disc 76802112 Active 2018 Not Available [facility] 4 20:41:53 Indigest ion 227871873 Active 2018 Not Available [facility] 4 20:41:53 Neuropat hy 765819452 Active 2018 b/l feet Not Available [facility] 4 20:41:53 Essentia l tremor 260214475 Active 2018 head, b/l hands Not Available [facility] 4 20:41:53 Moderate recurren t major depressi on 59733106 Active 2018 Not Available [facility] 4 20:41:53 Hypercho lesterol emia 54142672 Active 2019 Not Available [facility] 4 20:41:53 Candidal intertri go 583774350 Active 2021 Not Available [facility] 4 20:41:53 Skin tag 349306166 Active 2021 Not Available [facility] 4 20:41:53 Post-acu te COVID-19 0219956943 Active 2021 Not Available [facility] 4 20:41:53 Tongue discolor ation 117423050 Active 2021 Not Available [facility] 4 20:41:53 Osteoart hritis 144941668 Active 2021 Not Available [facility] 4 20:41:53 Pain of left hip joint 29243673119 9100 Active 2021 Not Available [facility] 4 20:41:53 Low back pain 073473682 Active 2021 Not Available [facility] 4 20:41:53 Nausea and vomiting 87013313 Active 2022 Not Available [facility] 4 20:41:53 Impaired fasting glycemia 208417849 Active 2023 LAURA WATSON [address] [place], [address], [facility] 4 14:49:25 Depressi ve disorder 03878236 Active 2023 LAURA WATSON [address] [place], [address], [facility] 4 14:55:01 Dizzines s 389579111 Active 2023 LAURA WATSON [address] [place], [address], [facility] 4 15:05:38 Mass of pancreas 154832734 Active 2024 LAURA WATSON [address] [place] [address], [address], [facility] 5 14:26:02 Abdomina l pain 26137558 Active 2024 LAURA WATSON [address] [place] [address], [address], [facility] 5 14:33:26 Problem Notes None recorded. Procedures Surgical History Date Name Laterality Status Provider Name and Address Organization Details Recorded Time 03/12/20 22 WOUND CARE completed LAURA WATSON [address] [place] [address], [address], [facility] 03/12/2022 15:42:04 10/05/20 20 Most Recent Mammogram completed Ysesica Bradford [facility] 10/07/2020 08:43:29 Removal of thyroid completed February KIT Ybarra [address] [place] [address], [address], [facility] 10/13/2019 09:50:05 Remove tonsils and adenoids completed Adrienne [address], [address], [facility] 10/13/2019 09:50:20 Imaging Results Imaging Date Name Status LastModified by Organiz ation Details LastModified Time 08/30/2022 XR, hip + pelvis, unilateral, 2 or 3 view completed [facility] (Medical Records) [address] [place] [address], [address], 09/10/2022 15:28:07 10/30/2022 MAMMO, screening, digital, bilateral completed [email or web address] [facility] [address] [place] [address] [place], [address], 10/31/2022 14:34:18 09/25/2023 XR, shoulder, 2 or more view completed [facility] (Medical Records) [address] [place], [address], 09/25/2023 14:21:55 09/25/2023 XR, chest, 2 view completed [email or web address] [facility] (Medical Records) [address] [place], [address], 09/25/2023 14:21:41 11/11/2023 XR, chest, 2 view completed [email or web address] [facility] (Medical Records) [address] [place], [address], 11/12/2023 09:03:27 02/01/2024 CT, abdomen + pelvis, w/ contrast completed [email or web address] [facility] (Medical Records) [address] [place], [address], 02/02/2024 18:58:42 02/17/2024 MAMMO, screening, digital, bilateral completed [email or web address] [facility] [address] [place], [address], 03/03/2024 09:03:24 Procedure Notes None recorded. Medical Equipment None Reported. Allergies No known drug allergies Medications Name Sig Start Date Stop Date Status Note LastModified by Organization Details LastModified Time bupropion HCl SR 150 mg tablet,12 hr sustained-r elease 08/26 completed Not Available Not Available Not Available levothyroxi ne 137 mcg tablet TAKE 1 TABLET BY MOUTH EVERY DAY active Not Available Not Available No t Available atorvastati n 20 mg tablet TAKE 1 TABLET BY MOUTH EVERY DAY active Not Available Not Available No t Available citalopram 40 mg tablet TAKE 2 TABLETS BY MOUTH EVERY DAY active Not Available Not Available No t Available Iron (ferrous sulfate) 325 mg (65 mg iron) tablet Take 1 tablet every day by oral route. 07/13 completed Not Available Not Available Not Available cefpodoxime 100 mg tablet TAKE 1 TABLET BY MOUTH EVERY 12 HOURS FOR 3 DAYS 01/15 completed Not Available Not Available Not Available sumatriptan 100 mg tablet TAKE 1 TABLET AT ONSET OF MIGRAINE, REPEAT IN 4 HOURS UP TO 2/ 24 HRS. UP TO TWICE A DAY active Not Available Not Available No t Available prochlorper azine maleate 5 mg tablet TAKE 1 TABLET BY MOUTH THREE TIMES A DAY NEEDED FOR NAUSEA AND VOMITING. 01/15 completed Not Available Not Available Not Available ondansetron HCl 4 mg tablet TAKE 1 TABLET BY MOUTH EVERY 12 HOURS NEEDED FOR NAUSEA 30 DAY(S) 01/15 completed Not Available Not Available Not Available omeprazole 40 mg capsule,del ayed release TAKE 1 CAPSULE BY MOUTH DAILY active Not Available Not Available No t Available pantoprazol e 20 mg tablet,arnaud yed release TAKE 1 TABLET BY MOUTH EVERY DAY 09/15 completed Not Available Not Available Not Available citalopram 20 mg tablet TAKE 1 TABLET BY MOUTH DAILY W/ 40MG TABLET active Not Available Not Available No t Available lorazepam 0.5 mg tablet TAKE 1 TAB BY MOUTH IN THE MORNING, 2 TABS AT NIGHT AND 1/2 TAB NEEDED active Not Available Not Available No t Available nystatin 100,000 unit/gram topical cream APPLY TO AFFECTED AREA TOPICALLY TWICE A DAY 01/15 completed Not Available Not Available Not Available omeprazole 20 mg capsule,del ayed release TAKE 1 CAPSULE BY MOUTH EVERY DAY FOR 90 DAYS 01/15 completed Not Available Not Available Not Available nystatin 100,000 unit/gram topical powder APPLY TO AFFECTED AREA TWICE A DAY active Not Available Not Available No t Available propranolol ER 120 mg capsule,24 hr,extended release TAKE 1 CAPSULE BY MOUTH EVERY DAY active Not Available Not Available No t Available lorazepam 1 mg tablet TAKE 1 TABLET BY MOUTH TWICE A DAY active Not Available Not Available No t Available ibuprofen 600 mg tablet TAKE 1 TABLET BY MOUTH 3 TIMES A DAY NEEDED FOR FEVER OR PAIN active Not Available Not Available No t Available ondansetron 4 mg disintegrat ing tablet TAKE 1 TABLET ORALLY EVERY 6 TO 8 HOURS NEEDED FOR NAUSEA AND VOMITING active Not Available Not Available No t Available naproxen 500 mg tablet TAKE 1 TABLET BY MOUTH TWICE A DAY WITH FOOD active Not Available Not Available No t Available buspirone 15 mg tablet TAKE 1/2 TABLET BY MOUTH TWICE DAILY FOR ONE WEEK, AND THEN INCREASE TO 1 TAB BY MOUTH TWICE DAILY active Not Available Not Available No t Available bupropion HCl XL 300 mg 24 hr tablet, extended release TAKE 1 TABLET BY MOUTH EVERY DAY IN THE MORNING active Not Available Not Available No t Available bupropion HCl XL 150 mg 24 hr tablet, extended release TAKE 1 TABLET BY MOUTH EVERY MORNING WITH 300MG- TOTAL 450MG 01/15 completed Not Available Not Available Not Available Vitals Date Recorded Body height Body mass index (BMI) Body weight Heart rate Oxygen saturation Oxygen saturation in Arterial blood by Pulse oximetry Systolic blood pressure Diastolic blood pressure Provider Name and Address Organization Details Last Updated DateTime 2 168.28 cm 43.2 kg/m2 259856. 86 g 72 /min 97 % 97 % 120 mm[Hg] 72 mm[Hg] LAURA WATSON [address] [place], [address], [facility] 2 15:12:31 Date Recorded Body height Body mass index (BMI) Body weight Oxygen saturation Oxygen saturation in Arterial blood by Pulse oximetry Heart rate Systolic blood pressure Diastolic blood pressure Provider Name and Address Organization Details Last Updated DateTime 2 168.28 cm 42 kg/m2 107066. 28 g 96 % 96 % 71 /min 118 mm[Hg] 72 mm[Hg] Jacki Penn [facility] 2 13:49:32 Date Recorded Body height Body mass index (BMI) Body weight Heart rate Oxygen saturation Oxygen saturation in Arterial blood by Pulse oximetry Systolic blood pressure Diastolic blood pressure Provider Name and Address Organization Details Last Updated DateTime 3 168.28 cm 42.1 kg/m2 017123. 79 g 64 /min 98 % 98 % 120 mm[Hg] 80 mm[Hg] Bhumi Reeder [facility] 3 14:37:41 Date Recorded Body height Body mass index (BMI) Body weight Heart rate Respiratory rate Oxygen saturation Oxygen saturation in Arterial blood by Pulse oximetry Systolic blood pressure Diastolic blood pressure Provider Name and Address Organization Details Last Updated DateTime 4 167.64 cm 43.4 kg/m2 356216. 35 g 68 /min 18 /min 99 % 99 % 110 mm[Hg] 66 mm[Hg] Lang Hastings [facility] 4 14:26:25 Date Recorded Body height Body mass index (BMI) Body weight Heart rate Oxygen saturation Oxygen saturation in Arterial blood by Pulse oximetry Systolic blood pressure Diastolic blood pressure Provider Name and Address Organization Details Last Updated DateTime 5 167.64 cm 40.2 kg/m2 981080. 5 g 67 /min 93 % 93 % 132 mm[Hg] 86 mm[Hg] Chaparrita Vivas [place] - [facility] 14:15:38 Social History Question Answer Notes LastModified by Organizat ion Details LastModified Time Tobacco Smoking Status Never Smoker Not Available [facility] 09/20/2020 03:36:23 Do You Or Have You Ever Used E-cigarettes Or Vape? Never Used Electronic Cigarettes [id number] Information not available 09/20/2020 What Was The Date Of Your Most Recent Tobacco Screening? 01/15/2025 [email or web address] Information not available 01/15/2025 Do You Or Have You Ever Used Smokeless Tobacco? Never Used Smokeless Tobacco [id number] Information not available 09/20/2020 How Much Tobacco Do You Smoke? No [id number] Information not available 09/20/2020 How Many Years Have You Smoked Tobacco? 0 [id number] Information not available 09/20/2020 Do You Or Have You Ever Used Any Other Forms Of Tobacco Or Nicotine? No [email or web address] Information not available 03/12/2022 Sex: Unknown Functional Status None recorded. Mental Status None recorded. Family History Nothing Reported. Medical History No medical history recorded. Gynecological History Statement/Question Response If Post Menopausal, Age at Menopause 53 Most Recent Mammogram 10/05/2020 Obstetrics History GPAL:G 0 P 0 0 0 0 Past Encounters Encounter ID Performer Location Encounter Start Date Encounter Closed Date Diagnosis/Indication Diagnosis SNOMED-CT Code Diagnosis ICD10 Code Diagnosis Note [id number] Stephanie Toussaint NP, S [facility] [address] [facility] [place] [address] [place] [address] 08/26/2018 15:38:44 08/27/2018 16:41:55 Anxiety 67702119 F41.9 discussed self worth Hypothyroidism 15439512 E03.[address] Lopez- will have labs faxed here Migraine 40621895 G43.90 9 propranolo l helpful [id number] Stephanie Toussaint NP, [facility] [address] [facility] [place] [address] 01/02/2019 15:55:23 01/06/2019 08:42:54 Hypothyroidism 35916925 E03.9 Anxiety 85467188 F41.9 Partner re lationship problem 0965817027 100 Z63.0 has therapist and psychiatri st- see's regularly Right side sciatica 3202 560236 28954 M54.31 improving- follow [id number] February KIT Ybarra [facility] [address] [facility] [place], [place] [address] 10/13/2019 09:30:06 10/13/2019 10:22:09 Hypothyroidism 58060869 E03.9 Superficia l thrombophlebitis 6332012 I80.9 seems to be resolving at this time no s/s suggestive of dvt zachary monitor Ganglion cyst 14031469 M 67.40 reassuranc e Shoulder joint pain 2679 36363 M25.519 Adult heal th examination 627464780 Z00.00 [id number] LAURA WATSON [facility] [address] [facility] [place], [address] [place] [employer] [place] [address] 04/15/2020 13:25:05 04/15/2020 14:09:40 Hypothyroidism 80829171 E03.9 stable Essential tremor 8629838 09 G25.0 doing well Hypercholesterolemia 136 89716 E78.00 will recheck in a couple of months Moderate r ecurrent major depression 90700103 F33.1 working with therapist right now Bunion 609770376 M21.61 9 wrap the foot, take OTC pain medication when having the flare not interested in surgery Ganglion cyst 84452325 M 67.40 next to the cervical spine will try naproxen to help with possible inflammato ry process that may be feeding fluid increase and see if it helps will put in for referral it is still bothering her [id number] LAURA WATSON [facility] [address] [facility], [place], [place] [address] 07/13/2020 15:58:18 07/13/2020 16:20:50 Iron deficiency anemia 57183044 D50.9 will have her recheck iron labs and see where there at patient has since stopped taking iron supplement Screening for cardiovascular system disease 291443004 Z13.6 needs recheck in a few months will give her labs now Skin tag 082201296 L91.8 was able to remove by hand without complicati ons, just came off due to tissue necrosis, had no integrity left on left shoulder blade, next to neck Hypothyroidism 66427288 E03.9 will recheck TSH mildly elevated last time [id number] LAURA WATSON [facility] [address] [facility] [place], [place] [employer] [place] [address] 03/24/2021 14:21:35 03/24/2021 14:53:16 Renewal of prescription 136521722 Z76.0 stable, labs look good Anxiety 47343177 F41.9 stable Hypothyroidism 53789242 E03.9 TSH stable at recheck [id number] LAURA WATSON [facility] [address] [facility] [address], [place] [address] 09/22/2021 14:23:20 09/22/2021 16:04:52 Skin lesion 85595654 L98.9 fu with dermatolog y Trigger fi nger of left hand 2097414690 4843161 M65.322 will hold on evaluation for now Constipation 46824014 K5 9.00 resolved [id number] LAURA WATSON [facility] [address] [facility] [place], [employer] [place] [address] 03/12/2022 15:00:38 03/12/2022 15:41:08 Candidal intertrigo 603895941 B37.2 will start treatment for the patient Skin tag 063634264 L91.8 left upper arm, skin tag removal Post-acute COVID-19 1119 162043 U07.1 improving [id number] LAURA WATSON [facility] [address] [facility] [place], [address] [employer] [place] [address] 08/28/2022 13:40:43 08/28/2022 16:27:48 Hypothyroidism 04853396 E03.8 TSH stable at recheck Tongue discoloration 866 437836 K14.8 will send out Osteoarthritis 757915480 M15.0 will fu with refill of the naproxen Hypercholesterolemia 136 55616 E78.2 will recheck in a couple of months Pain of le ft hip joint 3984598723 13832 M25.552 will fu with XRs Low back pain 284952318 M54.59 will fu with XRs [id number] LAURA WATSON [facility] [address] [facility] [address],[place] [address] 02/22/2023 14:24:45 02/22/2023 15:35:37 Moderate recurrent major depression 17950922 F33.1 working with therapist right now Anxiety 00208009 F41.1 stable now that she is on her medication s Obsessive- compulsive disorder 478060867 F42.8 stable now that she is on her medication s Nausea and vomiting 1693 1999 R11.2 agreed to UGI series [id number] LAURA WATSON [facility] [address] [facility] [address],[place] [address] 03/11/2024 14:15:25 03/11/2024 16:47:06 Anxiety 88570558 F41.1 stable Depressive disorder 3548 9007 F33.1 will talk to her psychiatri st about medication adjustment Hypercholesterolemia 136 38629 E78.2 will recheck in a couple of months Impaired f asting glycemia 497991776 R73.01 recheck levels Renewal of prescription 286710922 Z76.0 stable, labs look good Hypothyroidism 10158251 E03.8 TSH stable at recheck Dizziness 718671836 R42 needs level checked [id number] LAURA WATSON [facility] [address] [facility] [address] [place] [address] 01/15/2025 14:03:38 01/15/2025 14:38:10 Obsessive-compulsive disorder 300084234 F42.8 stable now that she is on her medication s Anxiety 14153107 F41.1 stable Depressive disorder 3548 9007 F33.1 will talk to her psychiatri st about medication adjustment Essential tremor 0021157 09 G25.0 doing well Mass of pancreas 6175137 00 K86.89 will set up with MRI w/wo per ER recommenda tion Abdominal pain 06990109 R10.13 will set up with fu lab work and recheck urine Health Concerns Section Related Observation LastModified by Organization Detai ls LastModified Time None Recorded Concern Status LastModified by Organization Details LastModified Time None Recorded Advance Directives Directive None Recorded Payers Encounter Date Sequence Insurance Name Policy Number Policy Victor Covered Member ID Victor Member ID Guarantor Name 03/12/2022 2 [place] [facility] Alissa Gonsalves [id number] Alissa Lupien 03/12/2022 1 MED[place]: [facility] Alissa Ackermanien [id number] Alissa Lupien 08/28/2022 2 [place] Alissa Benites Lupien [id number] Alissa Lupien 08/28/2022 1 [place] [facility] Alissa Ackermanien [id number] Alissa Lupien 02/22/2023 2 [place] Alissa Ackermanien [id number] Alissa Lupien 02/22/2023 1 [place] [facility] Alissa Ackermanien [id number] Alissa Lupien 03/11/2024 2 [place] Alissa Ackermanien [id number] Alissa Lupien 03/11/2024 1 [place] [facility] Alissa Ackermanien [id number] Alissa Lupien 01/15/2025 2 [place] Alissa Ackermanien [id number] Alissa Lupien 01/15/2025 1 [place]: [facility] Alissa Ackermanien [id number] Alissa Lupien Notes Date Note Type Note Provider Name and Address Organization Details Recorded Time 2 text/html c/o rash under the breast the patient recently had COVID-19 on 02/26/22the patient reports ongoing fatigue, nasal congestiondiscussed post-acute COVID syndrome discussed supplements and exercise routine she can use in the meantime the patient has a skin tag on the upper arm, left sideremoved in office patient has fungal infection under the right breastgiven topical powder LAURA WATSON [address] [place] [address], [place], [address], [facility] 03/12/2022 15:42:21 2 text/html c/o cyst on the back of the neck anxiety: discussed her OCD tendencies, stress is higher and patient is overeatingdiscussed the eatingdiscussed clomipramine with patientwill talk to psych doctor fatigue: the patient start taking her omeprazole four hours after her levothyroxine which is significantly reduced fatigue right leg: known OAleft leg: pain from the hip to the kneecausing reduced ROM, antalgic gait, heavinessno swelling or rednessfeels it more after prolonged rest (ie sitting or laying down)the patient has degenerative disc disease on the right side of her lumbar spine tongue: the patient has had a discolored tongue for a long timewill do a swab of the tonguehx of fungal infectionwill send out start on naproxen for the pain in the mean time cyst: back of the neckwill let me know if it gets bigger againvery small right now LAURA WATSON [address] [place], [address], [facility] 08/28/2022 14:17:50 3 text/html hospital d/c patient was in the ER recurrently within two days; admitted on the second visit to the ERpatient has complaints about epigastric pain, N/V and loss of appetitethe patient was evaluated in the ER with blood work and CT abd/pelvis w/o contrast which was unremarkable (hypodense lesion of the pancreatic tail was no significant on MRI done during admission) the patient was given IV fluids and anti-emeticfurther evaluation determined it was a psychiatric case; severe panic disorder manifesting with physical symptoms which were relieved when the patient calmed down no medications where changed during her hospital stay d/c stable home with f/u recommended with PCP TODAY: the patient reports that she on a regular basis she has been having issues with eating and drinkingthe patient reports that this has been happening since with multiple ER trips; all unremarkable work up the patient reports that the she is unable to tolerate anything PO (liquids and solids)the patient was also unable to take her medication; kept throwing it upthe patient most likely had a withdrawal effect after being off her medications for a few days because she was not absorbing them correctly due to vomiting the patient did not have an endoscope or upper GI seriesthe patient declines endoscope and colonoscopy LAURA WATSON [address] [place], [address], [facility] 02/22/2023 14:58:44 4 text/html f/u appt hemorrhoids: ?externaltwo external hemorrhoidscan continue with Prep Hcan use prep H and aloe left big toe: callous formation on the inside toesuggested means to soften the tissuewill dizziness: the patient reports she is getting dizziness with positional changes, royer from going from being on her stomach and laying upmakes her nauseous feels like she isn't breathing correctlyhard to describe, no sob or cough improvedwill monitor needs lab work LAURA WATSON [address] [facility], [place], [address], [facility] 03/11/2024 15:07:36 5 text/html 1 year f/u depressive d/o: the patient is doing well currentlywas hospitalized in September and October due to SI and acute illness (respiratory illness)the patient reports that she is feeling much better nowhas followed with her psychiatrist who prescribes her medication anxiety: stable, continue to f/u with psychiatrist abdominal pain/nausea: was in the ER due to this, CT showed possible mass on the pancreasrecommended MRI, pt noted this at today's appt, didn't call previously patient agreed to MRI now still refuses endoscope and colonoscopy though I highly recommend it needs to drink more water LAURA WATSON [address] [place], [address], [facility] 01/15/2025 14:36:02 OBGyn Episode No OBEpisode recorded.
--- OUTSIDE RECORDS SUMMARY | 2025-01-15 17:04 | XMS_ITS | Continuity of Care Document ---
Author Organization [place] [facility] Address [address] [facility] [place] [address] [place] [address] Assessment No assessment recorded. Plan of Treatment Reminders Order Date Submit Date Provider Last Modified By Organization Details Last Modified Time Details Appointments FOLLOW UP 15 2024 02:15P LAURA VICTOR Not available Not available Not available Lab CMP, serum or plasma 2024 025 [facility], [address] [place] [address], [id number], 01/15/2025 14:41:05 CBC w/ auto diff 2024 025 [facility], [address] [place] [address], [id number], 01/15/2025 14:41:05 amylase + lipase, serum 2024 025 [facility], [address] [place] [address], [id number], 01/15/2025 14:41:05 gamma-glu tamyl transfera se (ggt), serum 2024 025 [facility], [address] [place] [address], [id number], 01/15/2025 14:41:05 ESR (erythroc yte sedimenta tion rate), blood 2024 025 [facility], [address] [place] [address], [address], 01/15/2025 14:41:05 C-reactiv e protein, quantitat shemar, serum or plasma 2024 025 [facility], [address] [place] [address], [place], [address], 01/15/2025 14:41:05 hemoglobi n A1c, QN, blood 2024 025 [facility], [address] [place] [address], [place], [address], 01/15/2025 14:41:05 urinalysi s complete, reflex culture 2024 [facility], [address] [place] [address], [place], [address], 01/15/2025 14:41:05 Referral None recorded. Procedures None recorded. Surgeries None recorded. Imaging MRI, pancreas, w/wo contrast 2024 [facility], [address], [address], [place], [address], 01/15/2025 15:27:12 Medication Orders None recorded. Patient TargetsNo targets recorded. Patient InstructionsNo instructions recorded. Reason for Referral None Reported. 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 thyroid tumor Not Available [facility] 4 20:41:53 Migraine without aura 27911873 Active 2017 Not Available [facility] 4 20:41:53 Obsessiv e-compul sive disorder 594448656 Active 2018 Not Available [facility] 4 20:41:53 Degenera tion of lumbar interver tebral disc 57673014 Active 2018 Not Available [facility] 4 20:41:53 Indigest ion 738210266 Active 2018 Not Available [facility] 4 20:41:53 Neuropat hy 199574377 Active 2018 b/l feet Not Available [facility] 4 20:41:53 Essentia l tremor 285275252 Active 2018 head, b/l hands Not Available [facility] 4 20:41:53 Moderate recurren t major depressi on 91758821 Active 2018 Not Available [facility] 4 20:41:53 Hypercho lesterol emia 94262296 Active 2019 Not Available [facility] 4 20:41:53 Candidal intertri go 924220543 Active 2021 Not Available [facility] 4 20:41:53 Skin tag 617380740 Active 2021 Not Available [facility] 4 20:41:53 Post-acu te COVID-19 2170493759 Active 2021 Not Available [facility] 4 20:41:53 Tongue discolor ation 416178893 Active 2021 Not Available [facility] 4 20:41:53 Osteoart hritis 429141325 Active 2021 Not Available [facility] 4 20:41:53 Pain of left hip joint 34501003717 9100 Active 2021 Not Available [facility] 4 20:41:53 Low back pain 749122109 Active 2021 Not Available [facility] 4 20:41:53 Nausea and vomiting 24405364 Active 2022 Not Available [facility] 4 20:41:53 Impaired fasting glycemia 436990712 Active 2023 LAURA WATSON [address] [place], [address], [facility] 4 14:49:25 Depressi ve disorder 14913570 Active 2023 LAURA WATSON [address] [place], [address], [facility] 4 14:55:01 Dizzines s 269905881 Active 2023 LAURA WATSON [address] [place], [address], [facility] 4 15:05:38 Mass of pancreas 006397932 Active 2024 LAURA WATSON [address] [place], [address], [facility] 5 14:26:02 Abdomina l pain 73828138 Active 2024 LAURA WATSON [address] [place], [address], [facility] 5 14:33:26 Problem Notes None recorded. Procedures Surgical History Date Name Laterality Status Provider Name and Address Organization Details Recorded Time 03/12/20 22 WOUND CARE completed LAURA WATSON [address] [place] [address], [address], [facility] 03/12/2022 15:42:04 10/05/20 20 Most Recent Mammogram completed Yessica Bradford [facility] 10/07/2020 08:43:29 Removal of thyroid completed February [facility] [address], [address], [facility] 10/13/2019 09:50:05 Remove tonsils and adenoids completed Adrienne [facility] [address], [address], [facility] 10/13/2019 09:50:20 Imaging Results None recorded. Procedure Notes None recorded. Medical Equipment None [...] Updated DateTime 5 167.64 cm 40.2 kg/m2 257474. 5 g 67 /min 93 % 93 % 132 mm[Hg] 86 mm[Hg] Chaparrita Vivas [facility] 5 14:15:38 Social History Question Answer Notes LastModified by Organizat ion Details LastModified Time Tobacco Smoking Status Never Smoker Not Available [facility] 09/20/2020 03:36:23 Do You Or Have You Ever Used E-cigarettes Or Vape? Never Used Electronic Cigarettes [id number] Information not available 09/20/2020 What Was The Date Of Your Most Recent Tobacco Screening? 01/15/2025 [email or web address] Information not available 01/15/2025 Do You Or Have You Ever Used Smokeless Tobacco? Never Used Smokeless Tobacco [id number] Information not available 09/20/2020 How Much Tobacco Do You Smoke? No [id number] Information not available 09/20/2020 How Many Years Have You Smoked Tobacco? 0 [id number] Information not available 09/20/2020 Do You Or [...] SNOMED-CT Code Diagnosis ICD10 Code Diagnosis Note [id number] LAURA WATSON [facility] [address],[place] [address] 01/15/2025 14:03:38 01/15/2025 14:38:10 Obsessive-compulsive disorder 818842284 F42.8 stable now that she is on her medication s Anxiety 90588451 F41.1 stable Depressive disorder 3548 9007 F33.1 will talk [address] her psychiatri st about medication adjustment Essential tremor 2848555 09 G25.0 doing well Mass of pancreas 7683444 00 K86.89 will set up with MRI w/wo per ER recommenda tion Abdominal pain 52523770 R10.13 will set up with fu lab work and recheck urine Health Concerns Section Related Observation LastModified by Organization Detai ls LastModified Time None Recorded Concern Status LastModified by Organization Details LastModified Time None Recorded Payers Encounter Date Sequence Insurance Name Policy Number Policy Victor Covered Member ID Victor Member ID Guarantor Name 01/15/2025 2 [place] [facility] Alissa Benites Major [id number] Alissa Major 01/15/2025 1 [place]ARE B[place]: [employer] Alissa Benites Major [id number] Alissa Major Notes Date Note Type Note Provider Name and Address Organization Details Recorded Time 5 text/html 1 year f/u depressive d/o: [...] to drink more water LAURA WATSON [address] [facility], [place], [address], [place] [facility] 01/15/2025 14:36:02 OBGyn Episode No OBEpisode recorded.
[2025-01-15 17:48] LABS: MANUAL DIFF FLAG NO
[2025-01-15 17:57] LABS: Appearance Urine Clear; Color Urine Yellow; Glucose Urine UA Negative (Negative); Leukocyte Esterase Urine Negative (Negative); Nitrite Urine Negative (Negative); PH 5.5 (5.0-9.0); Urine Blood Negative (Negative); Urine Ketones Negative (Negative); Urine Protein Negative (Neg-Trace)
[2025-01-15 18:05] LABS: Alanine Aminotransferase 32 U/L (0-31); Albumin Level 3.7 g/dL (3.5-5.0); Alkaline Phosphatase 61 U/L (39-117); Amylase 42 U/L (28-100); Anion Gap 11 (12-20); Aspartate Amino Transferase 35 U/L (5-31); Bilirubin Total 0.7 mg/dL (0.0-1.0); Blood Urea Nitrogen 11 mg/dL (9-16); C Reactive Protein < 0.10 mg/dL (< or = 0.50); Calcium 8.8 mg/dL (8.4-10.2); Carbon Dioxide 27 mmol/L (22-29); Chloride 108 mmol/L (96-108); Estimated Glomerular Filt Rate > 60; Gamma Glutamyl Transpeptidase 16 U/L (7-33); Glucose Random 76 mg/dL (60-115); Potassium 3.9 mmol/L (3.3-5.1); Sodium 142 mmol/L (135-145)
[2025-01-15 18:09] LABS: Estimated Average Glucose 100 mg/dL; Hemoglobin A1C 113.9906 umol/L; Hemoglobin A1c % 5.1 % (<6.0); Total Hemoglobin (HGBA1C) 3575.9782 umol/L
[2025-01-15 18:20] LABS: Basophils Absolute Auto 0.1 X10*3/uL (0.0-0.2); Basophils Percent Auto 0.6 % (0-2); Eosinophils Absolute Auto 0.1 X10*3/uL (0.0-0.4); Eosinophils Percent Auto 1.6 % (0-4); Hematocrit 39.6 % (37.0-47.0); Hemoglobin 13.6 g/dl (12.0-16.0); Imm Gran Abs Auto 0.04 X10*3/uL (0.00-0.03); Imm Gran Pct Auto 0.5 % (0.0-0.4); Lymphocytes Absolute Auto 1.6 X10*3/uL (1.2-4.9); Lymphocytes Percent Auto 18.6 % (20-40); Mean Corpuscular HGB Conc 34.3 g/dl (31.0-35.0); Mean Corpuscular Hemoglobin 31.1 pg (27.0-33.0); Mean Corpuscular Volume 90.4 fL (80.0-98.0); Mean Platelet Volume 10.4 fL (9.4-12.3); Monocytes Absolute Auto 0.6 X10*3/uL (0.1-1.2); Monocytes Percent Auto 7.5 % (2-11); Neutrophils Percent Auto 71.2 % (45-73); Platelet Count 212 X10*3/uL (160-400); Red Blood Count 4.38 X10*6/uL (4.20-5.50); Red Cell Distribution Width 12.3 % (11.0-16.0); White Blood Count 8.4 X10*3/uL (4.8-10.8)
[2025-01-15 18:47] LABS: Erythrocyte Sedimentation Rate 16 MM/HR (0-20)
== END 2025-01-15 14:49 | disposition home or self-care (01) ==
LOC: HO.MANLDS 14:48
PROVIDERS: Visit Provider Physician Assistant
DX: R10.13 Epigastric pain (principal); Z13.1 Encounter for screening for diabetes mellitus
CPT/HCPCS: 36415; 80053; 81003; 82150; 82977; 83036; 85025; 85652; 86140

== ENCOUNTER 2025-03-15 13:56 | Outpatient (REF) | payer MEDICARE, MEDICAID, SELFPAY ==
--- OUTSIDE RECORDS SUMMARY | 2025-03-15 16:43 | XMS_ITS | Data Portability ---
Author Organization [facility] Home Service Address [address] [place] [address] Assessment No assessment recorded. Plan of Treatment Reminders Order Date Submit Date Provider Last Modified By Organization Details Last Modified Time Details Appointments None recorded. Lab CMP, serum or plasma 2024 025 [facility], [address] [place] [address], [id number], 12:21:24 CBC w/ auto diff 2024 025 [facility], [address] [place] [address], 13481, 14:41:05 amylase + lipase, serum 2024 025 [facility], [address] [place] [address], 566[address], 14:41:05 gamma-glut amyl transferas e (ggt), serum 2024 025 [facility], [address] [place] [address], 45676, 5 14:41:05 ESR (erythrocy te sedimentat ion rate), blood 2024 025 [facility], [address] [place] [address], 75880, 5 14:41:05 C-reactive protein, quantitati ve, serum or plasma 2024 025 [facility], [address] [place] [address], 02916, 5 14:41:05 hemoglobin A1c, QN, blood 2024 025 [facility], [address] [place] [address], 68357, 5 14:41:05 urinalysis complete, reflex culture 2024 025 [facility], [address] [place] [address], 38365, 5 14:41:05 CMP, serum or plasma 2023 024 [facility], [address] [place] [address], 87721, 4 11:22:34 hemoglobin A1c, QN, blood 2023 024 [facility], [address] [place] [address], 82807, 4 15:05:45 iron + TIBC + ferritin, serum 2023 024 [facility], [address] [place] [address], 97911, 4 15:16:36 lipid panel, blood 2023 024 [facility], [address] [place] [address], 14701, 4 11:27:23 CBC w/ auto diff 2023 024 [facility], [address] [place] [address], 52237, 4 15:05:45 TSH + free T4, serum 2023 024 [facility], [address] [place] [address], 89077, 4 15:05:45 lipid panel, blood 2021 [facility], [address] [place] [address], 25566, 14:10:33 CMP, serum or plasma 2021 [facility], [address] [place] [address], 80672, 12:29:25 CBC w/ auto diff 2021 [facility], [address] [place] [address], 19030, 14:10:33 vitamin D, 25-hydroxy , total, serum 2021 [facility], [address] [place] [address], 68545, 14:10:33 vitamin B12 + folate, serum or blood 2021 [facility], [address] [place] [address], 03486, 12:29:25 hemoglobin A1c, QN, blood 2021 [facility], [address] [place] [address], 53853, 14:10:33 culture, throat - fungal culture of the tongue 2021 [facility], [address] [place] [address], 34508, 12:20:13 TSH + free T4, serum 2021 [facility], [address] [facility], [place], [address], 12:29:25 Referral None recorded. Procedures None recorded. Surgeries None recorded. Imaging RF, upper gastrointe stinal tract + small bowel, w/ contrast PO 2022 023 [facility], [address] [place] [address], [address], 3 09:30:31 XR, hip + pelvis, unilateral , 2 or 3 view 2021 [facility], [address] [place] [address], 54235, 13:34:54 XR, lumbosacra l spine, 2 or 3 view 2021 [facility], [address] [place] [address], 096[address], 2 08:43:17 Medication Orders levothyrox ine 137 mcg tablet 2023 024 [id number], [address] [place], [address], 4 15:04:29 atorvastat in 20 mg tablet 2023 024 [facility][id number], [address] [place], [address], 4 15:04:30 naproxen 500 mg tablet 2021 022 [facility][id number], [address] [place], [address], 2 14:06:32 nystatin 100,000 unit/gram topical powder 2021 [email or web address] [id number], [address] [facility], [place], [address], 14:35:42 Patient TargetsNo targets recorded. Patient InstructionsNo instructions recorded. Reason for Referral None Reported. Results Created Date Observation Date Name Description Value Unit Range Abnormal Flag Note LastModifiedBy Organization Detail LastModifiedTime 09/07/20 22 08/30/2022 XR, hip + pelvi s, unila teral , 2 or 3 view No observ ation record ed. [facility] (Medical Records) [address] [place], [address], 09/10/2022 15:28:07 10/31/20 22 10/30/2022 MAMMO , paule isaac, digit al, bilat eral No observ ation record ed. [email or web address] [facility] [address] [place], [address], 10/31/2022 14:34:18 09/25/20 23 09/25/2023 XR, shoul seda, 2 or more view No observ ation record ed. [facility] (Medical Records) [address] [place], [address], 09/25/2023 14:21:55 09/25/20 23 09/25/2023 XR, chest , 2 view No observ ation record ed. [facility] (Medical Records) [address] [place], [address], 09/25/2023 14:21:41 11/11/20 23 11/11/2023 XR, chest , 2 view No observ ation [facility] ed. [facility] [address] [place], [address], 11/12/2023 09:03:27 02/01/20 24 02/01/2024 CT, abdom en + pelvi s, w/ contr ast No observ ation record ed. [email or web address] [facility] (Medical Records) [address] [facility], [place], [address], 02/02/2024 18:58:42 03/01/20 24 02/17/2024 MAMMO , scree isaac, digit al, bilat eral No observ ation record ed. [email or web address] [facility] [address] [place], [address], 03/03/2024 09:03:24 02/08/20 25 02/06/2025 MRI, abdom en, w/o contr ast No observ ation record ed. [address] [facility] [address] [place], [place], [address], 02/08/2025 10:01:10 Result Notes None recorded. Problems Name Problem SNOMED Code Status Onset Date Resolution Date Notes Provider Name and Address Organization Details Recorded Time Anxiety 82321426 Active 2017 Not Available [facility] 4 20:41:53 Hypothyr oidism 22178666 Active 2017 s/p thyroidec delfina for benign thyroid tumor Not Available [facility] 4 20:41:53 Migraine without aura 52332341 Active 2017 Not Available [facility] 4 20:41:53 Obsessiv e-compul sive disorder 932748404 Active 2018 Not Available [facility] 4 20:41:53 Degenera tion of lumbar interver tebral disc 45500819 Active 2018 Not Available [facility] 4 20:41:53 Indigest ion 070487135 Active 2018 Not Available [facility] 4 20:41:53 Neuropat hy 086218186 Active 2018 b/l feet Not Available [facility] 4 20:41:53 Essentia l tremor 776847592 Active 2018 head, b/l hands Not Available [facility] 4 20:41:53 Moderate recurren t major depressi on 44148787 Active 2018 Not Available [facility] 4 20:41:53 Hypercho lesterol emia 23580354 Active 2019 Not Available [facility] 4 20:41:53 Candidal intertri go 468059177 Active 2021 Not Available [facility] 4 20:41:53 Skin tag 046715722 Active 2021 Not Available [facility] 4 20:41:53 Post-acu te COVID-19 2605879393 Active 2021 Not Available [facility] 4 20:41:53 Tongue discolor ation 201908268 Active 2021 Not Available [facility] 4 20:41:53 Osteoart hritis 349132198 Active 2021 Not Available [facility] 4 20:41:53 Pain of left hip joint 09895652449 9100 Active 2021 Not Available [facility] 4 20:41:53 Low back pain 251915139 Active 2021 Not Available [facility] 4 20:41:53 Nausea and vomiting 41115420 Active 2022 Not Available [facility] 4 20:41:53 Impaired fasting glycemia 905007175 Active 2023 LAURA WATSON [address] [place], [address], [facility] 4 14:49:25 Depressi ve disorder 97439035 Active 2023 LAURA WATSON [address] [place], [address], [facility] 4 14:55:01 Dizzines s 174331703 Active 2023 LAURA WATSON [address] [place], [address], [facility] 4 15:05:38 Mass of pancreas 500478642 Active 2024 LAURA WATSON [address] [place], [address], [facility] 14:26:02 Abdomina l pain 55659856 Active 2024 LAURA WATSON [address] [place], [address], [facility] 5 14:33:26 Problem Notes None recorded. Procedures Surgical History Date Name Laterality Status Provider Name and Address Organization Details Recorded Time 03/12/20 22 WOUND CARE completed LAURA WATSON [address] [place], [address], [facility] 03/12/2022 15:42:04 10/05/20 20 Most Recent Mammogram completed Yessica Bradford [facility] 10/07/2020 08:43:29 Removal of thyroid completed February Tate, [address], [address], [facility] 10/13/2019 09:50:05 Remove tonsils and adenoids completed February RACHID Ybarra[address], [address], [facility] 10/13/2019 09:50:20 Imaging Results Imaging Date Name Status LastModified by Organiz ation Details LastModified Time 08/30/2022 XR, hip + pelvis, unilateral, 2 or 3 view completed [facility] (Medical Records) [address] [place], [address], 09/10/2022 15:28:07 10/30/2022 MAMMO, screening, digital, bilateral completed [email or web address] [facility] [address] [place] [address] [place], [address], 10/31/2022 14:34:18 09/25/2023 XR, shoulder, 2 or more view completed [facility] (Medical Records) [address] [place], [address], 09/25/2023 14:21:55 09/25/2023 XR, chest, 2 view completed [email or web address] [facility] (Medical Records) [address] [place], [address], 09/25/2023 14:21:41 11/11/2023 XR, chest, 2 view completed [email or web address] [facility] (Medical Records) [address] [place], [address], 11/12/2023 09:03:27 02/01/2024 CT, abdomen + pelvis, w/ contrast completed [email or web address] [facility] (Medical Records) [address] [place], [address], 02/02/2024 18:58:42 02/17/2024 MAMMO, screening, digital, bilateral completed [email or web address] [facility] [address] [facility] [place], [address], 03/03/2024 09:03:24 02/06/2025 MRI, abdomen, w/o contrast completed [address] [facility] [place] [address] [facility] [place], [address], 02/08/2025 10:01:10 Procedure Notes None recorded. Medical Equipment None [...] 12 HOURS NEEDED FOR NAUSEA 30 DAY(S) active Not Available Not Available No t Available omeprazole 40 mg capsule,del ayed release TAKE 1 CAPSULE BY MOUTH DAILY 03/01 completed Not Available Not Available Not Available pantoprazol e 20 mg tablet,arnaud yed [...] BY MOUTH EVERY DAY FOR 90 DAYS active Not Available Not Available No t Available nystatin 100,000 unit/gram topical powder APPLY [...] Updated DateTime 2 168.28 cm 43.2 kg/m2 092495. 86 g 72 /min 97 % 97 % 120 mm[Hg] 72 mm[Hg] LAURA WATSON [address] [place], [address], [facility] 2 15:12:31 Date Recorded Body height Body mass index (BMI) Body weight Oxygen saturation Oxygen saturation in Arterial blood by Pulse oximetry Heart rate Systolic blood pressure Diastolic blood pressure Provider Name and Address Organization Details Last Updated DateTime 2 168.28 cm 42 kg/m2 350031. 28 g 96 % 96 % 71 /min 118 mm[Hg] 72 mm[Hg] Jacki Penn [facility] 2 13:49:32 Date Recorded Body height Body mass index (BMI) Body weight Heart rate Oxygen saturation Oxygen saturation in Arterial blood by Pulse oximetry Systolic blood pressure Diastolic blood pressure Provider Name and Address Organization Details Last Updated DateTime 3 168.28 cm 42.1 kg/m2 831474. 79 g 64 /min 98 % 98 % 120 mm[Hg] 80 mm[Hg] Bhumi Reeder [facility] 3 14:37:41 Date Recorded Body height Body mass index (BMI) Body weight Heart rate Respiratory rate Oxygen saturation Oxygen saturation in Arterial blood by Pulse oximetry Systolic blood pressure Diastolic blood pressure Provider Name and Address Organization Details Last Updated DateTime 4 167.64 cm 43.4 kg/m2 219199. 35 g 68 /min 18 /min 99 % 99 % 110 mm[Hg] 66 mm[Hg] Lang Hastings [facility] 4 14:26:25 Date Recorded Body height Body mass index (BMI) Body weight Heart rate Oxygen saturation Oxygen saturation in Arterial blood by Pulse oximetry Systolic blood pressure Diastolic blood pressure Provider Name and Address Organization Details Last Updated DateTime 5 167.64 cm 40.2 kg/m2 430470. 5 g 67 /min 93 % 93 % 132 mm[Hg] 86 mm[Hg] Chaparrita Vivas [place] - [facility] 5 14:15:38 Social History Question Answer Notes LastModified by Organizat ion Details LastModified Time Tobacco Smoking Status Never Smoker Not Available [facility] 09/20/2020 03:36:23 Do You Or Have You Ever Used E-cigarettes Or Vape? Never Used Electronic Cigarettes [id number] Information not available 09/20/2020 What Was The Date Of Your Most Recent Tobacco Screening? 01/15/2025 [email or web address] Information not available 01/15/2025 Do You Or Have You Ever Used Smokeless Tobacco? Never Used Smokeless Tobacco [id number] Information not available 09/20/2020 How Much Tobacco Do You Smoke? No [id number] Information not available 09/20/2020 How Many Years Have You Smoked Tobacco? 0 [id number] Information not available 09/20/2020 Do You Or [...] Diagnosis Note 9374 Stephanie Toussaint NP, S [facility] [address] [facility],[place] [address] 08/26/2018 15:38:44 08/27/2018 16:41:55 Anxiety 21178321 F41.9 discussed self worth Hypothyroidism 83514643 E03.[address] Lopez- will have labs faxed here Migraine 33592812 G43.90 9 propranolo l [facility] [address] Stephanie [facility]aint [facility], [facility] [address] [facility] [place] [address] 01/02/2019 15:55:23 01/06/2019 08:42:54 Hypothyroidism 71353420 E03.9 Anxiety 45857913 F41.9 Partner re lationship problem 3772658801 100 Z63.0 [address] therapist [address] psychiatri st- see's regularly Right side sciatica 3202 068260 66016 M54.31 improving- follow 56381 February KIT Ybarra [facility] [address] [facility],[place] [address] 10/13/2019 09:30:06 10/13/2019 10:22:09 Hypothyroidism 69027224 E03.9 Superficia l thrombophlebitis 6450750 I80.9 seems to be resolving at this time no s/s suggestive of dvt zachary monitor Ganglion cyst 82170233 M 67.40 reassuranc e Shoulder joint pain 2679 26585 M25.519 Adult heal th examination 207864022 Z00.00 74440 LAURA WATSON [facility] [address] [facility] [address] 04/15/2020 13:25:05 04/15/2020 14:09:40 Hypothyroidism 42412276 E03.9 stable Essential tremor 0506618 09 G25.0 doing well Hypercholesterolemia 136 62127 E78.00 will recheck in a couple of months Moderate r ecurrent major depression 27056860 F33.1 working with therapist right now Bunion 859816995 M21.61 9 wrap the foot, take OTC pain medication when having the flare not interested in surgery Ganglion cyst 05273210 M 67.40 next to the cervical spine will try naproxen to help with possible inflammato ry process that may be feeding fluid increase and see if it helps will put in for referral it is still bothering her 44488 LAURA WATSON [facility] [address] [facility], [facility] [place] [address] 07/13/2020 15:58:18 07/13/2020 16:20:50 Iron deficiency anemia 03199348 D50.9 will have her recheck iron labs and see where there at patient has since stopped taking iron supplement Screening for cardiovascular system disease 187000105 Z13.6 needs recheck in a few months will give her labs now Skin tag 515795768 L91.8 was able to remove by hand without complicati ons, just came off due to tissue necrosis, had no integrity left on left shoulder blade, next to neck Hypothyroidism 81325292 E03.9 will recheck TSH mildly elevated last time 99494 LAURA WATSON [facility] [address] [facility], [employer] [place] [place] [address] 03/24/2021 14:21:35 03/24/2021 14:53:16 Renewal of prescription 939801653 Z76.0 stable, labs look good Anxiety 49309153 F41.9 stable Hypothyroidism 59526680 E03.9 TSH stable at recheck 34023 LAURA WATSON [facility] [address] [facility], [facility] [place] [address] 09/22/2021 14:23:20 09/22/2021 16:04:52 Skin lesion 56648022 L98.9 fu with dermatolog y Trigger fi nger of left hand 2006530323 6968744 M65.322 will hold on evaluation for now Constipation 74425716 K5 9.00 resolved 87286 LAURA WATSON [facility] [address] [facility], [place] [address] 03/12/2022 15:00:38 03/12/2022 15:41:08 Candidal intertrigo 526071471 B37.2 will start treatment for the patient Skin tag 261373700 L91.8 left upper arm, skin tag removal Post-acute COVID-19 1119 571392 U07.1 improving 88509 LAURA WATSON [facility] [address] [facility], [employer] [place] [address] 08/28/2022 13:40:43 08/28/2022 16:27:48 Hypothyroidism 86495974 E03.8 TSH stable at recheck Tongue discoloration 866 525555 K14.8 will send out Osteoarthritis 633648988 M15.0 will fu with refill of the naproxen Hypercholesterolemia 136 31121 E78.2 will recheck in a couple of months Pain of le ft hip joint 0528021172 51053 M25.552 will fu with XRs Low back pain 383867660 M54.59 will fu with XRs 33644 LAURA WATSON [facility] [address] [facility], [employer] [place] [address] 02/22/2023 14:24:45 02/22/2023 15:35:37 Moderate recurrent major depression 39525627 F33.1 working with therapist right now Anxiety 19115771 F41.1 stable now that she is on her medication s Obsessive- compulsive disorder 098792854 F42.8 stable now that she is on her medication s Nausea and vomiting 1691999 R11.2 agreed to UGI series [id number] LAURA WATSON [facility] [address] [facility], [place] [address] 03/11/2024 14:15:25 03/11/2024 16:47:06 Anxiety 05704412 F41.1 stable Depressive disorder 3548 9007 F33.1 will talk to her psychiatri st about medication adjustment Hypercholesterolemia 136 57554 E78.2 will recheck in a couple of months Impaired f asting glycemia 567187104 R73.01 recheck levels Renewal of prescription 339696380 Z76.0 stable, labs look good Hypothyroidism 18298781 E03.8 TSH stable at recheck Dizziness 523964938 R42 needs level checked [id number] LAURA WATSON [facility] [address] [facility],[place] [address] 01/15/2025 14:03:38 01/15/2025 14:38:10 Obsessive-compulsive disorder 085340072 F42.8 stable now that she is on her medication s Anxiety 76953957 F41.1 stable Depressive disorder 3438 7 F33.1 will talk to her psychiatri st about medication adjustment Essential tremor 5166805 09 G25.0 doing well Mass of pancreas 2209002 00 K86.89 will set up with MRI w/wo per ER recommenda tion Abdominal pain 55389569 R10.13 will set up with fu lab work and recheck urine Health Concerns Section Related Observation LastModified by Organization Detai ls LastModified Time None Recorded Concern Status LastModified by Organization Details LastModified Time None Recorded Advance Directives Directive None Recorded Payers Encounter Date Sequence Insurance Name Policy Number Policy Victor Covered Member ID Victor Member ID Guarantor Name 03/12/2022 2 [place] Alissa Gonsalves [id number] Alissa Ackermanien 03/12/2022 1 [place] Alissa Ackermanien [id number] Alissa Lupien 08/28/2022 2 [place] Alissa Benites Lupien [id number] Alissa Lupien 08/28/2022 1 [place] Alissa Ackermanien [id number] Alissa Lupien 02/22/2023 2 [place] Alissa Ackermanien [id number] Alissa Lupien 02/22/2023 1 [place] Alissa Ackermanien [id number] Alissa Lupien 03/11/2024 2 [place] Alissa Ackermanien [id number] Alissa Lupien 03/11/2024 1 [place] Alissa Ackermanien [id number] Alissa Lupien 01/15/2025 2 [place] Alissa Ackermanien [id number] Alissa Lupien 01/15/2025 1 [place] Alissa Ackermanien [id number] Alissa Lupien Notes Date Note Type Note [...] the right breastgiven topical powder LAURA WATSON [address] [place], [address], [facility] 03/12/2022 15:42:21 2 [...] againvery small right now LAURA WATSON [address] [place], [address], [facility] 08/28/2022 14:17:50 3 text/html hospital [...] declines endoscope and colonoscopy LAURA WATSON [address] [place], [address], [facility] 02/22/2023 14:58:44 4 text/html [...] monitor needs lab work LAURA WATSON [address] [place], [address], [facility] 03/11/2024 15:07:36 5 text/html [...] to drink more water LAURA WATSON [address] [place], [address], [facility] 01/15/2025 14:36:02 OBGyn Episode No OBEpisode recorded.
== END 2025-03-15 13:57 | disposition home or self-care (01) ==
LOC: HO.MAMMO 13:56
PROVIDERS: PCP Internal Medicine; Visit Provider Physician Assistant
DX: Z12.31 Encounter for screening mammogram for malignant neoplasm of breast (principal)
CPT/HCPCS: 77063; 77067

== ENCOUNTER → 2025-03-15 14:00 | Outpatient (BNV) | payer MEDICARE, MEDICAID, SELFPAY | PROVIDERS: PCP Internal Medicine; Visit Provider Internal Medicine | DX: Z12.31 Encounter for screening mammogram for malignant neoplasm of breast (principal) | CPT/HCPCS: 77063; 77067 ==

== ENCOUNTER 2025-06-02 14:11 | Outpatient (AMB) | payer MEDICARE, MEDICAID, SELFPAY ==
--- NOTE | 2025-06-02 14:32 | MHC.OFFVIS ---
Vital Signs 06/02/25 14:33 Height 5 ft 10 in Intake Visit Reasons: 6 month fu Allergies No Known Allergies Allergy (Verified 06/02/25 14:36) Medication List - Last Reconciled 06/02/25 by Mirella Garcia CNP atorvastatin 1 tab PO DAILY bupropion HCl XL 300 mg PO QAM citalopram 2 tabs PO DAILY citalopram 20 mg PO DAILY levothyroxine 1 tab PO DAILY lorazepam 1 mg PO BID naproxen 500 mg PO BID nystatin 1 appl topical BID omeprazole magnesium (Prilosec OTC) 20 mg PO DAILY ondansetron HCl 4 mg PO Q8H PRN 5 days propranolol ER 1 cap PO DAILY sumatriptan succinate 100 mg PO DAILY MRX1 PRN HPI Comments Details: She had 2 migraines in last six months, one in 11/2024 and most recently on 05/29/2025. Sumatriptan as needed helps. Under more stress the last few weeks related to boyfriend's health. Tremors worse with stress and anxiety. Notices more shaking in head, some in hands. No functional impairment. No difficulty eating, drinking, or swallowing. Occasionally left 5th finger locks up. No numbness or tingling. OCD and depression, working with psychiatrist. Migraines started at age 15 with visual aura of fuzzy lights followed by an intense hemicranial headache, sometimes with numbness, feeling cold, nausea, vomiting, intense photophobia, and sonophobia. They usually last 24 hours and she may feel hung over after. Work up in the past has been negative. MRI on 02/22/2011 showed a few scattered T2 hyperintensities in the white matter which are nonspecific. An EEG in the past has been normal. Tingling in hands and feet gone with Vitamin B and D. [facility] Medical History (Updated 06/02/25 @ 14:34 by Mirella Garcia CNP) Benign essential tremor Anxiety state, unspecified OCD (obsessive compulsive disorder) COVID-19 Anxiety OCD (obsessive compulsive disorder) Hyperlipemia DDD (degenerative disc disease) Migraines Surgical History H/O thyroidectomy Social History Household Members: None Housing: Apartment Do you presently have visiting nurse or other home services: No Alcohol intake: current Alcohol intake frequency: holidays/special occasions only Patient Tobacco Use Status: Never used Tobacco service: No Current occupational status: disabled Review of Systems Const Denies chills, Denies daytime sleepiness, Denies difficulty sleeping, Denies fatigue, Denies fever(s), Denies frequent falls, Reports headache(s), Denies increased appetite, Denies poor appetite, Denies snoring, Denies weakness, Denies weight gain and Denies weight loss Eyes Denies loss of vision ENT Denies vertigo, Denies dizziness, Reports headache(s) and Denies neck pain Card Denies chest pain at rest, Denies chest pain with activity, Denies syncope, Denies leg edema, Denies palpitations, Denies dyspnea and Denies dyspnea on exertion Resp Denies cough, Denies dyspnea, Denies dyspnea on exertion and Denies snoring GI Denies abdominal pain, Denies constipation, Denies heartburn, Denies diarrhea and Denies nausea Denies urinary frequency, Denies urinary incontinence and Denies urinary urgency Musc Denies abnormal gait, Denies back pain, Denies myalgias, Denies arthralgias, Denies neck pain, Denies numbness and Denies tingling Neuro Denies abnormal gait, Denies vertigo, Denies dizziness, Denies syncope, Denies frequent falls, Reports headache(s), Denies lack of coordination, Denies loss of vision, Denies memory loss, Denies numbness, Denies Other visual disturbances, Denies restless legs, Denies seizure-like activity, Denies tingling, Denies paresthesias, Reports tremor(s) and Denies weakness Psych Denies anxiety, Denies depression, Denies auditory hallucinations, Denies memory loss and Denies visual hallucinations Endo Denies fatigue and Denies palpitations Physical Exam Const Other: General Appearance:? normal, in no acute distress. Heart:? S1, S2 normal, no murmurs. Lungs:? clear anteriorly and posteriorly. Musculoskeletal:? normal. Extremities:? no edema. Psych:? alert, oriented, cognitive function intact, cooperative with exam. Neuro Other: Abnormal Neurological Findings:?Mild head tremulousness, head titubation, blinking tics. minimal? limb tremor in outstretched fingers Mental Status: alert and oriented X 3. Normal attention, orientation, memory, and affect. Cranial Nerves: Pupils are equal, round, and reactive to light. External ocular muscles are intact. Visual gambino are full, no ptosis. Face is symmetrical, no facial weakness or droop. Facial sensations are normal. Tongue protrudes in midline. Palate elevates symmetrically. Shoulder shrugging is normal Motor Examination: Normal muscle tone, bulk and strength. No atrophy or fasciculations. No drift of the extended upper extremities. DTR 2+. Plantars are flexor. Straight Leg Raisin degrees. Sensory Exam: Normal light touch, temperature, pinprick, vibration, and joint-position sensations. Rhomberg sign is absent. Coordination: No ataxia. No titubation. Rbkcti-dh-zoha, fdmk-dytq-[id number] test, and rapid alternating movements were normal. Gait Exam: Within normal limits. Cerebellar Signs: [id number] and [id number]-ly-yzhg is normal. No dysdiadochokinesia. Extrapyramidal System: Tremor as above. No rigidity with normal facial expressions. No bradykinesia. No bradyphrenia. Normal arm swing and posture. No propulsion or retropulsion. Speech: Normal. No dysphasia or dysarthria. Assessment & Plan Assessment & Plan (1) Migraines: Code(s): G43.909 - Migraine, unspecified, not intractable, without status migrainosus Category: Medical Qualifiers: Migraine type: unspecified Status migrainosus presence: without status migrainosus Intractability: not intractable Qualified Code(s): G43.909 - Migraine, unspecified, not intractable, without status migrainosus Plan: Continue propranolol ER 120mg 1 capsule daily Continue sumatriptan 100mg 1 tablet as needed for migraine Continue ondansetron HCL 4mg 1 tablet as needed for nausea (2) Benign essential tremor: Code(s): G25.0 - Essential tremor Category: Medical Plan: Propranolol may also help with tremor. (3) Other specified forms of tremor: Code(s): G25.2 - Other specified forms of tremor Category: Medical Plan: . Plan . Coding Level of Care Code Est Pt Level 4 (61553) Diagnoses Migraine without status migrainosus, not intractable, unspecified migraine type G43.909 Migraine type: unspecified Status migrainosus presence: without status migrainosus Intractability: not intractable Benign essential tremor G25.0 Other specified forms of tremor G25.2
--- OUTSIDE RECORDS SUMMARY | 2025-06-02 14:55 | XMS_ITS | Data Portability ---
Author Organization [facility], Telehealth Patient Home Address [address] [place] [address] Assessment No assessment recorded. Plan of Treatment Reminders Order Date Submit Date Provider Last Modified By Organization Details Last Modified Time Details Appointments None recorded. Lab CMP, serum or plasma 2024 025 [facility], [address] [place] [address], [address], 5 12:21:24 CBC w/ auto diff 2024 025 [facility], [address] [place] [address], [address], 5 14:41:05 amylase + lipase, serum 2024 025 [facility], [address] [place] [address], [address], 5 14:41:05 gamma-glut amyl transferas e (ggt), serum 2024 025 [facility], [address] [place] [address], [address], 5 14:41:05 ESR (erythrocy te sedimentat ion rate), blood 2024 025 [facility], [address] [place] [address], [address], 5 14:41:05 C-reactive protein, quantitati ve, serum or plasma 2024 025 [facility], [address] [place] [address], [address], 5 14:41:05 hemoglobin A1c, QN, blood 2024 025 [facility], [address] [place] [address], [address], 5 14:41:05 urinalysis complete, reflex culture 2024 025 [facility], [address] [place] [address], [address], 5 14:41:05 CMP, serum or plasma 2023 024 [facility], [address] [place] [address], [address], 4 11:22:34 hemoglobin A1c, QN, blood 2023 024 [facility], [address] [place] [address], [address], 4 15:05:45 iron + TIBC + ferritin, serum 2023 024 [facility], [address] [place] [address], [address], 4 15:16:36 lipid panel, blood 2023 024 [facility], [address] [place] [address], [address], 4 11:27:23 CBC w/ auto diff 2023 024 [facility], [address] [place] [address], [address], 4 15:05:45 TSH + free T4, serum 2023 024 [facility], [address] [place] [address], [address], 4 15:05:45 lipid panel, blood 2021 [facility], [address] [place] [address], [address], 14:10:33 CMP, serum or plasma 2021 [facility], [address] [place] [address], [address], 12:29:25 CBC w/ auto diff 2021 [facility], [address] [place] [address], [address], 14:10:33 vitamin D, 25-hydroxy , total, serum 2021 [facility], [address] [place] [address], [address], 14:10:33 vitamin B12 + folate, serum or blood 2021 [facility], [address] [place] [address], [address], 12:29:25 hemoglobin A1c, QN, blood 2021 [facility], [address] [place] [address], [address], 14:10:33 culture, throat - fungal culture of the tongue 2021 [facility], [address] [place] [address], 15[address], 12:20:13 TSH + free T4, serum 2021 [facility], [address] [place] [address], [place], [address], 12:29:25 Referral None recorded. Procedures None recorded. Surgeries None recorded. Imaging RF, upper gastrointe stinal tract + small bowel, w/ contrast PO 2022 023 [facility], [address] [place] [address], [address], 3 09:30:31 XR, hip + pelvis, unilateral , 2 or 3 view 2021 [facility], [address] [place] [address], [address], 13:34:54 XR, lumbosacra l spine, 2 or 3 view 2021 [facility], [address] [place], [address], 08:43:17 Medication Orders levothyrox ine 137 mcg tablet 2023 024 [id number], [address] [place], [address], 4 15:04:29 atorvastat in 20 mg tablet 2023 024 [id number], [address] [place], [address], 4 15:04:30 naproxen 500 mg tablet 2021 [id number], [address] [place], [address], 2 14:06:32 nystatin 100,000 unit/gram topical powder 2021 022 [id number], [address] [facility], [place], [address], 14:35:42 Patient TargetsNo targets recorded. Patient InstructionsNo instructions recorded. Reason for Referral None Reported. Results Created Date Observation Date Name Description Value Unit Range Abnormal Flag Note LastModifiedBy Organization Detail LastModifiedTime 09/07/20 22 08/30/2022 XR, hip + pelvi s, unila teral , 2 or 3 view No observ ation record ed. [facility] (Medical Records) [address] [place], [address], 09/10/2022 15:28:07 10/31/20 22 10/30/2022 MAMMO , scree isaac, digit al, bilat eral No observ ation record ed. [email or web address] [address] [place], [address], 10/31/2022 14:34:18 09/25/20 23 09/25/2023 XR, shoul seda, 2 or more view No observ ation record ed. [facility] (Medical Records) [address] [place], [address], 09/25/2023 14:21:55 09/25/20 23 09/25/2023 XR, chest , 2 view No observ ation record ed. [facility] (Medical Records) [address] [place], [address], 09/25/2023 14:21:41 11/11/20 23 11/11/2023 XR, chest , 2 view No observ ation record ed. [email or web address] [address] [place], [address], 11/12/2023 09:03:27 02/01/20 24 02/01/2024 CT, abdom en + pelvi s, w/ contr ast No observ ation record ed. [email or web address] (Medical Records) [address] [facility], [place], [address], 02/02/2024 18:58:42 03/01/20 24 02/17/2024 MAMMO , scree isaac, digit al, bilat eral No observ ation record ed. [email or web address] [address] [place], [address], 03/03/2024 09:03:24 02/08/20 25 02/06/2025 MRI, abdom en, w/o contr ast No observ ation record ed. [address] [facility] [address] [place], [address], 02/08/2025 10:01:10 03/21/20 25 03/15/2025 MAMMO , scree isaac, digit al, bilat eral No observ ation record ed. [email or web address] [address] [place], [address], 03/22/2025 08:14:01 Result Notes None recorded. Problems Name Problem SNOMED Code Status Onset Date Resolution Date Notes Provider Name and Address Organization Details Recorded Time Anxiety 68499469 Active 2017 Not Available [facility] 4 20:41:53 Hypothyr oidism 02273866 Active 2017 s/p thyroidec delfina for benign thyroid tumor Not Available [facility] 4 20:41:53 Migraine without aura 63975407 Active 2017 Not Available [facility] 4 20:41:53 Obsessiv e-compul sive disorder 252405119 Active 2018 Not Available [facility] 4 20:41:53 Degenera tion of lumbar interver tebral disc 49118269 Active 2018 Not Available [facility] 4 20:41:53 Indigest ion 048655948 Active 2018 Not Available [facility] 4 20:41:53 Neuropat hy 000876288 Active 2018 b/l feet Not Available [facility] 4 20:41:53 Essentia l tremor 656676576 Active 2018 head, b/l hands Not Available [facility] 4 20:41:53 Moderate recurren t major depressi on 78791963 Active 2018 Not Available [facility] 4 20:41:53 Hypercho lesterol emia 08087325 Active 2019 Not Available [facility] 4 20:41:53 Candidal intertri go 699961570 Active 2021 Not Available [facility] 4 20:41:53 Skin tag 127873238 Active 2021 Not Available [facility] 4 20:41:53 Post-acu te COVID-19 2735678022 Active 2021 Not Available [facility] 4 20:41:53 Tongue discolor ation 302069463 Active 2021 Not Available [facility] 4 20:41:53 Osteoart hritis 577295991 Active 2021 Not Available [facility] 4 20:41:53 Pain of left hip joint 09302463598 9100 Active 2021 Not Available [facility] 4 20:41:53 Low back pain 629725177 Active 2021 Not Available [facility] 4 20:41:53 Nausea and vomiting 78044891 Active 2022 Not Available [facility] 4 20:41:53 Impaired fasting glycemia 946351672 Active 2023 LAURA WATSON [address] [place], [address], [facility] 4 14:49:25 Depressi ve disorder 23292128 Active 2023 LAURA WATSON [address] [place], [address], [facility] 4 14:55:01 Dizzines s 389103747 Active 2023 LAURA WATSON [address] [place], [address], [facility] 4 15:05:38 Mass of pancreas 002634586 Active 2024 LAURA WATSON [address] [place], [address], [facility] 5 14:26:02 Abdomina l pain 33910540 Active 2024 LAURA WATSON [address] [place] [address], [address], [facility] 5 14:33:26 Problem Notes None recorded. Procedures Surgical History Date Name Laterality Status Provider Name and Address Organization Details Recorded Time 03/15/20 25 Most Recent Mammogram completed Chaparrita Vivas [facility] 03/22/2025 08:13:40 03/12/20 22 WOUND CARE completed LAURA WATSON [address] [place] [address], [address], [facility] 03/12/2022 15:42:04 Removal of thyroid completed February Tate [address], [address], [facility] 10/13/2019 09:50:05 Remove tonsils and adenoids completed [facility] [address], [address], [facility] 10/13/2019 09:50:20 Imaging Results None [...] TAKE 1 TABLET BY MOUTH EVERY DAY 2024 active Not Available Not Available Not Avai lable citalopram 40 mg tablet TAKE 2 TABLETS [...] in Arterial blood by Pulse oximetry Systolic And Diastolic Provider Name and Address Organization Details Last Updated DateTime 5 167.64 cm 40.2 kg/m2 956247. 5 g 67 /min 93 % 93 % 132/86 mm[Hg] Chaparrita Vivas [facility] 5 14:15:38 Date Recorded Body height Body mass index (BMI) Body weight Heart rate Oxygen saturation Oxygen saturation in Arterial blood by Pulse oximetry Systolic And Diastolic Provider Name and Address Organization Details Last Updated DateTime 3 168.28 cm 42.1 kg/m2 194342. 79 g 64 /min 98 % 98 % 120/80 mm[Hg] Bhumi Reeder [facility] 3 14:37:41 Date Recorded Body height Body mass index (BMI) Body weight Heart rate Respiratory rate Oxygen saturation Oxygen saturation in Arterial blood by Pulse oximetry Systolic And Diastolic Provider Name and Address Organization Details Last Updated DateTime 4 167.64 cm 43.4 kg/m2 607193. 35 g 68 /min 18 /min 99 % 99 % 110/66 mm[Hg] Lang Hastings [facility] 4 14:26:25 Date Recorded Body height Body mass index (BMI) Body weight Heart rate Oxygen saturation Oxygen saturation in Arterial blood by Pulse oximetry Systolic And Diastolic Provider Name and Address Organization Details Last Updated DateTime 2 168.28 cm 43.2 kg/m2 511003. 86 g 72 /min 97 % 97 % 120/72 mm[Hg] LAURA WATSON [address] [facility], [place], [address], [facility] 2 15:12:31 Date Recorded Body height Body mass index (BMI) Body weight Oxygen saturation Oxygen saturation in Arterial blood by Pulse oximetry Heart rate Systolic And Diastolic Provider Name and Address Organization Details Last Updated DateTime 2 168.28 cm 42 kg/m2 213577. 28 g 96 % 96 % 71 /min 118/72 mm[Hg] Jacki Penn [facility] 2 13:49:32 Social History Question Answer Notes LastModified by [employer] Details LastModified Time Tobacco Smoking Status Never Smoker Not Available [facility] 09/20/2020 03:36:23 What Was The Date Of Your Most Recent Tobacco Screening? 01/15/2025 [email or web address] Information not available 01/15/2025 How Much Tobacco Do You Smoke? No [id number] Information not available 09/20/2020 How Many Years Have You Smoked Tobacco? 0 [id number] Information not available 09/20/2020 Sex: Unknown Functional Status Question Answer Note LastModified by [employer] Details LastModified Time Do you or have you ever used any other forms of tobacco or nicotine? No [email or web address] Information not available 03/12/2022 Do you or have you ever used smokeless tobacco? Never used smokeless tobacco [id number] Information not available 09/20/2020 Do you or have you ever used e-cigarettes or vape? Never used electronic cigarettes [id number] Information not available 09/20/2020 Mental Status None recorded. Family History Nothing Reported. Medical History No medical history recorded. Gynecological History Statement/Question Response If Post Menopausal, Age at Menopause 53 Most Recent Mammogram 03/15/2025 Obstetrics History GPAL:G 0 P 0 0 0 0 Past Encounters Encounter ID Performer Location Encounter Start Date Encounter Closed Date Diagnosis/Indication Diagnosis SNOMED-CT Code Diagnosis ICD10 Code Diagnosis Note [id number] Timothy Coe DO [facility] [address] [facility],[place] [address] 08/26/2018 15:38:44 08/27/2018 16:41:55 Anxiety 45560144 F41.9 discussed self worth Hypothyroidism 00282516 E03.[address] Lopez- will have labs faxed here Migraine 69280656 G43.90 9 propranolo l helpful [id number] Timothy Coe [facility] [address] [facility],[place] [address] 01/02/2019 15:55:23 01/06/2019 08:42:54 Hypothyroidism 05371911 E03.9 Anxiety 62747864 F41.9 Partner re lationship problem 5718914712 100 Z63.0 has therapist and psychiatri st- see's regularly Right side sciatica 3202 534148 83033 M54.31 improving- follow [id number] Timothy Coe [facility] [address] [facility],[place] [address] 10/13/2019 09:30:06 10/13/2019 10:22:09 Hypothyroidism 61675336 E03.9 Superficia l thrombophlebitis 5884087 I80.9 seems to be resolving at this time no s/s suggestive of dvt zachary monitor Ganglion cyst 97316015 M 67.40 reassuranc e Shoulder joint pain 2679 70602 M25.519 Adult heal th examination 346966067 Z00.00 [id number] Timothy Coe [facility] [address] [facility],[address] [facility] [place] [address] 04/15/2020 13:25:05 04/15/2020 14:09:40 Hypothyroidism 96848465 E03.9 stable Essential tremor 7609175 09 G25.0 doing well Hypercholesterolemia 136 32542 E78.00 will recheck in a couple of months Moderate r ecurrent major depression 88956602 F33.1 working with therapist right now Bunion 547462361 M21.61 9 wrap the foot, take OTC pain medication when having the flare not interested in surgery Ganglion cyst 97347190 M 67.40 next to the cervical spine will try naproxen to help with possible inflammato ry process that may be feeding fluid increase and see if it helps will put in for referral it is still bothering her [id number] Timothy Coe [facility] [address], [place] [address] 07/13/2020 15:58:18 07/13/2020 16:20:50 Iron deficiency anemia 90457697 D50.9 will have her recheck iron labs and see where there at patient has since stopped taking iron supplement Screening for cardiovascular system disease 196385962 Z13.6 needs recheck in a few months will give her labs now Skin tag 564108351 L91.8 was able to remove by hand without complicati ons, just came off due to tissue necrosis, had no integrity left on left shoulder blade, next to neck Hypothyroidism 47801297 E03.9 will recheck TSH mildly elevated last time [id number] Timothy Coe [address], [place] [address] 03/24/2021 14:21:35 03/24/2021 14:53:16 Renewal of prescription 311107659 Z76.0 stable, labs look good Anxiety 60036616 F41.9 stable Hypothyroidism 48792971 E03.9 TSH stable at recheck [id number] Timothy Coe [address], [place] [address] 09/22/2021 14:23:20 09/22/2021 16:04:52 Skin lesion 70512131 L98.9 fu with dermatolog y Trigger fi nger of left hand 9288438965 6582288 M65.322 will hold on evaluation for now Constipation 19914703 K5 9.00 resolved [id number] Timothy Coe [facility] [address], [place] [address] 03/12/2022 15:00:38 03/12/2022 15:41:08 Candidal intertrigo 252310536 B37.2 will start treatment for the patient Skin tag 307930074 L91.8 left upper arm, skin tag removal Post-acute COVID-19 1119 288061 U07.1 improving [id number] Timothy Coe [facility] [address], [place] [address] 08/28/2022 13:40:43 08/28/2022 16:27:48 Hypothyroidism 10688155 E03.8 TSH stable at recheck Tongue discoloration 866 065489 K14.8 will send out Osteoarthritis 121535454 M15.0 will fu with refill of the naproxen Hypercholesterolemia 136 24500 E78.2 will recheck in a couple of months Pain of le ft hip joint 8050746195 21926 M25.552 will fu with XRs Low back pain 605752185 M54.59 will fu with XRs [id number] Timothy Coe [facility] [address] [facility] [address] [employer] [facility] [place] [address] 02/22/2023 14:24:45 02/22/2023 15:35:37 Moderate recurrent major depression 97979073 F33.1 working with therapist right now Anxiety 02401927 F41.1 stable now that she is on her medication s Obsessive- compulsive disorder 692065228 F42.8 stable now that she is on her medication s Nausea and vomiting 1693 1999 R11.2 agreed to UGI series [id number] Timothy Coe [facility] [address] [facility],[address] [employer] [facility] [address] 03/11/2024 14:15:25 03/11/2024 16:47:06 Anxiety 52517118 F41.1 stable Depressive disorder 3548 9007 F33.1 will talk to her psychiatri st about medication adjustment Hypercholesterolemia 136 88834 E78.2 will recheck in a couple of months Impaired f asting glycemia 279053437 R73.01 recheck levels Renewal of prescription 605103876 Z76.0 stable, labs look good Hypothyroidism 20031570 E03.8 TSH stable at recheck Dizziness 919291109 R42 needs level checked [id number] Timothy Coe [facility] [address] [facility] [address] [facility] [place] [address] 01/15/2025 14:03:38 01/15/2025 14:38:10 Obsessive-compulsive disorder 188458450 F42.8 stable now that she is on her medication s Anxiety 16558312 F41.1 stable Depressive disorder 3548 9007 F33.1 will talk to her psychiatri st about medication adjustment Essential tremor 5491126 09 G25.0 doing well Mass of pancreas 4855832 00 K86.89 will set up with MRI w/wo per ER recommenda tion Abdominal pain 85616856 R10.13 will set up with fu lab work and recheck urine Health Concerns Section Related Observation LastModified by Organization Detai ls LastModified Time None Recorded Concern Status LastModified by Organization Details LastModified Time None Recorded Advance Directives Directive None Recorded Payers Insurance Date Sequence Insurance Name Policy Number Policy Victor Covered Member ID Victor Member ID Guarantor Name 01/15/2025 2 [place] [employer] Alissa Benites Mekateddy [id number] Alissa Major 05/14/2025 1 [place] [employer] Alissa Gonsalves [id number] Alissa Ackermanteddy Notes Date Note Type Note Provider Name [...] the right breastgiven topical powder LAURA WATSON [address] [place] [address], [address], [facility] 03/12/2022 15:42:21 2 text/html c/o [...] againvery small right now LAURA WATSON [address] [place], [address], [facility] 08/28/2022 14:17:50 3 text/html hospital [...] declines endoscope and colonoscopy LAURA WATSON [address] [place], [address], [facility] 02/22/2023 14:58:44 4 text/html f/u [...] monitor needs lab work LAURA WATSON [address] [place], [address], [facility] 03/11/2024 15:07:36 5 text/html 1 [...] to drink more water LAURA WATSON [address] [place], [address], [facility] 01/15/2025 14:36:02 OBGyn Episode No OBEpisode recorded.
== END 2025-06-02 14:52 | disposition home or self-care (01) ==
LOC: HO.HSM 14:11
PROVIDERS: PCP Internal Medicine; Referring Provider Internal Medicine; Visit Provider Registered Nurse
DX: G43.909 Migraine, unspecified, not intractable, without status migrainosus (principal); G25.0 Essential tremor; G25.2 Other specified forms of tremor
CPT/HCPCS: 99214

== ENCOUNTER → 2025-06-02 14:11 | Outpatient (BNVA) | payer MEDICARE, MEDICAID, SELFPAY | PROVIDERS: PCP Internal Medicine; Referring Provider Internal Medicine; Visit Provider Registered Nurse | DX: G25.2 Other specified forms of tremor (principal); G43.909 Migraine, unspecified, not intractable, without status migrainosus; Z79.899 Other long term (current) drug therapy | CPT/HCPCS: 99212 ==